=== PATIENT | female | born 1935 | race Caucasian/White ===

== ENCOUNTER 2019-12-05 07:09 | Emergency (ER) | payer MEDICARE, SELFPAY ==
[2019-12-05 07:10] VITALS: BP 152/88; PULSE 101; RESP 18; TEMP 36.7; O2SAT 98; BMI 23.2
--- NOTE | 2019-12-05 07:16 | EKG12_ITS ---
Test Reason : Blood Pressure : / mmHG Vent. Rate : 092 BPM Atrial Rate : 092 BPM P-R Int : 150 ms QRS Dur : 074 ms QT Int : 342 ms P-R-T Axes : 055 018 042 degrees QTc Int : 422 ms Normal sinus rhythm Nonspecific ST and T wave abnormality Abnormal ECG Confirmed by JEAN HAAS, CHRISTINE ([id number]), primer expeditor and drier LORENA GUAN ([id number] on 12/07/2019 9:59:40 AM Referred By: JUAN Confirmed By:CHRISTINE PENA MD
--- NOTE | 2019-12-05 07:17 | RAD_ITS ---
STUDY: X-RAY - LUMBAR SPINE REASON FOR EXAM: Female, 84 years old. Low back pain. Fell out of bed this morning. TECHNIQUE: 3 view(s) of the lumbar spine were obtained. COMPARISON: None FINDINGS: Normal lumbar lordosis. There is no substantial scoliosis. There is a normal alignment of the vertebrae. L4-L5 disc space height narrowing with endplate sclerosis. Moderate L5-S1 disc space height narrowing. Normal vertebral bodies and endplates. Normal remaining lumbar disc space heights. Mild asymmetric L4-L5 degenerative facet arthropathy. Densa vascular calcifications of the abdominal aorta down to the common femoral arteries. RAD/Lumbar Spine 2 or 3 Views IMPRESSION: No suspicious acute fracture or malalignment of the lumbar spine. Electronically Signed: Cameron Clifton MD at 8:31 EDT , Service support ,
--- NOTE | 2019-12-05 07:19 | ED.VIS.GEN ---
History of Present Illness Chief Complaint: Back Informant: Patient Onset: Today Context: Sudden Onset Timing: Intermittent Quality: Pain Location: Posterior left lower extremity, greatest calf Current Severity: Mild Maximum Severity: Severe Worsened by: Pressure on left foot Relieved by: Supine Associated Symptoms: Unable to bear weight Narrative: Patient is an 84-year-old woman who arrived by squad because of back pain and left calf pain. Patient states when her children came home she was on the floor. She does not recall if she fell or passed out. She did admit to having a strong drink . She states she has a drink every night. She denies headache, neck pain, neck stiffness, paresthesia, anesthesia motors. She denies visual, ocular auditory symptoms. Denies trouble with speech or swallowing. She denies chest pain, shortness of breath or difficulty breathing. There is no history of nausea vomiting. She is wearing a depends diaper because of the antibiotic she was placed on. She was told that the antibiotic can cause diarrhea. She denies diarrhea. Movement causes pain in the left calf. She has not noted a rash. She denies bowel bladder dysfunction. She states she has not urinated. She feels she can urinate. She has not had loss of bowel control. Denies saddle paresthesia or anesthesia. Prior similar symptoms: No Recent Illness/Hospitalization: No Past Medical History - Allergies and Home Meds Allergies/Adverse Reactions: Allergies BEANS Allergy (Uncoded 12/05/19 07:28) Anaphylaxis Primary Care Physician: Al Atwood DO [Primary Care Provider] - Prior records reviewed: No - There are no prior records for review Surgical History: noncontributory Lives: With Family Smoking Status: Current every day smoker Alcohol: Occasional - States she has a drink every night Drugs: None Review of Systems General: Denies: Fever, Malaise Eyes: Denies: Visual changes - bilaterally, Blurred Vision - bilaterally ENT: Denies: Rhinorrhea, Sore throat Cardiovascular: Denies: Chest pain, Palpitations Respiratory: Denies: Dyspnea, Cough, Dyspnea on exertion Gastrointestinal: Denies: Abdominal pain, Nausea, Vomiting, Diarrhea, Melena, Hematochezia Genitourinary: Denies: Dysuria, Hematuria, Frequency Musculoskeletal: Reports: Back pain, Extremity Pain. Denies: Myalgias, Arthralgias, Neck pain, Swelling, -, - Skin: Denies: Rash, Wounds Neurological: Denies: Headache, Weakness, Parasthesia, Numbness, -, - Endocrine: Denies: Polyuria, Polydipsia Hematologic: Denies: Easy bruising, Easy bleeding Physical Exam Vital Signs/Narrative: Vital Signs Temp Pulse Resp BP Pulse Ox 12/05/19 07:10 98.0 F 101 H 18 152/88 H 98 Inital Vital Signs reviewed: Yes General: Well nourished, Well developed, No Acute Distress Eyes: Perrl, EOMI. Negative for: Pale conjunctiva, Scleral icterus ENT: No rhinorrhea. Negative for: Nasal congestion Neck: Supple, Nontender, No lymphadenopathy, No JVD Cardiovascular: Regular rate, Regular rhythm, No murmurs, Normal S1, Normal S2 Respiratory: No distress, CTA bilaterally, Chest nontender Abdomen: Soft, Nontender, Nondistended, Normal bowel sounds, - - Is no pain the patient of the pelvis. Rectal: Deferred Back: Normal Inspection, Spinal tenderness. Negative for: CVA tenderness Extremities: No edema, Tenderness - Tenderness left calf.. Negative for: Nontender Skin: Normal color, No rash, No Trauma. Negative for: Cyanosis, Diaphoresis, Jaundice Neurological: Alert, Oriented x3, Cranial nerves II-XII grossly intact, Normal Strength, Normal Sensation, Normal DTR, - - Right leg test is positive at 45 degrees on the left. Crossover test is negative. Patella and ankle reflex are 1+. EHL is intact but causes pain in the calf. She has normal sensation over L4 and L5 dermatome. She is able to plantar and dorsiflex against resistance. DP and PT pulse are palpable. Sensation is normal.. Negative for: Normal Gait Psychological: Normal affect, Normal Mood Diagnostic/Tx/Re-eval Chest X-Ray - ED: Read by ED Physician, - - 2 view x-ray of the left tibia-fibula reveals no evidence of fracture, subluxation or dislocation of the knee or ankle joint. 3 view x-ray of the LS-spine reveals degenerative changes with asymmetric disc spaces. There is calcification aorta and there is widening of the aorta (3.25 cm to 3.15 cm). Surgical clips are noted as well. There is no evidence of acute fracture. X-rays were interpreted by me at 0816. Films were viewed on the view box in the radiology suite. 12/05/19 07:17 Lumbar Spine 2 or 3 Views [RAD] Stat 12/05/19 07:21 Tibia & Fibula 2 Views [RAD] Stat Laboratory Results 12/05/19 12/05/19 12/05/19 07:28 07:28 07:28 WBC 8.0 RBC 3.78 L Hgb 12.9 Hct 38.9 MCV 102.9 H MCH 34.1 H MCHC 33.2 RDW Std Deviation 47.8 H RDW Coeff of Macho 12.7 Plt Count 235 MPV 9.2 Immature Gran % (Auto) 0.800 Neut % (Auto) 73.5 H Lymph % (Auto) 17.9 L Gates % (Auto) 5.5 Eos % (Auto) 2.0 Baso % (Auto) 0.3 Absolute Neuts (auto) 5.9 Absolute Lymphs (auto) 1.43 Nucleated RBC % 0 Sodium 145 Potassium 3.4 L Chloride 111 H Carbon Dioxide 27.0 Anion Gap 7 BUN 10 Creatinine 0.79 Estim Creat Clear Calc 30.08 Est GFR (MDRD) Af Amer 89 Est GFR (MDRD) Non-Af 73 BUN/Creatinine Ratio 12.6 Glucose 96 Calcium 8.7 Total Creatine Kinase 50 Ethyl Alcohol 12/05/19 07:28 WBC RBC Hgb Hct MCV MCH MCHC RDW Std Deviation RDW Coeff of Macho Plt Count MPV Immature Gran % (Auto) Neut % (Auto) Lymph % (Auto) Gates % (Auto) Eos % (Auto) Baso % (Auto) Absolute Neuts (auto) Absolute Lymphs (auto) Nucleated RBC % Sodium Potassium Chloride Carbon Dioxide Anion Gap BUN Creatinine Estim Creat Clear Calc Est GFR (MDRD) Af Amer Est GFR (MDRD) Non-Af BUN/Creatinine Ratio Glucose Calcium Total Creatine Kinase Ethyl Alcohol 39.0 - Rhythm Strip Rhythm Strip: Sinus Rhythm Rate: 88 Ectopy: None - EKG Initial EKG Interpretation: Sinus Rhythm - Sinus rhythm with a ventricular rate of 92. TX interval is 150 ms. QRS duration 74 ms. QT duration 342 ms. The axis is normal. There is nonspecific ST-T wave changes in the lateral leads. Will ask for old for comparison. The ST-T wave changes were noted on EKG performed May 17, 2004. - Medical Decision Making Patient has a sweet odor to her breath. This may be secondary to alcohol in light of her informing me that she had a strong drink last night. Will obtain images of the back and left leg to evaluate for fracture since there is a history of fall. Because she was on the floor for unknown amount of time and a CPK was obtained to evaluate for rhabdomyolysis. Basic metabolic panel was obtained to assess renal function since she was on the floor for prolonged period time as well as electrolytes. CBC to evaluate H&H. Since her neuro exam is nonfocal and she denies headache and is not on anticoagulant imaging of the head was not obtained. C-spine was cleared per Nexus criteria since she has no pain if she is lying supine on the cot. Prevoid bladder scan revealed greater than 1 L of urine. Postvoid was 928. She did void 300 cc. Mena was ordered. Once patient returns from radiology suite will perform rectal to rule out possibility of cauda equina otherwise will obtain stat MRI. Patient has normal perianal sensation. She has good rectal tone. Stool is brown in color. ED Disposition - Plan for ED Patient: Diagnosis: Fall as cause of accidental injury at home as place of occurrence, Contusion of lower back and pelvis, initial encounter, Pain of left calf, Alcohol use, Acute urinary retention, Abdominal aortic aneurysm (AAA) 30 to 34 mm in diameter Instructions: ED Contusion Back, ED Mena Catheter Care, ED Retention Urinary Female, ED Aneurysm Abdominal Aortic Stable Prescriptions: Hydrocodone Bitart/Apap 5-325 [[place] 5MG-325MG] 1 tab PO Q6H PRN PRN 3 Days #10 tab PRN Reason: Pain Prescription Printed Referrals: Al Atwood DO [Primary Care Provider] - 1 Week if not improving Ken Staley MD [STAFF PHYSICIAN] - 3-5 Days Additional Instructions: Contact Dr. Staley's office on Saturday to be seen later this coming week.
--- NOTE | 2019-12-05 07:21 | RAD_ITS ---
STUDY: X-RAY - LEFT TIBIA AND FIBULA REASON FOR EXAM: Female, 84 years old. Fell out of bed this morning -- posterior calf muscle pain TECHNIQUE: 2 view(s) of the tibia and fibula were obtained. COMPARISON: None. FINDINGS: Normal visualized tibia. Normal visualized fibula. The soft tissue structures are unremarkable. RAD/Tibia & Fibula 2 Views IMPRESSION: No suspicious acute fracture or dislocation of the left tibia and fibula. Electronically Signed: Cameron Clifton MD at 8:31 EDT , Service support ,
[2019-12-05] MEDS: Morphine 2 MG/ML Syringe IV (07:32)
[2019-12-05 07:37] LABS: Absolute Lymphocyte Count 1.43 X10^3/uL (0.83-4.51); Absolute Neutrophil Count 5.9 X10^3/uL (2.0-7.7); Basophil# 0.02 X10^3/uL; Basophil% 0.3 % (0-1); Eosinophil# 0.16 X10^3/uL; Hematocrit 38.9 % (37-47); Hemoglobin 12.9 g/dL (12.0-15.0); Lymphocyte # 1.43 X10^3/ul (4.0); Lymphocyte % 17.9 % (19-41); Mean Corp Hgb Conc 33.2 g/dL (32-36); Mean Corpuscular Hgb 34.1 pg (27.0-32.0); Mean Corpuscular Volume 102.9 fL (81-99); Mean Platelet Vol. 9.2 fl (6.2-12.0); Monocyte# 0.44 X10^3/uL; Monocyte% 5.5 % (0-10); NRBC Flagged by Analyzer 0 % (0-5); Neutrophil # 5.87 X10^3/uL (2.7-7.7); Neutrophil % 73.5 % (47-70); Platelet Count 235 K/mm3 (150-450); RBC Distribution Width CV 12.7 % (11.6-14.6); RBC Distribution Width SD 47.8 fl (35.1-43.9); Red Blood Count 3.78 M/mm3 (4.2-5.4)
[2019-12-05 07:48] LABS: Anion Gap 7 (5-15); BUN 10 mg/dL (7-18); BUN/Creat Ratio 12.6 RATIO (10-20); Calcium,Total 8.7 mg/dL (8.5-10.1); Chloride 111 mmol/L (98-107); Creatinine, Serum 0.79 mg/dL (0.55-1.02); EST Glomerular Filtration Rate 73 mL/min (>60); Est Glom Filt Rate - Afr Amer 89 mL/min (>60); Estimated Creatinine Clearance 30.08 ml/min; Glucose 96 mg/dL (74-106); Potassium 3.4 mmol/L (3.5-5.1); Sodium Level 145 mmol/L (136-145)
[2019-12-05 08:00] LABS: CPK Total, Creatine Kinase 50 U/L (26-192)
[2019-12-05] MEDS: Morphine 4 MG/ML Syringe IV (08:57)
[2019-12-05 09:02] VITALS: BP 139/73; PULSE 97; RESP 18; O2SAT 97
--- NOTE | 2019-12-05 09:24 | NURSING ---
hennessy hooked up to leg bag. pt instructed on use. this rn spoke to son, derick. verbalizes understanding.
== END 2019-12-05 09:30 | disposition home or self-care (01) ==
LOC: ED 08:47
PROVIDERS: Emergency Provider Emergency Medicine; PCP Nurse Practitioner Family
DX: S30.0XXA Contusion of lower back and pelvis, initial encounter (principal); W06.XXXA Fall from bed, initial encounter; Y93.9 Activity, unspecified; Y92.009 Unspecified place in unspecified non-institutional (private) residence as the place of occurrence of the external cause; M79.662 Pain in left lower leg; R33.9 Retention of urine, unspecified; I71.4 Abdominal aortic aneurysm, without rupture; F17.200 Nicotine dependence, unspecified, uncomplicated; Z72.89 Other problems related to lifestyle
CPT/HCPCS: 51702; 72100; 73590; 80048; 80320; 82550; 85025; 93005; 96374; 96376; 99285; A4216; G0480

== ENCOUNTER → 2020-04-20 16:05 | Outpatient (CLI) | payer MEDICARE, OTHER, SELFPAY ==
[2020-04-20 15:34] VITALS: BMI 23.2
[2020-04-20 18:43] LABS: ALB/GLOB Ratio 0.8 RATIO (0.9-2.4); AST(SGOT) 27 U/L (15-37); Alanine Aminotransfer ALT/SGPT 19 U/L (13-56); Albumin, Serum 3.5 g/dL (3.2-5.0); Alkaline Phosphatase 110 U/L (45-117); Anion Gap 3 (5-15); BUN 18 mg/dL (7-18); BUN/Creat Ratio 23.5 RATIO (10-20); Calcium,Total 9.1 mg/dL (8.5-10.1); Chloride 108 mmol/L (98-107); Creatinine, Serum 0.77 mg/dL (0.55-1.02); EST Glomerular Filtration Rate 76 mL/min (>60); Est Glom Filt Rate - Afr Amer 92 mL/min (>60); Globulin 4.2 g/dL (2.2-4.2); Glucose 91 mg/dL (74-106); Potassium 4.5 mmol/L (3.5-5.1); Protein, Total 7.7 g/dL (6.4-8.2); Sodium Level 142 mmol/L (136-145); Thyroid Stim Hormone (TSH) 1.46 uIU/mL (0.358-3.74)
== END ==
PROVIDERS: PCP Internal Medicine; Referring Provider Internal Medicine; Visit Provider Internal Medicine
DX: I10 Essential (primary) hypertension (principal); E03.9 Hypothyroidism, unspecified
CPT/HCPCS: 36415; 80053; 84443

== ENCOUNTER → 2020-10-28 09:24 | Outpatient (CLI) | payer MEDICARE, OTHER, SELFPAY ==
[2020-10-28 08:21] VITALS: BMI 25.2
[2020-10-28 12:29] LABS: Absolute Lymphocyte Count 1.95 X10^3/uL (0.83-4.51); Absolute Neutrophil Count 3.7 X10^3/uL (2.0-7.7); Basophil# 0.03 X10^3/uL; Basophil% 0.5 % (0-1); Eosinophil# 0.09 X10^3/uL; Eosinophils% 1.5 % (0-5); Hemoglobin 13.9 g/dL (12.0-15.0); Lymphocyte # 1.95 X10^3/ul (4.0); Lymphocyte % 31.6 % (19-41); Mean Corp Hgb Conc 31.6 g/dL (32-36); Mean Corpuscular Volume 101.1 fL (81-99); Mean Platelet Vol. 10.1 fl (6.2-12.0); Monocyte# 0.41 X10^3/uL; Monocyte% 6.6 % (0-10); NRBC Flagged by Analyzer 0 % (0-5); Neutrophil # 3.68 X10^3/uL (2.7-7.7); Neutrophil % 59.5 % (47-70); Platelet Count 299 K/mm3 (150-450); RBC Distribution Width SD 48.8 fl (35.1-43.9); Red Blood Count 4.35 M/mm3 (4.2-5.4); White Blood Count 6.2 K/mm3 (4.4-11.0)
[2020-10-28 12:37] LABS: AST(SGOT) 25 U/L (15-37); Alanine Aminotransfer ALT/SGPT 23 U/L (13-56); Albumin, Serum 3.8 g/dL (3.2-5.0); Alkaline Phosphatase 96 U/L (45-117); Anion Gap 4 (5-15); BUN 17 mg/dL (7-18); BUN/Creat Ratio 20.7 RATIO (10-20); Chloride 106 mmol/L (98-107); Creatinine, Serum 0.82 mg/dL (0.55-1.02); EST Glomerular Filtration Rate 70 mL/min (>60); Est Glom Filt Rate - Afr Amer 85 mL/min (>60); Globulin 3.8 g/dL (2.2-4.2); Glucose 103 mg/dL (74-106); Potassium 4.5 mmol/L (3.5-5.1); Protein, Total 7.6 g/dL (6.4-8.2); Sodium Level 141 mmol/L (136-145)
== END ==
PROVIDERS: PCP Internal Medicine; Referring Provider Internal Medicine; Visit Provider Internal Medicine
DX: R42 Dizziness and giddiness (principal); I10 Essential (primary) hypertension
CPT/HCPCS: 36415; 80053; 85025

== ENCOUNTER 2020-11-16 10:00 | Outpatient (RCR) | payer MEDICARE, OTHER, SELFPAY ==
[2020-10-28 08:21] VITALS: BMI 25.2
--- NOTE | 2020-11-07 14:21 | HP.PTEVAL_ITS ---
Patient's Visit Information PALAK MUHAMMAD is a 85 year old F referred to Physical Therapy by Dr. Bailey Cerna MD with a diagnosis of Dizziness, BLE pain. Date of Evaluation: 11/07/20 Physical Therapist: Mendel Salmon DPT - Visit Plan Frequency: 2x /Week Duration: 4 Weeks Plan: Start with B LE strengthening, progress walking program to increase general activity. Add in static and dynamic balance. Reasses for vestibular vs positional dizziness. - Subjective Pt. is here today for her initial evaluation with diagnosis of dizziness, and having leg pain. Pt. is here today with her daughter in law. Pt. reports pain in BLEs with walking, standing and stairs. She reports having dizziness periodically. Sometimes with getting up and rolling over and sometime when she is just walking. She moved in her with son and daughter in law about 4 years ago after her . Pt. and daughter in law report that she spends many hours in the day in bed, utpo 6-7 hours during the day in bed. She spends most of her time crocheting. She does not leave the house much during COVID, but is hopeful to get back to more outdoor activities. She uses 3 wheeled walker outside and no AD in home. She tends to furniture walk in home. 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 Noted BP elevated, but is taking medication for this. Pt. is hopeful to reduce BLE pain and her dizziness along with improving her balance. - Pain BLE Pain Intensity (Out of 10): 2 Pain Intensity Range: 0, 6 Comment: occassionlly in her L hip - Objective POSTURE: Pt. has slight flexed posture, unsteady without use of AD. Pt. tends to reachout for balance aide if available. PALPATION: Pt. has no pain with palpation of BLEs. NEURO: Pt. has normal sensation and normal DTR of B achilles and patellar tendons. I check VOR, saccades and eye tracking. No nystagmus noted, but did report mild dizziness with lateral eye tracking. I did have her do a eplys test- negative for initial dizziness, but did have some mild after ~10 sec, no nystagmus. ROM: Pt. has good ROM in B knees and hips, tightness not ed in B HS ~70deg in 90/90 positioning. MMT: Pt. has 4+/5 general BLEs strengthening , except: 5/5 B ankle PF; 4/5 hip abd. Ankle 4+/5 throughout. GAIT: pt. uses 3 wheeled walker with walking and has safe pattern. Without AD, patient is very hesitant to ambulate she attemps to reachout of railings and alford to help stabilize. Pt. has increased diffciutly with directional changes. - Balance Scores Functional Gait Assessment Score: 8 % Disability: 73.3400 CATSIB Score (Max score 120 seconds): 29 - Goals Goal 1:: LTG: Pt. to be I with HEP for BLE strengthening. Goal Time Frame: 4-6 Weeks Goal 2:: STG: Pt. to start a consistent walking program. Goal Time Frame: 2-4 Weeks Goal 3:: LTG: Pt. to report decreased occurance of dizziness to x1 daily. Goal Time Frame: 4-6 Weeks Goal 4:: LTG: pt. to have increased BLE strength including B hips and ankles by 1/2 grade of all effected musculature. Goal Time Frame: 4-6 Weeks Goal 5:: LTG: Pt. to increase FGA to 12/30 indicating reduced risk for future falls. Goal Time Frame: 4-6 Weeks Goal 6:: STG: Pt. to be re checked for positional vertigo vs other source of dizziness. Goal Time Frame: 4-6 Weeks - Rehabilitation Potential Physical Therapy Diagnosis: Pt. has signs and symptoms consistent with dizziness and BLE pain. She does present with balance issues as seen in her FGA score. I did not see much nystagmus with testing today, but I will re test next visit. She is overall deconditioned in her LEs, most likely due to her in activety. She would benefit from PT to work on BLE strengthening, balance and to re assess further vestibular vs positional issues. Rehabilitation Potential: Good - Anticipated Interventions Patient/Client Instruction: Educate patient on: Condition, Plan of Care, Risk Factors, Benefits of Fitness Program For the Purpose of:: To improve self management, To prevent re-injury, To imp rove ability to perform tasks related to life management, To improve tolerance to ADL's Therapeutic Exercise to Include: Strength training, Power training, Endurance training, Balance training, Coordination, Body mechanics, Postural training, Flexibilty training, Gait and locomotor training, Neuromotor development, Passive ROM, Active ROM For the Purpose of:: To increase ROM, To improve nutrient delivery to tissue, To increase oxygenation perfusion, To improve muscle performance and motor function, To improve ability to perform ADL's, To increase tolerance to activity/condition/position, To improve gait and locomotor functions, To improve health of tissue, To decrease soft tissue restriction, To increase flexibility/ROM, To improve endurance, To improve balance, To improve safety with gait Thank you for the opportunity to evaluate your patient. For Medicare and Medicare HMO plans, please review the plan of care and approve it. It will need to be FAXED BACK to us at [phone] for Medicare purposes. For Medicare only, by signing this I certify the plan of care. Please let me know if there are questions or concerns regarding this plan of care. Physician Signature: Date:
--- NOTE | 2021-01-18 13:20 | HP.PT.NRP ---
PALAK MUHAMMAD was seen in my office for initial evaluation on 11/07/20. The following Plan of Care was established for this patient: Initial Frequency: 2x /Week Initial Duration: 4 Weeks Patient/Client Instruction: Educate patient on: Condition, Plan of Care, Risk Factors, Benefits of Fitness Program For the Purpose of:: To improve self management, To prevent re-injury, To improve ability to perform tasks related to life management, To improve tolerance to ADL's Therapeutic Exercise to Include: Strength training, Power training, Endurance training, Balance training, Coordination, Body mechanics, Postural training, Flexibilty training, Gait and locomotor training, Neuromotor development, Passive ROM, Active ROM For the Purpose of:: To increase ROM, To improve nutrient delivery to tissue, To increase oxygenation perfusion, To improve muscle performance and motor function, To improve ability to perform ADL's, To increase tolerance to activity/condition/position, To improve gait and locomotor functions, To improve health of tissue, To decrease soft tissue restriction, To increase flexibility/ROM, To improve endurance, To improve balance, To improve safety with gait This patient was last seen in our office 11/16/20. Pertinent comments regarding their Physical therapy will appear below: Pt. was evaluated in PT and had a balance assessment. She did not attend any further appointments. PT. has not been seen in ~2 months and will be DC from PT at this point in time. At this point I will be discontinuing this patient from physical therapy. I would be happy to see this patient again in the future if found appropriate by the physician. Thank you! Mendel Salmon DPT
== END 2020-11-16 19:00 | disposition home or self-care (01) ==
LOC: PT 10:00
PROVIDERS: PCP Internal Medicine; Referring Provider Internal Medicine; Visit Provider Internal Medicine
DX: R42 Dizziness and giddiness (principal); R29.898 Other symptoms and signs involving the musculoskeletal system
CPT/HCPCS: 97161; 97530

== ENCOUNTER 2021-09-18 15:26 | Outpatient (CLI) | payer MEDICARE, OTHER, SELFPAY ==
[2021-09-18 16:55] LABS: Absolute Lymphocyte Count 2.32 X10^3/uL (0.83-4.51); Absolute Neutrophil Count 5.2 X10^3/uL (2.0-7.7); Basophil# 0.03 X10^3/uL; Basophil% 0.4 % (0-1); Eosinophil# 0.05 X10^3/uL; Eosinophils% 0.6 % (0-5); Hematocrit 44.7 % (37-47); Hemoglobin 15.2 g/dL (12.0-15.0); Lymphocyte # 2.32 X10^3/ul (0.83-4.51); Lymphocyte % 28.2 % (19-41); Mean Corpuscular Hgb 34.8 pg (27.0-32.0); Mean Corpuscular Volume 102.3 fL (81-99); Mean Platelet Vol. 9.9 fl (6.2-12.0); Monocyte# 0.64 X10^3/uL; Monocyte% 7.8 % (0-10); NRBC Flagged by Analyzer 0 % (0-5); Neutrophil # 5.15 X10^3/uL (2.7-7.7); Neutrophil % 62.5 % (47-70); Platelet Count 334 K/mm3 (150-450); RBC Distribution Width CV 12.1 % (11.6-14.6); RBC Distribution Width SD 45.6 fl (35.1-43.9); Red Blood Count 4.37 M/mm3 (4.2-5.4); White Blood Count 8.2 K/mm3 (4.4-11.0)
[2021-09-18 17:16] LABS: ALB/GLOB Ratio 0.9 RATIO (0.9-2.4); AST(SGOT) 25 U/L (15-37); Alanine Aminotransfer ALT/SGPT 17 U/L (13-56); Albumin, Serum 3.7 g/dL (3.2-5.0); Alkaline Phosphatase 102 U/L (45-117); Anion Gap 7 (5-15); BUN 15 mg/dL (7-18); BUN/Creat Ratio 16.9 RATIO (10-20); Chloride 104 mmol/L (98-107); Creatinine, Serum 0.89 mg/dL (0.55-1.02); EST Glomerular Filtration Rate 64 mL/min (>60); Est Glom Filt Rate - Afr Amer 78 mL/min (>60); Globulin 4.1 g/dL (2.2-4.2); Glucose 91 mg/dL (74-106); Potassium 3.7 mmol/L (3.5-5.1); Protein, Total 7.8 g/dL (6.4-8.2); Sodium Level 138 mmol/L (136-145); Thyroid Stim Hormone (TSH) 4.26 uIU/mL (0.358-3.74)
== END 2021-09-18 23:59 | disposition home or self-care (01) ==
LOC: BIMLAB 15:27
PROVIDERS: PCP Internal Medicine; Referring Provider Physician Assistant; Visit Provider Physician Assistant
DX: I10 Essential (primary) hypertension (principal); E03.9 Hypothyroidism, unspecified
CPT/HCPCS: 36415; 80053; 84443; 85025

== ENCOUNTER → 2021-12-14 | Outpatient (CLI) | payer MEDICARE, OTHER, SELFPAY ==
[2021-12-14 17:06] LABS: T4 Free Direct 1.38 ng/dL (0.76-1.46); Thyroid Stim Hormone (TSH) 3.01 uIU/mL (0.358-3.74)
== END | disposition home or self-care (01) ==
LOC: BIMLAB 15:25
PROVIDERS: PCP Internal Medicine; Referring Provider Physician Assistant; Visit Provider Physician Assistant
DX: E03.9 Hypothyroidism, unspecified (principal)
CPT/HCPCS: 36415; 84439; 84443

== ENCOUNTER → 2022-04-19 | Outpatient (CLI) | payer MEDICARE, OTHER, SELFPAY ==
--- NOTE | 2022-04-19 14:42 | CT_ITS ---
EXAMINATION: HELICAL COMPUTED TOMOGRAPHY OF THE BRAIN WITHOUT CONTRAST ADMINISTRATION OF 1449 HOURS ON 04/19/2022 INDICATION: 87-year-old female with a posterior left headache of one week''s duration. TECHNIQUE: Multiple axial images were obtained of the head without intravenous contrast. Sagittal and coronal reconstructions were obtained and all were demonstrated in osseous and soft tissue algorithms. A radiation dose optimization technique was used for this scan. COMPARISON: None. FINDINGS: Mild cortical, central, and cerebellar atrophy.. No midline shift. Mild periventricular ischemic changes, normal. Age. No ischemic or hemorrhagic cerebral infarct. No intracranial neoplasms or metastatic disease. No intracranial hemorrhage or hematomas. Normal sella and pituitary pituitary. Normal brainstem and posterior fossa. Normal calvarium and paranasal sinuses. CT/Brain/Head without Contrast IMPRESSION: 1. Mild cortical, central, cerebellar atrophy. 2. No infarcts, mass lesions, or metastatic disease. 3. No hemorrhage or hematomas. 4. No other intracranial pathology. 5. Normal calvarium and paranasal sinuses. Electronically Signed: Stefan Nixon MD at 16:24 EDT ,
== END | disposition home or self-care (01) ==
LOC: CT 14:34
PROVIDERS: PCP Internal Medicine; Visit Provider Internal Medicine
DX: I10 Essential (primary) hypertension (principal); R51.9 Headache, unspecified
CPT/HCPCS: 70450

== ENCOUNTER → 2022-07-25 | Outpatient (CLI) | payer MEDICARE, OTHER, SELFPAY ==
[2022-07-25 15:37] LABS: Absolute Lymphocyte Count 2.17 X10^3/uL (0.83-4.51); Absolute Neutrophil Count 3.8 X10^3/uL (2.0-7.7); Basophil# 0.05 X10^3/uL; Basophil% 0.8 % (0-1); Eosinophil# 0.06 X10^3/uL; Eosinophils% 0.9 % (0-5); Hematocrit 44.7 % (37-47); Lymphocyte # 2.17 X10^3/ul (0.83-4.51); Lymphocyte % 33.1 % (19-41); Mean Corp Hgb Conc 33.6 g/dL (32-36); Mean Corpuscular Hgb 34.4 pg (27.0-32.0); Mean Corpuscular Volume 102.5 fL (81-99); Mean Platelet Vol. 9.8 fl (6.2-12.0); Monocyte# 0.45 X10^3/uL; Monocyte% 6.9 % (0-10); NRBC Flagged by Analyzer 0 % (0-5); Neutrophil # 3.82 X10^3/uL (2.7-7.7); Neutrophil % 58.1 % (47-70); Platelet Count 297 K/mm3 (150-450); RBC Distribution Width CV 11.9 % (11.6-14.6); RBC Distribution Width SD 45.2 fl (35.1-43.9); Red Blood Count 4.36 M/mm3 (4.2-5.4); White Blood Count 6.6 K/mm3 (4.4-11.0)
[2022-07-25 15:55] LABS: Vitamin D,25 Hydroxy 76.6 ng/mL
[2022-07-25 16:08] LABS: Anion Gap 8 (5-15); BUN 14 mg/dL (7-18); BUN/Creat Ratio 17.4 RATIO (10-20); Calcium,Total 9.3 mg/dL (8.5-10.1); Chloride 104 mmol/L (98-107); EST Glomerular Filtration Rate 72 mL/min (>60); Est Glom Filt Rate - Afr Amer 87 mL/min (>60); Glucose 114 mg/dL (74-106); Potassium 4.1 mmol/L (3.5-5.1); Sodium Level 139 mmol/L (136-145)
== END | disposition home or self-care (01) ==
LOC: BIMLAB 12:12
PROVIDERS: PCP Internal Medicine; Referring Provider Internal Medicine; Visit Provider Internal Medicine
DX: I10 Essential (primary) hypertension (principal); E55.9 Vitamin D deficiency, unspecified
CPT/HCPCS: 36415; 80048; 82306; 85025

== ENCOUNTER → 2022-08-15 | Outpatient (CLI) | payer MEDICARE, OTHER, SELFPAY ==
--- NOTE | 2022-08-15 15:27 | BD_ITS ---
STUDY: DUAL ENERGY X-RAY ABSORPTIOMETRY / DXA REASON FOR EXAM: Female, 87 years old. Post menopausal TECHNIQUE: Bone Mineral Density (BMD) measurements of lumbar spine and bilateral hips were obtained. COMPARISON: None. FINDINGS: Lumbar Spine (L1-L4): g/cm2 (0.778) / T-score (-2.2) / Z-score (0.6) Findings are suggestive of osteopenia with a high fracture risk. Left Femur Total: g/cm2 (0.615) / T-score (-2.7) / Z-score (-0.3) Left Femoral Neck: g/cm2 (0.566) / T-score (-2.6) / Z-score (0.0) Right Femur Total: g/cm2 (0.536) / T-score (-3.3) / Z-score (-1.0) Right Femoral Neck: g/cm2 (0.531) / T-score (-2.9) / Z-score (0.3) BD/Dexa Bone Density Study IMPRESSION: The patient is considered osteoporotic as outlined below according to World Diogenes Organization (WHO) criteria with a high fracture risk. Reference Information: The T-score is the number of standard deviations above or below the standard which is normal for young adults at their peak bone mineral density. The World Health Organization (WHO) interprets the T-scores as follows: Above -1 Normal bone density Between -1 and -2.5 Osteopenia Equal to / or below -2.5 Osteoporosis As a practical clinical guideline, osteopenia may be graded as follows: Mild -1 through -1.5 Moderate -1.6 through -2.0 Severe -2.1 through -2.4 The Z-score is the number of standard deviations above or below age-matched controls. A Z-score of less than -1.5 would be considered abnormal. References: 1. NIH Osteoporosis and Related Bone Diseases www osteo.org 2. International Society for Clinical Densitometry www iscd.org 3. National Osteoporosis Foundation www nof.org Electronically Signed: Lc Nunez MD at 12:50 EST ,
== END | disposition home or self-care (01) ==
LOC: OPBD 15:17
PROVIDERS: PCP Internal Medicine; Visit Provider Internal Medicine
DX: M81.0 Age-related osteoporosis without current pathological fracture (principal); M85.80 Other specified disorders of bone density and structure, unspecified site; Z78.0 Asymptomatic menopausal state
CPT/HCPCS: 77080

== ENCOUNTER 2022-11-08 10:43 | Emergency (ER) | payer MEDICARE, OTHER, SELFPAY ==
[2022-11-08 10:44] VITALS: BP 165/81; PULSE 103; RESP 18; TEMP 36.3; O2SAT 98
[2022-11-08 10:53] VITALS: BMI 24.3
--- NOTE | 2022-11-08 11:04 | CT_ITS ---
STUDY: CT BRAIN WITHOUT CONTRAST REASON FOR EXAM: Female, 87 years old. Dizziness RADIATION DOSAGE (If Supplied By Facility): CTDIvol = ( 47.06 ) mGy, DLP = ( 855.03 ) mGycm TECHNIQUE: Transaxial CT imaging of the brain was performed without administration of intravenous contrast material. Individualized dose optimization techniques were used for this CT. COMPARISON: 04/19/2022 FINDINGS: There is no acute bleed or infarct. There are stable chronic ischemic and atrophic changes. The ventricles are normal in configuration. There is no hydrocephalus. The visualized paranasal sinuses are clear. The mastoid air cells are well aerated. There is no skull fracture. CT/Brain/Head without Contrast IMPRESSION: Stable chronic ischemic and atrophic changes. No acute intracranial abnormality. Electronically Signed: Billy Finney MD at 12:48 EDT ,
--- NOTE | 2022-11-08 11:04 | EKG12_ITS ---
Test Reason : DIZZY Blood Pressure : / mmHG Vent. Rate : 090 BPM Atrial Rate : 090 BPM P-R Int : 152 ms QRS Dur : 072 ms QT Int : 338 ms P-R-T Axes : 051 022 040 degrees QTc Int : 413 ms Normal sinus rhythm Nonspecific ST abnormality Abnormal ECG Confirmed by CHRISTINE HAAS, ALVAREZ ([id number]), telegraph editor HALEY MACDONALD ([id number]) on 11/12/2022 10:47:18 AM Referred By: Confirmed By:NANCY KING MD
--- NOTE | 2022-11-08 11:09 | EX.ED.DYSGE1 ---
HPI <CRISTAL Oliveira - Last Filed: 11/08/22 13:29> History of Present Illness Chief Complaint: Dizziness Narrative Narrative: Patient presenting to the day with dizziness that she describes as feeling like the room is spinning around her that started this morning when she got out of bed. She states that it is worsened when she goes to stand up but she also does have symptoms at rest when lying still. She states that she has a history of intermittent dizziness but it has never been this bad and she has never been diagnosed with vertigo. PMH includes hypertension and Graves' disease. She denies any chest pain, recent illness, fever, shortness of breath, abdominal pain, nausea, and vomiting. PFSH <CRISTAL Oliveira - Last Filed: 11/08/22 13:29> [facility] Medical History Dermatitis Dizziness Essential hypertension Flu vaccine need Graves disease Headache Hypothyroid Left axillary swelling Osteoporosis Post-menopausal Home Medications aspirin 81 mg tablet,delayed release (Adult Low Dose Aspirin) 81 mg PO DAILY 04/20/20 [History Last Taken Unknown] diphenoxylate-atropine 2.5 mg-0.025 mg tablet 1 tab PO Q6H PRN 04/20/20 [History Last Taken Unknown] multivitamin (One-A-Day Essential tablet) 1 tab PO QAM 04/20/20 [History Last Taken Unknown] losartan 100 mg tablet 100 mg PO DAILY #90 tabs 09/18/21 [Rx Last Taken Unknown] Handicap Placard #1 ea 11/03/21 [Rx Last Taken Unknown] ibuprofen 200 mg tablet (Advil) 200 mg PO Q4H PRN 04/17/22 [History Last Taken Unknown] cholecalciferol (vitamin D3) 25 mcg (1,000 unit) capsule 25 mcg PO DAILY 07/25/22 [History Last Taken Unknown] amlodipine 10 mg tablet 10 mg PO DAILY #90 tabs 07/30/22 [Rx Last Taken Unknown] alendronate 70 mg tablet 70 mg PO QWEEK 3 months #13 tabs 08/20/22 [Rx Last Taken Unknown] cholestyramine (with sugar) 4 gram oral powder 4 g PO BID 3 months #378 grams 08/20/22 [Rx Last Taken Unknown] levothyroxine 75 mcg tablet 75 mcg PO DAILY #90 tabs 09/27/22 [Rx Last Taken Unknown] meclizine 25 mg tablet 25 mg PO 4X/DAY PRN PRN Dizziness #20 tabs 11/08/22 [Rx Last Taken Unknown] Allergy/AdvReac Type Severity Reaction Status Date / Time mendez Allergy Anaphylaxis Verified 11/08/22 10:46 Surgical History H/O: hysterectomy Social History Smoking Status: Current every day smoker tobacco type: e-cigarettes Electronic Cigarette Use: without nicotine alcohol intake: current substance use type: does not use ROS <CRISTAL Oliveira - Last Filed: 11/08/22 13:29> ROS ED Constitutional Constitutional ED: Denies chills, fever(s) or sweats Eyes Eyes: Denies blurry vision or diplopia Cardiovascular Cardiovascular: Denies chest pain or palpitations Respiratory/Chest Respiratory/Chest: Denies cough or dyspnea Gastrointestinal Gastrointestinal: Denies abdominal pain, nausea or vomiting Genitourinary Genitourinary ED: Denies dysuria or hematuria Musculoskeletal Musculoskeletal: Denies arthralgias or myalgias Integumentary Denies abscess, Abrasions or rash Neurologic Neurologic: Reports dizziness; Denies confusion or paresthesias Psychiatric Psychiatric: Denies anxiety, depression, suicidal ideation or suicidal thoughts EXAM <CRISTAL Oliveira - Last Filed: 11/08/22 13:29> Physical Exam Const Vital Signs: 11/08/22 10:44 11/08/22 10:53 11/08/22 12:58 Temperature 97.4 F L Temperature Source Temporal Pulse Rate 103 H Pulse Rate [Lying] 100 Pulse Rate [Sitting (for 1 minute prior to obtaining)] 103 H Pulse Rate [Standing (for 1 minute prior to obtaining)] 110 H Respiratory Rate 18 Respiratory Effort Normal Non-Labored Respiratory Pattern Normal Blood Pressure 165/81 H Blood Pressure [Lying] 148/87 H Blood Pressure [Sitting (for 1 minute prior to obtaining)] 146/79 H Blood Pressure [Standing (for 1 minute prior to obtaining)] 149/90 H Blood Pressure Mean 109 Blood Pressure Mean [Lying] 107 Blood Pressure Mean [Sitting (for 1 minute prior to obtaining)] 101 Blood Pressure Mean [Standing (for 1 minute prior to obtaining)] 109 Pulse Ox 98 Oxygen Delivery Method Room Air Positive well nourished, well developed and no apparent distress General Appearance ED: well developed HEENT Reports normocephalic and head/scalp atraumatic Mouth ED: Yes moist mucous membranes normal Eyes PERRL and EOMs intact bilaterally Neck full ROM and supple Chest Wall inspection of chest normal Resp normal respiratory effort and clear to auscultation bilaterally Cardio regular rate and regular rhythm GI soft to palpation, non-tender, non-distended and no masses Back/Spine normal ROM and normal to inspection Extremity normal to inspection and full ROM Neuro oriented x3, CN's II-XII intact bilaterally, moves all extremities, no focal motor deficits and no sensory deficits noted Sensorium / Orientation: awake and alert Psych mental status grossly normal and thought process normal Skin no rashes or lesions noted and no wounds <Dr. Vazquez Gupta MD - Last Filed: 11/08/22 13:13> Physical Exam Const Vital Signs: 11/08/22 10:44 11/08/22 10:53 11/08/22 12:58 Temperature 97.4 F L Temperature Source Temporal Pulse Rate 103 H Pulse Rate [Lying] 100 Pulse Rate [Sitting (for 1 minute prior to obtaining)] 103 H Pulse Rate [Standing (for 1 minute prior to obtaining)] 110 H Respiratory Rate 18 Respiratory Effort Normal Non-Labored Respiratory Pattern Normal Blood Pressure 165/81 H Blood Pressure [Lying] 148/87 H Blood Pressure [Sitting (for 1 minute prior to obtaining)] 146/79 H Blood Pressure [Standing (for 1 minute prior to obtaining)] 149/90 H Blood Pressure Mean 109 Blood Pressure Mean [Lying] 107 Blood Pressure Mean [Sitting (for 1 minute prior to obtaining)] 101 Blood Pressure Mean [Standing (for 1 minute prior to obtaining)] 109 Pulse Ox 98 Oxygen Delivery Method Room Air MDM <CRISTAL Oliveira - Last Filed: 11/08/22 13:29> [facility] Narrative Medical decision making narrative: Patient presenting today with dizziness that started this morning when she woke up. She feels like the room is spinning around her. She states that it is worse when she tries to get up to ambulate but she also does have dizziness when lying still. Patient does however have a positive Hallpike. She reports having some queasiness in her stomach but does not want anything for nausea at this time. Labs have been obtained to rule out anemia, electrolyte abnormality, leukocytosis and patient has been given meclizine. Labs are unremarkable. Orthostats are negative. Head CT obtained due to the worsening of patient's dizziness to rule out intracranial abnormality and is negative for any acute changes. On reexamination she states that she is feeling a lot better and her dizziness has subsided substantially. Patient's examination is consistent with vertigo. I have reviewed previous notes with her PCP and she has been seen several times in the past for this issue. She will be given a prescription for meclizine as well as a referral for ENT. She will be discharged home in stable condition and is comfortable with plan. I have personally performed a face to face assessment of the patient and have reviewed the LAY Note. I performed a substantive portion of the visit including all aspects of the following. My enciso findings include: History is [87-year-old female that I am seeing with our physician social services assistant. Patient complaining of room spinning dizziness. Worse with movement head movement. Denies headache. Denies nausea vomiting or diarrhea. Able to ambulate. No weakness in her upper or lower extremities. No falls or head trauma. Prior history of vertigo.] Exam is [well-appearing 87-year-old female. Vital signs are stable afebrile. H EENT exam unremarkable. She has bilateral hearing aids. There is no significant wax in the canals. Neck nontender. Lungs are clear. Heart regular rhythm no murmur. Abdomen soft nontender. Moving all 4 extremities. Calves are nontender without edema or cords. Neurologically she is awake and alert with no focal motor deficits. She does have positive Hallpike with lying flat and turning her head to left and right sitting her up the dizziness gets worse. Her exam is consistent with vertigo. No signs of stroke.] Medical Decision Making [Labs, EKG and CT are unremarkable. Patient was treated with meclizine. She will be discharged home on meclizine with a prescription sent to her pharmacy. She is doing well on repeat exam at 1:10 PM. I spoke to both her and her daughter who she lives with.] Other additions or changes: [None] Lab Data Attestation: I reviewed the patient's lab results. Labs: Laboratory Results - last 24 hr 11/08/22 11/08/22 11:15 11:15 WBC 6.3 RBC 4.32 Hgb 14.4 Hct 43.5 MCV 100.7 H MCH 33.3 H MCHC 33.1 RDW Std Deviation 46.4 H RDW Coeff of Macho 12.4 Plt Count 262 MPV 9.2 Immature Gran % (Auto) 0.200 Neut % (Auto) 65.7 Lymph % (Auto) 26.1 Hamblen % (Auto) 6.6 Eos % (Auto) 1.1 Baso % (Auto) 0.3 Absolute Neuts (auto) 4.2 Absolute Lymphs (auto) 1.65 Nucleated RBC % 0 Sodium 141 Potassium 3.6 Chloride 105 Carbon Dioxide 26.0 Anion Gap 10 BUN 10 Creatinine 0.71 Estim Creat Clear Calc 28.47 Est GFR (MDRD) Af Amer 101 Est GFR (MDRD) Non-Af 83 BUN/Creatinine Ratio 14.2 Glucose 109 H Calcium 9.1 Radiography Diagnostic Testing: Clinical Impression(s) from Imaging Studies Brain CT 11/08/22 11:04 IMPRESSION: Stable chronic ischemic and atrophic changes. No acute intracranial abnormality. Electronically Signed: Billy Finney MD at 12:48 EDT , EKG Initial EKG: Comments: 90 bpm, normal sinus rhythm, no ST elevation, reviewed and interpreted by attending ED physician. <Dr. Vazquez Gupta MD - Last Filed: 11/08/22 13:13> [facility] Narrative Medical decision making narrative: Patient presenting today with dizziness that started this morning when she woke up. She feels like the room is spinning around her. She states that it is worse when she tries to get up to ambulate but she also does have dizziness when lying still. She reports having some queasiness in her stomach but does not want anything for nausea at this time. Labs have been obtained to rule out anemia, electrolyte abnormality, leukocytosis and patient has been given meclizine. On reexamination she states that she is feeling a lot better and her dizziness has subsided substantially. I have personally performed a face to face assessment of the patient and have reviewed the LAY Note. I performed a substantive portion of the visit including all aspects of the following. My enciso findings include: History is [87-year-old female that I am seeing with our physician social services assistant. Patient complaining of room spinning dizziness. Worse with movement head movement. Denies headache. Denies nausea vomiting or diarrhea. Able to ambulate. No weakness in her upper or lower extremities. No falls or head trauma. Prior history of vertigo.] Exam is [well-appearing 87-year-old female. Vital signs are stable afebrile. H EENT exam unremarkable. She has bilateral hearing aids. There is no significant wax in the canals. Neck nontender. Lungs are clear. Heart regular rhythm no murmur. Abdomen soft nontender. Moving all 4 extremities. Calves are nontender without edema or cords. Neurologically she is awake and alert with no focal motor deficits. She does have positive Hallpike with lying flat and turning her head to left and right sitting her up the dizziness gets worse. Her exam is consistent with vertigo. No signs of stroke.] Medical Decision Making [Labs, EKG and CT are unremarkable. Patient was treated with meclizine. She will be discharged home on meclizine with a prescription sent to her pharmacy. She is doing well on repeat exam at 1:10 PM. I spoke to both her and her daughter who she lives with.] Other additions or changes: [None] Lab Data Lab results narrative: CBC normal. Electrolytes unremarkable. CT of the brain unremarkable. Labs: Laboratory Results - last 24 hr 11/08/22 11/08/22 11:15 11:15 WBC 6.3 RBC 4.32 Hgb 14.4 Hct 43.5 MCV 100.7 H MCH 33.3 H MCHC 33.1 RDW Std Deviation 46.4 H RDW Coeff of Macho 12.4 Plt Count 262 MPV 9.2 Immature Gran % (Auto) 0.200 Neut % (Auto) 65.7 Lymph % (Auto) 26.1 Hamblen % (Auto) 6.6 Eos % (Auto) 1.1 Baso % (Auto) 0.3 Absolute Neuts (auto) 4.2 Absolute Lymphs (auto) 1.65 Nucleated RBC % 0 Sodium 141 Potassium 3.6 Chloride 105 Carbon Dioxide 26.0 Anion Gap 10 BUN 10 Creatinine 0.71 Estim Creat Clear Calc 28.47 Est GFR (MDRD) Af Amer 101 Est GFR (MDRD) Non-Af 83 BUN/Creatinine Ratio 14.2 Glucose 109 H Calcium 9.1 Radiography Diagnostic Testing: Clinical Impression(s) from Imaging Studies Brain CT 11/08/22 11:04 IMPRESSION: Stable chronic ischemic and atrophic changes. No acute intracranial abnormality. Electronically Signed: Billy Finney MD at 12:48 EDT Reading Location ID and State: [facility] / [place] Tel , Service support , Discharge Plan Triage Chief Complaint: Dizziness ED Midlevel Provider: Usha Krueger ED Provider: Vazquez Gupta Dx/Rx/DC Orders Clinical Impression: Hypertension, Dizziness, Vertigo Instructions: BPPV Prescriptions: New meclizine 25 mg tablet 25 mg PO 4X/DAY PRN PRN (Reason: Dizziness) Qty: 20 0RF No Action aspirin [Adult Low Dose Aspirin] 81 mg tablet,delayed release (DR/EC) 81 mg PO DAILY multivitamin [One-A-Day Essential] Tablet 1 tab PO QAM diphenoxylate-atropine 2.5-0.025 mg tablet 1 tab PO Q6H PRN losartan 100 mg tablet 100 mg PO DAILY Qty: 90 3RF ibuprofen [Advil] 200 mg tablet 200 mg PO Q4H PRN cholecalciferol (vitamin D3) 25 mcg (1,000 unit) capsule 25 mcg PO DAILY (DME) Handicap Placard See Rx Instructions .ROUTE .MEDSUPPLY Qty: 1 0RF Rx Instructions: As directed, length of time 3 years amlodipine 10 mg tablet 10 mg PO DAILY Qty: 90 3RF cholestyramine (with sugar) 4 gram powder 4 g PO BID 90 Days Qty: 378 3RF Rx Instructions: administer w/meal; avoid other meds within 1hr before or 4-6hr after dose alendronate 70 mg tablet 70 mg PO QWEEK 90 Days Qty: 13 2RF levothyroxine 75 mcg tablet 75 mcg PO DAILY Qty: 90 3RF Primary Care Provider: Bailey Cerna Referrals: Bartolo Beal MD [Med Staff - Active Staff] - Bailey Cerna MD [Primary Care Provider] - 3-5 Days Activity Restrictions/Additional Instructions: Please follow-up with your PCP and return for any worsening symptoms. Disposition Disposition: Home, Self Care
[2022-11-08] MEDS: Meclizine HCl 25 MG Tablet PO (11:11)
[2022-11-08 11:26] LABS: Absolute Lymphocyte Count 1.65 X10^3/uL (0.83-4.51); Absolute Neutrophil Count 4.2 X10^3/uL (2.0-7.7); Basophil# 0.02 X10^3/uL; Basophil% 0.3 % (0-1); Eosinophil# 0.07 X10^3/uL; Eosinophils% 1.1 % (0-5); Hematocrit 43.5 % (37-47); Hemoglobin 14.4 g/dL (12.0-15.0); Lymphocyte # 1.65 X10^3/ul (0.83-4.51); Lymphocyte % 26.1 % (19-41); Mean Corp Hgb Conc 33.1 g/dL (32-36); Mean Corpuscular Hgb 33.3 pg (27.0-32.0); Mean Corpuscular Volume 100.7 fL (81-99); Mean Platelet Vol. 9.2 fl (6.2-12.0); Monocyte# 0.42 X10^3/uL; Monocyte% 6.6 % (0-10); NRBC Flagged by Analyzer 0 % (0-5); Neutrophil # 4.16 X10^3/uL (2.7-7.7); Neutrophil % 65.7 % (47-70); Platelet Count 262 K/mm3 (150-450); RBC Distribution Width CV 12.4 % (11.6-14.6); RBC Distribution Width SD 46.4 fl (35.1-43.9); Red Blood Count 4.32 M/mm3 (4.2-5.4); White Blood Count 6.3 K/mm3 (4.4-11.0)
[2022-11-08 11:32] LABS: Anion Gap 10 (5-15); BUN 10 mg/dL (7-18); BUN/Creat Ratio 14.2 RATIO (10-20); Calcium,Total 9.1 mg/dL (8.5-10.1); Chloride 105 mmol/L (98-107); Creatinine, Serum 0.71 mg/dL (0.55-1.02); EST Glomerular Filtration Rate 83 mL/min (>60); Est Glom Filt Rate - Afr Amer 101 mL/min (>60); Estimated Creatinine Clearance 28.47 ml/min; Glucose 109 mg/dL (74-106); Potassium 3.6 mmol/L (3.5-5.1); Sodium Level 141 mmol/L (136-145)
[2022-11-08 12:45] VITALS: BP 142/82; PULSE 99; RESP 20; O2SAT 97
[2022-11-08 12:58] VITALS: BP 146/79; BP 148/87; BP 149/90; PULSE 100; PULSE 103; PULSE 110
== END 2022-11-08 13:30 | disposition home or self-care (01) ==
PROVIDERS: Physician Assistant; Emergency Provider Emergency Medicine; PCP Internal Medicine; Visit Provider Emergency Medicine
DX: R42 Dizziness and giddiness (principal); I10 Essential (primary) hypertension; E05.00 Thyrotoxicosis with diffuse goiter without thyrotoxic crisis or storm; F17.290 Nicotine dependence, other tobacco product, uncomplicated; Z79.82 Long term (current) use of aspirin; Z79.899 Other long term (current) drug therapy
CPT/HCPCS: 70450; 80048; 85025; 93005; 99283; A4216

== ENCOUNTER → 2023-05-06 | Outpatient (CLI) | payer MEDICARE, OTHER, SELFPAY ==
[2023-05-06 17:59] LABS: ALB/GLOB Ratio 0.9 RATIO (0.9-2.4); AST(SGOT) 27 U/L (15-37); Alanine Aminotransfer ALT/SGPT 22 U/L (13-56); Albumin, Serum 3.5 g/dL (3.2-5.0); Alkaline Phosphatase 93 U/L (45-117); Anion Gap 7 (5-15); BUN 15 mg/dL (7-18); BUN/Creat Ratio 19.5 RATIO (10-20); Calcium,Total 8.9 mg/dL (8.5-10.1); Chloride 105 mmol/L (98-107); Creatinine, Serum 0.77 mg/dL (0.55-1.02); EST Glomerular Filtration Rate 75 mL/min (>60); Est Glom Filt Rate - Afr Amer 91 mL/min (>60); Globulin 3.9 g/dL (2.2-4.2); Glucose 89 mg/dL (74-106); Potassium 4.4 mmol/L (3.5-5.1); Protein, Total 7.4 g/dL (6.4-8.2); Sodium Level 138 mmol/L (136-145); Thyroid Stim Hormone (TSH) 1.93 uIU/mL (0.358-3.74)
== END | disposition home or self-care (01) ==
LOC: BIMLAB 15:53
PROVIDERS: PCP Internal Medicine; Visit Provider Internal Medicine
DX: E03.9 Hypothyroidism, unspecified (principal); I10 Essential (primary) hypertension
CPT/HCPCS: 36415; 80053; 84443

== ENCOUNTER → 2023-09-26 | Outpatient (CLI) | payer MEDICARE, OTHER, SELFPAY ==
[2023-09-26 17:01] LABS: Absolute Lymphocyte Count 1.83 X10^3/uL (0.83-4.51); Absolute Neutrophil Count 4.5 X10^3/uL (2.0-7.7); Basophil# 0.04 X10^3/uL; Basophil% 0.6 % (0-1); Eosinophil# 0.11 X10^3/uL; Eosinophils% 1.6 % (0-5); Hematocrit 42.8 % (37-47); Hemoglobin 14.2 g/dL (12.0-15.0); Lymphocyte # 1.83 X10^3/ul (0.83-4.51); Lymphocyte % 26.1 % (19-41); Mean Corp Hgb Conc 33.2 g/dL (32-36); Mean Corpuscular Hgb 33.8 pg (27.0-32.0); Mean Corpuscular Volume 101.9 fL (81-99); Mean Platelet Vol. 9.8 fl (6.2-12.0); Monocyte# 0.52 X10^3/uL; Monocyte% 7.4 % (0-10); NRBC Flagged by Analyzer 0 % (0-5); Neutrophil # 4.47 X10^3/uL (2.7-7.7); Neutrophil % 63.6 % (47-70); Platelet Count 316 K/mm3 (150-450); RBC Distribution Width CV 12.4 % (11.6-14.6); RBC Distribution Width SD 47.2 fl (35.1-43.9)
[2023-09-26 17:19] LABS: Vitamin D,25 Hydroxy 75.3 ng/mL
[2023-09-26 17:27] LABS: ALB/GLOB Ratio 0.9 RATIO (0.9-2.4); AST(SGOT) 27 U/L (15-37); Alanine Aminotransfer ALT/SGPT 22 U/L (13-56); Albumin, Serum 3.6 g/dL (3.2-5.0); Alkaline Phosphatase 96 U/L (45-117); Anion Gap 8 (5-15); BUN 16 mg/dL (7-18); BUN/Creat Ratio 18.6 RATIO (10-20); Calcium,Total 9.4 mg/dL (8.5-10.1); Chloride 107 mmol/L (98-107); Cholesterol 214 mg/dL (200); Creatinine, Serum 0.86 mg/dL (0.55-1.02); EST Glomerular Filtration Rate 66 mL/min (>60); Est Glom Filt Rate - Afr Amer 80 mL/min (>60); Globulin 3.9 g/dL (2.2-4.2); Glucose 92 mg/dL (74-106); High Density Lipoprotein 91 mg/dL; Potassium 3.8 mmol/L (3.5-5.1); Protein, Total 7.5 g/dL (6.4-8.2); Sodium Level 140 mmol/L (136-145); Thyroid Stim Hormone (TSH) 2.29 uIU/mL (0.358-3.74); Triglycerides 170 mg/dL; Very Low Density Lipoprotein 34 mg/dL (5-40)
--- OUTSIDE RECORDS SUMMARY | 2023-09-26 20:18 | XMS RPT_ITS | CCD ---
Author Name Unknown Address [address] [place] [address] Organization [facility] Care Team Providers Care Road Test Examiner Name Role Phone Issa Paige Primary Care Provider Al Atwood Primary Care Provider Allergies Allergy Classification Reported Allergen(s) Allergy Type Date of Onset Reaction(s) Facility (1 source) Azithromycin Drug Allergy 12-03-2011 [facility] Problems Active Problems Problem Classification Problem Date Documented Da te Episodic/Chronic Complications of surgical procedures or medical care (1 source) Postablative hypothyroidism; 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] Onset: 01-22-2010 03-16-2013 Chronic Disorders of lipid metabolism (1 source) Hyperlipidemia; Translations: [Hyperlipidemia] 10-23-2012 Chronic Essential hypertension (1 source) Hypertensive disorder; Translations: [Hypertension] Onset: 03-16-2013 03-16-2013 Chronic Other gastrointestinal disorders (1 source) Irritable bowel syndrome with diarrhea; Translations: [Irritable bowel syndrome with diarrhea] Onset: 07-15-2009 03-16-2013 Chronic Thyroid disorders (1 source) Thyroid eye disease; Translations: [Thyroid eye disease] 10-23-2012 Chronic Past or Other Problems Problem Classification Problem Date Documented Da te Episodic/Chronic Other bone disease and musculoskeletal deformities (1 source) Osteopenia; Translations: [Osteopenia] Onset: 03-16-2013 03-16-2013 Episodic Results Test Name Value Interpretation Reference Range Facil ity Encounters Encounter Date Encounter Type Care Provider Facility Start: 03-23-2002 End: 03-23-2002 Patient encounter procedure Pan Springer Work Phone: [facility] Start: 03-23-2002 Results Only Pan Clay on [facility] Phone[facility] Procedures Date Procedure Procedure Detail Performing Clinician Start: 03-26-2002 CONVERTED SURGICAL PATHOLOGY Pan Springer Work Phone: Start: 03-23-2002 CONVERTED CYTOLOGY LOSS MITIGATION SPECIALIST Pan Springer Work Phone: Plan of Treatment Date Care Activity Detail Author Start: 04-12-2020 Influenza vaccination INFLUENZA (#1) [facility] Start: 08-30-2012 DIABETES SCREEN DIABETES SCREEN [facility] Start: 01-24-2000 ADVANCE DIRECTIVE DISCUSSION ADVANCE DIRECTIVE DISCUSSION [facility] Start: 01-24-2000 BONE DENSITY BONE DENSITY [facility] Start: 1985 SHINGRIX VACCINE (1 of 2) PEREZ GRIX VACCINE (1 of 2) [facility] Start: 1954 Urine microalbumin profile DTAP,TDAP ,TD (1 - Tdap) [facility] Payers Date Payer Category Payer Medicare MEDICARE MEDICAR E B [id number] 2000-2009 [place], [place] Medicare [id number] Social History Date Type Detail Facility Tobacco smoking status NHIS Unknown if ev er smoked [facility] Sex Assigned At Not on file [facility] Summary Purpose Family History No Family History Records Found Advance Directives No Advanced Directives Records Found History of Past Illness Problem Noted Date Resolved Date ACUTE GASTRITIS W/O HEMORRHAGE 07/29/2009 0 03/16/2013 Additional Source Comments INFORMATION SOURCE (unrecogn ized section and content) Source Comments (unrecognize d section and content) In the event this informatio n is protected by the Federal Confidentiality of Alcohol and Drug Abuse Patient Records regulations: The Federal rules restrict any use of the information to criminally investigate or prosecute any alcohol or drug abuse patient.[facility] FOR RECORDS PERTAINING TO PATIENTS WHO ARE OR HAVE BEEN ENROLLED IN A CHEMICAL DEPENDENCY/SUBSTANCEABUSE PROGRAM, SOME INFORMATION MAY BE OMITTED. This clinical summary was aggregated from multiple sources. Caution should be exercised in using it in the provision of clinical care. This summary normalizes information from multiple sources, and as a consequence, information in this document may materially change the coding, format and clinical context of patient data. In addition, data may be omitted in some cases. CLINICAL DECISIONS SHOULD BE BASED ON THE PRIMARY CLINICAL RECORDS. [facility] [employer] [facility]. provides no warranty or guarantee of the accuracy or completeness of information in this document.
== END | disposition home or self-care (01) ==
LOC: BIMLAB 14:37
PROVIDERS: PCP Internal Medicine; Referring Provider Internal Medicine; Visit Provider Internal Medicine
DX: I10 Essential (primary) hypertension (principal); M81.0 Age-related osteoporosis without current pathological fracture
CPT/HCPCS: 36415; 80053; 80061; 82306; 84443; 85025

== ENCOUNTER → 2024-02-17 | Outpatient (CLI) | payer MEDICARE, OTHER, SELFPAY ==
[2024-02-17 15:10] LABS: ALB/GLOB Ratio 0.9 RATIO (0.9-2.4); AST(SGOT) 24 U/L (15-37); Alanine Aminotransfer ALT/SGPT 15 U/L (13-56); Albumin, Serum 3.6 g/dL (3.2-5.0); Alkaline Phosphatase 86 U/L (45-117); Anion Gap 6 (5-15); BUN 12 mg/dL (7-18); BUN/Creat Ratio 14.4 RATIO (10-20); Calcium,Total 9.2 mg/dL (8.5-10.1); Chloride 105 mmol/L (98-107); Creatinine, Serum 0.83 mg/dL (0.55-1.02); EST Glomerular Filtration Rate 69 mL/min (>60); Est Glom Filt Rate - Afr Amer 83 mL/min (>60); Globulin 4.1 g/dL (2.2-4.2); Glucose 93 mg/dL (74-106); Potassium 4.6 mmol/L (3.5-5.1); Protein, Total 7.7 g/dL (6.4-8.2); Sodium Level 138 mmol/L (136-145)
== END | disposition home or self-care (01) ==
PROVIDERS: PCP Internal Medicine; Referring Provider Internal Medicine; Visit Provider Internal Medicine
DX: I49.9 Cardiac arrhythmia, unspecified (principal)
CPT/HCPCS: 36415; 80053

== ENCOUNTER → 2024-03-30 | Outpatient (CLI) | payer MEDICARE, OTHER, SELFPAY ==
[2024-03-30 20:16] LABS: Anion Gap 6 (5-15); BUN 15 mg/dL (7-18); BUN/Creat Ratio 19.7 RATIO (10-20); Calcium,Total 9.5 mg/dL (8.5-10.1); Chloride 105 mmol/L (98-107); Creatinine, Serum 0.76 mg/dL (0.55-1.02); EST Glomerular Filtration Rate 76 mL/min (>60); Est Glom Filt Rate - Afr Amer 92 mL/min (>60); Glucose 101 mg/dL (74-106); Potassium 4.6 mmol/L (3.5-5.1); Sodium Level 139 mmol/L (136-145)
== END | disposition home or self-care (01) ==
LOC: BIMLAB 14:56
PROVIDERS: PCP Internal Medicine; Referring Provider Internal Medicine; Visit Provider Internal Medicine
DX: I49.9 Cardiac arrhythmia, unspecified (principal)
CPT/HCPCS: 36415; 80048

== ENCOUNTER → 2024-05-01 | Outpatient (CLI) | payer MEDICARE, OTHER, SELFPAY ==
--- NOTE | 2024-05-01 07:47 | ECHOD_ITS ---
Reason For Study: Arrhythmia Procedure This was a 2D Doppler, Color Flow transthoracic echocardiogram. Technically difficult due to patients body habitus. Images taken in left lateral and supine positions. Exam performed in department. Left Ventricle Normal LV size. Left ventricular systolic function is normal. The left ventricular ejection fraction is 65 %. Stage 1 diastolic dysfunction. No regional wall motion abnormalities noted. Right Ventricle Normal RV size. Normal systolic function. Atria Normal left atrium. Normal right atrium. Mitral Valve Normal mitral valve. Tricuspid Valve Normal tricuspid valve. Mild tricuspid valve insufficiency. Pulmonary artery systolic pressure is 34 mmHg. Aortic Valve Trisinus/trileaflet aortic valve. Mild focal aortic valve calcification. Pulmonic Valve Normal pulmonic valve. Great Vessels Normal aortic root. The pulmonary artery is normal size. Inferior vena cava collapse with respiration. Pericardium/Pleural Epicardial fat. MMode/2D Measurements & Calculations LVIDd: 4.5 cm IVSd: 1.4 cm Ao root diam: 3.2 cm LVIDs: 2.8 cm LVPWd: 1.0 cm LA dimension: 3.4 cm RVDd: 2.9 cm FS: 37.6 % LAV(MOD-bp): 40.5 ml LVAd ap4: 15.2 cm2 SV(MOD-sp4): 19.9 ml LAV(MOD-bp) Indexed: 27.8 ml/m2 LVLd ap4: 5.2 cm LAV(MOD-sp2): 46.8 ml EDV(MOD-sp4): 35.8 ml LAV(MOD-sp4): 28.6 ml EDV(sp4-el): 38.0 ml LVAs ap4: 8.9 cm2 LVLs ap4: 4.8 cm ESV(MOD-sp4): 15.9 ml ESV(sp4-el): 14.1 ml EF(MOD-sp4): 55.6 % EF(sp4-el): 63.0 % SV(sp4-el): 24.0 ml Ao sinus diam: 3.[address] Junction: 2.5 cm LA A4 area: 11.9 cm2 RA A4 area: 10.2 cm2 Time Measurements MV dec time: 0.22 sec Doppler Measurements & Calculations MV E max kendall: 51.1 cm/sec Lat Peak E' Kendall: 4.3 cm/sec Med Peak E' Kendall: 3.1 cm/sec MV A max kendall: 83.8 cm/sec E/E' lat: 12.0 E/E' med: 16.7 MV E/A: 0.61 MV V2 max: 111.2 cm/sec MV P1/2t max kendall: 74.5 cm/sec Ao V2 max: 141.3 cm/sec MV max P.9 mmHg MV P1/2t: 92.6 msec Ao max P.0 mmHg MV V2 mean: 60.2 cm/sec MV dec slope: 235.7 cm/sec2 Ao V2 mean: 89.7 cm/sec MV mean P.7 mmHg Ao mean P.8 mmHg MV V2 VTI: 18.4 cm MVA(P1/2t): 2.4 cm2 Ao V2 VTI: 27.1 cm LV V1 max: 127.1 cm/sec PA V2 max: 96.4 cm/sec TR max kendall: 273.9 cm/sec LV V1 max P.5 mmHg PA max PG (full): 1.2 mmHg TR max P.0 mmHg ECHO/Echo Complete Interpretation Summary Normal LV size. Left ventricular systolic function is normal. The left ventricular ejection fraction is 65 %. Stage 1 diastolic dysfunction. Epicardial fat. Mild tricuspid valve insufficiency. Ordering Physician: Eric Rubio Referring Physician: Bailey Cerna Performed By: Kei Dunne RCS
== END | disposition home or self-care (01) ==
PROVIDERS: PCP Internal Medicine; Referring Provider Internal Medicine Cardiovascular Disease; Visit Provider Internal Medicine Cardiovascular Disease
DX: R94.31 Abnormal electrocardiogram [ECG] [EKG] (principal); R00.0 Tachycardia, unspecified; R00.2 Palpitations; L02.91 Cutaneous abscess, unspecified
CPT/HCPCS: 87070; 87205; 93306

== ENCOUNTER → 2024-05-05 | Outpatient (CLI) | payer MEDICARE, OTHER, SELFPAY | END | disposition home or self-care (01) | LOC: LABSPEC 11:11 | PROVIDERS: PCP Internal Medicine; Visit Provider Surgery Plastic and Reconstructive Surgery | DX: L02.01 Cutaneous abscess of face (principal) | CPT/HCPCS: 87070; 87077; 87205 ==

== ENCOUNTER 2024-05-08 11:27 | Emergency (ER) | payer MEDICARE, OTHER, SELFPAY ==
[2024-05-08] VITALS (8 sets, daily range): BP systolic 100–126; BP diastolic 56–86; PULSE 96–111; RESP 17–22; TEMP 36.6–37.1; O2SAT 90–99; BMI 22.7
--- NOTE | 2024-05-08 12:30 | EDS_ITS ---
HPI History of Present Illness Chief Complaint: Cellulitis Informant: patient and family Narrative Narrative: 89-year-old female had an infection in her face left cheek, it was drained and she was put on antibiotics but the culture recently came back and so the an tibiotic was modified to penicillin, she took the first pill today, and within 20 minutes she felt itchy and red all over. She denies any presyncope or syncope. She denies any edema. She has pre-existing numbness in both of her feet that is no different and pre-existing pain in her right hip that is a little worse than it was. No tongue swelling. No throat swelling. No dyspnea. No other symptoms. She states the wound is doing well and she was seen at plastics office today and had it repacked. [facility] Medical History Hypertension Osteoarthritis Chest pain Lung nodule seen on imaging study Arrhythmia Skin cyst Balance problems Parathyroid cancer Osteoporosis Left axillary swelling Dermatitis Dizziness Headache Graves disease Essential hypertension Hypothyroid Home Medications ?Medication ?Instructions ?Recorded ?Last Taken ?Type multivitamin (One-A-Day Essential 1 tab PO QAM 04/20/20 Unknown History tablet) Handicap Placard #1 ea 11/03/21 Unknown Rx cholecalciferol (vitamin D3) 25 25 mcg PO DAILY 07/25/22 Unknown History mcg (1,000 unit) capsule cholestyramine (with sugar) 4 gram See Rx Instructions .Route 08/30/23 Unknown Rx oral powder .COMPLEX #1,134 grams alendronate 70 mg tablet 70 mg PO QWEEK 01/23/24 Unknown History levothyroxine 75 mcg tablet 75 mcg PO DAILY 01/23/24 Unknown History (Euthyrox) losartan 100 mg tablet 100 mg PO DAILY 01/23/24 Unknown History amlodipine 10 mg tablet 10 mg PO DAILY #90 tabs 04/21/24 Unknown Rx doxycycline monohydrate 100 mg 100 mg PO BID 1 month #60 CAPSULES 05/08/24 Unknown Rx capsule Allergy/AdvReac Type Severity Reaction Status Date / Time peas Allergy Intermediate Other Verified 05/08/24 08:24 penicillin V Allergy Intermediate Hives Verified 05/08/24 14:40 mendez Allergy Anaphylaxis Verified 05/08/24 08:24 Family History Mother Heart disease Hypertension High cholesterol Osteoporosis CVA (cerebral vascular accident) Father CVA (cerebral vascular accident) Daughter Thyroid disorder Surgical History History of ankle surgery History of eye surgery H/O: hysterectomy Social History Smoking Status: Former smoker Electronic Cigarette Use: without nicotine how long ago did patient quit smokin years ago alcohol intake: current substance use type: does not use additional social history: denies vaping- quit 8 years ago, denies marijuana, denies edibles, denies aspirin and denies ibuprofen. denies history of blood clotting disorder. ROS ROS ED Constitutional Constitutional ED: Denies chills or fever(s) Eyes Eyes: Denies change in vision or diplopia ENT ENT ED: Denies rhinorrhea or sore throat Cardiovascular Cardiovascular: Denies chest pain or palpitations Respiratory/Chest Respiratory/Chest: Denies cough or dyspnea Gastrointestinal Gastrointestinal: Denies abdominal pain, diarrhea, nausea or vomiting Genitourinary Genitourinary ED: Denies dysuria or hematuria Musculoskeletal Musculoskeletal: Reports other Details: Right hip pain see HPI ; Denies back pain or neck pain Integumentary Reports pruritus, rash and wounds; Denies abscess Neurologic Neurologic: Reports as per HPI and paresthesias; Denies headache(s) or weakness Psychiatric Psychiatric: Denies anxiety or suicidal thoughts EXAM Physical Exam Const Vital Signs: 05/08/24 11:32 05/08/24 11:35 05/08/24 12:41 Temperature 98 F 98 F Temperature Source Oral Oral Pulse Rate 109 H 111 H Respiratory Rate 20 H 22 H Blood Pressure 111/62 100/60 Blood Pressure Mean 78 73 Pulse Ox 90 97 96 Oxygen Delivery Method Room Air Nasal Cannula Nasal Cannula Oxygen Flow Rate (L/min) 2 2 05/08/24 12:50 05/08/24 13:22 05/08/24 14:07 Temperature 97.8 F 98 F Temperature Source Oral Oral Pulse Rate 109 H 105 H 96 Respiratory Rate 22 H 17 22 H Blood Pressure 103/56 L 126/66 H 102/82 H Blood Pressure Mean 71 86 88 Pulse Ox 97 97 99 Oxygen Delivery Method Nasal Cannula Room Air Nasal Cannula Oxygen Flow Rate (L/min) 2 2 Positive well nourished and well developed Constitutional Narrative: Well-appearing. Diffuse coalescing urticaria. General Appearance ED: well developed and NAD HEENT Reports moist mucous membranes HEENT Narrative: Normal tongue. Normal posterior oropharynx which is clear and visible. No stridor. No dysphonia. normocephalic and atraumatic Eyes PERRL and EOMs intact bilaterally Neck full ROM and supple Resp normal respiratory effort and clear to auscultation bilaterally Cardio regular rate and regular rhythm Rate: Negative for tachycardic GI non-tender and non-distended Auscultation: normoactive bowel sounds Palpation: soft Back/Spine no CVA tenderness General Back: other FROM Extremity normal to inspection Extremity Narrative: Full range of motion right hip without any limitation or acute pain, same with the other joints of the lower extremities. General Extremety ED: Negative for edema, pulses abnormal or tenderness General Extremity: Negative for edema or pulses abnormal Neuro oriented x3 and CN's II-XII intact bilaterally Neuro Narrative: Decree sensation both feet, symmetric, good sensation more proximal to this in the shins. Baseline according to family. Sensorium / Orientation: awake and alert Motor Exam: strength 5/5 throughout Skin no rashes or lesions noted and no wounds MDM MDM MDM Narrative Medical decision making narrative: I think patient is having an allergic reaction to penicillin but I do not think she is anaphylactic or having a dangerous reaction. She was given IV Benadryl since [facility] had an IV. I discussed with plastics, we will change her antibiotic to doxycycline which she tolerated before. At times like she did doxycycline for 1 week and then Bactrim for another week and did not tolerate the Bactrim very well, but now clearly allergic to the penicillin. Does not remember if she has ever had amoxicillin before. I discussed with Dr. Soto with infectious disease regarding treatment duration recommendations. He states given this particular infection, the recommendation is 2-6 weeks. She has already had 2 weeks, so he thinks it would be reasonable to give her a prescription for another month of doxycycline and then watch for recurrent infection after that. Relayed to the patient and family, they are going to follow-up with PCP, and will follow-up with plastics for packing changes as scheduled. Management Discussion w/another healthcare provider: Drama Teacher (plastics Dr. Vyas) Discharge Plan Triage Chief Complaint: Cellulitis ED Provider: Rory Williamson Dx/Rx/DC Orders Clinical Impression: Allergic reaction to penicillin, Actinomyces infection Instructions: Cellulitis Dc Prescriptions: New doxycycline monohydrate 100 mg capsule 100 mg PO BID 30 Days Qty: 60 0RF Continued multivitamin [One-A-Day Essential] Tablet 1 tab PO QAM cholecalciferol (vitamin D3) 25 mcg (1,000 unit) capsule 25 mcg PO DAILY levothyroxine [Euthyrox] 75 mcg tablet 75 mcg PO DAILY losartan 100 mg tablet 100 mg PO DAILY alendronate 70 mg tablet 70 mg PO QWEEK (DME) Handicap Placard See Rx Instructions .ROUTE .MEDSUPPLY Qty: 1 0RF Rx Instructions: As directed, length of time 3 years cholestyramine (with sugar) 4 gram powder See Rx Instructions .ROUTE .COMPLEX Qty: 1134 1RF Dose Instruction: 4 G ORALLY TWICE A DAY FOR 3 MONTHS ADMINISTER W/MEAL AVOID OTHER MEDS WITHIN 1HR BEFORE OR 4-6HR AFTER DOSE Rx Instructions: 4 G ORALLY TWICE A DAY FOR 3 MONTHS ADMINISTER W/MEAL AVOID OTHER MEDS WITHIN 1HR BEFORE OR 4-6HR AFTER DOSE amlodipine 10 mg tablet 10 mg PO DAILY Qty: 90 1RF Discontinued penicillin V potassium 500 mg tablet 500 mg PO Q8H 14 Days Qty: 42 0RF Primary Care Provider: Bailey Cerna Referrals: Bailey Cerna MD [Primary Care Provider] - (call for appt) Print Language: Croatian Disposition Disposition: Home, Self Care
[2024-05-08] MEDS: DiphenhydrAMINE 50 MG/ML Syringe 25 MG IV (12:48)
--- NOTE | 2024-05-08 14:52 | ED.RN ---
1 L NS infused from EMS bag
== END 2024-05-08 15:02 | disposition home or self-care (01) ==
PROVIDERS: Emergency Provider Emergency Medicine; PCP Internal Medicine; Visit Provider Emergency Medicine
DX: A42.89 Other forms of actinomycosis (principal); T36.0X5A Adverse effect of penicillins, initial encounter; Z87.891 Personal history of nicotine dependence
CPT/HCPCS: 96374; 99284

== ENCOUNTER 2024-07-11 10:38 | Inpatient (IN) | payer MEDICARE, OTHER, SELFPAY ==
[2024-07-11 10:39] VITALS: BP 134/81; PULSE 108; RESP 18; TEMP 36.6; O2SAT 96; BMI 22.1
--- NOTE | 2024-07-11 11:17 | EKG12_ITS ---
Test Reason : N/V Blood Pressure : */* mmHG Vent. Rate : 93 BPM Atrial Rate : 93 BPM P-R Int : 148 ms QRS Dur : 70 ms QT Int : 368 ms P-R-T Axes : 67 53 46 degrees QTcB Int : 457 ms Normal sinus rhythm Nonspecific T wave abnormality Abnormal ECG Confirmed by Abdon Cornell ([id number]), editor newspaper [employer] [place] ([id number]) on 07/13/2024 11:34:36 AM Referred By: Vazquez Gupta Confirmed By: Abdon Cornell
--- NOTE | 2024-07-11 11:19 | EX.ED.DYSGE1 ---
HPI History of Present Illness Chief Complaint: Weakness Informant: patient and family Onset/Context/Timing Onset: Weeks Context: Gradual Onset Timing: Continuous Current Severity: Mild Maximum Severity: Mild Narrative Narrative: 89-year-old female history of hypertension hypothyroidism. States she has been weak for about a year. She has had intermittent nausea without vomiting. She has had decreased oral intake the last couple of days. She has had diarrhea without melena. Currently she has been on antibiotic for several weeks doxycycline for facial soft tissue infection. She is being seen by plastic surgery for that. She states that she has pain in her legs when she ambulates. Denies any fall or trauma. Family is trying to get her into pain management. Prior similar symptoms: No Recent Illness/Hospitalization: No PFSH [facility] Medical History Hypertension Osteoarthritis Chest pain Lung nodule seen on imaging study Arrhythmia Skin cyst Balance problems Parathyroid cancer Osteoporosis Left axillary swelling Dermatitis Dizziness Headache Graves disease Essential hypertension Hypothyroid Home Medications ?Medication ?Instructions ?Recorded ?Last Taken ?Type Handicap Placard #1 ea 11/03/21 Unknown Rx cholecalciferol (vitamin D3) 25 25 mcg PO DAILY 07/25/22 Unknown History mcg (1,000 unit) capsule cholestyramine (with sugar) 4 gram See Rx Instructions .Route 08/30/23 Unknown Rx oral powder .COMPLEX #1,134 grams alendronate 70 mg tablet 70 mg PO QWEEK 01/23/24 Unknown History levothyroxine 75 mcg tablet 75 mcg PO DAILY 01/23/24 Unknown History (Euthyrox) losartan 100 mg tablet 100 mg PO DAILY 01/23/24 Unknown History amlodipine 10 mg tablet 10 mg PO DAILY #90 tabs 04/21/24 Unknown Rx lactobacillus combination no.4 3 3,000 mmu cells PO QDAY 05/15/24 Unknown History billion cell capsule (Probiotic) doxycycline monohydrate 100 mg 100 mg PO BID #180 CAPSULES 06/12/24 Unknown Rx capsule doxycycline monohydrate 100 mg 100 mg PO BID 1 month #60 CAPSULES 06/12/24 Unknown Rx capsule ondansetron 4 mg disintegrating 4 mg PO BID PRN nausea and 06/12/24 Unknown Rx tablet vomiting #180 tabs ondansetron HCl 4 mg tablet 4 mg PO BID #60 tabs 06/12/24 Unknown Rx Allergy/AdvReac Type Severity Reaction Status Date / Time peas Allergy Intermediate Other Verified 07/11/24 10:43 penicillin V Allergy Intermediate Hives Verified 07/11/24 10:43 mendez Allergy Anaphylaxis Verified 07/11/24 10:43 Family History Mother Heart disease Hypertension High cholesterol Osteoporosis CVA (cerebral vascular accident) Father CVA (cerebral vascular accident) Daughter Thyroid disorder Surgical History History of ankle surgery History of eye surgery H/O: hysterectomy Social History Smoking Status: Former smoker Electronic Cigarette Use: without nicotine how long ago did patient quit smokin years ago alcohol intake: current substance use type: does not use additional social history: denies vaping- quit 8 years ago, denies marijuana, denies edibles, denies aspirin and denies ibuprofen. denies history of blood clotting disorder. ROS ROS ED ROS Narrative Nausea. Diarrhea. Decreased oral intake. Constitutional Constitutional ED: Denies chills or fever(s) Eyes Eyes: Denies blurry vision ENT ENT ED: Denies ear pain Cardiovascular Cardiovascular: Denies chest pain Respiratory/Chest Respiratory/Chest: Denies cough or dyspnea Gastrointestinal Gastrointestinal: Denies abdominal pain Genitourinary Genitourinary ED: Denies dysuria or hematuria Musculoskeletal Musculoskeletal: Denies arthralgias or back pain Integumentary Denies abscess or Abrasions Neurologic Neurologic: Denies headache(s) Endocrine Endocrinology: Denies cold intolerance Hematologic/Lymphatic Hematologic/Lymphatic: Reports none Allergic/Immunologic Allergic/Immunologic ED: Denies mouth swelling, tongue swelling or urticaria EXAM Physical Exam Narrative Exam Narrative: 89-year-old female vital signs are stable afebrile. Sitting upright in bed. Pulse ox 96% on room air no hypoxia. Family is at bedside. H EENT exam pupils round react light. Motions are intact. No facial droop. Moist mucous membranes. Neck nontender no lymphadenopathy. Lungs clear to auscultation bilaterally. Heart regular rhythm rate about 105 no murmur. Chest wall ribs nontender. Abdomen soft nontender. No peritoneal signs. Moving all 4 extremities. Calves are nontender without edema or cords. Dorsi plantarflexion intact. She can lift either leg. No edema. Normal DP pulses. Back nontender. No bruising or signs of trauma. Neurologically she is awake and alert. Answering questions and following commands. Const Vital Signs: 07/11/24 10:39 07/11/24 10:53 07/11/24 12:38 Temperature 97.9 F Temperature Source Oral Pulse Rate 108 H 87 Respiratory Rate 18 13 Respiratory Effort Normal Non-Labored Respiratory Pattern Normal Blood Pressure 134/81 H 134/61 H Blood Pressure Mean 98 85 Pulse Ox 96 99 Oxygen Delivery Method Room Air Room Air Positive well nourished and well developed; Negative for cachectic, contractures or unkempt General Appearance ED: well developed and NAD; Negative for unkempt, cachectic, contractures, cyanotic, diaphoretic or pallor Nutritional Appearance: Negative for cachectic HEENT Reports moist mucous membranes Eyes PERRL and EOMs intact bilaterally General Eye ED: Negative for pale conjunctiva or scleral icterus Neck no lymphadenopathy, supple and no JVD General: Negative for tenderness Lymph Lymphatic: Negative for other Chest Wall inspection of chest normal and palpation of chest normal Resp normal respiratory effort and clear to auscultation bilaterally Effort and Inspection: Negative for retractions Auscultation: Negative for rales, rhonchi, wheezes or diminished lung sounds Cardio regular rate, regular rhythm, S1 normal heart sound, S2 normal heart sound and no murmurs GI normal to inspection, nondistended, normoactive bowel sounds, non-tender, non-distended and no masses Palpation: soft; Negative for tender, guarding or rebound tenderness present Back/Spine no CVA tenderness General Back: Negative for CVA tenderness Cervical Spine: Negative for cervical spine tenderness Thoracic Spine / Upper Back: Negative for thoracic spinal tenderness or paraspinal muscle tenderness Lumbar Spine / Lower Back: Negative for lumbar spinal tenderness Extremity normal to inspection General Extremety ED: Negative for edema or tenderness General Extremity: Negative for edema Neuro oriented x3 and CN's II-XII intact bilaterally Sensorium / Orientation: alert; Negative for orientation impaired, lethargic or stuporous Motor Exam: strength 5/5 throughout; Negative for general weakness or strength abnormal Psych mental status grossly normal Appearance: Negative for unkempt Attitude: No agitated Mood & Affect: Negative for depressed, anxious or tearful Skin no rashes or lesions noted and no wounds General Skin Exam: Negative for jaundice or pallor Lesions: No lesion noted Rashes: No rashes noted Trauma: Negative for abrasion Wounds: Negative for wounds noted MDM MDM MDM Narrative Medical decision making narrative: 89-year-old female with generalized weakness. Exam is benign. Should be treated with IV fluids due to her decreased oral intake. Screening labs will be obtained. She is awake alert. Answering questions and following commands. Moving all 4 extremities. Repeat exam patient is doing well at 1:15 PM. Exams unchanged. I went over test results with both patient and family at bedside. We do not have a specific diagnosis. She has a mild anemia currently. Urine does not look infected. Family would like her admitted and mental health social worker consulted for failure to thrive to try to come up with a plan to care for the patient. Whether that send assisted living, senior living or back at the house. History & Record Review Discussion w/independent historian: Patient Additional record(s) reviewed:: Prior inpatient record, Prior outpatient record, Prior ED visit and Prior labs Lab Data Attestation: I reviewed the patient's lab results. Lab results narrative: CBC shows a white count of 6. H&H 10.9 and 33. Platelets 256. Electrolytes show gap 6. BUN 18 creatinine 1.29. Glucose 103. Liver enzymes are elevated. Lipase is 38. TSH is 0.90 and normal. Urinalysis is normal. No white or red cells. No nitrites nor bacteria. Labs: Laboratory Results - last 24 hr 07/11/24 07/11/24 10:45 11:49 WBC 6.6 RBC 3.51 L Hgb 10.9 L Hct 33.3 L MCV 94.9 MCH 31.1 MCHC 32.7 RDW Std Deviation 50.3 H RDW Coeff of [place] 14.6 Plt Count 256 MPV 9.9 Immature Gran % (Auto) 0.300 Neut % (Auto) 60.8 Lymph % (Auto) 32.7 [place] % (Auto) 5.5 Eos % (Auto) 0.2 Baso % (Auto) 0.5 Absolute Neuts (auto) 4.0 Absolute Lymphs (auto) 2.16 Nucleated RBC % 0 Sodium 141 Potassium 3.6 Chloride 107 Carbon Dioxide 28.0 Anion Gap 6 BUN 18 Creatinine 1.29 H Estim Creat Clear Calc 21.24 Est GFR (MDRD) Af Amer 50 L Est GFR (MDRD) Non-Af 41 L BUN/Creatinine Ratio 14.0 Glucose 103 Calcium 8.4 L Total Bilirubin 1.60 H AST 115 H ALT 79 H Alkaline Phosphatase 148 H Total Protein 5.4 L Albumin 2.5 L Globulin 2.9 Albumin/Globulin Ratio 0.9 Lipase 38 TSH 0.907 Urine Color Yellow Urine Clarity Clear Urine pH 6.0 Ur Specific [place] 1.015 Urine Protein 15 H Urine Glucose (UA) Normal Urine Ketones Negative Urine Occult Blood Negative Urine Nitrite Negative Urine Bilirubin Negative Urine Urobilinogen Normal Ur Leukocyte Esterase Negative Urine RBC 0 SEEN Urine WBC 0 SEEN Ur Squamous Epith Cells 0 SEEN Urine Bacteria 0 SEEN Urine Mucus 0 SEEN Discharge Plan Triage Chief Complaint: Weakness ED Provider: Vazquez Gupta Dx/Rx/DC Orders Clinical Impression: Generalized weakness, Adult failure to thrive, Anemia Prescriptions: No Action cholecalciferol (vitamin D3) 25 mcg (1,000 unit) capsule 25 mcg PO DAILY Probiotic 3 billion cell capsule 3,000 mmu cells PO QDAY Rx Instructions: administer with a meal ondansetron 4 mg tablet,disintegrating 4 mg PO BID PRN (Reason: nausea and vomiting) Qty: 180 1RF doxycycline monohydrate 100 mg capsule 100 mg PO BID Qty: 180 1RF doxycycline monohydrate 100 mg capsule 100 mg PO BID 30 Days Qty: 60 0RF ondansetron HCl 4 mg tablet 4 mg PO BID Qty: 60 0RF Rx Instructions: Take 30 minutes prior to doxycycline levothyroxine [Euthyrox] 75 mcg tablet 75 mcg PO DAILY losartan 100 mg tablet 100 mg PO DAILY alendronate 70 mg tablet 70 mg PO QWEEK (DME) Handicap Placard See Rx Instructions .ROUTE .MEDSUPPLY Qty: 1 0RF Rx Instructions: As directed, length of time 3 years cholestyramine (with sugar) 4 gram powder See Rx Instructions .ROUTE .COMPLEX Qty: 1134 1RF Dose Instruction: 4 G ORALLY TWICE A DAY FOR 3 MONTHS ADMINISTER W/MEAL AVOID OTHER MEDS WITHIN 1HR BEFORE OR 4-6HR AFTER DOSE Rx Instructions: 4 G ORALLY TWICE A DAY FOR 3 MONTHS ADMINISTER W/MEAL AVOID OTHER MEDS WITHIN 1HR BEFORE OR 4-6HR AFTER DOSE amlodipine 10 mg tablet 10 mg PO DAILY Qty: 90 1RF Primary Care Provider: Bailey Cerna Referrals: Bailey Cerna MD [Primary Care Provider] - Print Language: Malay Disposition Disposition: Acute Care Hospital [facility]
[2024-07-11 11:28] LABS: Absolute Lymphocyte Count 2.16 X10^3/uL (0.83-4.51); Basophil# 0.03 X10^3/uL; Basophil% 0.5 % (0-1); Eosinophil# 0.01 X10^3/uL; Eosinophils% 0.2 % (0-5); Hematocrit 33.3 % (37-47); Hemoglobin 10.9 g/dL (12.0-15.0); Lymphocyte # 2.16 X10^3/ul (0.83-4.51); Lymphocyte % 32.7 % (19-41); Mean Corp Hgb Conc 32.7 g/dL (32-36); Mean Corpuscular Hgb 31.1 pg (27.0-32.0); Mean Corpuscular Volume 94.9 fL (81-99); Mean Platelet Vol. 9.9 fl (6.2-12.0); Monocyte# 0.36 X10^3/uL; Monocyte% 5.5 % (0-10); NRBC Flagged by Analyzer 0 % (0-5); Neutrophil # 4.02 X10^3/uL (2.7-7.7); Neutrophil % 60.8 % (47-70); Platelet Count 256 K/mm3 (150-450); RBC Distribution Width CV 14.6 % (11.6-14.6); RBC Distribution Width SD 50.3 fl (35.1-43.9); Red Blood Count 3.51 M/mm3 (4.2-5.4); White Blood Count 6.6 K/mm3 (4.4-11.0)
[2024-07-11] MEDS: 0.9% Normal Saline (1000mL) 1,000 ML 1000 ML IV (11:52)
[2024-07-11 11:55] LABS: Bacteria 0 SEEN /hpf (None Seen); Mucous, Urine 0 SEEN /hpf (<or=2+); Red Blood Cells-Urine 0 SEEN /hpf (0-5); Squamous Epithelial Cells - UA 0 SEEN /hpf (5-10); White Blood Cells 0 SEEN /hpf (0-5)
[2024-07-11 12:01] LABS: ALB/GLOB Ratio 0.9 RATIO (0.9-2.4); AST(SGOT) 115 U/L (15-37); Alanine Aminotransfer ALT/SGPT 79 U/L (13-56); Albumin, Serum 2.5 g/dL (3.2-5.0); Alkaline Phosphatase 148 U/L (45-117); Anion Gap 6 (5-15); BUN 18 mg/dL (7-18); Calcium,Total 8.4 mg/dL (8.5-10.1); Chloride 107 mmol/L (98-107); Creatinine, Serum 1.29 mg/dL (0.55-1.02); EST Glomerular Filtration Rate 41 mL/min (>60); Est Glom Filt Rate - Afr Amer 50 mL/min (>60); Estimated Creatinine Clearance 21.24 ml/min; Globulin 2.9 g/dL (2.2-4.2); Glucose 103 mg/dL (74-106); Lipase 38 U/L (13-75); Potassium 3.6 mmol/L (3.5-5.1); Protein, Total 5.4 g/dL (6.4-8.2); Sodium Level 141 mmol/L (136-145); Thyroid Stim Hormone (TSH) 0.907 uIU/mL (0.358-3.740)
[2024-07-11 12:02] LABS: Color, Urine Yellow (Yellow); Glucose, Dipstick Normal (Normal); Ketone-Dipstick Negative (Negative); Leukocyte Esterase-Dipstick Negative /ul (Negative); Nitrite-Dipstick Negative (Negative); Occult Blood-Urine Negative /ul (Negative); Protein-Dipstick 15 mg/dl (Negative); Specific Gravity, Urine 1.015 (1.002-1.030); Urine Bilirubin Dipstick Negative (Negative); Urine Clarity Clear (Clear); Urine Urobilinogen Normal (Normal)
--- NOTE | 2024-07-11 12:11 | ED.RN ---
Patient requested that her IV fluids be stopped due to her being cold. Dr. Gupta notified.
[2024-07-11] MEDS: Ondansetron 4 MG/2 ML Vial IV (12:17)
[2024-07-11] MEDS: Dicyclomine 10 MG Capsule 20 MG PO (12:36)
[2024-07-11 12:38] VITALS: BP 134/61; PULSE 87; RESP 13; O2SAT 99
--- NOTE | 2024-07-11 12:49 | ED.RN ---
Patient in room keeps stating that she wants God to take her and just . This nurse spoke with family and they mention Hospice/Palliative care. I spoke with Dr. Gupta, verbal order given for Social work consult. Social work notified.
[2024-07-11 13:43] VITALS: BP 114/58; PULSE 89; RESP 16; TEMP 36.6; O2SAT 98
[2024-07-11 14:00] VITALS: BP 125/83; PULSE 96; RESP 24; O2SAT 97
--- NOTE | 2024-07-11 14:05 | CASEMGMT ---
Care Management Face to Face with patient for initial transition planning/care coordination assessment.? Patient provided consent for assessment. This radio news writer introduced self and role at [facility]. Patient lying in bed, alert and oriented. Also present were patient?s son, Andrey, patient?s [id number] (DAVID) Shyanne, patient?s daughter, Radha and patient?s son-in-law, (DEVONTE) Jasson. Patient willing to participate in assessment and is able to answer all questions appropriately.? Care providers, pharmacy, and demographics verified. It should be noted that due to patient being very hard of hearing, patient deferred most assessment questions to her son, daughter and [id number] for ease of completion. Patient has hearing aides however was not wearing them at the time of this visit. It should be noted that the phone number for patient in [employer] is actually the cell phone number for patient?s Shyanne HERNANDEZ who is the primary caregiver for patient as patient is not able to hear.? Patient does, however have a landline ? and her own cell phone . Due to patient?s hearing loss, patient is said to never answer her cell phone. Admitting Diagnosis: Weakness Other diagnosis history: Hypertension, Osteoarthritis, Balance problems, Parathyroid Cancer, ?Graves Disease, and Hypothyroid. PCP: Dr. Cerna Specialists: Plastic surgeon: Dr. Vazquez Preferred Pharmacy: [facility] in [place]. Patient?s family picks up medications when needed however are looking into possible mail delivery. Insurance: Medicare Part and B and [employer] Prescription Benefit:?Yes; [employer] Living Will/HPOA: Yes. Patient is a DNR. Patient?s son Andrey Fleming and daughter Radha Fleming are listed as POA?s.? feeder worker power unit operator requested that the paperwork be brought to the hospital during the time patient is admitted if possible which family was agreeable to. feeder worker power unit operator also encouraged patient to provided PCP with a copy as well as both Andrey and Radha.?? LNOK: Patient is a . Patient has one son, Andrey, and 3 daughters, Radha, Hue (resides in [facility]) and Rosalinda who is currently estranged. Living Arrangements: Patient currently lives with her son Andrey, Andrey?s Shyanne and their 38 year old daughter Otis. Patient has been living with them for the past 7-8 years. Transportation: Patient?s son, DIL or daughter Radha transports patient whenever needed. DME: Patient currently has an ERS device through [facility] at [facility], 1 walker with a basket, 1 walker with a tray, transport wheelchair, lift chair, shower seat, RTS, Pulse ox and grab bars. HHC: HHC not currently in place however family is interested in resources for [facility]. Prior to increased weakness resulting in ED visit on this date, patient was able to shower, dress herself and toilet without assistance and is able to prepare microwavable meals independently. Patient unable to preform any light housekeeping. SNF/Rehab: No previous SNF/Rehab admissions. Community Resources: None at this time. Behavioral Health History: Denied any mental health diagnoses although family suspects anxiety.? No history of counseling, Psychiatry or inpatient psychiatric hospitalizations. Patient goals: ?Patient?s goals were identified as: Pain Management, Therapy to regain strength (patient currently non-weight bearing due to weakness), getting connected with Palliative Care (dialysis social worker provided handouts for [facility]) and when medically ready, discharge to home. ?Patient states she has no further needs or concerns at this time. CM to follow for discharge planning needs that may arise. Disposition Plan: Patient made it clear that she is a DNR. Patient and family seeking to get connected with Palliative care, Pain Management, Physical Therapy, Discharge home when medically ready and getting connected with Home Health Care. Hand off to Care Management team on acute floors who will follow for support and discharge planning as indicated. Beatriz Wyman, LIME KILN TENDER, NAILHEAD PUNCHER
--- NOTE | 2024-07-11 14:31 | CT_ITS ---
EXAM: CT LUMBAR SPINE WITHOUT INTRAVENOUS CONTRAST CLINICAL INDICATION: radicular back pain TECHNIQUE: Helically acquired images were obtained of the lumbar spine without intravenous contrast. 2D reformats were reviewed. This CT exam was performed using one or more of the following dose reduction techniques: automated exposure control, adjustment of the mA and/or kV according to patient size, and/or use of iterative reconstruction technique. COMPARISON: No relevant prior studies available. FINDINGS: VERTEBRAE: Bony structures appear diffusely osteoporotic. No acute fracture or subluxation. DISCS/SPINAL CANAL/NEURAL FORAMINA: Multilevel disc space narrowing and disc phenomenon most prominent at L4-5. Disc osteophyte protrusion at L4-5 and L5-S1 results in mild spinal stenosis. Focal calcification posterior longitudinal ligament at the L2 level also results in mild spinal stenosis. Moderate neural foraminal stenosis at L4-5 related to disc protrusion and facet arthropathy. VASCULATURE: Partially visualized 5.2 cm aneurysm of the infrarenal abdominal aorta. LYMPH NODES: Normal. No retroperitoneal adenopathy. LIVER: Incompletely visualized 2 cm low-density lesion within hepatic segment 7. CT/Spine Lumbar without Contrast IMPRESSION: 1. Prominent multilevel spondylosis with mild multilevel spinal stenosis and bilateral L4 neural foraminal stenosis. 2. Partially visualized 5.2 cm infrarenal abdominal aortic aneurysm. 3. Partially visualized 2 cm hypodense liver lesion possibly representing a cyst. Electronically Signed: Naga Ryan MD at 15:52 EST ,
--- NOTE | 2024-07-11 14:46 | PCM.HP.STD ---
HPI - General General Date of Admission: 07/11/24 Date of Service: 07/11/24 Chief Complaint: weakness. HPI Narrative PLAAK MUHAMMAD, is a 89 F who presents progressive weakness over the past year. When she walks, she has pain that radiates down her legs that improves with rest. Additionally, she has been having nausea and diarrhea. She has been having nausea and diarrhea. She has been on antibiotics for a chronic face wound with doxycycline. Diarrhea was watery but has since firmed up. She has not been eating much. With all these issues, she has progressively gotten weaker and unable to adequately care for her self. In the ED her work up was unremarkable. [facility] Medical History Hypertension Osteoarthritis Chest pain Lung nodule seen on imaging study Arrhythmia Skin cyst Balance problems Parathyroid cancer Osteoporosis Left axillary swelling Dermatitis Dizziness Headache Graves disease Essential hypertension Hypothyroid Home Medications ?Medication ?Instructions ?Recorded ?Last Taken ?Type Handicap Placard #1 ea 11/03/21 Unknown Rx cholecalciferol (vitamin D3) 25 25 mcg PO DAILY 07/25/22 07/10/24 History mcg (1,000 unit) capsule cholestyramine (with sugar) 4 gram See Rx Instructions .Route 08/30/23 07/10/24 Rx oral powder .COMPLEX #1,134 grams alendronate 70 mg tablet 70 mg PO MELLO 01/23/24 07/05/24 History levothyroxine 75 mcg tablet 75 mcg PO DAILY 01/23/24 07/11/24 History (Euthyrox) losartan 100 mg tablet 100 mg PO DAILY 01/23/24 07/10/24 History amlodipine 10 mg tablet 10 mg PO DAILY #90 tabs 04/21/24 07/10/24 Rx lactobacillus combination no.4 3 3,000 mmu cells PO QDAY 05/15/24 07/10/24 History billion cell capsule (Probiotic) doxycycline monohydrate 100 mg 100 mg PO BID #180 CAPSULES 06/12/24 07/10/24 Rx capsule ondansetron 4 mg disintegrating 4 mg PO BID PRN nausea and 06/12/24 07/10/24 Rx tablet vomiting #180 tabs ondansetron HCl 4 mg tablet 4 mg PO BID #60 tabs 06/12/24 07/10/24 Rx Allergy/AdvReac Type Severity Reaction Status Date / Time peas Allergy Intermediate Other Verified 07/11/24 10:43 penicillin V Allergy Intermediate Hives Verified 07/11/24 10:43 mendez Allergy Anaphylaxis Verified 07/11/24 10:43 Family History Mother Heart disease Hypertension High cholesterol Osteoporosis CVA (cerebral vascular accident) Father CVA (cerebral vascular accident) Daughter Thyroid disorder Surgical History History of ankle surgery History of eye surgery H/O: hysterectomy Social History Smoking Status: Former smoker Electronic Cigarette Use: without nicotine how long ago did patient quit smokin years ago alcohol intake: current substance use type: does not use additional social history: denies vaping- quit 8 years ago, denies marijuana, denies edibles, denies aspirin and denies ibuprofen. denies history of blood clotting disorder. 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 She wears a patch over her right eye. Had some chills when she was getting some IV fluids. All review of systems were negative except as mentioned above in the history of present illness and the other review of systems. Vital Signs Vital Signs Vital Signs: 07/11/24 10:39 07/11/24 10:53 07/11/24 12:38 Temperature 36.6 C Temperature Source Oral Pulse Rate 108 H 87 Respiratory Rate 18 13 Respiratory Effort Normal Non-Labored Respiratory Pattern Normal Blood Pressure 134/81 H 134/61 H Blood Pressure Mean 98 85 Pulse Ox 96 99 Oxygen Delivery Method Room Air Room Air 07/11/24 13:43 07/11/24 14:00 Temperature 36.6 C Temperature Source Pulse Rate 89 96 Respiratory Rate 16 24 H Respiratory Effort Respiratory Pattern Blood Pressure 114/58 L 125/83 H Blood Pressure Mean 76 97 Pulse Ox 98 97 Oxygen Delivery Method Weight Weight: 51.5 kg Body Mass Index (BMI) 22.1 Physical Exam Const alert and no apparent distress HEENT normocephalic and head/scalp atraumatic HEENT Narrative: slight proptosis of right eye. Eyes Eyes Narrative: no icterus Neck no lymphadenopathy and supple Resp normal respiratory effort, no retractions, no use of accessory muscles and clear to auscultation bilaterally Cardio regular rate, regular rhythm, S1 normal heart sound and S2 normal heart sound GI normal to inspection, nondistended, normoactive bowel sounds, soft to palpation, non-tender, non-distended and hepatosplenomegaly Extremity normal to inspection, full ROM and no clubbing, cyanosis or edema Neuro oriented x3, CN's II-XII intact bilaterally, moves all extremities and no focal motor deficits Neuro Narrative: Muscle strength 4-5 in the right lower extremity posteriorly with dorsiflexion of the right great toe. Sensorium / Orientation: awake and alert Psych affect normal Results Lab / Micro Data Attestation: I reviewed the patient's lab results. 07/11/24 10:45 07/11/24 10:45 Labs: Laboratory Results - last 24 hr 07/11/24 10:45: WBC 6.6, RBC 3.51 L, Hgb 10.9 L, Hct 33.3 L, MCV 94.9, MCH 31.1, MCHC 32.7, RDW Std Deviation 50.3 H, RDW Coeff of [place] 14.6, Plt Count 256, MPV 9.9, Immature Gran % (Auto) 0.300, Neut % (Auto) 60.8, Lymph % (Auto) 32.7, [place] % (Auto) 5.5, Eos % (Auto) 0.2, Baso % (Auto) 0.5, Absolute Neuts (auto) 4.0, Absolute Lymphs (auto) 2.16, Nucleated RBC % 0, Sodium 141, Potassium 3.6, Chloride 107, Carbon Dioxide 28.0, Anion Gap 6, BUN 18, Creatinine 1.29 H, Estim Creat Clear Calc 21.24, Est GFR (MDRD) Af Amer 50 L, Est GFR (MDRD) Non-Af 41 L, BUN/Creatinine Ratio 14.0, Glucose 103, Calcium 8.4 L, Total Bilirubin 1.60 H, AST 115 H, ALT 79 H, Alkaline Phosphatase 148 H, Total Protein 5.4 L, Albumin 2.5 L, Globulin 2.9, Albumin/Globulin Ratio 0.9, Lipase 38, TSH 0.907 07/11/24 11:49: Urine Color Yellow, Urine Clarity Clear, Urine pH 6.0, Ur Specific [place] [address] 1.015, Urine Protein 15 H, Urine Glucose (UA) Normal, Urine Ketones Negative, Urine Occult Blood Negative, Urine Nitrite Negative, Urine Bilirubin Negative, Urine Urobilinogen Normal, Ur Leukocyte Esterase Negative, Urine RBC 0 SEEN, Urine WBC 0 SEEN, Ur Squamous Epith Cells 0 SEEN, Urine Bacteria 0 SEEN, Urine Mucus 0 SEEN Assessment & Plan Assessment/Plan (1) Radicular leg pain: PLAN: Chronic I am concerned that she may have spinal stenosis. Check CT lumbar spine for further details. Per family, this has not been evaluated as outpt, but described as muscle atrophy (2) PATRICK (acute kidney injury): PLAN: Probably prerenal IVF monitor hold losartan (3) Debility: PLAN: Multifactorial PT OT evaluate and treat As pt lives by herself, I anticipate that she'll require a SNF upon discharge. (4) Facial lesion: PLAN: Chronic Has seen plastics for this and has been on numerous abx. Currently on doxycycline. Concern that the abx may be contributing to her GI distress. Consider infectious disease consultation. (5) Nausea: PLAN: Unclear etiology. Concern it may be from abx. Add PPI. Antiemetics. PLAN: Plan Chronic conditions: Hypothyroidism: previously had Grave's disease that led to right eye proptosis. Now hypothyroid. TSH WNL. Continue levothyroxine. HTN: hold losartan given PATRICK. Continue amlodipine Osteoporosis: alendronate on hold for now. VTE prophylaxis: LMWH. Code status: DNRCCA, DNI. LUBNA pt and her family. Charges/Coding Visit Charges Inpatient E&M: 60979 Init Hosp L3
--- NOTE | 2024-07-11 14:57 | NURSING ---
back from CT scan via bed. Family in room at this time with pt
[2024-07-11] MEDS: 0.9% Normal Saline (1000mL) 1,000 ML 150 ML IV (15:30)
[2024-07-11 15:33] VITALS: BMI 21.4
[2024-07-11 15:51] VITALS: BP 103/64; PULSE 96; RESP 18; TEMP 36.4; O2SAT 100
[2024-07-11] MEDS: proCHLORPERazine 10 MG/2 ML Vial 5 MG IV (17:15)
[2024-07-11 21:30] VITALS: BP 106/76; PULSE 106; RESP 18; TEMP 36.4; O2SAT 94
[2024-07-11] MEDS: Pantoprazole Sodium 40 MG Tablet PO (22:39)
[2024-07-11] MEDS: Menthol/Lanolin/Calamine/Znox 113 GM Tube 1 APPLIC TOPICAL (22:39)
[2024-07-11] MEDS: Doxycycline 100 MG CAPSULE PO (22:39)
[2024-07-12 03:35] VITALS: BP 139/63; PULSE 93; RESP 18; TEMP 36.7; O2SAT 95
[2024-07-12 06:07] LABS: Absolute Lymphocyte Count 2.01 X10^3/uL (0.83-4.51); Absolute Neutrophil Count 2.7 X10^3/uL (2.0-7.7); Basophil# 0.02 X10^3/uL; Basophil% 0.4 % (0-1); Eosinophil# 0.04 X10^3/uL; Eosinophils% 0.8 % (0-5); Hematocrit 25.2 % (37-47); Hemoglobin 8.5 g/dL (12.0-15.0); Lymphocyte # 2.01 X10^3/ul (0.83-4.51); Lymphocyte % 38.4 % (19-41); Mean Corp Hgb Conc 33.7 g/dL (32-36); Mean Corpuscular Hgb 31.6 pg (27.0-32.0); Mean Corpuscular Volume 93.7 fL (81-99); Mean Platelet Vol. 10.3 fl (6.2-12.0); Monocyte# 0.44 X10^3/uL; Monocyte% 8.4 % (0-10); NRBC Flagged by Analyzer 0.4 % (0-5); Neutrophil # 2.72 X10^3/uL (2.7-7.7); Neutrophil % 51.8 % (47-70); Platelet Count 201 K/mm3 (150-450); RBC Distribution Width CV 14.7 % (11.6-14.6); RBC Distribution Width SD 50.5 fl (35.1-43.9); Red Blood Count 2.69 M/mm3 (4.2-5.4); White Blood Count 5.2 K/mm3 (4.4-11.0)
[2024-07-12] MEDS: Levothyroxine 75 MCG Tablet PO (06:38)
[2024-07-12 06:41] LABS: ALB/GLOB Ratio 0.9 RATIO (0.9-2.4); AST(SGOT) 105 U/L (15-37); Alanine Aminotransfer ALT/SGPT 66 U/L (13-56); Albumin, Serum 1.8 g/dL (3.2-5.0); Alkaline Phosphatase 108 U/L (45-117); Anion Gap 4 (5-15); BUN 15 mg/dL (7-18); BUN/Creat Ratio 13.6 RATIO (10-20); Calcium,Total 7.5 mg/dL (8.5-10.1); Chloride 111 mmol/L (98-107); EST Glomerular Filtration Rate 50 mL/min (>60); Est Glom Filt Rate - Afr Amer 60 mL/min (>60); Globulin 2.1 g/dL (2.2-4.2); Glucose 89 mg/dL (74-106); Potassium 3.5 mmol/L (3.5-5.1); Protein, Total 3.9 g/dL (6.4-8.2); Sodium Level 142 mmol/L (136-145)
--- NOTE | 2024-07-12 07:20 | PN.HOSP_ITS ---
Reason for Visit Reason for Visit: Diagnoses Disorder of the skin and subcutaneous tissue, unspecified (07/11/24) Radiculopathy, site unspecified (07/11/24) Acute kidney failure, unspecified (07/11/24) Nausea (07/11/24) Other malaise (07/11/24) Subjective Subjective Feeling better. Still with abdominal complaints. Objective Data Objective Data Vital Signs: Vital Signs Temp Pulse Resp BP Pulse Ox O2 Del Method 36.7 C 93 18 139/63 H 95 Room Air 07/12/24 03:35 07/12/24 03:35 07/12/24 03:35 07/12/24 03:35 07/12/24 03:35 07/12/24 03:35 Oxygen Delivery Method Room Air Weight: 49.8 kg Body Mass Index (BMI) 21.4 Intake & Output: Intake and Output for Last 24 Hours 07/10/24 07/11/24 07/12/24 23:59 23:59 23:59 Intake Total 1633.33 / 1883.33 350 / 350 Balance 1633.33 / 1883.33 350 / 350 Lab / Micro Data 07/12/24 04:05 07/12/24 04:05 Labs: Laboratory Results - last 24 hr 07/11/24 10:45: WBC 6.6, RBC 3.51 L, Hgb 10.9 L, Hct 33.3 L, MCV 94.9, MCH 31.1, MCHC 32.7, RDW Std Deviation 50.3 H, RDW Coeff of Macho 14.6, Plt Count 256, MPV 9.9, Immature Gran % (Auto) 0.300, Neut % (Auto) 60.8, Lymph % (Auto) 32.7, [place] % (Auto) 5.5, Eos % (Auto) 0.2, Baso % (Auto) 0.5, Absolute Neuts (auto) 4.0, Absolute Lymphs (auto) 2.16, Nucleated RBC % 0, Sodium 141, Potassium 3.6, Chloride 107, Carbon Dioxide 28.0, Anion Gap 6, BUN 18, Creatinine 1.29 H, Estim Creat Clear Calc 21.24, Est GFR (MDRD) Af Amer 50 L, Est GFR (MDRD) Non-Af 41 L, BUN/Creatinine Ratio 14.0, Glucose 103, Calcium 8.4 L, Total Bilirubin 1.60 H, A ST 115 H, ALT 79 H, Alkaline Phosphatase 148 H, Total Protein 5.4 L, Albumin 2.5 L, Globulin 2.9, Albumin/Globulin Ratio 0.9, Lipase 38, TSH 0.907 07/11/24 11:49: Urine Color Yellow, Urine Clarity Clear, Urine pH 6.0, Ur Specific [place] 1.015, Urine Protein 15 H, Urine Glucose (UA) Normal, Urine Ketones Negative, Urine Occult Blood Negative, Urine Nitrite Negative, Urine Bilirubin Negative, Urine Urobilinogen Normal, Ur Leukocyte Esterase Negative, Urine RBC 0 SEEN, Urine WBC 0 SEEN, Ur Squamous Epith Cells 0 SEEN, Urine Bacteria 0 SEEN, Urine Mucus 0 SEEN 07/12/24 04:05: WBC 5.2, RBC 2.69 L, Hgb 8.5 L, Hct 25.2 L, MCV 93.7, MCH 31.6, MCHC 33.7, RDW Std Deviation 50.5 H, RDW Coeff of Macho 14.7 H, Plt Count 201, MPV 10.3, Immature Gran % (Auto) 0.200, Neut % (Auto) 51.8, Lymph % (Auto) 38.4, [place] % (Auto) 8.4, Eos % (Auto) 0.8, Baso % (Auto) 0.4, Absolute Neuts (auto) 2.7, Absolute Lymphs (auto) 2.01, Nucleated RBC % 0.4, Sodium 142, Potassium 3.5, Chloride 111 H, Carbon Dioxide 27.0, Anion Gap 4 L, BUN 15, Creatinine 1.10 H, Estim Creat Clear Calc 24.90, Est GFR (MDRD) Af Amer 60, Est GFR (MDRD) Non- Af 50 L, BUN/Creatinine Ratio 13.6, Glucose 89, Calcium 7.5 L, Total Bilirubin 1.60 H, AST 105 H, ALT 66 H, Alkaline Phosphatase 108, Total Protein 3.9 L, A lbumin 1.8 L, Globulin 2.1 L, Albumin/Globulin Ratio 0.9 Radiography Diagnostic Testing: Radiology Impression Lumbar Spine CT 07/11/24 14:31 IMPRESSION: 1. Prominent multilevel spondylosis with mild multilevel spinal stenosis and bilateral L4 neural foraminal stenosis. 2. Partially visualized 5.2 cm infrarenal abdominal aortic aneurysm. 3. Partially visualized 2 cm hypodense liver lesion possibly representing a cyst. Electronically Signed: Naga yRan MD at 15:52 EST , Physical Exam Const alert and no apparent distress HEENT head/scalp atraumatic and moist oral mucous membranes Resp normal respiratory effort and no retractions Extremity normal to inspection and no clubbing, cyanosis or edema Neuro oriented x3 and moves all extremities Neuro Narrative: Decreased strength of R first toe dorsiflexion. Sensorium / Orientation: awake and alert Psych affect normal Assessment & Plan Assessment/Plan (1) Radicular leg pain: PLAN: Previously, family said they were told it was due to muscle atrophy I initially suspected spinal stenosis and ordered a CT lumbar spine that showed prominent multilevel spondylosis with mild multilevel spinal stenosis and bilateral L4 neural foraminal stenosis. Given the limited dorsiflexion of her right great toe, I suspect the L4 neural foraminal stenosis may be the primary issue. Will start steroids (prednisone 40mg daily for 5 days). No red flags, such as bowel or bladder incontinence. Patient will need to do therapy, then follow up with spine surgery to see what her options are. (2) PATRICK (acute kidney injury): PLAN: Improving Probably prerenal IVF monitor hold losartan (3) Debility: PLAN: Multifactorial: from advanced age, spinal stenosis with radicular symptoms. PT OT evaluate and treat As pt lives by herself, I anticipate that she'll require a SNF upon discharge. (4) Facial lesion: PLAN: Chronic. It appears much improved from before (pictures from Dr. Vyas's office notes) Has seen plastics for this and has been on numerous abx. Currently on doxycycline. Concern that the abx may be contributing to her GI distress. Infectious disease consultation for input about length of abx. (5) Nausea: PLAN: Unclear etiology. Concern it may be from abx. Add PPI. Antiemetics. (6) Anemia: PLAN: Hg 8.5, had been 13.4 in January and did drop from 10.9 on 07/11 Iron, folate and TSH WNL. Heme positive stools. Check B12, with elevated total bili, rule out hemolysis (check haptoglobin and LDH). No indication to transfuse. Monitor Hold off on GI evaluation unless pt's anemia worsens. (7) Transaminitis: PLAN: With increased total bilirubin Unclear significance Monitor check RUQ US. PLAN: Plan Chronic conditions: * Hypothyroidism: previously had Grave's disease that led to right eye proptosis. Now hypothyroid. TSH WNL. Continue levothyroxine. * HTN: hold losartan given PATRICK. Continue amlodipine * Osteoporosis: alendronate on hold for now. VTE prophylaxis: SCDs given anemia. Code status: DNRCCA, DNI. DW pt and her family. Charges/Coding Visit Charges Inpatient E&M: 03638 Subs Hosp L2
[2024-07-12] MEDS: predniSONE 20 MG Tablet 40 MG PO (08:15)
[2024-07-12] MEDS: Enoxaparin 30 MG/0.3 ML Syringe SC (08:15)
[2024-07-12] MEDS: Doxycycline 100 MG CAPSULE PO ×2 (08:16→21:08)
[2024-07-12] MEDS: Pantoprazole Sodium 40 MG Tablet PO ×2 (08:16→21:07)
[2024-07-12] MEDS: Cholestyramine/Sucrose 4 GM/PACKET PO (08:16)
[2024-07-12] MEDS: amLODIPine 10 MG Tablet PO (08:16)
[2024-07-12] MEDS: Menthol/Lanolin/Calamine/Znox 113 GM Tube 1 APPLIC TOPICAL ×2 (08:17→21:08)
[2024-07-12] MEDS: Lactobacillis Acidophilus 1 CAP PO (08:17)
[2024-07-12] MEDS: FLU VACCINE **HIGH DOSE** TV 24-25 180 MCG/0.5 ML SYRINGE IM (08:25)
[2024-07-12 08:34] LABS: Ferritin 482 ng/mL (8-252); Iron 87 ug/dL (50-170); Iron Binding Capacity,Total 121 ug/dL (250-450); PERCENT IRON SATURATION 71.9 % (15.0-55.0)
[2024-07-12 09:30] VITALS: BP 117/69; PULSE 100; RESP 16; TEMP 37.1; O2SAT 98
[2024-07-12 13:18] LABS: LDH 245 U/L (84-246)
[2024-07-12 15:30] VITALS: BP 109/60; PULSE 84; RESP 16; TEMP 36.6; O2SAT 84
[2024-07-12 21:21] VITALS: BP 127/66; PULSE 106; RESP 16; TEMP 36.8; O2SAT 98
[2024-07-13 03:15] VITALS: BP 130/72; PULSE 93; RESP 16; TEMP 36.6; O2SAT 95
[2024-07-13] MEDS: Levothyroxine 75 MCG Tablet PO (05:45)
[2024-07-13 07:08] LABS: Absolute Lymphocyte Count 0.77 X10^3/uL (0.83-4.51); Absolute Neutrophil Count 3.9 X10^3/uL (2.0-7.7); Hematocrit 28.1 % (37-47); Hemoglobin 9.3 g/dL (12.0-15.0); Lymphocyte # 0.77 X10^3/ul (0.83-4.51); Mean Corp Hgb Conc 33.1 g/dL (32-36); Mean Corpuscular Hgb 30.7 pg (27.0-32.0); Mean Corpuscular Volume 92.7 fL (81-99); Monocyte% 2.1 % (0-10); NRBC Flagged by Analyzer 0 % (0-5); Neutrophil # 3.89 X10^3/uL (2.7-7.7); Neutrophil % 81.1 % (47-70); Platelet Count 224 K/mm3 (150-450); RBC Distribution Width CV 14.8 % (11.6-14.6); RBC Distribution Width SD 50.4 fl (35.1-43.9); Red Blood Count 3.03 M/mm3 (4.2-5.4); White Blood Count 4.8 K/mm3 (4.4-11.0)
--- NOTE | 2024-07-13 07:33 | US_ITS ---
STUDY: ABDOMINAL ULTRASOUND - RIGHT UPPER QUADRANT REASON FOR VISIT: Female, 89 years old transaminitis TECHNIQUE: Ultrasound evaluation of the right upper quadrant was performed with real-time and static moreno-scale imaging. TECHNICAL QUALITY: Adequate. COMPARISON: None. FINDINGS: Liver: The liver measures 14.4 cm. There is a heterogeneous echogenicity of the liver. The bile ducts are within normal limits. There is hepatic color flow. The direction of portal flow is hepatopetal. There is no demonstrated mass lesion. Gallbladder: Normal distended gallbladder. The gallbladder wall measures 2.0 mm. There is a negative sonographic Espino''s sign. There is no pericholecystic fluid. There are no gallstones. Common Bile Duct (C.B.D.): The common bile duct measures 3.0 mm. Pancreas: Normal size of the head, body and tail of the pancreas. There is normal echogenicity of the pancreas. There is no demonstrated pancreatic mass or cyst. Right Kidney: Normal size of the right kidney. The right kidney measures 8.7 cm x 4.6 x 3.9 cm. Normal renal cortex. The right cortex measures 1.4 cm. There is a 2.9 cm x 3.6 cm x 2.3 cm renal cyst. There is no right hydronephrosis. Incidental note is made of an infrarenal abdominal aortic aneurysm with a transverse dimension of 5.5 cm. Pericardial effusion. US/Abdomen Limited IMPRESSION: Heterogeneous appearance of the liver parenchyma. Pericardial effusion. Abdominal aortic aneurysm with a transverse dimension of 5.5 cm. Electronically Signed: Lc Nunez MD at 9:21 EST ,
[2024-07-13 07:40] LABS: ALB/GLOB Ratio 0.8 RATIO (0.9-2.4); AST(SGOT) 88 U/L (15-37); Alanine Aminotransfer ALT/SGPT 68 U/L (13-56); Albumin, Serum 2.1 g/dL (3.2-5.0); Alkaline Phosphatase 130 U/L (45-117); Anion Gap 6 (5-15); BUN 16 mg/dL (7-18); BUN/Creat Ratio 13.4 RATIO (10-20); Calcium,Total 7.9 mg/dL (8.5-10.1); Chloride 109 mmol/L (98-107); Creatinine, Serum 1.19 mg/dL (0.55-1.02); EST Glomerular Filtration Rate 45 mL/min (>60); Est Glom Filt Rate - Afr Amer 55 mL/min (>60); Estimated Creatinine Clearance 23.02 ml/min; Globulin 2.6 g/dL (2.2-4.2); Glucose 139 mg/dL (74-106); Potassium 3.4 mmol/L (3.5-5.1); Protein, Total 4.7 g/dL (6.4-8.2); Sodium Level 140 mmol/L (136-145)
--- NOTE | 2024-07-13 08:27 | PCM.PN.HOSP ---
Reason for Visit Reason for Visit: Diagnoses Anemia, unspecified (07/11/24) Disorder of the skin and subcutaneous tissue, unspecified (07/11/24) Radiculopathy, site unspecified (07/11/24) Acute kidney failure, unspecified (07/11/24) Nausea (07/11/24) Other malaise (07/11/24) Elevation of levels of liver transaminase levels (07/11/24) Subjective Subjective Patient is an 89-year-old female admitted with increasing weakness. She was also found to have acute kidney injury admitted to regular nursing floor for further management Objective Data Objective Data Vital Signs: Vital Signs Temp Pulse Resp BP Pulse Ox O2 Del Method 97.8 F 93 16 130/72 H 95 Room Air 07/13/24 03:15 07/13/24 03:15 07/13/24 03:15 07/13/24 03:15 07/13/24 03:15 07/13/24 03:15 Oxygen Delivery Method Room Air Weight: 49.8 kg Body Mass Index (BMI) 21.4 Intake & Output: Intake and Output for Last 24 Hours 07/11/24 07/12/24 07/13/24 23:59 23:59 23:59 Intake Total 1633.33 / 1883.33 1150 / 1300 250 / 250 Balance 1633.33 / 1883.33 1150 / 1300 250 / 250 Lab / Micro Data 07/13/24 06:09 07/13/24 06:09 Labs: Laboratory Results - last 24 hr 07/12/24 04:05: Iron 87, TIBC 121 L, Iron Saturation 71.9 H, Ferritin 482 H, Lactate Dehydrogenase 245, Folate 13.20 07/13/24 06:09: WBC 4.8, RBC 3.03 L, Hgb 9.3 L, Hct 28.1 L, MCV 92.7, MCH 30.7, MCHC 33.1, RDW Std Deviation 50.4 H, RDW Coeff of Macho 14.8 H, Plt Count 224, MPV 10.0, Immature Gran % (Auto) 0.800, Neut % (Auto) 81.1 H, Lymph % (Auto) 16.0 L, [place] % (Auto) 2.1, Eos % (Auto) 0.0, Baso % (Auto) 0.0, Absolute Neuts (auto) 3.9, Absolute Lymphs (auto) 0.77 L, Nucleated RBC % 0, Sodium 140, Potassium 3.4 L, Chloride 109 H, Carbon Dioxide 25.0, Anion Gap 6, BUN 16, Creatinine 1.19 H, Estim Creat Clear Calc 23.02, Est GFR (MDRD) Af Amer 55 L, Est GFR (MDRD) Non-Af 45 L, BUN/Creatinine Ratio 13.4, Glucose 139 H, Calcium 7.9 L, Total Bilirubin 1.30 H, AST 88 H, ALT 68 H, Alkaline Phosphatase 130 H, Total Protein 4.7 L, Albumin 2.1 L, Globulin 2.6, Albumin/Globulin Ratio 0.8 L Micro: Microbiology 07/12/24 09:25 Stool Stool Occult Blood (VENKATESH) - Final Occult Blood Positive Physical Exam Narrative GENERAL: cooperative HEENT: Atraumatic; normocephalic EYES; Anicteric, Normal Conjunctiva NECK; supple, normal thyroid, RESPIRATORY: Diminished to auscultation CARDIOVASCULAR: Regular S1 S2, GI: soft, normoactive bowel sounds, : No Renal angle tenderness; EXTREMITIES: No edema, no clubbing, MUSCULOSKELETAL: no muscle wasting NEURO: Awake; no lateralizing signs. SKIN: No Rash PSYCH; Flat affect Assessment & Plan Assessment/Plan (1) Radicular leg pain: (2) PATRICK (acute kidney injury): (3) Transaminitis: PLAN: Plan Patient is an 89-year-old female admitted with increasing weakness. She was also found to have acute kidney injury admitted to regular nursing floor for further management 1. Radicular pain ? CT of the lumbar spine did show Prominent multilevel spondylosis with mild multilevel spinal stenosis and bilateral L4 neural foraminal stenosis. Partially visualized 5.2 cm infrarenal abdominal aortic aneurysm. Partially visualized 2 cm hypodense liver lesion possibly representing a cyst. Requested for PT OT eval and social media editor to assist with discharge planning 2. Acute kidney injury ? Patient started on hydration with subsequent monitoring of electrolytes ordered 3. Anemia ? Secondary to chronic disorder monitoring H&H and transfuse if patient becomes symptomatic or hemoglobin falls below 7 4. Hypokalemia -Corrected per protocol 6. Graves' disease ? With residual ophthalmopathy. Patient wears an eye patch over the right eye to prevent diplopia. Patient is on levothyroxine did continue 7. Hypertension ? Blood pressure controlled, home medications continued with dose adjustment as needed 8. Acute transaminitis ? Right upper quadrant ultrasound ordered for subsequent eval 9. DVT prophylaxis ? On enoxaparin Charges/Coding Visit Charges Inpatient E&M: 93235 Subs Hosp L2
[2024-07-13 09:00] VITALS: BP 130/65; PULSE 65; RESP 16; RESP 18; TEMP 36.1; O2SAT 97; O2SAT 98
[2024-07-13] MEDS: Potassium Chloride Oral Tablet 20 MEQ 40 MEQ PO (09:27)
[2024-07-13] MEDS: Doxycycline 100 MG CAPSULE PO ×2 (09:28→21:35)
[2024-07-13] MEDS: Pantoprazole Sodium 40 MG Tablet PO ×2 (09:28→21:35)
[2024-07-13] MEDS: amLODIPine 10 MG Tablet PO (09:28)
[2024-07-13] MEDS: Lactobacillis Acidophilus 1 CAP PO (09:28)
--- NOTE | 2024-07-13 09:32 | WOUNDNOTE ---
Was consulted to see patient for wound to the right buttock. there is a pinpoint open area noted. pt states there had been a scab and the scab had fallen off. no redness noted. cleansed with soap and water. pat dry. applied calmoseptine. pt tolerated well. see wound photo.
--- NOTE | 2024-07-13 09:53 | WOUNDNOTE ---
wound photo: right buttock
[2024-07-13] MEDS: Menthol/Lanolin/Calamine/Znox 113 GM Tube 1 APPLIC TOPICAL ×2 (10:13→21:35)
[2024-07-13] MEDS: predniSONE 20 MG Tablet 40 MG PO (10:13)
[2024-07-13] MEDS: Cholestyramine/Sucrose 4 GM/PACKET PO ×2 (11:25→18:19)
--- NOTE | 2024-07-13 11:44 | CASEMGMT ---
Addendum entered by Kayy Wilkinson 07/13/24 14:04: Received confirmation via email that the palliative referral was received per November. Original Note: RN ML notified that pt son would like to speak to ANGUS BULL. ANGUS CM into pt room, pt sitting up in bed with son at bedside. Pt son asks about rehab in a facility. He states he has family who work at [facility] and would like pt to go to [facility]. He is interested in a list of other options in case TCU cannot accept pt. Pt is in agreement with [facility]. Discussed palliative care as ANGUS BULL made aware pt is interested in this. Made aware that palliative can visit while pt in SNF and then once home. Discussed purpose of palliative care. Pt is interested as well as son. Pt screened with [facility] palliative care screening tool, pt met criteria. Order received and referral sent via email. Updated SW on pt wishes to dc to [facility] and need for list.
--- NOTE | 2024-07-13 13:08 | CASEMGMT ---
Discharge Planning A list of?SNF providers including quality and resource use data and consistent with the patient's preferred geographic region, medical needs, and insurance network was created in CarePort Guide.? This list was provided to the SW. Kamilla Benjamin Discharge Planning Asst.
[2024-07-13 13:57] LABS: Vitamin B12 1345 pg/mL (211-911)
--- NOTE | 2024-07-13 14:28 | CON.PCM.ID_ITS ---
Assessment & Plan Assessment/Plan (1) Actinomyces infection: PLAN: cont po doxy. Typical course is to stop 2 months after infection resolves; still some residual erythema. She is to continue with plastic surgery followup. Will follow prn, thank you HPI Consult Data Date of Consult: 07/13/24 HPI Narrative Reason for Consultation: face cellulitis HPI Narrative: PALAK MUHAMMAD, is a 89 F who presented with chronic progressive weakness. Has been on po doxy for L face cellulitis with drainage. Cx with [facility], seeing Dr. Vyas, overall has been improving. No fever, drainage resolved. Full ROS performed and neg except as noted above. [facility] Medical History Hypertension Osteoarthritis Chest pain Lung nodule seen on imaging study Arrhythmia Skin cyst Balance problems Parathyroid cancer Osteoporosis Left axillary swelling Dermatitis Dizziness Headache Graves disease Essential hypertension Hypothyroid Home Medications ?Medication ?Instructions ?Recorded ?Last Taken ?Type Handicap Placard #1 ea 11/03/21 Unknown Rx cholecalciferol (vitamin D3) 25 25 mcg PO DAILY 07/25/22 07/10/24 History mcg (1,000 unit) capsule cholestyramine (with sugar) 4 gram See Rx Instructions .Route 08/30/23 07/10/24 Rx oral powder .COMPLEX #1,134 grams alendronate 70 mg tablet 70 mg PO MELLO 01/23/24 07/05/24 History levothyroxine 75 mcg tablet 75 mcg PO DAILY 01/23/24 07/11/24 History (Euthyrox) losartan 100 mg tablet 100 mg PO DAILY 01/23/24 07/10/24 History amlodipine 10 mg tablet 10 mg PO DAILY #90 tabs 04/21/24 07/10/24 Rx lactobacillus combination no.4 3 3,000 mmu cells PO QDAY 05/15/24 07/10/24 History billion cell capsule (Probiotic) doxycycline monohydrate 100 mg 100 mg PO BID #180 CAPSULES 06/12/24 07/10/24 Rx capsule ondansetron 4 mg disintegrating 4 mg PO BID PRN nausea and 06/12/24 07/10/24 Rx tablet vomiting #180 tabs ondansetron HCl 4 mg tablet 4 mg PO BID #60 tabs 06/12/24 07/10/24 Rx Allergy/AdvReac Type Severity Reaction Status Date / Time peas Allergy Intermediate Other Verified 07/11/24 10:43 penicillin V Allergy Intermediate Hives Verified 07/11/24 10:43 mendez Allergy Anaphylaxis Verified 07/11/24 10:43 Family History Mother Heart disease Hypertension High cholesterol Osteoporosis CVA (cerebral vascular accident) Father CVA (cerebral vascular accident) Daughter Thyroid disorder Surgical History History of ankle surgery History of eye surgery H/O: hysterectomy Social History Smoking Status: Former smoker Electronic Cigarette Use: without nicotine how long ago did patient quit smokin years ago alcohol intake: current substance use type: does not use additional social history: denies vaping- quit 8 years ago, denies marijuana, denies edibles, denies aspirin and denies ibuprofen. denies history of blood clotting disorder. Physical Exam Const alert, oriented x3 and no apparent distress General Appearance: cooperative HEENT normocephalic and head/scalp atraumatic Eyes PERRL and EOMs intact bilaterally Neck supple and No nodes Resp normal air movement and clear to auscultation bilaterally Cardio regular rate and regular rhythm GI soft to palpation, non-tender and non-distended Extremity General Extremity: Negative for edema Skin Skin Narrative: Small area L face erythema, fading, nontender Neuro CN's II-XII intact bilaterally Lab / Micro Data Attestation: I reviewed the patient's lab results. 07/13/24 06:09 07/13/24 06:09 Labs: Laboratory Results - last 24 hr 07/12/24 04:05: Vitamin B12 1345 H 07/13/24 06:09: WBC 4.8, RBC 3.03 L, Hgb 9.3 L, Hct 28.1 L, MCV 92.7, MCH 30.7, MCHC 33.1, RDW Std Deviation 50.4 H, RDW Coeff of Macho 14.8 H, Plt Count 224, MPV 10.0, Immature Gran % (Auto) 0.800, Neut % (Auto) 81.1 H, Lymph % (Auto) 16.0 L, [place] % (Auto) 2.1, Eos % (Auto) 0.0, Baso % (Auto) 0.0, Absolute Neuts (auto) 3.9, Absolute Lymphs (auto) 0.77 L, Nucleated RBC % 0, Sodium 140, Potassium 3.4 L, Chloride 109 H, Carbon Dioxide 25.0, Anion Gap 6, BUN 16, Creatinine 1.19 H, Estim Creat Clear Calc 23.02, Est GFR (MDRD) Af Amer 55 L, Est GFR (MDRD) Non-Af 45 L, BUN/Creatinine Ratio 13.4, Glucose 139 H, Calcium 7.9 L, Total Bilirubin 1.30 H, AST 88 H, ALT 68 H, Alkaline Phosphatase 130 H, Total Protein 4.7 L, A lbumin 2.1 L, Globulin 2.6, Albumin/Globulin Ratio 0.8 L Micro: Microbiology 07/12/24 09:25 Stool Stool Occult Blood (VENKATESH) - Final Occult Blood Positive Imaging Radiology Impression Abdomen Ultrasound 07/13/24 07:33 IMPRESSION: Heterogeneous appearance of the liver parenchyma. Pericardial effusion. Abdominal aortic aneurysm with a transverse dimension of 5.5 cm. Electronically Signed: Lc Nunez MD at 9:21 EST ,
--- NOTE | 2024-07-13 15:18 | CASEMGMT ---
Social Work- SW met with pt to discuss preferences at d/c. A list of SNF providers including quality and resource use data and consistent with the patient?s preferred geographic region, medical needs, and insurance network were provided from the CarePort Guide. Pt reports that she would like TCU. TCU reports they have no beds at this time. SW called pt son to discuss alternate choices and left a voicemail. SW remains available to follow. JAMES Lopez
[2024-07-13 17:00] VITALS: BP 143/61; PULSE 68; RESP 18; TEMP 36.5; O2SAT 98
[2024-07-13 21:45] VITALS: BP 108/55; PULSE 73; RESP 16; TEMP 36.7; O2SAT 97
[2024-07-14 05:07] LABS: Haptoglobin 49 mg/dL (41-333)
[2024-07-14] MEDS: Levothyroxine 75 MCG Tablet PO (05:34)
[2024-07-14 05:38] VITALS: BP 125/62; PULSE 80; RESP 16; TEMP 36.9; O2SAT 96
[2024-07-14 07:00] LABS: Absolute Lymphocyte Count 1.78 X10^3/uL (0.83-4.51); Absolute Neutrophil Count 6.5 X10^3/uL (2.0-7.7); Basophil# 0.01 X10^3/uL; Basophil% 0.1 % (0-1); Hemoglobin 8.8 g/dL (12.0-15.0); Lymphocyte # 1.78 X10^3/ul (0.83-4.51); Mean Corp Hgb Conc 32.6 g/dL (32-36); Mean Corpuscular Hgb 30.7 pg (27.0-32.0); Mean Corpuscular Volume 94.1 fL (81-99); Mean Platelet Vol. 10.1 fl (6.2-12.0); Monocyte# 0.57 X10^3/uL; Monocyte% 6.4 % (0-10); NRBC Flagged by Analyzer 0.2 % (0-5); Neutrophil # 6.46 X10^3/uL (2.7-7.7); Neutrophil % 72.6 % (47-70); Platelet Count 213 K/mm3 (150-450); RBC Distribution Width CV 14.7 % (11.6-14.6); RBC Distribution Width SD 50.4 fl (35.1-43.9); Red Blood Count 2.87 M/mm3 (4.2-5.4); White Blood Count 8.9 K/mm3 (4.4-11.0)
--- NOTE | 2024-07-14 07:13 | PCM.PN.HOSP ---
Reason for Visit Reason for Visit: Diagnoses Actinomycosis, unspecified (07/11/24) Anemia, unspecified (07/11/24) Disorder of the skin and subcutaneous tissue, unspecified (07/11/24) Radiculopathy, site unspecified (07/11/24) Acute kidney failure, unspecified (07/11/24) Nausea (07/11/24) Other malaise (07/11/24) Elevation of levels of liver transaminase levels (07/11/24) Subjective Subjective Patient seen had a relatively uneventful night. Awaiting insurance precertification prior to transfer to a nursing home facility Objective Data Objective Data Vital Signs: Vital Signs Temp Pulse Resp BP Pulse Ox O2 Del Method 98.5 F 80 16 125/62 H 96 Room Air 07/14/24 05:38 07/14/24 05:38 07/14/24 05:38 07/14/24 05:38 07/14/24 05:38 07/14/24 05:38 Oxygen Delivery Method Room Air Weight: 49.8 kg Body Mass Index (BMI) 21.4 Intake & Output: Intake and Output for Last 24 Hours 07/12/24 07/13/24 07/14/24 23:59 23:59 23:59 Intake Total 1150 / 1300 1750 / 1750 Balance 1150 / 1300 1750 / 1750 Lab / Micro Data 07/14/24 06:08 07/14/24 06:08 Labs: Laboratory Results - last 24 hr 07/12/24 04:05: Haptoglobin 49, Vitamin B12 1345 H 07/13/24 06:09: Sodium 140, Potassium 3.4 L, Chloride 109 H, Carbon Dioxide 25.0, Anion Gap 6, BUN 16, Creatinine 1.19 H, Estim Creat Clear Calc 23.02, Est GFR (MDRD) Af Amer 55 L, Est GFR (MDRD) Non-Af 45 L, BUN/Creatinine Ratio 13.4, Glucose 139 H, Calcium 7.9 L, Total Bilirubin 1.30 H, AST 88 H, ALT 68 H, Alkaline Phosphatase 130 H, Total Protein 4.7 L, Albumin 2.1 L, Globulin 2.6, Albumin/Globulin Ratio 0.8 L 07/14/24 06:08: WBC 8.9, RBC 2.87 L, Hgb 8.8 L, Hct 27.0 L, MCV 94.1, MCH 30.7, MCHC 32.6, RDW Std Deviation 50.4 H, RDW Coeff of Macho 14.7 H, Plt Count 213, MPV 10.1, Immature Gran % (Auto) 0.900, Neut % (Auto) 72.6 H, Lymph % (Auto) 20.0, [place] % (Auto) 6.4, Eos % (Auto) 0.0, Baso % (Auto) 0.1, Absolute Neuts (auto) 6.5, Absolute Lymphs (auto) 1.78, Nucleated RBC % 0.2 Micro: Microbiology 07/12/24 09:25 Stool Stool Occult Blood (VENKATESH) - Final Occult Blood Positive Radiography Diagnostic Testing: Radiology Impression Abdomen Ultrasound 07/13/24 07:33 IMPRESSION: Heterogeneous appearance of the liver parenchyma. Pericardial effusion. Abdominal aortic aneurysm with a transverse dimension of 5.5 cm. Electronically Signed: Lc Nunez MD at 9:21 EST , Physical Exam Narrative GENERAL: cooperative HEENT: Atraumatic; normocephalic EYES; Anicteric, Normal Conjunctiva NECK; supple, normal thyroid, RESPIRATORY: Diminished to auscultation CARDIOVASCULAR: Regular S1 S2, GI: soft, normoactive bowel sounds, : No Renal angle tenderness; EXTREMITIES: No edema, no clubbing, MUSCULOSKELETAL: no muscle wasting NEURO: Awake; no lateralizing signs. SKIN: No Rash PSYCH; Flat affect Assessment & Plan Assessment/Plan (1) Radicular leg pain: (2) PATRICK (acute kidney injury): (3) Transaminitis: PLAN: Plan Patient is an 89-year-old female admitted with increasing weakness. She was also found to have acute kidney injury admitted to regular nursing floor for further management 1. Radicular pain ? CT of the lumbar spine did show Prominent multilevel spondylosis with mild multilevel spinal stenosis and bilateral L4 neural foraminal stenosis. Partially visualized 5.2 cm infrarenal abdominal aortic aneurysm. Partially visualized 2 cm hypodense liver lesion possibly representing a cyst. Requested for PT OT eval and vp digital marketing social media and crm to assist with discharge planning ? 07/14/2024; patient relatively controlled awaiting insurance pre-CERT prior to transfer to nursing home facility 2. Acute kidney injury ? Patient started on hydration with subsequent monitoring of electrolytes ordered 3. Anemia ? Secondary to chronic disorder monitoring H&H and transfuse if patient becomes symptomatic or hemoglobin falls below 7 ? 07/14/2024 hemoglobin down to 8.8 we will continue to monitor 4. Hypokalemia -Corrected per protocol 6. Graves' disease ? With residual ophthalmopathy. Patient wears an eye patch over the right eye to prevent diplopia. Patient is on levothyroxine did continue 7. Hypertension ? Blood pressure controlled, home medications continued with dose adjustment as needed 8. Acute transaminitis ? Right upper quadrant ultrasound ordered for subsequent eval 9. DVT prophylaxis ? On enoxaparin Time spent in the patient's overall evaluation,decision-making process, review of diagnostic data, adjustment of management, discussion with other providers, nursing nursing and ancillary staff involved in patient's care documentation, 36 Minutes Charges/Coding Visit Charges Inpatient E&M: 76383 Subs Hosp L2
[2024-07-14 08:25] LABS: Anion Gap 6 (5-15); BUN 21 mg/dL (7-18); BUN/Creat Ratio 17.9 RATIO (10-20); Calcium,Total 8.4 mg/dL (8.5-10.1); Chloride 110 mmol/L (98-107); Creatinine, Serum 1.17 mg/dL (0.55-1.02); EST Glomerular Filtration Rate 46 mL/min (>60); Est Glom Filt Rate - Afr Amer 56 mL/min (>60); Estimated Creatinine Clearance 23.41 ml/min; Glucose 95 mg/dL (74-106); Magnesium 2.1 mg/dL (1.6-2.6); Phosphorus 2.1 mg/dL (2.5-4.9); Potassium 4.5 mmol/L (3.5-5.1); Sodium Level 140 mmol/L (136-145)
[2024-07-14] MEDS: Cholestyramine/Sucrose 4 GM/PACKET PO (08:42)
[2024-07-14] MEDS: amLODIPine 10 MG Tablet PO (08:42)
[2024-07-14] MEDS: Pantoprazole Sodium 40 MG Tablet PO (08:42)
[2024-07-14] MEDS: predniSONE 20 MG Tablet 40 MG PO (08:42)
[2024-07-14] MEDS: Lactobacillis Acidophilus 1 CAP PO (08:42)
[2024-07-14] MEDS: Doxycycline 100 MG CAPSULE PO (08:42)
[2024-07-14] MEDS: Menthol/Lanolin/Calamine/Znox 113 GM Tube 1 APPLIC TOPICAL (08:43)
[2024-07-14] MEDS: Enoxaparin 30 MG/0.3 ML Syringe SC (08:43)
[2024-07-14 09:00] VITALS: BP 119/66; PULSE 84; RESP 16; TEMP 36.8; O2SAT 96
--- NOTE | 2024-07-14 09:29 | CASEMGMT ---
Social Work- SW met with pt to advise that TCU was able to accept referral d/t bed openings. Pt requested SW call d-i-l Shyanne to notify of acceptance. SW spoke with Shyanne to provide updates. Physician notified. Pt lives with Shyanne and son Andrey. They are primary contacts; Andrey is in [place] currently, so Shyanne is to be be contact at this time. Pt reports 5 children, 14 grandchildren, 24 great grandchildren, and 1 great grandchild. 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 Pt is A & O x4 and pleasant and cooperative in [facility]. SW remains available to follow. Plan: TCU; skilled ;level ofcare JAMES Lopez
--- NOTE | 2024-07-14 09:53 | PCM.TXEXTCAR ---
Diet Diet Order/Speech Therapy: 07/13/24 09:13 Diet: Regular - General Type of Dietary Supplement:: Magic Cup Dessert Diet Comments: MC with lunch and dinner Routine Orders/Code Status Code Status: DNRCC-A DC O2, CPAP, BIPAP needs Additional Home O2 Discharge instructions: No Wound(s) right buttock: Wound Type: small pinpoint open area LEFT CHEEK: Wound Type: Surgical Incision Therapies Physical Therapy: Eval and Treat Occupational Therapy: Eval and Treat Problem/Diagnosis (1) Radicular leg pain: Status: Acute Code(s): M54.10 - Radiculopathy, site unspecified (2) PATRICK (acute kidney injury): Status: Acute Code(s): N17.9 - Acute kidney failure, unspecified (3) Transaminitis: Status: Acute Code(s): R74.01 - Elevation of levels of liver transaminase levels Plan Patient is an 89-year-old female admitted with increasing weakness. She was also found to have acute kidney injury admitted to regular nursing floor for further management 1. Radicular pain ? CT of the lumbar spine did show Prominent multilevel spondylosis with mild multilevel spinal stenosis and bilateral L4 neural foraminal stenosis. Partially visualized 5.2 cm infrarenal abdominal aortic aneurysm. Partially visualized 2 cm hypodense liver lesion possibly representing a cyst. Requested for PT OT eval and social worker delinquency prevention to assist with discharge planning ? 07/14/2024; patient relatively controlled awaiting insurance pre-CERT prior to transfer to [facility] 2. Acute kidney injury ? Patient started on hydration with subsequent monitoring of electrolytes ordered 3. Anemia ? Secondary to chronic disorder monitoring H&H and transfuse if patient becomes symptomatic or hemoglobin falls below 7 ? 07/14/2024 hemoglobin down to 8.8 we will continue to monitor 4. Hypokalemia -Corrected per protocol 6. Graves' disease ? With residual ophthalmopathy. Patient wears an eye patch over the right eye to prevent diplopia. Patient is on levothyroxine did continue 7. Hypertension ? Blood pressure controlled, home medications continued with dose adjustment as needed 8. Acute transaminitis ? Right upper quadrant ultrasound ordered for subsequent eval 9. DVT prophylaxis ? On enoxaparin Time spent in the patient's overall evaluation,decision-making process, review of diagnostic data, adjustment of management, discussion with other providers, nursing nursing and ancillary staff involved in patient's care documentation, 36 Minutes Allergies/Procedures Done in Hospital Allergies peas Allergy (Intermediate, Verified 07/11/24 10:43) Other Split pea soup penicillin V Allergy (Intermediate, Verified 07/11/24 10:43) Hives mendez Allergy (Verified 07/11/24 10:43) Anaphylaxis Type of Care/Length of Stay Estimated LOS: Convalescent Care Less Than 30 days Type of Care Needed: Skilled Rehab Potential: Good Prognosis: Good Additional Orders/Day of Discharge Day of Discharge: 07/14/24 Dietary and Speech Recommendations Dietitian Recommendations/Changes: Continue Regular diet to optimize oral intakes. Will order magic cup with lunch and dinner to provide supplemental energy. Discharge Plan Admission Admit Date/Time: 07/11/24 13:48 Attending Provider: Edgardo Nagy Primary Care Provider: Bailey Cerna Consulting Providers: Pan Sotelo; Zachary Soto Discharge Orders/Prescriptions Prescriptions: New acetaminophen 325 mg Tablet 650 mg PO Q6H PRN PRN (Reason: Pain 1-10 Or Fever >100.7) Qty: 0 0RF prednisone 20 mg Tablet 40 mg PO BREAKFAST Qty: 0 0RF pantoprazole 40 mg Tablet,Delayed Release (Dr/Ec) 40 mg PO DAILY Qty: 0 0RF oxycodone 5 mg Tablet 2.5 - 5 mg PO Q4H PRN PRN (Reason: Pain Score 4-10) Qty: 0 0RF Continued cholecalciferol (vitamin D3) 25 mcg (1,000 unit) capsule 25 mcg PO DAILY Probiotic 3 billion cell capsule 3,000 mmu cells PO QDAY Rx Instructions: administer with a meal ondansetron 4 mg tablet,disintegrating 4 mg PO BID PRN (Reason: nausea and vomiting) Qty: 180 1RF doxycycline monohydrate 100 mg capsule 100 mg PO BID Qty: 180 1RF ondansetron HCl 4 mg tablet 4 mg PO BID Qty: 60 0RF Rx Instructions: Take 30 minutes prior to doxycycline levothyroxine [Euthyrox] 75 mcg tablet 75 mcg PO DAILY losartan 100 mg tablet 100 mg PO DAILY alendronate 70 mg tablet 70 mg PO MELLO (DME) Handicap Placard See Rx Instructions .ROUTE .MEDSUPPLY Qty: 1 0RF Rx Instructions: As directed, length of time 3 years cholestyramine (with sugar) 4 gram powder See Rx Instructions .ROUTE .COMPLEX Qty: 1134 1RF Dose Instruction: 4 G ORALLY TWICE A DAY FOR 3 MONTHS ADMINISTER W/MEAL AVOID OTHER MEDS WITHIN 1HR BEFORE OR 4-6HR AFTER DOSE Rx Instructions: 4 G ORALLY TWICE A DAY FOR 3 MONTHS ADMINISTER W/MEAL AVOID OTHER MEDS WITHIN 1HR BEFORE OR 4-6HR AFTER DOSE amlodipine 10 mg tablet 10 mg PO DAILY Qty: 90 1RF Referrals / Follow Up: Bailey Cerna MD [Primary Care Provider] - Within 2 Weeks Disposition Disposition (needs filled in before D/C Order can be placed): [facility] Facility
--- NOTE | 2024-07-14 09:54 | DS.PCM_ITS ---
Providers Date of Admission: 07/11/24 Date of Discharge: 07/14/24 Primary Care Physician: Dr. Bailey Cerna MD Consultations 07/11/24 14:31 Consult: Onc/Wound/gearcase assembler Routine Comment: 07/12/24 07:29 Consult: Infectious Disease Routine Consulting Provider: Zachary Soto Reason for Consult: chronic facial wound. EMERGENT Consult: No MD Notified: Yes Date Notified: 07/13/24 Time Notified: 07:39 Method of Notification: Text Reason For Visit: PATRICK. RADICULOPATHY Diagnosis Discharge Diagnosis (1) Radicular leg pain: Status: Acute Code(s): M54.10 - Radiculopathy, site unspecified (2) PATRICK (acute kidney injury): Status: Acute Code(s): N17.9 - Acute kidney failure, unspecified (3) Transaminitis: Status: Acute Code(s): R74.01 - Elevation of levels of liver transaminase levels Plan Patient is an 89-year-old female admitted with increasing weakness. She was also found to have acute kidney injury admitted to regular nursing floor for further management 1. Radicular pain ? CT of the lumbar spine did show Prominent multilevel spondylosis with mild multilevel spinal stenosis and bilateral L4 neural foraminal stenosis. Partially visualized 5.2 cm infrarenal abdominal aortic aneurysm. Partially visualized 2 cm hypodense liver lesion possibly representing a cyst. Requested for PT OT eval and psychologist social to assist with discharge planning ? 07/14/2024; patient relatively controlled awaiting insurance pre-CERT prior to transfer to intermediate facility ? Patient was discharged to intermediate facility once insurance precertification was obtained 2. Acute kidney injury ? Patient started on hydration with subsequent monitoring of electrolytes ordered 3. Anemia ? Secondary to chronic disorder monitoring H&H and transfuse if patient becomes symptomatic or hemoglobin falls below 7 ? 07/14/2024 hemoglobin down to 8.8 we will continue to monitor 4. Hypokalemia -Corrected per protocol 6. Graves' disease ? With residual ophthalmopathy. Patient wears an eye patch over the right eye to prevent diplopia. Patient is on levothyroxine did continue 7. Hypertension ? Blood pressure controlled, home medications continued with dose adjustment as needed 8. Acute transaminitis ? Right upper quadrant ultrasound ordered for subsequent eval Gallbladder ultrasound demonstrated heterogeneous appearance of the liver parenchyma. 9. Abdominal aortic aneurysm with a transverse dimension of 5.5 cm. ? Found on patient's gallbladder ultrasound outpatient appointment was set up for patient with vascular surgery 10. DVT prophylaxis ? On enoxaparin Time spent in the patient's overall evaluation,decision-making process, review of diagnostic data, adjustment of management, discussion with other providers, nursing nursing and ancillary staff involved in patient's care documentation, 36 Minutes Medications at Discharge Home Medications Handicap Placard #1 ea 11/03/21 cholecalciferol (vitamin D3) 25 mcg (1,000 unit) capsule 25 mcg PO DAILY 07/25/22 cholestyramine (with sugar) 4 gram oral powder See Rx Instructions .Route .COMPLEX #1,134 grams 08/30/23 alendronate 70 mg tablet 70 mg PO MELLO 01/23/24 levothyroxine 75 mcg tablet (Euthyrox) 75 mcg PO DAILY 01/23/24 losartan 100 mg tablet 100 mg PO DAILY 01/23/24 amlodipine 10 mg tablet 10 mg PO DAILY #90 tabs 04/21/24 lactobacillus combination no.4 3 billion cell capsule (Probiotic) 3,000 mmu cells PO QDAY 05/15/24 doxycycline monohydrate 100 mg capsule 100 mg PO BID #180 CAPSULES 06/12/24 ondansetron 4 mg disintegrating tablet 4 mg PO BID PRN nausea and vomiting #180 tabs 06/12/24 ondansetron HCl 4 mg tablet 4 mg PO BID #60 tabs 06/12/24 acetaminophen 325 mg tablet 650 mg (2 x 325 mg) PO Q6H PRN PRN Pain 1-10 Or Fever >100.7 #0 tabs 07/14/24 oxycodone 5 mg tablet 2.5 - 5 mg (0.5 - 1 x 5 mg) PO Q4H PRN PRN Pain Score 4-10 #0 tabs 07/14/24 pantoprazole 40 mg tablet,delayed release 40 mg PO DAILY #0 tabs 07/14/24 prednisone 20 mg tablet 40 mg (2 x 20 mg) PO BREAKFAST #0 tabs 07/14/24 Physical Exam Narrative GENERAL: cooperative HEENT: Atraumatic; normocephalic EYES; Anicteric, Normal Conjunctiva NECK; supple, normal thyroid, RESPIRATORY: Diminished to auscultation CARDIOVASCULAR: Regular S1 S2, GI: soft, normoactive bowel sounds, : No Renal angle tenderness; EXTREMITIES: No edema, no clubbing, MUSCULOSKELETAL: no muscle wasting NEURO: Awake; no lateralizing signs. SKIN: No Rash PSYCH; Flat affect Weight / BMI Weight Weight: 49.8 kg Body Mass Index (BMI) 21.4 ABG / Lab / Microbiology Data 07/14/24 06:08 07/14/24 06:08 Laboratory: Laboratory Results - last 24 hr 07/12/24 04:05: Haptoglobin 49, Vitamin B12 1345 H 07/14/24 06:08: WBC 8.9, RBC 2.87 L, Hgb 8.8 L, Hct 27.0 L, MCV 94.1, MCH 30.7, MCHC 32.6, RDW Std Deviation 50.4 H, RDW Coeff of Macho 14.7 H, Plt Count 213, MPV 10.1, Immature Gran % (Auto) 0.900, Neut % (Auto) 72.6 H, Lymph % (Auto) 20.0, Smyth % (Auto) 6.4, Eos % (Auto) 0.0, Baso % (Auto) 0.1, Absolute Neuts (auto) 6.5, Absolute Lymphs (auto) 1.78, Nucleated RBC % 0.2, Sodium 140, Potassium 4.5, Chloride 110 H, Carbon Dioxide 24.0, Anion Gap 6, BUN 21 H, Creatinine 1.17 H, Estim Creat Clear Calc 23.41, Est GFR (MDRD) Af Amer 56 L, Est GFR (MDRD) Non-Af 46 L, BUN/Creatinine Ratio 17.9, Glucose 95, Calcium 8.4 L, Phosphorus 2.1 L, Magnesium 2.1 Microbiology: Microbiology 07/12/24 09:25 Stool Stool Occult Blood (VENKATESH) - Final Occult Blood Positive D/C Instructions Discharge Diet: No restrictions Discharge Activity: Return to Normal Activity Call your doctor if you observe: Fever of 101 or Higher, Shortness of breath, Fainting spells and Chest pain DC O2, CPAP, BIPAP Needs Additional Home O2 Discharge instructions: No DC home with Oxygen: No Meaningful Use Info Meaningful Use Meaningful Use Diagnoses (Choose all that apply): None applicable Ischemic Stroke Statin Dosing Therapy Reference: STATIN DOSE THERAPY REFERENCE: * Patients > 75 years receive moderate or high dose statin therapy. * Patients 75 years or YOUNGER should receive HIGH intensity statin dose unless contraindicated. You will be required to document reason for non-treatment if statin daily dose does not meet guidelines. HIGH DOSE STATIN THERAPY DAILY Atorvastatin > than or = to 40 mg Rosuvastatin > than or = to 20 mg Amlodipine + Atorvastatin > than or = to 2.5/40 mg Ezetimibe + Simvastatin 10/80 mg Simvastatin 80mg Discharge Plan Admission Admit Date/Time: 07/11/24 13:48 Attending Provider: Edgardo Nagy Primary Care Provider: Bailey Cerna Consulting Providers: Pan Sotelo; Zachary Soto Discharge Orders/Prescriptions Prescriptions: New acetaminophen 325 mg Tablet 650 mg PO Q6H PRN PRN (Reason: Pain 1-10 Or Fever >100.7) Qty: 0 0RF prednisone 20 mg Tablet 40 mg PO BREAKFAST Qty: 0 0RF pantoprazole 40 mg Tablet,Delayed Release (Dr/Ec) 40 mg PO DAILY Qty: 0 0RF oxycodone 5 mg Tablet 2.5 - 5 mg PO Q4H PRN PRN (Reason: Pain Score 4-10) Qty: 0 0RF Continued cholecalciferol (vitamin D3) 25 mcg (1,000 unit) capsule 25 mcg PO DAILY Probiotic 3 billion cell capsule 3,000 mmu cells PO QDAY Rx Instructions: administer with a meal ondansetron 4 mg tablet,disintegrating 4 mg PO BID PRN (Reason: nausea and vomiting) Qty: 180 1RF doxycycline monohydrate 100 mg capsule 100 mg PO BID Qty: 180 1RF ondansetron HCl 4 mg tablet 4 mg PO BID Qty: 60 0RF Rx Instructions: Take 30 minutes prior to doxycycline levothyroxine [Euthyrox] 75 mcg tablet 75 mcg PO DAILY losartan 100 mg tablet 100 mg PO DAILY alendronate 70 mg tablet 70 mg PO MELLO (DME) Handicap Placard See Rx Instructions .ROUTE .MEDSUPPLY Qty: 1 0RF Rx Instructions: As directed, length of time 3 years cholestyramine (with sugar) 4 gram powder See Rx Instructions .ROUTE .COMPLEX Qty: 1134 1RF Dose Instruction: 4 G ORALLY TWICE A DAY FOR 3 MONTHS ADMINISTER W/MEAL AVOID OTHER MEDS WITHIN 1HR BEFORE OR 4-6HR AFTER DOSE Rx Instructions: 4 G ORALLY TWICE A DAY FOR 3 MONTHS ADMINISTER W/MEAL AVOID OTHER MEDS WITHIN 1HR BEFORE OR 4-6HR AFTER DOSE amlodipine 10 mg tablet 10 mg PO DAILY Qty: 90 1RF Referrals / Follow Up: Bailey Cerna MD [Primary Care Provider] - Within 2 Weeks Pan Reddy MD [Med Staff - Active Staff] - Within 2 Weeks (for AAA) Disposition Disposition (needs filled in before D/C Order can be placed): Care Home Facility Charges/Coding Visit Charges Inpatient E&M: 43695 Disch Hosp >30min
--- NOTE | 2024-07-14 10:32 | CASEMGMT ---
Addendum entered by Any Yousif 07/14/24 11:09: Pt will be in room 3 at TCU; pt daughter in law notified. Pt notified. JAMES Lopez Original Note: Social Work- SW received notice of discharge from physician. SW faxed transfer documentation to TCU. Bedside nurse notified, pt [id number] notified. No other needs at this time. Plan: TCU; skilled level of care JAMES Lopez
--- NOTE | 2024-07-14 11:37 | PHA.DC.MR.R ---
Pharmacy [place] Med Reconciliation Pharmacy Service has performed discharge medication reconciliation for this patient. The patient's discharge medication list was reviewed for discrepancies and discrepancies were resolved. Medications at Discharge Home Medications Handicap Placard #1 ea 11/03/21 cholecalciferol (vitamin D3) 25 mcg (1,000 unit) capsule 25 mcg PO DAILY 07/25/22 cholestyramine (with sugar) 4 gram oral powder See Rx Instructions .Route .COMPLEX #1,134 grams 08/30/23 alendronate 70 mg tablet 70 mg PO MELLO 01/23/24 levothyroxine 75 mcg tablet (Euthyrox) 75 mcg PO DAILY 01/23/24 losartan 100 mg tablet 100 mg PO DAILY 01/23/24 amlodipine 10 mg tablet 10 mg PO DAILY #90 tabs 04/21/24 lactobacillus combination no.4 3 billion cell capsule (Probiotic) 3,000 mmu cells PO QDAY 05/15/24 doxycycline monohydrate 100 mg capsule 100 mg PO BID #180 CAPSULES 06/12/24 ondansetron 4 mg disintegrating tablet 4 mg PO BID PRN nausea and vomiting #180 tabs 06/12/24 ondansetron HCl 4 mg tablet 4 mg PO BID #60 tabs 06/12/24 acetaminophen 325 mg tablet 650 mg (2 x 325 mg) PO Q6H PRN PRN Pain 1-10 Or Fever >100.7 #0 tabs 07/14/24 oxycodone 5 mg tablet 2.5 - 5 mg (0.5 - 1 x 5 mg) PO Q4H PRN PRN Pain Score 4-10 #0 tabs 07/14/24 pantoprazole 40 mg tablet,delayed release 40 mg PO DAILY #0 tabs 07/14/24 prednisone 20 mg tablet 40 mg (2 x 20 mg) PO BREAKFAST #0 tabs 07/14/24
[2024-07-14 12:00] VITALS: BP 121/52; PULSE 88; RESP 18; TEMP 36.9; O2SAT 98
== END 2024-07-14 13:20 | disposition skilled nursing facility (03) | DRG 552 ==
LOC: ED 13:36 → MS3 14:05
PROVIDERS: Emergency Provider Emergency Medicine; PCP Internal Medicine; Referring Provider Emergency Medicine; Visit Provider Internal Medicine
DX: M48.061 Spinal stenosis, lumbar region without neurogenic claudication (principal); A42.89 Other forms of actinomycosis; N17.9 Acute kidney failure, unspecified; Z66 Do not resuscitate; I10 Essential (primary) hypertension; E03.9 Hypothyroidism, unspecified; E05.00 Thyrotoxicosis with diffuse goiter without thyrotoxic crisis or storm; I71.40 Abdominal aortic aneurysm, without rupture, unspecified; E87.6 Hypokalemia; L98.9 Disorder of the skin and subcutaneous tissue, unspecified; D64.9 Anemia, unspecified; R53.81 Other malaise; R74.01 Elevation of levels of liver transaminase levels; Z79.899 Other long term (current) drug therapy; Z87.891 Personal history of nicotine dependence
CPT/HCPCS: 36415; 72131; 76705; 80048; 80053; 81001; 82274; 82607; 82728; 82746; 83010; 83540; 83550; 83615; 83690; 83735; 84100; 84443; 85025; 90662; 93005; 97162; 97166; 97530; 97535; 97802; 99285; J7030; P9612; A4216; J2405

== ENCOUNTER 2024-07-14 13:28 | Inpatient (IN) | payer MEDICARE, OTHER, SELFPAY ==
[2024-07-14 14:03] VITALS: BMI 21.9
[2024-07-14 14:51] VITALS: BP 122/65; PULSE 98; RESP 16; TEMP 36.4; O2SAT 97; BMI 21.9
--- NOTE | 2024-07-14 19:14 | HP.PCM_ITS ---
HPI - General General Date of Admission: 07/14/24 Date of Service: 07/14/24 Chief Complaint: Here for rehabilitation. HPI Narrative PALAK MUHAMMAD, is a 89 Female who presents with followin07/11/2024 [facility] ED with weakness. Weak for 1 year, intermittent nausea/vomiting, decreased oral intake. Diarrhea without melena, on Doxycycline for facial cellulitis, seeing Plastic surgery ([facility]). Pain in legs with walking attempting to see pain management. IV fluids given, urinalysis negative, labs show mild anemia. 07/11/2024 Admit [facility]. CT Lumbar spine for lumbar radiculopathy. IV fluids, hold Losartan for acute kidney injury. PT/OT Debility. Consider ID for facial infection, doxycycline maybe causing nausea/vomiting. 07/12/2024 Feeling better, abdominal complaints persist. CT shows right L4 foraminial stenosis, treat with prednisone 40mg daily x 5 days. PATRICK improving. PT/OT for SNF. Consult ID for length of treatment with Doxycycline for facial infection. Evaluate anemia. Right upper quadrant ultrasound for elevated LFT's, and elevated total bilirubin. 07/13/2024 Increasing weakness, PATRICK. 5.2cm AAA, 2cm liver cyst. Transfuse if hemoglobin < 7. 07/13/2024 ID recommended Doxycycline x 2 months for actinomyces infection of left cheek. 07/14/2024 No acute events overnight. Await Pre-CERT for SNF. PT/OT SNF. Hemoglobin 8.8. Hypokalemia resolved. 07/14/2024 Admit to TCU with debility, here for rehabilitation, strengthening, prior to discharge home with family. [facility] Medical History Hypertension Osteoarthritis Chest pain Lung nodule seen on imaging study Arrhythmia Skin cyst Balance problems Parathyroid cancer Osteoporosis Left axillary swelling Dermatitis Dizziness Headache Graves disease Essential hypertension Hypothyroid Home Medications ?Medication ?Instructions ?Recorded ?Last Taken ?Type Handicap Placard #1 ea 11/03/21 Unknown Rx cholecalciferol (vitamin D3) 25 25 mcg PO DAILY supplement 07/25/22 07/10/24 History mcg (1,000 unit) capsule alendronate 70 mg tablet 70 mg PO MELLO Osteoporosis 01/23/24 07/05/24 History levothyroxine 75 mcg tablet 75 mcg PO DAILY Thyroid 01/23/24 07/14/24 History (Euthyrox) losartan 100 mg tablet 100 mg PO DAILY BP 01/23/24 07/10/24 History amlodipine 10 mg tablet 10 mg PO DAILY BP #90 tabs 04/21/24 07/14/24 Rx lactobacillus combination no.4 3 3,000 mmu cells PO QDAY supplement 05/15/24 07/14/24 History billion cell capsule (Probiotic) doxycycline monohydrate 100 mg 100 mg PO BID Antibiotic #180 06/12/24 07/14/24 Rx capsule CAPSULES ondansetron 4 mg disintegrating 4 mg PO BID PRN nausea and 06/12/24 07/10/24 Rx tablet vomiting #180 tabs ondansetron HCl 4 mg tablet 4 mg PO BID Nausea #60 tabs 06/12/24 07/10/24 Rx acetaminophen 325 mg tablet 650 mg (2 x 325 mg) PO Q6H PRN PRN 07/14/24 Unknown Rx Pain 1-10 Or Fever >100.7 #0 tabs cholestyramine (with sugar) 4 gram See Rx Instructions .Route 07/14/24 07/14/24 History oral powder .COMPLEX Cholestrol oxycodone 5 mg tablet 2.5 - 5 mg (0.5 - 1 x 5 mg) PO Q4H 07/14/24 Unknown Rx PRN PRN Pain Score 4-10 #0 tabs pantoprazole 40 mg tablet,delayed 40 mg PO DAILY GERD #0 tabs 07/14/24 07/14/24 Rx release prednisone 20 mg tablet 40 mg (2 x 20 mg) PO BREAKFAST 07/14/24 07/14/24 Rx Steroid #0 tabs Allergy/AdvReac Type Severity Reaction Status Date / Time peas Allergy Intermediate Other Verified 07/11/24 10:43 penicillin V Allergy Intermediate Hives Verified 07/11/24 10:43 mendez Allergy Anaphylaxis Verified 07/11/24 10:43 Family History Mother Heart disease Hypertension High cholesterol Osteoporosis CVA (cerebral vascular accident) Father CVA (cerebral vascular accident) Daughter Thyroid disorder Surgical History History of ankle surgery History of eye surgery H/O: hysterectomy Social History (Updated 07/14/24 @ 19:[address] Justin Khanna MD) household members: children and other details: Lives with son, [id number]. Smoking Status: Former smoker Electronic Cigarette Use: without nicotine how long ago did patient quit smokin years ago alcohol intake: current substance use type: does not use additional social history: denies vaping- quit 8 years ago, denies marijuana, denies edibles, denies aspirin and denies ibuprofen. denies history of blood clotting disorder. ROS Constitutional Constitutional: Reports weakness; Denies chills, fever(s) or weight gain ENT HEENT: Denies headache(s), nasal congestion or nasal discharge Cardiovascular Cardiovascular: Denies chest pain or palpitations Respiratory/Chest Respiratory/Chest: Denies cough, excessive phlegm production or shortness of breath with exertion Gastrointestinal Gastrointestinal: Denies abdominal pain, nausea or vomiting Genitourinary Genitourinary: Denies dysuria Musculoskeletal Musculoskeletal: Denies joint pain or joint swelling Integumentary Integumentary: Denies rash or wounds Neurologic Neurologic: Denies focal weakness, numbness or tingling Psychiatric Psychiatric: Denies anxiety, auditory hallucinations, depression, homicidal ideation or suicidal ideation Vital Signs Vital Signs Vital Signs: 07/14/24 14:51 07/14/24 14:51 Temperature 97.5 F L Temperature Source Temporal Pulse Rate 98 Pulse Rhythm Regular Pulse Strength Normal (2+) Respiratory Rate 16 Respiratory Effort Normal Non-Labored Respiratory Depth Normal Respiratory Pattern Normal Blood Pressure 122/65 H Blood Pressure Mean 84 Blood Pressure Source Monitor Blood Pressure Location Right Arm Pulse Ox 97 Oxygen Delivery Method Room Air Room Air Weight Weight: 50.712 kg Body Mass Index (BMI) 21.9 Physical Exam Const alert General Appearance: cooperative HEENT normocephalic HEENT Narrative: Eye patch OD. Eyes PERRL and EOMs intact bilaterally Neck supple, no JVD and no carotid bruits Resp normal respiratory effort, normal air movement and clear to auscultation bilaterally Cardio regular rate and regular rhythm GI normal to inspection, nondistended, normoactive bowel sounds, non-tender and non-distended Extremity normal capillary refill General Extremity: Negative for edema Skin no rashes or lesions noted General Skin Exam: no breakdown Psych affect normal Appearance: appropriate Assessment & Plan Assessment/Plan (1) Debility: (2) Right lumbar radiculopathy: (3) Actinomyces infection: (4) Weakness of both legs: (5) Generalized weakness: (6) Nausea and vomiting: (7) PATRICK (acute kidney injury): (8) Elevated liver function tests: (9) Hyperbilirubinemia: (10) Hypokalemia: (11) Abdominal aortic aneurysm: (12) Essential (primary) hypertension: (13) Hypothyroidism: QUALIFIERS: Hypothyroidism type: unspecified Qualified Code(s): E03.9 - Hypothyroidism, unspecified (14) Vitamin D deficiency: (15) Osteoporosis: QUALIFIERS: Osteoporosis type: age-related Presence of current pathological fracture: without current pathological fracture Qualified Code(s): M81.0 - Age-related osteoporosis without current pathological fracture PLAN: Plan 89 year old female with below past medical history hospitalized for right lumbar radiculopathy, acute kidney injury, complicated by anemia, elevated liver function tests, hyperbilirubinemia, hypokalemia, actinomyces facial infection, admitted to TCU with debility, here for rehabilitation, strengthening, prior to discharge home with family. * Debility - PT/OT. * Pain - Tylenol 1000mg q6 prn pain (1-3), Oxycodone 2.5mg -5mg q4 prn pain (4- 10). * Bowel - senna/colace 1 tablet twice daily prn, stop Cholestyramine 2/2 renal function. * Adult immunization - Administer pneumonia vaccine, covid vaccine, flu vaccine as appropriate.. * DVT prophylaxis - Hold, Anemia. * Osteoporosis - Alendronate 70mg qweek. * Hypertension - Losartan 100mg daily, Amlodipine 10mg daily. * Vitamin D deficiency - D3 25mcg daily. * GI prophylaxis - Lactobacillus 1 capsule daily. * Hypothyroidism - Levothyroxine 75mcg daily. * Nausea - Zofran odt 4mg bid prn. * GERD - Pantoprazole 40mg daily. * Right lumbar radiculopathy - Prednisone taper thru 07/27/2024. 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 * AAA - 5.2cm, consider Vascular surgery consultation.
[2024-07-15] MEDS: Levothyroxine 75 MCG Tablet PO (05:18)
[2024-07-15 07:32] LABS: Absolute Lymphocyte Count 1.76 X10^3/uL (0.83-4.51); Absolute Neutrophil Count 5.9 X10^3/uL (2.0-7.7); Eosinophil# 0.01 X10^3/uL; Eosinophils% 0.1 % (0-5); Hematocrit 25.4 % (37-47); Hemoglobin 8.3 g/dL (12.0-15.0); Lymphocyte # 1.76 X10^3/ul (0.83-4.51); Lymphocyte % 21.4 % (19-41); Mean Corp Hgb Conc 32.7 g/dL (32-36); Mean Corpuscular Hgb 30.9 pg (27.0-32.0); Mean Corpuscular Volume 94.4 fL (81-99); Mean Platelet Vol. 10.4 fl (6.2-12.0); Monocyte# 0.56 X10^3/uL; Monocyte% 6.8 % (0-10); NRBC Flagged by Analyzer 0.5 % (0-5); Neutrophil # 5.86 X10^3/uL (2.7-7.7); Neutrophil % 71.1 % (47-70); Platelet Count 216 K/mm3 (150-450); RBC Distribution Width SD 51.9 fl (35.1-43.9); Red Blood Count 2.69 M/mm3 (4.2-5.4); White Blood Count 8.2 K/mm3 (4.4-11.0)
[2024-07-15 08:37] LABS: Anion Gap 6 (5-15); BUN 28 mg/dL (7-18); BUN/Creat Ratio 24.8 RATIO (10-20); Calcium,Total 8.1 mg/dL (8.5-10.1); Chloride 111 mmol/L (98-107); Creatinine, Serum 1.13 mg/dL (0.55-1.02); EST Glomerular Filtration Rate 48 mL/min (>60); Est Glom Filt Rate - Afr Amer 58 mL/min (>60); Estimated Creatinine Clearance 24.24 ml/min; Glucose 86 mg/dL (74-106); Potassium 4.4 mmol/L (3.5-5.1); Sodium Level 140 mmol/L (136-145)
[2024-07-15] MEDS: Lactobacillis Acidophilus 1 CAP PO (08:47)
[2024-07-15] MEDS: predniSONE 20 MG Tablet 10 MG PO (08:47)
[2024-07-15] MEDS: Pantoprazole Sodium 40 MG Tablet PO (08:48)
[2024-07-15] MEDS: amLODIPine 10 MG Tablet PO (08:48)
[2024-07-15] MEDS: Cholecalciferol (VIT D3) 25 MCG TABLET (1,000 UNITS) PO (08:48)
[2024-07-15] MEDS: Losartan Potassium 100 MG Tablet PO (08:48)
[2024-07-15 08:53] VITALS: BP 117/57; PULSE 99; O2SAT 98
--- NOTE | 2024-07-15 10:52 | NURSING ---
Nitrogen Operator Note; Activity Asset: Joya Arechiga is independent in her choice of daily activities. She has a patch on her right eye however can see with left. She dose not read as much as she used to due to this. 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 Her family and herself have all worked here. Geni will watch the game shows on tv, welcomes visits from the city councilman and therapy dog when available. Staff will encourage social activities, remind her of weekly activities and respect her right to say no.
[2024-07-15 11:00] VITALS: PULSE 95; RESP 18; O2SAT 97
[2024-07-15] MEDS: Tuberculin,Purif.prot.deriv. 50 TU/ML Vial 0.1 ML ID (11:11)
--- NOTE | 2024-07-15 14:46 | NURSING ---
PT HAS BLEEDING HEMORRHOIDS. NOTE LEFT FOR . RN AWARE
--- NOTE | 2024-07-15 15:16 | WOUNDNOTE ---
wound photo: right buttock
[2024-07-15 16:00] VITALS: RESP 16; TEMP 36.6
--- NOTE | 2024-07-15 16:03 | CASEMGMT ---
Social Work- SW met with pt to conduct initial assessment. SW introduced self and role. SW verified contacts and HCPOA; pt verified son Andrey is POA. Pt code status correct (DNRCC-A,No intubation). Pt lives in one-story home with two half steps to enter. Pt uses a three wheel walker at baseline. Pt reports that she came in due to pain in legs which can be excruciating at times. Pt BIMS 15/15. PHQ9 0/2. Pt goal is to return home with son and [id number]. SW remains available to follow for discharge planning. JAMES Lopez
--- NOTE | 2024-07-15 16:27 | PHA.CONS_ITS ---
Documented by User: Albina Herron 07/15/24 17:11 TCU RX Drug Regimen Review Subjective/Objective Subjective/Objective Subjective: TCU Admission. 89 YOF presented to the ER with weakness. Hospitalized for right lumbar radiculopathy, acute kidney injury, complicated by anemia, elevated liver function tests, hyperbilirubinemia, hypokalemia, actinomyces facial infection. Admitted to TCU with debility for strengthening and rehabilitation. Objective: Allergies peas Allergy (Intermediate, Verified 07/11/24 10:43) Other Split pea soup penicillin V Allergy (Intermediate, Verified 07/11/24 10:43) Hives mendez Allergy (Verified 07/11/24 10:43) Anaphylaxis Current Medications Generic Name Dose Route Start Last Admin Trade Name Freq PRN Reason Stop Dose Admin Acetaminophen 1,000 mg 07/14/24 19:36 Acetaminophen 500 Mg Tablet PO Q6H PRN PRN Pain Score 1-3 Alendronate Sodium 70 mg 07/19/24 06:00 Alendronate Sodium 70 Mg Tablet PO Brunson@0600 [facility] Amlodipine Besylate 10 mg 07/15/24 10:00 07/15/24 08:48 Amlodipine 10 Mg Tablet PO 10 mg DAILY [facility] Administration Protocol Calamine/Phenol 1 applic 07/15/24 22:00 Menthol/Lanolin/Calamine/Znox 113 Gm Tube TOPICAL BID [facility] Protocol Cholecalciferol 25 mcg 07/15/24 10:00 07/15/24 08:48 Cholecalciferol (Vit D3) 25 Mcg Tablet (1,000 Units) PO 25 mcg DAILY MILLI Administration Levothyroxine Sodium 75 mcg 07/15/24 06:00 07/15/24 05:18 Levothyroxine 75 Mcg Tablet PO 75 mcg DAILY@0600 [facility] Administration Losartan Potassium 100 mg 07/15/24 10:00 07/15/24 08:48 Losartan Potassium 100 Mg Tablet PO 100 mg DAILY MILLI Administration Protocol Ondansetron HCl 4 mg 07/14/24 13:55 Ondansetron Odt 4 Mg Tablet PO BID PRN nausea and vomiting Oxycodone HCl 2.5 - 5 mg 07/14/24 13:55 Oxycodone 5 Mg Tablet PO Q4H PRN PRN Pain Score 4-10 Pantoprazole Sodium 40 mg 07/15/24 10:00 07/15/24 08:48 Pantoprazole Sodium 40 Mg Tablet PO 40 mg DAILY MILLI Administration Prednisone 40 mg 07/15/24 08:00 07/15/24 08:47 Prednisone 20 Mg Tablet PO 07/27/24 07:59 40 mg BREAKFAST MILLI Administration Taper Senna/Docusate Sodium 1 tablet 07/14/24 19:36 Senna/Docusate Sodium 1 Tablet PO BID PRN Constipation Sodium Chloride 10 - 40 ml 07/14/24 15:17 0.9% Saline Lock 10 Ml Syringe IV UD PRN SALINE FLUSH Tuberculin PPD 0.1 ml 07/22/24 10:00 Tuberculin,Purif.Prot.Deriv. 50 Tu/Ml Vial ID 07/22/24 10:01 X1 ONE Problem List Vitamin D deficiency (Acute) Essential (primary) hypertension (Acute) Abdominal aortic aneurysm (Acute) Hyperbilirubinemia (Acute) Elevated liver function tests (Acute) Nausea and vomiting (Acute) Weakness of both legs (Acute) Right lumbar radiculopathy (Acute) Debility (Acute) PATRICK (acute kidney injury) (Acute) Generalized weakness (Acute) Actinomyces infection (Acute) Osteoporosis (Chronic) Hypothyroidism (Chronic) Vital Signs Temp Pulse Resp BP Pulse Ox O2 Del Method 97.8 F 95 16 117/57 L 97 Room Air 07/15/24 16:00 07/15/24 11:00 07/15/24 16:00 07/15/24 08:53 07/15/24 11:00 07/15/24 11:00 Oxygen Delivery Method Room Air Weight: 50.712 kg Body Mass Index (BMI) 21.9 Sodium 140 mmol/L (136-145) 07/15/24 05:05 Potassium 4.4 mmol/L (3.5-5.1) 07/15/24 05:05 Chloride 111 mmol/L (98-107) H 07/15/24 05:05 Carbon Dioxide 24.0 mmol/L (21.0-32.0) 07/15/24 05:05 Anion Gap 6 (5-15) 07/15/24 05:05 BUN 28 mg/dL (7-18) H 07/15/24 05:05 Creatinine 1.13 mg/dL (0.55-1.02) H 07/15/24 05:05 Est GFR (MDRD) Af Amer 58 mL/min (>60) L 07/15/24 05:05 Est GFR (MDRD) Non-Af 48 mL/min (>60) L 07/15/24 05:05 BUN/Creatinine Ratio 24.8 RATIO (10-20) H 07/15/24 05:05 Glucose 86 mg/dL (74-106) 07/15/24 05:05 Assessment/Plan: 1. Pain: acetaminophen 1000mg PO Q6H PRN pain 1-3 and oxycodone 2.5-5mg PO Q4H PRN pain 4-10. Resident has not had any PRN doses. Please continue to monitor for increased pain and PRN usage. 2. Bowel: senna/docusate 1T PO BID PRN constipation. No PRN doses have been given. Last documented bowel movement was 07/15. Please continue to monitor for constipation and PRN usage. 3. Hypertension: losartan 100mg PO daily and amlodipine 10mg PO daily. Please continue to monitor BP (last 117/57), potassium (last 4.4mmol/L), swelling and renal function. 4. Hypothyroidism: levothyroxine 75mcg PO daily. Please continue to monitor TSH (last 07/11/24) and S/S of hypo/hyperthyroidism. 5. Right lumbar radiculopathy: prednisone taper PO daily thru 07/27/24. Please continue to monitor for S/S of infection, glucose (last 86mg/dL), increased hunger and agitation. 6. GERD: pantoprazole 40mg PO daily. Please continue to monitor for S/S of GERD and diarrhea (Rico). 7. Osteoporosis: alendronate 70mg PO weekly (not yet verified). Please consider holding this medication as it is not recommended in CrCl <35 mL/min. Current CrCl is 24mL/min. Thanks. 8. Nausea: ondansetron 4mg PO BID PRN nausea and vomiting. No PRN doses have been given. Please continue to monitor for PRN usage, nausea and vomiting. 9. GI prophylaxis: lactobacillus 1C PO daily. Please continue to monitor. 10. Vitamin D deficiency: cholecalciferol 25mcg PO daily. Please continue to monitor vitamin D levels (last 09/26/23). Assessment/Plan for indications treated with psychotropic medications: None Medical chart and medication regimen reviewed. The following medication irregularities or issues were identified: 1. Alendronate 70mg PO weekly (not yet verified). Please consider holding this medication as it is not recommended in CrCl <35 mL/min. Current CrCl is 24mL/min. Thanks. Date Date of Note: 07/15/24 Documented by User: Dr. Justin Khanna MD 07/15/24 17:21 TCU RX Drug Regimen Review Provider Comments Provider responsibility Provider Comments to Recommendations by Pharmacy Agree
[2024-07-15] MEDS: Menthol/Lanolin/Calamine/Znox 113 GM Tube 1 APPLIC TOPICAL (20:25)
[2024-07-15] MEDS: Acetaminophen 500 MG Tablet 1000 MG PO (21:14)
[2024-07-16] MEDS: Levothyroxine 75 MCG Tablet PO (05:30)
[2024-07-16] MEDS: predniSONE 20 MG Tablet 10 MG PO (09:05)
[2024-07-16] MEDS: Lactobacillis Acidophilus 1 CAP PO (09:06)
[2024-07-16] MEDS: Losartan Potassium 100 MG Tablet PO (09:06)
[2024-07-16] MEDS: Pantoprazole Sodium 40 MG Tablet PO (09:06)
[2024-07-16] MEDS: amLODIPine 10 MG Tablet PO (09:06)
[2024-07-16] MEDS: Cholecalciferol (VIT D3) 25 MCG TABLET (1,000 UNITS) PO (09:06)
[2024-07-16] MEDS: Menthol/Lanolin/Calamine/Znox 113 GM Tube 1 APPLIC TOPICAL ×2 (09:10→20:44)
[2024-07-16 09:25] VITALS: BP 108/57; PULSE 95; O2SAT 97
--- NOTE | 2024-07-16 14:36 | NURSING ---
PT POSITIVE FOR BLOOD IN STOOL. NOTIFIED BY TEXT. NEW ORDER TO CONSULT . ORDER IN,RN AWARE
[2024-07-16] MEDS: Phenylephrine 0.25%/Cocoa Btr 1 Rectal Supp 1 SUPP RC (14:44)
--- NOTE | 2024-07-16 14:47 | NURSING ---
PT UPDATED ON BLOOD IN STOOL AND CONSULT WITH . ASKED PT IF SHE WOULD LIKE ME TO CALL HER DAUGHTER,PT STATED NO I WILL TELL HER TOMORROW.
[2024-07-16 15:18] VITALS: RESP 18; TEMP 36.6
--- NOTE | 2024-07-16 16:27 | CHAPLAIN ---
Type of Pastoral Visit _x__ Initial Visit ___ Follow-up Visit ___ On-call Visit ___ General Patient Visit ___ Spiritual Assessment ___ Family Conference ___ Bereavement ___ Rapid Response ___ Code Blue ___ Other (describe below) Pastoral Care Referral From _x__ Patient ___ Family ___ Nurse ___ Physician ___ City Attorney ___ Transit Mixer Operator ___ Other (describe below) Sacrament/Intervention _x__ Active listening ___ Anointing ___ Pentecostal ___ Bereavement ___ Communion _x__ Vianney exploration ___ _x__ Life review _x__ Prayer ___ Reconciliation ___ Sacrament of Sick ___ Supportive presence ___ Wedding ___ Other (describe below) Pastoral Comments patient expresses maicol when this hair spring winder introduces self to her; pt wants to know if this is same hair spring winder of a few years ago and it is; pt is making a blanket as we begin this visit and she talks about the project; pt speaks of great support from her family that continues to grow; pt expresses vianney in God for her needs even 'as the body is wearing out'; pt says that she is 'ready to go whenever it is her time'; pt states that she has no worries, but would like to be home and to feel more normal; presence and prayer accepted
[2024-07-16] MEDS: Diphenoxylate/Atrop 1 Tablet PO (17:48)
[2024-07-17 05:47] LABS: Hematocrit 25.7 % (37-47); Hemoglobin 8.7 g/dL (12.0-15.0)
--- NOTE | 2024-07-17 07:32 | NURSING ---
Martin held at this time d/t scheduled EGD.
[2024-07-17 09:00] VITALS: BP 112/58; PULSE 94; RESP 18; TEMP 36.5; O2SAT 97
[2024-07-17] MEDS: Pantoprazole Sodium 40 MG Tablet PO (09:23)
[2024-07-17] MEDS: Losartan Potassium 100 MG Tablet PO (09:23)
[2024-07-17] MEDS: amLODIPine 10 MG Tablet PO (09:23)
[2024-07-17] MEDS: Menthol/Lanolin/Calamine/Znox 113 GM Tube 1 APPLIC TOPICAL ×2 (09:25→20:16)
--- NOTE | 2024-07-17 09:59 | NURSING ---
Protonix, Cozaar, and Norvasc given per orders this morning with small sips of water prior to scope procedure. All other AM meds held per orders.
--- NOTE | 2024-07-17 11:29 | NURSING ---
Patient left floor at this time for Scope procedure.
--- NOTE | 2024-07-17 14:35 | NURSING ---
Patient returned to room at this time. Report given to this nurse. May resume normal diet. No new orders.
[2024-07-17 14:45] VITALS: PULSE 94; RESP 18; O2SAT 97
[2024-07-17] MEDS: Acetaminophen 500 MG Tablet 1000 MG PO (20:17)
[2024-07-18] MEDS: Levothyroxine 75 MCG Tablet PO (06:05)
[2024-07-18 10:00] VITALS: BP 105/54; PULSE 96; RESP 18; TEMP 36.9; O2SAT 94
[2024-07-18] MEDS: predniSONE 20 MG Tablet 10 MG PO (10:00)
[2024-07-18] MEDS: Cholecalciferol (VIT D3) 25 MCG TABLET (1,000 UNITS) PO (10:03)
[2024-07-18] MEDS: Lactobacillis Acidophilus 1 CAP PO (10:03)
[2024-07-18] MEDS: Losartan Potassium 100 MG Tablet PO (10:03)
[2024-07-18] MEDS: Pantoprazole Sodium 40 MG Tablet PO (10:04)
[2024-07-18] MEDS: amLODIPine 10 MG Tablet PO (10:04)
[2024-07-18] MEDS: Menthol/Lanolin/Calamine/Znox 113 GM Tube 1 APPLIC TOPICAL ×2 (10:07→20:12)
[2024-07-18] MEDS: 0.9% Saline Lock 10 ML Syringe IV (20:11)
[2024-07-19] MEDS: Levothyroxine 75 MCG Tablet PO (05:34)
[2024-07-19 07:21] LABS: Hematocrit 28.9 % (37-47); Hemoglobin 9.4 g/dL (12.0-15.0)
[2024-07-19 08:00] VITALS: BP 97/51; PULSE 90; RESP 16; TEMP 36.3; O2SAT 99
[2024-07-19] MEDS: Menthol/Lanolin/Calamine/Znox 113 GM Tube 1 APPLIC TOPICAL ×2 (08:13→19:45)
[2024-07-19] MEDS: amLODIPine 10 MG Tablet PO (08:13)
[2024-07-19] MEDS: Lactobacillis Acidophilus 1 CAP PO (08:13)
[2024-07-19] MEDS: Pantoprazole Sodium 40 MG Tablet PO (08:13)
[2024-07-19] MEDS: predniSONE 20 MG Tablet 10 MG PO (08:13)
[2024-07-19] MEDS: Losartan Potassium 100 MG Tablet PO (08:13)
[2024-07-19] MEDS: Cholecalciferol (VIT D3) 25 MCG TABLET (1,000 UNITS) PO (08:13)
[2024-07-19] MEDS: 0.9% Saline Lock 10 ML Syringe IV ×2 (08:14→19:45)
[2024-07-19 20:00] VITALS: PULSE 88; O2SAT 98
[2024-07-20 04:09] VITALS: PULSE 76; O2SAT 95
[2024-07-20] MEDS: Levothyroxine 75 MCG Tablet PO (05:08)
[2024-07-20] MEDS: Lactobacillis Acidophilus 1 CAP PO (08:20)
[2024-07-20] MEDS: Losartan Potassium 100 MG Tablet PO (08:20)
[2024-07-20] MEDS: predniSONE 20 MG Tablet 10 MG PO (08:20)
[2024-07-20] MEDS: Cholecalciferol (VIT D3) 25 MCG TABLET (1,000 UNITS) PO (08:21)
[2024-07-20] MEDS: Pantoprazole Sodium 40 MG Tablet PO (08:21)
[2024-07-20] MEDS: Menthol/Lanolin/Calamine/Znox 113 GM Tube 1 APPLIC TOPICAL ×2 (08:21→19:53)
[2024-07-20] MEDS: amLODIPine 10 MG Tablet PO (08:21)
[2024-07-20 11:36] VITALS: BP 120/57; PULSE 91; RESP 18; TEMP 36.3; O2SAT 97
[2024-07-20] MEDS: Doxycycline 100 MG CAPSULE PO (19:53)
[2024-07-21] MEDS: Levothyroxine 75 MCG Tablet PO (06:10)
[2024-07-21] MEDS: predniSONE 20 MG Tablet 10 MG PO (08:30)
[2024-07-21] MEDS: Lactobacillis Acidophilus 1 CAP PO (08:30)
[2024-07-21] MEDS: Losartan Potassium 100 MG Tablet PO (08:31)
[2024-07-21] MEDS: Doxycycline 100 MG CAPSULE PO ×2 (08:31→21:08)
[2024-07-21] MEDS: Pantoprazole Sodium 40 MG Tablet PO (08:31)
[2024-07-21] MEDS: Menthol/Lanolin/Calamine/Znox 113 GM Tube 1 APPLIC TOPICAL (08:31)
[2024-07-21] MEDS: amLODIPine 10 MG Tablet PO (08:31)
[2024-07-21] MEDS: Cholecalciferol (VIT D3) 25 MCG TABLET (1,000 UNITS) PO (08:32)
[2024-07-21 08:35] VITALS: BP 126/66; PULSE 95; O2SAT 99
--- NOTE | 2024-07-21 10:46 | NURSING ---
Offered covid vaccine, VIS provided. Resident refuses at this time.
--- NOTE | 2024-07-21 11:26 | CASEMGMT ---
Social Work SW completed BIMS () and PHQ-2 () for MDS assessment. Connie Mensah, NURSE INFORMATICS EDUCATOR [facility]
[2024-07-21 14:53] VITALS: BMI 22.3
[2024-07-21 16:00] VITALS: RESP 16; TEMP 36.5
[2024-07-22] MEDS: Levothyroxine 75 MCG Tablet PO (05:45)
[2024-07-22 05:57] LABS: Absolute Lymphocyte Count 2.99 X10^3/uL (0.83-4.51); Absolute Neutrophil Count 5.9 X10^3/uL (2.0-7.7); Basophil# 0.01 X10^3/uL; Basophil% 0.1 % (0-1); Eosinophil# 0.04 X10^3/uL; Eosinophils% 0.4 % (0-5); Hematocrit 27.8 % (37-47); Hemoglobin 9.4 g/dL (12.0-15.0); Lymphocyte # 2.99 X10^3/ul (0.83-4.51); Lymphocyte % 30.1 % (19-41); Mean Corp Hgb Conc 33.8 g/dL (32-36); Mean Corpuscular Hgb 31.9 pg (27.0-32.0); Mean Corpuscular Volume 94.2 fL (81-99); Monocyte% 9.1 % (0-10); NRBC Flagged by Analyzer 0 % (0-5); Neutrophil # 5.89 X10^3/uL (2.7-7.7); Neutrophil % 59.3 % (47-70); Platelet Count 270 K/mm3 (150-450); RBC Distribution Width CV 17.1 % (11.6-14.6); RBC Distribution Width SD 57.1 fl (35.1-43.9); Red Blood Count 2.95 M/mm3 (4.2-5.4); White Blood Count 9.9 K/mm3 (4.4-11.0)
[2024-07-22 06:50] LABS: Anion Gap 3 (5-15); BUN 23 mg/dL (7-18); BUN/Creat Ratio 26.4 RATIO (10-20); Calcium,Total 8.5 mg/dL (8.5-10.1); Chloride 108 mmol/L (98-107); Creatinine, Serum 0.87 mg/dL (0.55-1.02); EST Glomerular Filtration Rate 65 mL/min (>60); Est Glom Filt Rate - Afr Amer 79 mL/min (>60); Estimated Creatinine Clearance 31.49 ml/min; Glucose 90 mg/dL (74-106); Sodium Level 140 mmol/L (136-145)
[2024-07-22] MEDS: predniSONE 20 MG Tablet 10 MG PO (08:39)
[2024-07-22] MEDS: Lactobacillis Acidophilus 1 CAP PO (08:39)
[2024-07-22] MEDS: Menthol/Lanolin/Calamine/Znox 113 GM Tube 1 APPLIC TOPICAL ×2 (08:40→21:14)
[2024-07-22] MEDS: Losartan Potassium 100 MG Tablet PO (08:41)
[2024-07-22] MEDS: amLODIPine 10 MG Tablet PO (08:41)
[2024-07-22] MEDS: Cholecalciferol (VIT D3) 25 MCG TABLET (1,000 UNITS) PO (08:41)
[2024-07-22] MEDS: Doxycycline 100 MG CAPSULE PO ×2 (08:41→21:14)
[2024-07-22] MEDS: Pantoprazole Sodium 40 MG Tablet PO (08:41)
[2024-07-22 08:46] VITALS: BP 107/56; PULSE 93; O2SAT 99
--- NOTE | 2024-07-22 08:51 | NURSING ---
Process Mold Technician Note; MDS for 07/21/2024 Complete
[2024-07-22] MEDS: Tuberculin,Purif.prot.deriv. 50 TU/ML Vial 0.1 ML ID (10:22)
[2024-07-22 10:25] VITALS: PULSE 101; RESP 18; O2SAT 96
--- NOTE | 2024-07-22 10:56 | CASEMGMT ---
Social Work IDT met with patient and son for care plan meeting. Discussed patient's progress in PT/OT/SN. Educated to Medicare benefit. Provided son with written communication on insurance process and copay coverage during stay. SW to assist with DC planning when pt is ready to DC. Pt states she would like to set a DC date soon. SW inquired about next week; offered 07/29. Pt and son agreeable. Son can transport after work about 1500. Though, son did have several other nursing questions related to concern for the stop of the steroid and the stop of the ATB. Pt has a f/u appt with Dr. Vyas 07/24. SW requested CUSTOM STOCK MAKER to answer son's questions. SW explained that pt has a change in condition or a concern with DC, the date can be postponed. Son appreciative. SW offered HHC vs OP. Pt prefers HHC. SW provided list of skilled HHC providers including quality and resource data via [employer]. Pt to review and notify this worker with preference. Pt has no DME needs. Plan: DC home 07/29, HHC PT/OT/SN DAVE Eaton
--- NOTE | 2024-07-22 11:26 | NURSING ---
PT LT SIDE UNDER NEATH TONGUE IS BRUISED. ASKED PT WHAT HAPPENED PT STATED I DONT KNOW IT MIGHT HAVE BEEN THAT HARD THOMPSON I HAD FOR BREAKFAST. PT ALSO HAS FINE CRACKLES TO RT LOWER POST. GAVE PT A I.S AND EDUCATED PT AND HAD PT DEMONSTRATE HOW TO USE IT. PT STATED SHE UNDERSTOOD. PT SON IN ROOM FOR PLAN OF CARE MEETING. UPDATED AND ANSWERED SON QUESTIONS. SON STATED HE UNDER STOOD AND WAS SATISFIED.
[2024-07-22 16:00] VITALS: RESP 16; TEMP 36.4
[2024-07-23] MEDS: Levothyroxine 75 MCG Tablet PO (05:24)
[2024-07-23] MEDS: Menthol/Lanolin/Calamine/Znox 113 GM Tube 1 APPLIC TOPICAL ×2 (08:06→21:22)
[2024-07-23] MEDS: Doxycycline 100 MG CAPSULE PO ×2 (08:06→21:21)
[2024-07-23] MEDS: Cholecalciferol (VIT D3) 25 MCG TABLET (1,000 UNITS) PO (08:06)
[2024-07-23] MEDS: Pantoprazole Sodium 40 MG Tablet PO (08:06)
[2024-07-23] MEDS: Lactobacillis Acidophilus 1 CAP PO (08:06)
[2024-07-23] MEDS: amLODIPine 10 MG Tablet PO (08:06)
[2024-07-23] MEDS: predniSONE 20 MG Tablet 10 MG PO (08:06)
[2024-07-23] MEDS: Losartan Potassium 100 MG Tablet PO (08:06)
[2024-07-23 10:50] VITALS: BP 125/66; PULSE 84; RESP 18; TEMP 36.5; O2SAT 99
--- NOTE | 2024-07-23 18:57 | DS.PCM_ITS ---
Providers Date of Admission: 07/14/24 Primary Care Physician: Dr. 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 pressure sore right buttock 07/16/24 14:34 Consult: Gastroenterology Routine Consulting Provider: [facility] Reason for Consult: POSITIVE BLOOD IN STOOL EMERGENT Consult: No MD Notified: Yes Date Notified: 07/16/24 Time Notified: 14:35 Method of Notification: Text Reason For Visit: PATRICK/RADICULOPATHY Diagnosis Discharge Diagnosis (1) Debility: Status: Acute Code(s): R53.81 - Other malaise (2) Right lumbar radiculopathy: Status: Acute Code(s): M54.16 - Radiculopathy, lumbar region (3) Actinomyces infection: Status: Acute Code(s): A42.9 - Actinomycosis, unspecified (4) Weakness of both legs: Status: Acute Code(s): R29.898 - Other symptoms and signs involving the musculoskeletal system (5) Generalized weakness: Status: Acute Code(s): R53.1 - Weakness (6) Nausea and vomiting: Status: Acute Code(s): R11.2 - Nausea with vomiting, unspecified (7) PATRICK (acute kidney injury): Status: Resolved Code(s): N17.9 - Acute kidney failure, unspecified (8) Elevated liver function tests: Status: Acute Code(s): R79.89 - Other specified abnormal findings of blood chemistry (9) Hyperbilirubinemia: Status: Acute Code(s): E80.6 - Other disorders of bilirubin metabolism (10) Hypokalemia: Status: Inactive Code(s): E87.6 - Hypokalemia (11) Abdominal aortic aneurysm: Status: Acute Code(s): I71.40 - Abdominal aortic aneurysm, without rupture, unspecified (12) Essential (primary) hypertension: Status: Acute Code(s): I10 - Essential (primary) hypertension (13) Hypothyroidism: Status: Chronic Code(s): E03.9 - Hypothyroidism, unspecified Qualifiers: Hypothyroidism type: unspecified Qualified Code(s): E03.9 - Hypothyroidism, unspecified (14) Vitamin D deficiency: Status: Acute Code(s): E55.9 - Vitamin D deficiency, unspecified (15) Osteoporosis: Status: Chronic Code(s): M81.0 - Age-related osteoporosis without current pathological fracture Qualifiers: Osteoporosis type: age-related Presence of current pathological fracture: without current pathological fracture Qualified Code(s): M81.0 - Age- related osteoporosis without current pathological fracture Plan 89 year old female with below past medical history hospitalized for right lumbar radiculopathy, acute kidney injury, complicated by anemia, elevated liver function tests, hyperbilirubinemia, hypokalemia, actinomyces facial infection, admitted to TCU with debility, here for rehabilitation, strengthening, prior to discharge home with family. * Debility - PT/OT. * Pain - Tylenol 1000mg q6 prn pain (1-3), Oxycodone 2.5mg -5mg q4 prn pain (4- 10). * Bowel - senna/colace 1 tablet twice daily prn, stop Cholestyramine 2/2 renal function. * Adult immunization - Administer pneumonia vaccine, covid vaccine, flu vaccine as appropriate.. * DVT prophylaxis - Hold, Anemia. * Osteoporosis - Alendronate 70mg qweek. * Hypertension - Losartan 100mg daily, Amlodipine 10mg daily. * Vitamin D deficiency - D3 25mcg daily. * GI prophylaxis - Lactobacillus 1 capsule daily. * Hypothyroidism - Levothyroxine 75mcg daily. * Nausea - Zofran odt 4mg bid prn. * GERD - Pantoprazole 40mg daily. * Right lumbar radiculopathy - Prednisone taper thru 07/27/2024. 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 * AAA - 5.2cm, consider Vascular surgery consultation. Medications at Discharge Home Medications Handicap Placard #1 ea 11/03/21 cholecalciferol (vitamin D3) 25 mcg (1,000 unit) capsule 25 mcg PO DAILY supplement 07/25/22 alendronate 70 mg tablet 70 mg PO MELLO Osteoporosis 01/23/24 levothyroxine 75 mcg tablet (Euthyrox) 75 mcg PO DAILY Thyroid 01/23/24 losartan 100 mg tablet 100 mg PO DAILY BP 01/23/24 amlodipine 10 mg tablet 10 mg PO DAILY BP #90 tabs 04/21/24 lactobacillus combination no.4 3 billion cell capsule (Probiotic) 3,000 mmu cells PO QDAY supplement 05/15/24 ondansetron 4 mg disintegrating tablet 4 mg PO BID PRN nausea and vomiting #180 tabs 06/12/24 cholestyramine (with sugar) 4 gram oral powder See Rx Instructions .Route .COMPLEX Cholestrol 07/14/24 acetaminophen 500 mg tablet 1,000 mg (2 x 500 mg) PO Q6H PRN PRN Pain Score 1-3 #0 tabs 07/23/24 doxycycline monohydrate 100 mg capsule 100 mg PO BID #0 caps 07/23/24 pantoprazole 40 mg tablet,delayed release 40 mg PO DAILY 30 days #30 tabs 07/23/24 Hospital Course Operations None Procedures EGD Summary of Care Provided Minutes Spent on Discharge: 35 Hospital Course: 89 year old female with below past medical history hospitalized for right lumbar radiculopathy, acute kidney injury, complicated by anemia, elevated liver function tests, hyperbilirubinemia, hypokalemia, actinomyces facial infection, admitted to TCU with debility, here for rehabilitation, strengthening, prior to discharge home with family. 07/17/2024 Dr. Ortiz EGD: Impressions : - Normal esophagus. - A single non-bleeding angiodysplastic lesion in the stomach. Treated with a heater probe. - Non-bleeding duodenal ulcer with no stigmata of bleeding. Biopsied. - Four bleeding angiodysplastic lesions in the duodenum. Treated with a heater probe. Discharge home 07/29/2024, [facility] PT/OT/SN. Physical Exam Const alert General Appearance: cooperative HEENT normocephalic Eyes PERRL and EOMs intact bilaterally Neck supple, no JVD and no carotid bruits Resp normal respiratory effort, normal air movement and clear to auscultation bilaterally Cardio regular rate and regular rhythm GI normal to inspection, nondistended, normoactive bowel sounds, non-tender and non-distended Extremity normal capillary refill General Extremity: Negative for edema Skin no rashes or lesions noted General Skin Exam: no breakdown Psych affect normal Appearance: appropriate Weight / BMI Weight Weight: 51.528 kg Body Mass Index (BMI) 22.3 ABG / Lab / Microbiology Data 07/22/24 05:13 07/22/24 05:13 Microbiology: Microbiology 07/20/24 05:30 Nasal Secretion SARS-CoV-2 Antigen (Rapid) - Final 07/16/24 12:50 Stool Stool Occult Blood (VENKATESH) - Final Occult Blood Positive D/C Instructions Discharge Diet: No restrictions Discharge Activity: Return to Normal Activity, May Shower and Use Walker Weight Bearing Status: Weight bearing as tolerated Call your doctor if you observe: Fever of 101 or Higher, Inability to urinate, Inability to have a bowel movement, Shortness of breath, Dizziness, Fainting spells, Swelling in the ankles, Chest pain and Uncontrolled pain DC O2, CPAP, BIPAP Needs Additional Home O2 Discharge instructions: No DC home with Oxygen: No Additional Instructions: Discharge home 07/29/2024, [facility] PT/OT/SN. Please Follow Up With: When: 07/24/2024. Meaningful Use Info Meaningful Use Meaningful Use Diagnoses (Choose all that apply): None applicable Ischemic Stroke Statin Dosing Therapy Reference: STATIN DOSE THERAPY REFERENCE: * Patients > 75 years receive moderate or high dose statin therapy. * Patients 75 years or YOUNGER should receive HIGH intensity statin dose unless contraindicated. You will be required to document reason for non-treatment if statin daily dose does not meet guidelines. HIGH DOSE STATIN THERAPY DAILY Atorvastatin > than or = to 40 mg Rosuvastatin > than or = to 20 mg Amlodipine + Atorvastatin > than or = to 2.5/40 mg Ezetimibe + Simvastatin 10/80 mg Simvastatin 80mg Discharge Plan Admission Admit Date/Time: 07/14/24 13:28 Primary Reason for Your Visit: Debility. Attending Provider: Justin Khanna Chi Primary Care Provider: Bailey Cerna Instructions Additional Instructions / Restrictions: Discharge home 07/29/2024, [facility] PT/OT/SN. Discharge Orders/Prescriptions Prescriptions: New acetaminophen 500 mg Tablet 1,000 mg PO Q6H PRN PRN (Reason: Pain Score 1-3) Qty: 0 0RF doxycycline monohydrate 100 mg Capsule 100 mg PO BID Qty: 0 0RF pantoprazole 40 mg Tablet,Delayed Release (Dr/Ec) 40 mg PO DAILY 30 Days Qty: 30 0RF Continued cholecalciferol (vitamin D3) 25 mcg (1,000 unit) capsule 25 mcg PO DAILY ondansetron 4 mg tablet,disintegrating 4 mg PO BID PRN (Reason: nausea and vomiting) Qty: 180 1RF levothyroxine [Euthyrox] 75 mcg tablet 75 mcg PO DAILY losartan 100 mg tablet 100 mg PO DAILY alendronate 70 mg tablet 70 mg PO MELLO cholestyramine (with sugar) 4 gram powder See Rx Instructions .ROUTE .COMPLEX Rx Instructions: 4 G ORALLY TWICE A DAY FOR 3 MONTHS ADMINISTER W/MEAL AVOID OTHER MEDS WITHIN 1HR BEFORE OR 4-6HR AFTER DOSE; amlodipine 10 mg tablet 10 mg PO DAILY Qty: 90 1RF Discontinued doxycycline monohydrate 100 mg capsule 100 mg PO BID Qty: 180 1RF ondansetron HCl 4 mg tablet 4 mg PO BID Qty: 60 0RF Rx Instructions: Take 30 minutes prior to doxycycline acetaminophen 325 mg Tablet 650 mg PO Q6H PRN PRN (Reason: Pain 1-10 Or Fever >100.7) Qty: 0 0RF prednisone 20 mg Tablet 40 mg PO BREAKFAST Qty: 0 0RF pantoprazole 40 mg Tablet,Delayed Release (Dr/Ec) 40 mg PO DAILY Qty: 0 0RF oxycodone 5 mg Tablet 2.5 - 5 mg PO Q4H PRN PRN (Reason: Pain Score 4-10) Qty: 0 0RF No Action Probiotic 3 billion cell capsule 3,000 mmu cells PO QDAY Rx Instructions: administer with a meal (DME) Handicap Placard See Rx Instructions .ROUTE .MEDSUPPLY Qty: 1 0RF Rx Instructions: As directed, length of time 3 years Referrals / Follow Up: Bailey Cerna MD [Primary Care Provider] - Disposition Disposition (needs filled in before D/C Order can be placed): Home Health Service
[2024-07-24] MEDS: Levothyroxine 75 MCG Tablet PO (05:36)
[2024-07-24] MEDS: Pantoprazole Sodium 40 MG Tablet PO (08:11)
[2024-07-24] MEDS: Losartan Potassium 100 MG Tablet PO (08:11)
[2024-07-24] MEDS: Doxycycline 100 MG CAPSULE PO ×2 (08:12→21:18)
[2024-07-24] MEDS: predniSONE 20 MG Tablet 10 MG PO (08:13)
[2024-07-24] MEDS: Lactobacillis Acidophilus 1 CAP PO (08:13)
[2024-07-24] MEDS: Cholecalciferol (VIT D3) 25 MCG TABLET (1,000 UNITS) PO (08:14)
[2024-07-24] MEDS: amLODIPine 10 MG Tablet PO (08:14)
[2024-07-24] MEDS: Menthol/Lanolin/Calamine/Znox 113 GM Tube 1 APPLIC TOPICAL ×2 (08:17→21:17)
[2024-07-24 08:19] VITALS: BP 108/51; PULSE 99; O2SAT 99
--- NOTE | 2024-07-24 08:45 | NURSING ---
PT LEFT BY WHEEL CHAIR WITH DAUGHTER AT 0845 FOR APPOINTMENT AT AT 0900.
--- NOTE | 2024-07-24 08:49 | NURSING ---
Resident off floor to appt via WC with daughter.
--- NOTE | 2024-07-24 08:49 | MDS.RN ---
Information for the MDS was obtained from review of the clinical record, interview of resident, staff, and direct observation of resident?s care.
--- NOTE | 2024-07-24 09:23 | NURSING ---
PT RETURNED BY WHEEL CHAIR WITH DAUGHTER AT 0912 FROM OFFICE. N.O TO CONTINUE ON ANTIBIOTICS FOR SKILLED NURSING TREATMENT. ANGUS AWARE
[2024-07-24] MEDS: Pneumococcal Vaccine 20 Valent 0.5 ML Syringe IM (11:37)
--- NOTE | 2024-07-24 11:43 | NURSING ---
PREVNAR 20 GIVEN IN LT DELT. PT TOLERATED WELL. WILL CONTINUE TO MONITOR.
[2024-07-24 15:10] VITALS: PULSE 96; RESP 16; O2SAT 97
[2024-07-24 15:27] VITALS: RESP 14; TEMP 36.1
[2024-07-25] MEDS: Levothyroxine 75 MCG Tablet PO (05:24)
[2024-07-25] MEDS: Losartan Potassium 100 MG Tablet PO (08:00)
[2024-07-25] MEDS: Lactobacillis Acidophilus 1 CAP PO (08:00)
[2024-07-25] MEDS: amLODIPine 10 MG Tablet PO (08:00)
[2024-07-25] MEDS: predniSONE 20 MG Tablet 10 MG PO (08:00)
[2024-07-25] MEDS: Menthol/Lanolin/Calamine/Znox 113 GM Tube 1 APPLIC TOPICAL ×2 (08:00→20:36)
[2024-07-25] MEDS: Pantoprazole Sodium 40 MG Tablet PO (08:00)
[2024-07-25] MEDS: Cholecalciferol (VIT D3) 25 MCG TABLET (1,000 UNITS) PO (08:00)
[2024-07-25] MEDS: Doxycycline 100 MG CAPSULE PO ×2 (08:00→20:35)
[2024-07-25 09:43] VITALS: BP 145/68; PULSE 86; RESP 16; TEMP 36.5; O2SAT 95
[2024-07-26] MEDS: Levothyroxine 75 MCG Tablet PO (05:51)
[2024-07-26] MEDS: Lactobacillis Acidophilus 1 CAP PO (08:03)
[2024-07-26] MEDS: amLODIPine 10 MG Tablet PO (08:03)
[2024-07-26] MEDS: Cholecalciferol (VIT D3) 25 MCG TABLET (1,000 UNITS) PO (08:03)
[2024-07-26] MEDS: Losartan Potassium 100 MG Tablet PO (08:03)
[2024-07-26] MEDS: Pantoprazole Sodium 40 MG Tablet PO (08:03)
[2024-07-26] MEDS: Doxycycline 100 MG CAPSULE PO ×2 (08:03→20:34)
[2024-07-26] MEDS: predniSONE 20 MG Tablet 10 MG PO (08:03)
[2024-07-26] MEDS: Menthol/Lanolin/Calamine/Znox 113 GM Tube 1 APPLIC TOPICAL ×2 (08:04→20:35)
[2024-07-26 09:26] VITALS: BP 119/64; PULSE 94; RESP 16; TEMP 36.4; O2SAT 99
[2024-07-27] MEDS: Levothyroxine 75 MCG Tablet PO (05:08)
[2024-07-27 05:14] VITALS: PULSE 76; O2SAT 97
[2024-07-27] MEDS: Doxycycline 100 MG CAPSULE PO ×2 (09:15→20:17)
[2024-07-27] MEDS: Pantoprazole Sodium 40 MG Tablet PO (09:15)
[2024-07-27] MEDS: Lactobacillis Acidophilus 1 CAP PO (09:15)
[2024-07-27] MEDS: Losartan Potassium 100 MG Tablet PO (09:16)
[2024-07-27] MEDS: amLODIPine 10 MG Tablet PO (09:16)
[2024-07-27] MEDS: Cholecalciferol (VIT D3) 25 MCG TABLET (1,000 UNITS) PO (09:16)
[2024-07-27 09:19] VITALS: BP 110/72; PULSE 106; O2SAT 95
[2024-07-27] MEDS: Menthol/Lanolin/Calamine/Znox 113 GM Tube 1 APPLIC TOPICAL ×2 (10:03→20:15)
--- NOTE | 2024-07-27 15:16 | CASEMGMT ---
Social Work SW followed up with pt on HHC preference. [facility] SW [facility] referral. SW completed BIMS () and PHQ-2 () for MDS assessment. DAVE EatonW
[2024-07-27 15:33] VITALS: RESP 17; TEMP 36.6
[2024-07-28] MEDS: Levothyroxine 75 MCG Tablet PO (05:20)
[2024-07-28] MEDS: Losartan Potassium 100 MG Tablet PO (08:55)
[2024-07-28] MEDS: Lactobacillis Acidophilus 1 CAP PO (08:55)
[2024-07-28] MEDS: amLODIPine 10 MG Tablet PO (08:56)
[2024-07-28] MEDS: Doxycycline 100 MG CAPSULE PO ×2 (08:56→21:17)
[2024-07-28] MEDS: Cholecalciferol (VIT D3) 25 MCG TABLET (1,000 UNITS) PO (08:56)
[2024-07-28] MEDS: Pantoprazole Sodium 40 MG Tablet PO (08:56)
[2024-07-28] MEDS: Menthol/Lanolin/Calamine/Znox 113 GM Tube 1 APPLIC TOPICAL (08:58)
[2024-07-28 09:02] VITALS: BP 128/50; PULSE 112
[2024-07-28 11:41] VITALS: BMI 21.9
[2024-07-28 15:12] VITALS: RESP 26; TEMP 36.8
[2024-07-29] MEDS: Levothyroxine 75 MCG Tablet PO (05:29)
[2024-07-29 06:25] LABS: Absolute Lymphocyte Count 1.68 X10^3/uL (0.83-4.51); Absolute Neutrophil Count 4.5 X10^3/uL (2.0-7.7); Basophil# 0.03 X10^3/uL; Basophil% 0.4 % (0-1); Eosinophil# 0.12 X10^3/uL; Eosinophils% 1.7 % (0-5); Hematocrit 26.2 % (37-47); Hemoglobin 8.4 g/dL (12.0-15.0); Lymphocyte # 1.68 X10^3/ul (0.83-4.51); Lymphocyte % 23.8 % (19-41); Mean Corp Hgb Conc 32.1 g/dL (32-36); Mean Corpuscular Hgb 31.3 pg (27.0-32.0); Mean Corpuscular Volume 97.8 fL (81-99); Mean Platelet Vol. 9.5 fl (6.2-12.0); Monocyte# 0.69 X10^3/uL; Monocyte% 9.8 % (0-10); NRBC Flagged by Analyzer 0 % (0-5); Neutrophil # 4.48 X10^3/uL (2.7-7.7); Neutrophil % 63.6 % (47-70); POSITIVE MORPHOLOGY YES; Platelet Count 221 K/mm3 (150-450); RBC Distribution Width CV 19.5 % (11.6-14.6); Red Blood Count 2.68 M/mm3 (4.2-5.4); White Blood Count 7.1 K/mm3 (4.4-11.0)
[2024-07-29 06:35] LABS: Differential Indicated SCAN CRITERIA MET
[2024-07-29 06:56] LABS: Anion Gap 2 (5-15); BUN 20 mg/dL (7-18); BUN/Creat Ratio 22.8 RATIO (10-20); Calcium,Total 8.3 mg/dL (8.5-10.1); Chloride 109 mmol/L (98-107); Creatinine, Serum 0.88 mg/dL (0.55-1.02); EST Glomerular Filtration Rate 65 mL/min (>60); Est Glom Filt Rate - Afr Amer 78 mL/min (>60); Estimated Creatinine Clearance 31.13 ml/min; Glucose 97 mg/dL (74-106); Potassium 4.3 mmol/L (3.5-5.1); Sodium Level 142 mmol/L (136-145)
[2024-07-29 07:51] LABS: Anisocytosis 1+
[2024-07-29 08:00] VITALS: BP 126/68; PULSE 89; RESP 18; TEMP 36.4; O2SAT 97
[2024-07-29] MEDS: Pantoprazole Sodium 40 MG Tablet PO (08:06)
[2024-07-29] MEDS: Cholecalciferol (VIT D3) 25 MCG TABLET (1,000 UNITS) PO (08:06)
[2024-07-29] MEDS: amLODIPine 10 MG Tablet PO (08:06)
[2024-07-29] MEDS: Doxycycline 100 MG CAPSULE PO (08:06)
[2024-07-29] MEDS: Menthol/Lanolin/Calamine/Znox 113 GM Tube 1 APPLIC TOPICAL (08:07)
[2024-07-29] MEDS: Losartan Potassium 100 MG Tablet PO (08:07)
[2024-07-29] MEDS: Lactobacillis Acidophilus 1 CAP PO (08:07)
== END 2024-07-29 15:10 | disposition home health service (06) | DRG 551 ==
PROVIDERS: Admitting Provider Family Medicine Geriatric Medicine; PCP Internal Medicine; Visit Provider Family Medicine Geriatric Medicine
DX: M54.16 Radiculopathy, lumbar region (principal); K31.811 Angiodysplasia of stomach and duodenum with bleeding; A42.89 Other forms of actinomycosis; L89.312 Pressure ulcer of right buttock, stage 2; K26.9 Duodenal ulcer, unspecified as acute or chronic, without hemorrhage or perforation; I71.40 Abdominal aortic aneurysm, without rupture, unspecified; I10 Essential (primary) hypertension; E03.9 Hypothyroidism, unspecified; D64.9 Anemia, unspecified; E55.9 Vitamin D deficiency, unspecified; K21.9 Gastro-esophageal reflux disease without esophagitis; K31.819 Angiodysplasia of stomach and duodenum without bleeding; R79.89 Other specified abnormal findings of blood chemistry; M81.0 Age-related osteoporosis without current pathological fracture; Z79.83 Long term (current) use of bisphosphonates; Z87.891 Personal history of nicotine dependence; Z79.899 Other long term (current) drug therapy; Z79.890 Hormone replacement therapy; Z23 Encounter for immunization
CPT/HCPCS: 36415; 80048; 82274; 85014; 85018; 85025; 87811; 90677; 97110; 97116; 97162; 97166; 97530; 97535; 97802; A4216

== ENCOUNTER 2024-07-17 11:42 | Day surgery (SDC) | payer MEDICARE, OTHER, SELFPAY ==
[2024-07-17] VITALS (10 sets, daily range): BP systolic 61–131; BP diastolic 42–83; PULSE 67–92; RESP 16; TEMP 36.3–37.4; O2SAT 95–98; BMI 21.2
--- NOTE | 2024-07-17 12:09 | PRE.ANES_ITS ---
ASA Classification* ASA Classification ASA Classification: 3 Assessment & Plan Anesthesia* Anesthesia Assessment Anesthesia Assessment: Discussed sedation and/or anesthesia options, risks, benefits, and alternatives with patient/parents/legal guardian/POA. Questions invited. The patient/parents/legal guardian/POA seems to understand and agrees to proceed with anesthesia plan. Reviewed the physical assessment, medical history, allergy history and patient home medications list prior to surgery/procedure/anesthetic and documented any changes. Performed airway and anesthesia risk assessments. Anesthesia Type Anesthesia Type: MAC Anesthesia Focused Assessment* Airway Assessment Mouth opens: >3 cm Mallampati Score: II Focused Labs Anesthesia Preop lab: CBC WBC 8.2 K/mm3 (4.4-11.0) 07/15/24 05:05 RBC 2.69 M/mm3 (4.2-5.4) L 07/15/24 05:05 Hgb 8.7 g/dL (12.0-15.0) L 07/17/24 05:02 Hct 25.7 % (37-47) L 07/17/24 05:02 Plt Count 216 K/mm3 (150-450) 07/15/24 05:05 CHEMISTRY Potassium 4.4 mmol/L (3.5-5.1) 07/15/24 05:05 Sodium 140 mmol/L (136-145) 07/15/24 05:05 Magnesium 2.1 mg/dL (1.6-2.6) 07/14/24 06:08 Phosphorus 2.1 mg/dL (2.5-4.9) L 07/14/24 06:08 BUN 28 mg/dL (7-18) H 07/15/24 05:05 Creatinine 1.13 mg/dL (0.55-1.02) H 07/15/24 05:05 Glucose 86 mg/dL (74-106) 07/15/24 05:05 TSH 0.907 uIU/mL (0.358-3.740) 07/11/24 10:45 COAG PT 12.9 SECONDS (11.7-14.9) 01/23/24 04:49 Pre-Assessment Diagnosis/Proposed Procedure Planned Operative Procedure(s): EGD Anesthesia History 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 When Was Last Pacemaker Check QUESTION #4 FULL TEXT: You/Your Family Experience fever (hyperthermia) with Anesthesia Last Oral Intake Last Oral intake: Last Oral Intake NPO since Meds taken in AM with sips of water? Meds patient instructed to take am of surgery PONV PONV - mechanical engineering director: PONV - mechanical engineering director Female HX of Motion Sickness HX of N/V After Surgery Non-Smoker Duration of Surgery greater than 60 minutes Number of Risk Factors PONV Score Height & Weight Height & Weight: Anesthesia: Height & Weight Height 4 ft 11.84 in 07/15/24 11:27 Respiratory Assessment Respiratory Assessment - mechanical engineering director: Respiratory Tract Infection Hx - mechanical engineering director Hx Respiratory Tract Infection STOP Sleep Apnea STOP Sleep Apnea - mechanical engineering director: STOP Sleep Apnea - mechanical engineering director Hx Hypertension Yes 07/15/24 15:31 Hx Sleep Apnea No 07/14/24 14:51 CPAP BIPAP Do you snore loudly (louder than talking or can be heard Do you often feel tired/ fatigued/ sleepy during daytime? Has anyone observed you stop breathing during sleep? STOP Results QUESTION #5 FULL TEXT : Do you snore loudly (louder than talking or can be heard through closed doors)? Tobacco Use History Tobacco Use History - mechanical engineering director: Tobacco Use History - mechanical engineering director Tobacco Use Smoking Status Former smoker 07/14/24 19:22 Hx Tobacco Use No 07/14/24 14:51 Years Smoking Packs Smoked per Day Smoking Cessation Date was within the last 15 years Hx Smoking Cessation Date 08/12/22 07/14/24 14:51 Hx Smoking Cessation No 07/14/24 14:51 Counseling Hematologic Medial History Hematologic Hx - mechanical engineering director: Hematologic Medical Hx - senior safety management consultant Hx of Blood Transfusion Hx of Transfusion in last 3 Months Date of Last Transfusion (if within last 3 months) Ever experience any problems with transfusion(s)? Specify any problems Hx of Preganancy in last 3 Months Nurse Filling Out Transfusion & Questions: Date: Time: Patient unable to answer at this time (ie. confused, unrespo /Reproduction History /Reproductive History - mechanical engineering director: /Reproductive Hx- mechanical engineering director Hx Now Gestational Age (in weeks): EDC: Hx Hx Para Hx Section SAB PFSH Medical History Hypertension Osteoarthritis Chest pain Lung nodule seen on imaging study Arrhythmia Skin cyst Balance problems Parathyroid cancer Osteoporosis Left axillary swelling Dermatitis Dizziness Headache Graves disease Essential hypertension Hypothyroid Home Medications ?Medication ?Instructions ?Recorded ?Last Taken ?Type Handicap Placard #1 ea 11/03/21 Unknown Rx cholecalciferol (vitamin D3) 25 25 mcg PO DAILY supplement 07/25/22 07/10/24 History mcg (1,000 unit) capsule alendronate 70 mg tablet 70 mg PO MELLO Osteoporosis 01/23/24 07/05/24 History levothyroxine 75 mcg tablet 75 mcg PO DAILY Thyroid 01/23/24 07/14/24 History (Euthyrox) losartan 100 mg tablet 100 mg PO DAILY BP 01/23/24 07/10/24 History amlodipine 10 mg tablet 10 mg PO DAILY BP #90 tabs 04/21/24 07/14/24 Rx lactobacillus combination no.4 3 3,000 mmu cells PO QDAY supplement 05/15/24 1 09/14/23 History billion cell capsule (Probiotic) doxycycline monohydrate 100 mg 100 mg PO BID Antibiotic #180 06/12/24 07/14/24 Rx capsule CAPSULES ondansetron 4 mg disintegrating 4 mg PO BID PRN nausea and 06/12/24 07/10/24 Rx tablet vomiting #180 tabs ondansetron HCl 4 mg tablet 4 mg PO BID Nausea #60 tabs 06/12/24 07/10/24 Rx acetaminophen 325 mg tablet 650 mg (2 x 325 mg) PO Q6H PRN PRN 07/14/24 Unknown Rx Pain 1-10 Or Fever >100.7 #0 tabs cholestyramine (with sugar) 4 gram See Rx Instructions .Route 07/14/24 07/14/24 History oral powder .COMPLEX Cholestrol oxycodone 5 mg tablet 2.5 - 5 mg (0.5 - 1 x 5 mg) PO Q4H 07/14/24 Unknown Rx PRN PRN Pain Score 4-10 #0 tabs pantoprazole 40 mg tablet,delayed 40 mg PO DAILY GERD #0 tabs 12/03/24 12/03/24 Rx release prednisone 20 mg tablet 40 mg (2 x 20 mg) PO BREAKFAST 07/14/24 07/14/24 Rx Steroid #0 tabs Allergy/AdvReac Type Severity Reaction Status Date / Time peas Allergy Intermediate Other Verified 07/11/24 10:43 penicillin V Allergy Intermediate Hives Verified 07/11/24 10:43 mendez Allergy Anaphylaxis Verified 07/11/24 10:43 Family History Mother Heart disease Hypertension High cholesterol Osteoporosis CVA (cerebral vascular accident) Father CVA (cerebral vascular accident) Daughter Thyroid disorder Surgical History History of ankle surgery History of eye surgery H/O: hysterectomy Social History household members: children and other details: Lives with son, [id number]. Smoking Status: Former smoker Electronic Cigarette Use: without nicotine how long ago did patient quit smokin years ago alcohol intake: current substance use type: does not use additional social history: denies vaping- quit 8 years ago, denies marijuana, denies edibles, denies aspirin and denies ibuprofen. denies history of blood clotting disorder. Review of Systems (Anesthesia) ROS Narrative System reviewed and no additional complaints, except as documented.
--- NOTE | 2024-07-17 12:23 | PCM.HP.STD ---
HPI - General General Date of Admission: 07/17/24 Date of Service: 07/17/24 Chief Complaint: Anemia HPI Narrative PALAK MUHAMMAD, is a 89-year-old female admitted to the hospital with increasing weakness. She was also found to have acute kidney injury admitted to regular nursing floor for further management. She underwent a CT of the lumbar spine did show Prominent multilevel spondylosis with mild multilevel spinal stenosis and bilateral L4 neural foraminal stenosis. Partially visualized 5.2 cm infrarenal abdominal aortic aneurysm. Partially visualized 2 cm hypodense liver lesion possibly representing a cyst. She was also discovered to have iron deficiency anemia. Her hemoglobin was 11.5 and drifted down to 8.8. I was called because of persistent anemia in the setting of Hemoccult positive stools. [facility] Medical History Hypertension Osteoarthritis Chest pain Lung nodule seen on imaging study Arrhythmia Skin cyst Balance problems Parathyroid cancer Osteoporosis Left axillary swelling Dermatitis Dizziness Headache Graves disease Essential hypertension Hypothyroid Home Medications ?Medication ?Instructions ?Recorded ?Last Taken ?Type Handicap Placard #1 ea 11/03/21 Unknown Rx cholecalciferol (vitamin D3) 25 25 mcg PO DAILY supplement 07/25/22 07/10/24 History mcg (1,000 unit) capsule alendronate 70 mg tablet 70 mg PO MELLO Osteoporosis 01/23/24 07/05/24 History levothyroxine 75 mcg tablet 75 mcg PO DAILY Thyroid 01/23/24 07/14/24 History (Euthyrox) losartan 100 mg tablet 100 mg PO DAILY BP 01/23/24 07/10/24 History amlodipine 10 mg tablet 10 mg PO DAILY BP #90 tabs 04/21/24 07/14/24 Rx lactobacillus combination no.4 3 3,000 mmu cells PO QDAY supplement 05/15/24 07/14/24 History billion cell capsule (Probiotic) doxycycline monohydrate 100 mg 100 mg PO BID Antibiotic #180 06/12/24 07/14/24 Rx capsule CAPSULES ondansetron 4 mg disintegrating 4 mg PO BID PRN nausea and 06/12/24 07/10/24 Rx tablet vomiting #180 tabs ondansetron HCl 4 mg tablet 4 mg PO BID Nausea #60 tabs 06/12/24 07/10/24 Rx acetaminophen 325 mg tablet 650 mg (2 x 325 mg) PO Q6H PRN PRN 07/14/24 Unknown Rx Pain 1-10 Or Fever >100.7 #0 tabs cholestyramine (with sugar) 4 gram See Rx Instructions .Route 07/14/24 07/14/24 History oral powder .COMPLEX Cholestrol oxycodone 5 mg tablet 2.5 - 5 mg (0.5 - 1 x 5 mg) PO Q4H 07/14/24 Unknown Rx PRN PRN Pain Score 4-10 #0 tabs pantoprazole 40 mg tablet,delayed 40 mg PO DAILY GERD #0 tabs 07/14/24 07/14/24 Rx release prednisone 20 mg tablet 40 mg (2 x 20 mg) PO BREAKFAST 07/14/24 07/14/24 Rx Steroid #0 tabs Allergy/AdvReac Type Severity Reaction Status Date / Time peas Allergy Intermediate Other Verified 07/11/24 10:43 penicillin V Allergy Intermediate Hives Verified 07/11/24 10:43 mendez Allergy Anaphylaxis Verified 07/11/24 10:43 Family History Mother Heart disease Hypertension High cholesterol Osteoporosis CVA (cerebral vascular accident) Father CVA (cerebral vascular accident) Daughter Thyroid disorder Surgical History History of ankle surgery History of eye surgery H/O: hysterectomy Social History household members: children and other details: Lives with son, [id number]. Smoking Status: Former smoker Electronic Cigarette Use: without nicotine how long ago did patient quit smokin years ago alcohol intake: current substance use type: does not use additional social history: denies vaping- quit 8 years ago, denies marijuana, denies edibles, denies aspirin and denies ibuprofen. denies history of blood clotting disorder. ROS Constitutional Constitutional: Reports weakness; Denies chills, fever(s) or weight gain ENT HEENT: Denies headache(s), nasal congestion or nasal discharge Cardiovascular Cardiovascular: Denies chest pain or palpitations Respiratory/Chest Respiratory/Chest: Denies cough, excessive phlegm production or shortness of breath with exertion Gastrointestinal Gastrointestinal: Denies abdominal pain, nausea or vomiting Genitourinary Genitourinary: Denies dysuria Musculoskeletal Musculoskeletal: Denies joint pain or joint swelling Integumentary Integumentary: Denies rash or wounds Neurologic Neurologic: Denies focal weakness, numbness or tingling Psychiatric Psychiatric: Denies anxiety, auditory hallucinations, depression, homicidal ideation or suicidal ideation Vital Signs Vital Signs Vital Signs: 07/17/24 12:06 Temperature 97.3 F L Temperature Source Temporal Pulse Rate 89 Respiratory Rate 16 Blood Pressure 131/67 H Blood Pressure Mean 88 Blood Pressure Source Monitor Blood Pressure Position Semi-Fowlers Blood Pressure Location Left Arm Pulse Ox 98 Oxygen Delivery Method Room Air Weight Weight: 109 lb Body Mass Index (BMI) 21.2 Physical Exam Const alert General Appearance: cooperative HEENT normocephalic HEENT Narrative: Eye patch OD. Eyes PERRL and EOMs intact bilaterally Neck supple, no JVD and no carotid bruits Resp normal respiratory effort, normal air movement and clear to auscultation bilaterally Cardio regular rate and regular rhythm GI normal to inspection, nondistended, normoactive bowel sounds, non-tender and non-distended Extremity normal capillary refill General Extremity: Negative for edema Skin no rashes or lesions noted General Skin Exam: no breakdown Psych affect normal Appearance: appropriate Assessment & Plan Assessment/Plan (1) Nausea and vomiting: (2) Anemia: PLAN: Plan 89-year-old admitted for failure to thrive and back pain was discovered to have radiculopathy and urinary tract infection. She was also discovered to have progressive iron deficiency anemia with acute on chronic blood loss anemia. Recommend his upper endoscopy evaluate upper GI tract and possible colonoscopy. She was explained alternatives, risk, benefits include not withstanding bleeding, infection, sepsis, perforation, need for return to . She will have an ASA of 3.
--- NOTE | 2024-07-17 12:30 | EGD_PTH ---
PATIENT: PALAK MUHAMMAD LOC: EN U#:[id number] AGE/SX: 89/F ROOM: RE07/17/[address]: Dr. Ivan Ortiz DO : 1935 BED: DIS: 07/17/2024 SPEC #: [id number] RECD: 07/20/24 06:56 STATUS: SHAR REMil #: [id number] ALONSO: 07/17/24 12:[address]: Ivan Ortiz DEPT: SURGICAL PATHOLOGY RECD BY: Aminta Leigh ENTERED: 07/20/24 07:53 SP TYPE: EGD BIOPSY CONRADO DR: Dr. Bailey Cerna MD Tissues: Duodenum, NOS Procedures: Surgery Specimen Level IV HEADER OPERATION: EGD with biopsy and electrohemostasis PRE-OP DIAGNOSIS: Anemia TISSUE SUBMITTED: Duodenum biopsy MICROSCOPIC DIAGNOSIS Duodenum, biopsy: No pathologic change. AM. 07/21/2024 MICROSCOPIC DESCRIPTION Slides are reviewed. GROSS DESCRIPTION Received in fixative is one container labeled with the patient's name and designated Duodenum biopsy. The specimen consists of two irregular fragments of light echeverria soft tissue that in aggregate measure 1.0 x 0.7 x 0.1 cm. The specimen is totally submitted in one cassette. 07/20/2024 TC:5 CPT:82251
--- NOTE | 2024-07-17 13:28 | OP.EGD_ITS ---
Patient Name: Geni Butler Procedure Date: 07/17/2024 1:02 PM Date of : 1935 Age: 89 Procedure: Upper GI endoscopy Indications: Iron deficiency anemia, Occult blood in stool Providers: Ivan Ortiz DO Medicines: Monitored Anesthesia Care Patient Profile: This is an 89 year old female. Refer to note in patient chart for documentation of history and physical. Patient has symptoms. Complications: No immediate complications. Procedure: Pre-Anesthesia Assessment: - Prior to the procedure, a History and Physical was performed, and patient medications and allergies were reviewed. The patient is competent. The risks and benefits of the procedure and the sedation options and risks were discussed with the patient. All questions were answered and informed consent was obtained. Patient identification and proposed procedure were verified by the physician in the pre-procedure area. Mental Status Examination: alert and oriented. Airway Examination: normal oropharyngeal airway and neck mobility. Respiratory Examination: clear to auscultation. CV Examination: normal. Prophylactic Antibiotics: The patient does not require prophylactic antibiotics. Prior Anticoagulants: The patient has taken no anticoagulant or antiplatelet agents except for NSAID medication. ASA Grade Assessment: II - A patient with mild systemic disease. After reviewing the risks and benefits, the patient was deemed in satisfactory condition to undergo the procedure. The anesthesia plan was to use monitored anesthesia care (MAC). Immediately prior to administration of medications, the patient was re-assessed for adequacy to receive sedatives. The heart rate, respiratory rate, oxygen saturations, blood pressure, adequacy of pulmonary ventilation, and response to care were monitored throughout the procedure. The physical status of the patient was re-assessed after the procedure. After obtaining informed consent, the endoscope was passed under direct vision. Throughout the procedure, the patient's blood pressure, pulse, and oxygen saturations were monitored continuously. The Endoscope was introduced through the mouth, and advanced to the second part of duodenum. The upper GI endoscopy was accomplished without difficulty. The patient tolerated the procedure well. Scope In: 1:14:23 PM Scope Out: 1:20:47 PM Total Procedure Duration Time 0 hours 6 minutes 24 seconds Findings: The examined esophagus was normal. A single 5 mm angiodysplastic lesion with no bleeding was found in the gastric body. Coagulation for hemostasis using heater probe was successful. Estimated blood loss was minimal. One non-bleeding linear duodenal ulcer with no stigmata of bleeding was found in the duodenal bulb. The lesion was 6 mm in largest dimension. Biopsies were taken with a cold forceps for histology. Verification of patient identification for the specimen was done. Estimated blood loss was minimal. Four 5 mm angiodysplastic lesions with bleeding were found in the first portion of the duodenum, in the second portion of the duodenum and in the third portion of the duodenum. Coagulation for hemostasis using heater probe was successful. Impression: - Normal esophagus. - A single non-bleeding angiodysplastic lesion in the stomach. Treated with a heater probe. - Non-bleeding duodenal ulcer with no stigmata of bleeding. Biopsied. - Four bleeding angiodysplastic lesions in the duodenum. Treated with a heater probe. Recommendation: - Discharge patient to home. - Resume previous diet. - Continue present medications. - Await pathology results. Procedure Code(s): --- Professional --- 57785, 59, Esophagogastroduodenoscopy, flexible, transoral; with control of bleeding, any method 11765, 51, Esophagogastroduodenoscopy, flexible, transoral; with biopsy, single or multiple CPT copyright 2021 [employer]. All rights reserved. The codes documented in this report are preliminary and upon door to door salesman review may be revised to meet current compliance requirements. Ivan Ortiz DO 07/17/2024 1:28:35 PM This report has been signed electronically. Number of Addenda: 0 Note Initiated On: 07/17/2024 1:02 PM
--- NOTE | 2024-07-17 13:29 | OP.CCLET_ITS ---
07/17/2024 Bailey Cerna MD [address] [place] [address] [place] [address] Re : Upper GI endoscopy procedure for Geni Butler Dear Dr. Cerna This procedure was performed on Wednesday, July 17, 2024. My impressions and recommendations are as follows: Impressions : - Normal esophagus. - A single non-bleeding angiodysplastic lesion in the stomach. Treated with a heater probe. - Non-bleeding duodenal ulcer with no stigmata of bleeding. Biopsied. - Four bleeding angiodysplastic lesions in the duodenum. Treated with a heater probe. Recommendations : - Discharge patient to home. - Resume previous diet. - Continue present medications. - Await pathology results. My findings are described in the full procedure note, which is enclosed. If I can be of further assistance, please feel free to contact me at . Sincerely, Ivan Ortiz, 07/17/2024 1:28:35 PM This report has been signed electronically.
--- NOTE | 2024-07-17 13:34 | PCM.POST.ANE ---
Anesthesia: Postop Eval I Current Vital Signs Temperature: 99.4 F Pulse Rate: 92 Blood Pressure: 79/44 Respiratory Rate: 16 Pulse Ox: 97 Assessment Airway patent: Yes Spontaneous unlabored respirations: Yes Mental status: Awake and Calm nausea: No Vomiting: No Anesthesia Complication: No Fluid Hydration Crystalloid volume administer (ml): 30 Total IV fluid infused: 30 Progress Note Anesthesia document: Postop Eval 1 completed: Yes
[2024-07-17] MEDS: Lactated Ringers 250 ML 999 ML IV (13:50)
--- NOTE | 2024-07-17 14:18 | PCM.POSTANE2 ---
Anesthesia Postop Eval I Sum Postop Eval Completion status Anesthesia document: Postop Eval 1 completed: Yes Anesthesia Postop Eval I Summary Anesthesia Postop Eval I Summary: Anesthesia Postop Eval I: Assessment Summary Airway patent Yes 07/17/24 13:37 [email or web address] Spontaneous unlabored Yes 07/17/24 13:37 [email or web address] respirations Mental status Awake,Calm 07/17/24 13:37 [email or web address] nausea No 07/17/24 13:37 [email or web address] Vomiting No 07/17/24 13:37 [email or web address] Anesthesia Postop Eval I: Fluid Summary Crystalloid volume administer 30 07/17/24 13:37 [email or web address] (ml) Colloids volume administered ( ml) Blood Product volume administered (ml) Total IV fluid infused 30 07/17/24 13:37 [email or web address] Anesthesia Postop Eval I: Summary Notes Anesthesia Complication No 07/17/24 13:37 [email or web address] Anesthesia Complication Comment: Post-operative progress note Anesthesia: Postop Eval II Evaluation Mental status: Awake Pain Level: 0 nausea: No Vomiting: No
== END 2024-07-17 14:24 | disposition home or self-care (01) ==
LOC: EN 11:44 → AC 11:44
PROVIDERS: PCP Internal Medicine; Referring Provider Internal Medicine; Visit Provider Internal Medicine Gastroenterology
PROC: 0DJ08ZZ Inspection of Upper Intestinal Tract, Via Natural or Artificial Opening Endoscopic (ICD-10-PCS; CPT 43235; principal; 2024-07-17 12:25)
DX: K26.9 Duodenal ulcer, unspecified as acute or chronic, without hemorrhage or perforation (principal); D50.9 Iron deficiency anemia, unspecified; I10 Essential (primary) hypertension; E03.9 Hypothyroidism, unspecified; K31.89 Other diseases of stomach and duodenum; Z79.899 Other long term (current) drug therapy; Z87.891 Personal history of nicotine dependence
CPT/HCPCS: 43255; 43239; 88305; A4216; J2405

== ENCOUNTER → 2024-09-28 | Outpatient (CLI) | payer MEDICARE, OTHER, SELFPAY ==
--- NOTE | 2024-09-25 | LES_PTH ---
PATIENT: PALAK MUHAMMAD [facility] U#:[id number] AGE/SX: 89/F ROOM: RE09/28/[address]: Dr. Zachary Vyas MD : 1935 BED: DIS: 09/28/2024 SPEC #: [id number] RECD: 09/28/24 09:54 STATUS: SHAR REMil #: [id number] ALONSO: 09/25/24 00:[address]: Zachary Vyas DEPT: SURGICAL PATHOLOGY RECD BY: Javier Meeks ENTERED: 09/28/24 09:56 SP TYPE: Lesion OTHR DR: Dr. 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 See comment. PW.mr 09/29/2024 COMMENT Deeper sections are done interpretative Case has been reviewed in consultation with Dr. Dias who concurs with the above diagnosis. IDC:LIZ MICROSCOPIC DESCRIPTION Slides are reviewed. GROSS DESCRIPTION Received is one container labeled with the patient's name and not further designated. The specimen consists of a piece of echeverria-white skin measuring 0.5 x 0.1 x 0.1cm. The entire specimen is submitted in one cassette. 09/28/2024 TC:5 CPT:51501
== END | disposition home or self-care (01) ==
LOC: LABSPEC 09:54
PROVIDERS: PCP Internal Medicine; Visit Provider Surgery Plastic and Reconstructive Surgery
DX: L73.9 Follicular disorder, unspecified (principal); L57.8 Other skin changes due to chronic exposure to nonionizing radiation
CPT/HCPCS: 88305

== ENCOUNTER → 2024-11-25 | Outpatient (CLI) | payer MEDICARE, OTHER, SELFPAY ==
[2024-11-25 16:52] LABS: Absolute Lymphocyte Count 1.91 X10^3/uL (0.83-4.51); Absolute Neutrophil Count 3.8 X10^3/uL (2.0-7.7); Basophil# 0.04 X10^3/uL; Basophil% 0.6 % (0-1); Eosinophil# 0.08 X10^3/uL; Eosinophils% 1.2 % (0-5); Hemoglobin 12.6 g/dL (12.0-15.0); Lymphocyte # 1.91 X10^3/ul (0.83-4.51); Lymphocyte % 29.7 % (19-41); Mean Corp Hgb Conc 33.2 g/dL (32-36); Mean Corpuscular Hgb 32.6 pg (27.0-32.0); Mean Corpuscular Volume 98.2 fL (81-99); Mean Platelet Vol. 9.9 fl (6.2-12.0); Monocyte# 0.56 X10^3/uL; Monocyte% 8.7 % (0-10); NRBC Flagged by Analyzer 0 % (0-5); Neutrophil # 3.82 X10^3/uL (2.7-7.7); Neutrophil % 59.5 % (47-70); Platelet Count 278 K/mm3 (150-450); RBC Distribution Width CV 14.8 % (11.6-14.6); RBC Distribution Width SD 53.4 fl (35.1-43.9); Red Blood Count 3.87 M/mm3 (4.2-5.4); White Blood Count 6.4 K/mm3 (4.4-11.0)
[2024-11-25 17:27] LABS: ALB/GLOB Ratio 1.5 RATIO (0.9-2.4); AST(SGOT) 33 U/L (<=31); Alanine Aminotransfer ALT/SGPT 15 U/L (<=34); Albumin, Serum 4.2 g/dL (3.4-4.8); Alkaline Phosphatase 88 U/L (35-104); Anion Gap 12 (5-15); BUN 22 mg/dL (4-19); BUN/Creat Ratio 23.7 RATIO (10-20); Calcium,Total 9.6 mg/dL (7.6-11.0); Carbon Dioxide 25.1 mmol/L (21.0-32.0); Chloride 105 mmol/L (98-108); Creatinine, Serum 0.93 mg/dL (0.70-1.20); EST Glomerular Filtration Rate 58 (>60); Globulin 2.8 g/dL (2.2-4.2); Glucose 103 mg/dL (70-99); Potassium 4.5 mmol/L (3.3-5.1); Protein, Total 7.1 g/dL (5.9-8.4); Sodium Level 142 mmol/L (133-145); Total Bilirubin 0.42 mg/dL (0.00-1.30)
== END | disposition home or self-care (01) ==
LOC: BIMLAB 16:06
PROVIDERS: PCP Internal Medicine; Referring Provider Internal Medicine; Visit Provider Internal Medicine
DX: I10 Essential (primary) hypertension (principal); E03.9 Hypothyroidism, unspecified
CPT/HCPCS: 36415; 80053; 84443; 85025

== ENCOUNTER → 2025-01-18 | Outpatient (CLI) | payer MEDICARE, OTHER, SELFPAY ==
--- NOTE | 2025-01-18 06:15 | CT_ITS ---
PROCEDURE: CHEST WITHOUT CONTRAST 01/18/2025 REASON FOR EXAM: FU LUNG NODULE TECHNIQUE: Chest CT without contrast. Coronal and Sagittal reconstruction series were provided. One or more dose reduction techniques were used (e.g., Automated exposure control, adjustment of the mA and/or kV according to patient size, use of iterative reconstruction technique RADIATION DOSE SUMMARY: CTDlvol: 7.27 mGy DLP: 234 mGycm COMPARISON: 01/23/2024. FINDINGS: Unchanged 5 mm apical nodule in the right upper lobe. Unchanged moderate cardiomegaly. Unchanged moderate coronary artery calcifications. Unchanged diffuse spondylosis with increased dorsal kyphosis. Unchanged osteopenia. Unchanged small sliding hiatal hernia. Unchanged right hepatic lobe simple cyst. Unchanged right adrenal nodule. Normal unenhanced main pulmonary artery and right and left pulmonary arteries. Normal bilateral peripheral pulmonary arteries. Normal thoracic aorta and visualized great vessels. There is no demonstrated aortic aneurysm. Normal pericardium. Normal mediastinum. Normal hilar regions. Normal visualized trachea and bronchi. Normal pleura. CT/Chest without Contrast IMPRESSION: Coronary artery calcification (CAC) is is present Unchanged 5 mm apical nodule in the right upper lobe. Unchanged moderate cardiomegaly. Unchanged moderate coronary artery calcifications. Unchanged diffuse spondylosis with increased dorsal kyphosis. Unchanged osteopenia. Unchanged small sliding hiatal hernia. Unchanged right hepatic lobe simple cyst. Unchanged right adrenal nodule. Reading Location: [place] [id number]
--- OUTSIDE RECORDS SUMMARY | 2025-01-18 06:18 | XMS RPT_ITS | CCD ---
Author Organization [facility] Care Team Providers [place] Nurse Name Role Phone Issa Paige Primary Care Provider Al Atwood Primary Care Provider [phone] Dr. Bailey Cerna Primary Care Provider [phone] Eryn, Dr. Avalos Attending Provider [phone] Dr. Bailey Cerna Referring Provider [phone] Dr. Bailey Cerna Primary Care Provider [phone] Dr. Bailey Cerna Attending Provider [phone] Dr. Bailey Cerna Referring Provider [phone] Dr. Bailey Cerna Primary Care Provider [phone] Dr. Bailey Cerna Attending Provider [phone] Dr. Bailey Cerna Referring Provider [phone] Dr. Bailey Cerna Primary Care Provider [phone] Dr. Bailey Cerna Attending Provider [phone] Dr. Bailey Cerna Referring Provider [phone] ESTEBAN Shields Attending Provider Dr. Bailey Cerna MD Primary Care Provider Dr. Bailey Cerna MD Referring Provider [phone] Jason Bear Attending Provider Dr. Umang Vyas MD Attending Provider Nando AGUIRRE-CMari Attending Provider [phone] Dr. Bailey Cerna MD Attending Provider Care Physician, No Primary Primary Care Unava ilable Ravinder Galeas Attending Unavailable Friend, Ivan Attending Unavailable Oleghe, Efewongbe Primary Care Unavailable Oleghe, Efewongbe Referring Unavailable Oleghe, Efewongbe Primary Care Unavailable Jey, Justin Chi Admitting Unavailable Jey, Justin Chi Attending Unavailable Oleghe, Efewongbe Primary Care Unavailable Oleghe, Efewongbe Referring Unavailable Oleghe, Efewongbe Attending Unavailable Oleghe, Efewongbe Primary Care Unavailable Pete Sotelo Consulting Unavailable Ashleigh, Pete Admitting Unavailable Vazquez Gupta Referring Unavailable Edgardo Nagy Attending Unavailable Umang Soto Consulting Unavailable Oleghe, Efewongbe Primary Care Unavailable Oleghe, Efewongbe Attending Unavailable Oleghe, Efewongbe Referring Unavailable Oleghe, Efewongbe Primary Care Unavailable Oleghe, Efewongbe Referring Unavailable Tatianna Saldana Attending Unavailable Oleghe, Efewongbe Primary Care Unavailable Rory Williamson Attending Unavailable Oleghe, Efewongbe Primary Care Unavailable Ramiro, [place] Referring Unavailable Ramiro, [place] Attending Unavailable Oleghe, Efewongbe Primary Care Unavailable Pete Sotelo Admitting Unavailable Pete Sotelo Consulting Unavailable Vazquez Gupta Referring Unavailable Edgardo Nagy Attending Unavailable Umang Soto Consulting Unavailable Edgardo Nagy Consulting Unavailable Oleghe, Efewongbe Primary Care Unavailable Ramiro, [place] Attending Unavailable Friend, Ivan Attending Unavailable Oleghe, Efewongbe Primary Care Unavailable Oleghe, Efewongbe Referring Unavailable Friend, Ivan Consulting Unavailable Oleghe, Efewongbe Primary Care Unavailable Oleghe, Efewongbe Referring Unavailable Umang Vyas Attending Unavailable Oleghe, Efewongbe Primary Care Unavailable Oleghe, Efewongbe Referring Unavailable Jason Bear Attending Unavailable Oleghe, Efewongbe Primary Care Unavailable Nando AGUIRRE, Mari Peck Attending Unavailabl e Oleghe, Efewongbe Referring Unavailable Oleghe, Efewongbe Primary Care Unavailable Umang Vyas Attending Unavailable Oleghe, Efewongbe Referring Unavailable Oleghe, Efewongbe Primary Care Unavailable Oleghe, Efewongbe Referring Unavailable Tanvi Davenport Attending Unavailable Oleghe, Efewongbe Referring Unavailable Umang Vyas Attending Unavailable Oleghe, Efewongbe Primary Care Unavailable Pete Sotelo Attending Unavailable Oleghe, Efewongbe Primary Care Unavailable Oleghe, Efewongbe Referring Unavailable Oleghe, Efewongbe Attending Unavailable Oleghe, Efewongbe Primary Care Unavailable mUang Vyas Attending Unavailable Oleghe, Efewongbe Primary Care Unavailable Oleghe, Efewongbe Referring Unavailable Umang Vyas Attending Unavailable Oleghe, Efewongbe Primary Care Unavailable Umang Vyas Attending Unavailable Oleghe, Efewongbe Primary Care Unavailable Oleghe, Efewongbe Referring Unavailable Umang Vyas Attending Unavailable Oleghe, Efewongbe Primary Care Unavailable Umang Vyas Referring Unavailable Umang Vyas Attending Unavailable Oleghe, Efewongbe Primary Care Unavailable Oleghe, Efewongbe Referring Unavailable Umang Vyas Attending Unavailable Oleghe, Efewongbe Referring Unavailable NURSE[place]STON Attending Unavailable Oleghe, Efewongbe Primary Care Unavailable Oleghe, Efewongbe Primary Care Unavailable Ravinder Galeas Attending Unavailable Oleghe, Efewongbe Primary Care Unavailable Oleghe, Efewongbe Referring Unavailable Oleghe, Efewongbe Attending Unavailable Oleghe, Efewongbe Primary Care Unavailable Oleghe, Efewongbe Referring Unavailable Eric Rubio Attending Unavailable Oleghe, Efewongbe Primary Care Unavailable Oleghe, Efewongbe Referring Unavailable Oleghe, Efewongbe Attending Unavailable Oleghe, Efewongbe Primary Care Unavailable Oleghe, Efewongbe Referring Unavailable Oleghe, Efewongbe Attending Unavailable Oleghe, Efewongbe Primary Care Unavailable Oleghe, Efewongbe Referring Unavailable Oleghe, Efewongbe Attending Unavailable Allergies Allergy Classification Reported Allergen(s) Allergy Type Date of Onset Reaction(s) Facility (1 source) Azithromycin Drug Allergy 04-23-2012 Rash [facility] (5 sources) Mendez extract Drug Allergy 04-17-2022 Anaphylaxis [facility] (1 source) Penicillin V Drug Allergy 11-25-2024 Hives [facility] (1 source) Pisum sativum (pea) extract Drug Allergy 11-25-2024 Other [facility] Comment on above: Split pea soup (1 source) Mendez extract Drug Allergy 11-25-2024 [facility] (1 source) Penicillin Drug Allergy 11-25-2024 [facility] (1 source) peas Drug allergy (disorder) 11-25-2024 [facility] Medications Current Medications Medication Drug Class(es) Dates Sig (Normalized) Sig (Original) acetaminophen 500 mg oral tablet (3 sources) Start: 07-30-2024 take 2 tablets by mouth every eight hours as needed for pain Acetaminophen 500 mg tablet Active 1000 mg PO EVERY 8 HOURS as needed for Pain Score 1-3 180 July 30, 2024 2:44pm Start: 07-23-2024 End: 07-30-2024 take 2 tablets by mouth every six hours as needed for pain Acetaminophen 500 mg Tablet Discontinued 1000 mg PO EVERY 6 HOURS NEEDED as needed for Pain Score 1-3 0 July 23, 2024 1:00am July 30, 2024 2:44pm Start: 07-14-2024 End: 07-23-2024 Acetaminophen 325 mg Tablet Discontinued 650 mg PO EVERY 6 HOURS NEEDED as needed for Pain 1-10 Or Fever >100.7 0 July 14, 2024 1:00am July 23, 2024 8:02pm alendronic acid 70 mg oral tablet (9 sources) Bisphosphonate Start: 08-20-2022 End: 09-03-2024 Alendronate 70 mg tablet Active 70 mg PO MELLO September 03, 2024 1:27pm amLODIPine 10 mg oral tablet (20 sources) Dihydropyridine Calcium Channel Denise Start: 07-30-2022 End: 04-21-2024 take 1 tablet by mouth once daily Amlodipine 10 mg tablet Active 10 mg PO DAILY April 21, 2024 3:58pm Start: 04-20-2020 End: 07-30-2022 take 1 tablet by mouth once daily Amlodipine 5 mg tablet Discontinued 5 mg PO DAILY October 05, 2020 9:13am September 18, 2021 3:57pm cholecalciferol 0.025 mg oral capsule (4 sources) Vitamin D Start: 07-25-2022 take 1 capsule by mouth once daily Cholecalciferol (Vitamin D3) 25 mcg (1,000 unit) capsule Active 25 ug PO DAILY July 25, 2022 1:00am Handicap Placard (6 sources) Start: 09-10-[address] Active 0 .ROUTE .MEDSUPPLY September 10, 2024 11:19am As directed, length of time 3 years Start: 11-03-2021 End: 09-10-2024 Handicap Placard Discontinue d 0 .ROUTE .MEDSUPPLY November 03, 2021 12:00am September 10, 2024 11:19am As directed, length of time 3 years Start: 11-03-[address] Active 0 .ROUTE .MEDSUPPLY November 02, 2021 11:00pm As directed, length of time 3 years Start: 11-03-[address] Active 0 .ROUTE .MEDSUPPLY November 03, 2021 12:00am As directed, length of time 3 years Lactobacillus Combination No.4 (Probiotic) 3 billion cell capsule (2 sources) Start: 07-30-2024 take 3 capsules by mouth once daily Lactobacillus Combination No.4 (Probiotic) 3 billion cell capsule Active 3000 NMA PO daily July 30, 2024 2:43pm administer with a meal Start: 05-15-2024 End: 07-30-2024 take 3 capsules by mouth once daily Lactobacillus Combination No.4 (Probiotic) 3 billion cell capsule Discontinued 3000 NMA PO daily May 15, 2024 12:00am July 30, 2024 2:44pm administer with a meal levothyroxine sodium 0.075 mg oral tablet (20 sources) l-Thyroxine Start: 04-20-2020 End: 04-15-2024 take 1 tablet by mouth once daily Levothyroxine (Euthyrox) 75 mcg tablet Active 75 ug PO DAILY 2024 12:00am losartan potassium 100 mg oral tablet (20 sources) Angiotensin 2 Receptor Denise Start: 04-20-2020 End: 04-15-2024 take 1 tablet by mouth once daily Losartan 100 mg tablet Active 100 mg PO DAILY 2024 12:00am pantoprazole 40 mg delayed release oral tablet (4 sources) Proton Pump Inhibitor Start: 07-14-2024 End: 11-17-2024 take 1 tablet by mouth once daily Pantoprazole 40 mg tablet,delayed release (DR/EC) Active 40 mg PO DAILY 90 90 November 17, 2024 12:48pm February 14, 2025 12:00am traMADol hydrochloride 50 mg oral tablet (1 source) Opioid Agonist Start: 08-14-2024 take 1 tablet by mouth every eight hours as needed for pain Tramadol 50 mg tablet Active 50 mg PO Q8H as needed for pain August 14, 2024 1:00am Completed/Discontinued Medications Medication Drug Class(es) Dates Sig (Normalized) Sig (Original) acetaminophen 325 mg / HYDROcodone bitartrate 5 mg oral tablet (5 sources) Opioid Agonist Start: 12-05-2019 End: 12-08-2019 Hydrocodone-Acetami nophen 1 TABLET tablet Discontinued 1 {tbl} PO EVERY 6 HOURS NEEDED as needed for Pain 10 3 December 05, 2019 December 07, 2019 12:00am December 08, 2019 12:02am Start: 12-05-2019 End: 12-08-2019 take 1 tablet by mouth every six hours as needed Hydrocodone-Acetaminophen Discontinued 1 TABLET PO EVERY 6 HOURS NEEDED 10 3 December 05, 2019 December 07, 2019 11:02pm amoxicillin 500 mg / clavulanate 125 mg oral tablet (7 sources) Penicillin-class Antibacterial Start: 09-26-2023 End: 02-17-2024 Amoxicillin-Pot Clavulanate 500-125 mg tablet Discontinued 1 {tbl} PO TWICE A DAY September 26, 2023 1:00am February 17, 2024 1:36pm Start: 09-26-2023 take 1 tablet by lukas twice daily Amoxicillin-Pot Clavulanate Active 1 TABLET PO TWICE A DAY September 26, 2023 12:00am Start: 10-10-2021 End: 04-17-2022 Amoxicillin-Pot Clavulanate 875-125 mg tablet Discontinued 1 {tbl} PO TWICE A DAY October 10, 2021 1:00am April 17, 2022 11:18am Start: 10-10-2021 End: 04-17-2022 take 1 tablet by mouth twice daily Amoxicillin-Pot Clavulanate Discontinued 1 TABLET PO TWICE A DAY October 10, 2021 12:00am April 17, 2022 10:18am aspirin 81 mg delayed release oral tablet (5 sources) Platelet Aggregation Inhibitor, Nonsteroidal Anti-inflammatory Drug Start: 04-20-2020 End: 02-17-2024 Aspirin (Adult Low Dose Aspirin) 81 mg tablet,delayed release (DR/EC) Discontinued 81 mg PO DAILY April 20, 2020 12:00am February 17, 2024 1:37pm atropine sulfate 0.025 mg / diphenoxylate hydrochloride 2.5 mg oral tablet (5 sources) Anticholinergic, Cholinergic Muscarinic Antagonist, Antidiarrheal Start: 04-20-2020 End: 02-13-2023 Diphenoxylate-Atropin e 2.5-0.025 mg tablet Discontinued 1 {tbl} PO EVERY 6 HOURS as needed for Diarrhea April 20, 2020 12:00am February 13, 2023 9:45am Start: 04-20-2020 End: 02-13-2023 take 1 tablet by mouth every six hours Diphenoxylate-Atropine Discontinued 1 TABLET PO EVERY 6 HOURS April 19, 2020 11:00pm February 13, 2023 8:45am benzonatate 200 mg oral capsule (5 sources) Non-narcotic Antitussive Start: 10-10-2021 End: 04-17-2022 take 1 capsule by mouth three times daily as needed for cough Benzonatate 200 mg capsule Discontinued 200 mg PO THREE TIMES A DAY as needed for cough 60 October 10, 2021 1:00am April 17, 2022 11:19am calcium citrate 1040 mg oral tablet (5 sources) Start: 04-20-2020 End: 10-24-2022 take 1 tablet by mouth once daily Calcium Citrate 250 mg calcium tablet Discontinued 250 mg PO DAILY April 20, 2020 12:00am October 24, 2022 3:44pm cholestyramine resin 4000 mg powder for oral suspension (13 sources) Bile Acid Sequestrant Start: 07-14-2024 End: 11-25-2024 Cholestyramine (With Sugar) 4 gram powder Discontinued 0 NMA .ROUTE .COMPLEX July 14, 2024 1:00am November 25, 2024 2:44pm 4 G ORALLY TWICE A DAY FOR 3 MONTHS ADMINISTER W/MEAL AVOID OTHER MEDS WITHIN 1HR BEFORE OR 4-6HR AFTER DOSE; Start: 08-30-2023 End: 07-14-2024 Cholestyramine (With Sugar) 4 gram powder Discontinued 0 .ROUTE .COMPLEX [id number] 30, 2023 9:56am July 14, 2024 2:55pm 4 G ORALLY TWICE A DAY FOR 3 MONTHS ADMINISTER W/MEAL AVOID OTHER MEDS WITHIN 1HR BEFORE OR 4-6HR AFTER DOSE Start: 08-30-2023 Cholestyramine (With Sugar) Active 0 .ROUTE .COMPLEX [id number] 30, 2023 8:56am 4 G ORALLY TWICE A DAY FOR 3 MONTHS ADMINISTER W/MEAL AVOID OTHER MEDS WITHIN 1HR BEFORE OR 4-6HR AFTER DOSE Start: 08-20-2022 End: 08-30-2023 take 1 dose by mouth twice daily Cholestyramine (With Sugar) 4 gram powder Discontinued 4 g PO TWICE A DAY 378 May 06, 2023 3:35pm August 30, 2023 9:57am administer w/meal; avoid other meds within 1hr before or 4-6hr after dose Start: 07-25-2022 End: 08-20-2022 take 1 dose by mouth twice daily Cholestyramine (With Sugar) 4 gram powder Discontinued 4 g PO TWICE A DAY 378 July 25, 2022 1:00am August 20, 2022 11:37am administer w/meal; avoid other meds within 1hr before or 4-6hr after dose Start: 07-25-2022 End: 08-20-2022 take 1 dose by mouth twice daily Cholestyramine (With Sugar) Discontinued 4 GM PO TWICE A DAY 378 July 25, 2022 1:00am August 20, 2022 11:37am administer w/meal; avoid other meds within 1hr before or 4-6hr after dose Start: 07-25-2022 End: 08-20-2022 take 1 dose by mouth twice daily Cholestyramine (With Sugar) Discontinued 4 GM PO TWICE A DAY 378 July 25, 2022 12:00am August 20, 2022 10:37am administer w/meal; avoid other meds within 1hr before or 4-6hr after dose doxycycline hyclate 100 mg oral capsule (5 sources) Tetracycline-class Drug Start: 08-14-2024 End: 11-25-2024 take 1 capsule by mouth twice daily Doxycycline Hyclate 100 mg capsule Discontinued 100 mg PO TWICE A DAY August 14, 2024 1:00am November 25, 2024 2:44pm Start: 05-08-2024 End: 08-14-2024 take 1 capsule by mouth twice daily Doxycycline Monohydrate 100 mg Capsule Discontinued 100 mg PO TWICE A DAY July 23, 2024 1:00am August 14, 2024 10:47am fluticasone propionate 0.05 mg/actuat metered dose nasal spray (5 sources) Corticosteroid Start: 10-10-2021 End: 04-17-2022 take 2 spray(s) nasal route every week as needed Fluticasone Propionate 50 mcg/actuation spray,suspension Discontinued 1 - 2 NMA INTRANASAL TWICE A DAY as needed for allergies, congestion October 10, 2021 1:00am April 17, 2022 11:19am administer into each nostril; 2 sprays in each nostril for the first week guaiFENesin 400 mg oral tablet (5 sources) Start: 10-10-2021 End: 04-17-2022 take 1 tablet by mouth three times daily as needed for cough Guaifenesin 400 mg tablet Discontinued 400 mg PO THREE TIMES A DAY as needed for congestion, cough October 10, 2021 1:00am April 17, 2022 11:19am ibuprofen 200 mg oral tablet (5 sources) Nonsteroidal Anti-inflammatory Drug Start: 04-17-2022 End: 02-13-2023 take 1 tablet by mouth every four hours as needed for pain Ibuprofen (Advil) 200 mg tablet Discontinued 200 mg PO Q4H as needed for Pain April 17, 2022 12:00am February 13, 2023 9:45am meclizine hydrochloride 25 mg oral tablet (5 sources) Antiemetic Start: 11-14-2022 End: 02-13-2023 take 25-50 mg by mouth twice daily as needed for dizziness Meclizine 25 mg tablet Discontinued 25 - 50 mg PO TWICE A DAY as needed for Dizziness November 14, 2022 2:15pm February 13, 2023 9:45am Start: 11-08-2022 End: 11-14-2022 take 1 tablet by mouth four times daily as needed for dizziness Meclizine 25 mg tablet Discontinued 25 mg PO 4 TIMES DAILY NEEDED as needed for Dizziness November 08, 2022 12:00am November 14, 2022 2:16pm Multivitamin (One-A-Day Essential) tablet (5 sources) Start: 04-20-2020 End: 05-19-2024 Multivitamin (One-A-Day Essential) tablet Discontinued 1 {tbl} PO EVERY MORNING April 20, 2020 12:00am May 19, 2024 8:59am Start: 04-20-2020 take 1 tablet by lukas th once daily in the morning Multivitamin (One-A-Day Essential) tablet Active 1 TABLET PO EVERY MORNING April 19, 2020 11:00pm Start: 04-20-2020 take 1 tablet by lukas th once daily in the morning Multivitamin (One-A-Day Essential) tablet Active 1 TABLET PO EVERY MORNING April 20, 2020 12:00am ondansetron 4 mg disintegrating oral tablet (2 sources) Serotonin-3 Receptor Antagonist Start: 06-12-2024 End: 11-25-2024 take 1 tablet by mouth twice daily as needed for nausea and vomiting Ondansetron 4 mg tablet,disintegrating Discontinued 4 mg PO TWICE A DAY as needed for nausea and vomiting 180 June 12, 2024 12:00am November 25, 2024 2:45pm Start: 06-12-2024 End: 07-23-2024 take 1 tablet by mouth twice daily Ondansetron Hcl 4 mg tablet Discontinued 4 mg PO TWICE A DAY 60 June 12, 2024 12:00am July 23, 2024 8:02pm Take 30 minutes prior to doxycycline oxyCODONE hydrochloride 5 mg oral tablet (1 source) Opioid Agonist Start: 07-14-2024 End: 07-23-2024 take 2.5-5 mg by mouth every four hours as needed for pain Oxycodone 5 mg Tablet Discontinued 2.5 - 5 mg PO EVERY 4 HOURS NEEDED as needed for Pain Score 4-10 0 July 14, 2024 July 23, 2024 8:02pm penicillin v potassium 500 mg oral tablet (1 source) Start: 05-08-2024 End: 05-08-2024 take 1 tablet by mouth every eight hours Penicillin V Potassium 500 mg tablet Discontinued 500 mg PO Q8H 42 14 May 08, 2024 12:00am May 21, 2024 12:00am May 08, 2024 2:39pm potassium chloride 10 meq extended release oral capsule (1 source) Start: 2024 End: 02-17-2024 take 1 capsule by mouth once daily Potassium Chloride 10 mEq capsule, extended release Discontinued 10 meq PO DAILY 10 2024 12:00am February 17, 2024 1:37pm predniSONE 20 mg oral tablet (1 source) Start: 07-14-2024 End: 07-23-2024 take 2 tablets by mouth at breakfast Prednisone 20 mg Tablet Discontinued 40 mg PO WITH BREAKFAST 0 July 14, 2024 1:00am July 23, 2024 8:03pm Psyllium Seed (Sugar) (Metamucil (Sugar)) powder (5 sources) Start: 04-20-2020 End: 10-24-2022 Psyllium Seed (Sugar) (Metamucil (Sugar)) powder Discontinued 1 tbsp PO DAILY April 19, 2020 11:00pm October 24, 2022 2:44pm Start: 04-20-2020 End: 10-24-2022 Psyllium Seed (Sugar) (Metam ucil (Sugar)) powder Discontinued 1 tbsp PO DAILY April 20, 2020 12:00am October 24, 2022 3:44pm Start: 04-20-2020 Psyllium Seed (Sugar) (Metamucil (Sugar)) powder Active 1 tbsp PO DAILY April 19, 2020 11:00pm Start: 04-20-2020 Psyllium Seed (Sugar) (Metamucil (Sugar)) powder Active 1 tbsp PO DAILY April 20, 2020 12:00am sulfamethoxazole 400 mg / trimethoprim 80 mg oral tablet (1 source) Dihydrofolate Reductase Inhibitor Antibacterial, Sulfonamide Antimicrobial Start: 05-01-2024 End: 05-08-2024 Sulfamethoxazole-Trimethopri m (Bactrim) 400-80 mg tablet Discontinued 1 {tbl} PO TWICE A DAY 14 May 01, 2024 12:00am May 07, 2024 12:00am May 08, 2024 12:07am triamcinolone acetonide 0.001 mg/mg topical ointment (2 sources) Corticosteroid Start: 05-06-2023 End: 09-26-2023 Triamcinolone Acetonide 0.1 % ointment Discontinued 1 NMA TOPICAL TWICE A DAY as needed for rash 80 May 06, 2023 12:00am September 26, 2023 3:23pm Apply to upper back Problems Active Problems Problem Classification Problem Date Documented Da te Episodic/Chronic Administrative/social admission (2 sources) Patient encounter status; Translations: [Other specified counseling] 08-14-2024 Episodic Allergic reactions (6 sources) Inflammatory dermatosis; Translations: [Dermatitis, unspecified] Episodic Aortic; peripheral; and visceral artery aneurysms (10 sources) Abdominal aortic aneurysm; Translations: [Abdominal aortic aneurysm, without rupture] Onset: 11-25-2024 12-06-2019 Chronic Cardiac dysrhythmias (3 sources) Cardiac arrhythmia; Translations: [Cardiac arrhythmia, unspecified] Onset: 04-21-2024 02-17-2024 Chronic Cardiac dysrhythmias (2 sources) Palpitations; Translations: [Palpitations] 04-16-2024 Episodic Complications of surgical procedures or medical care (6 sources) Postablative hypothyroidism; Translations: [Postprocedural hypothyroidism] Onset: 01-22-2010 03-16-2013 Chronic Deficiency and other anemia (1 source) Anemia; Translations: [Anemia, unspecified] 07-11-2024 Episodic Disorders of lipid metabolism (1 source) Hyperlipidemia; Translations: [Hyperlipidemia] 10-23-2012 Chronic E Codes: Adverse effects of medical drugs (1 source) Allergic reaction caused by penicillin; Translations: [Adverse effect of penicillins, initial encounter] 05-16-2024 Episodic E Codes: Fall (5 sources) Fall in home; Translations: [Unspecified fall, initial encounter] 12-06-2019 Episodic Essential hypertension (14 sources) Hypertensive disorder; Translations: [Essential (primary) hypertension] Onset: 03-16-2013 03-16-2013 Chronic Fluid and electrolyte disorders (1 source) Hypokalemia; Translations: [Hypokalemia] 01-31-2024 Episodic Genitourinary symptoms and ill-defined conditions (5 sources) Acute retention of urine ; Translations: [Other retention of urine] 12-06-2019 Episodic Headache; including migraine (8 sources) Headache; Translations: [Headache] Episodic Headache; including migraine (1 source) Headache; including migraine; Translations: [Headache, unspecified] Onset: 04-15-2024 Immunizations and screening for infectious disease (5 sources) Needs influenza immunization; Translations: [Encounter for immunization] Episodic Neoplasms of unspecified nature or uncertain behavior (3 sources) Neoplasm of uncertain behavior of skin; Translations: [Neoplasm of uncertain behavior of skin] 09-25-2024 Episodic Nutritional deficiencies (1 source) Vitamin D deficiency; Translations: [Vitamin D deficiency, unspecified] 07-14-2024 Chronic Osteoarthritis (1 source) Osteoarthritis; Translations: [Unspecified osteoarthritis, unspecified site] 03-30-2024 Chronic Osteoporosis (5 sources) Osteoporosis; Translations: [Age-related osteoporosis without current pathological fracture] 10-24-2022 Chronic Other connective tissue disease (5 sources) Pain in calf; Translations: [Pain in left lower leg] 12-06-2019 Episodic Other connective tissue disease (3 sources) Localized swelling of left upper limb; Translations: [Other specified soft tissue disorders] 10-24-2022 Episodic Other connective tissue disease (1 source) Other specified soft tissue disorders; Translations: [Swelling of limb] 10-24-2022 Episodic Other connective tissue disease (2 sources) Heel pain; Translations: [Pain in right foot] 08-14-2024 Episodic Other connective tissue disease (1 source) Paraparesis; Translations: [Other symptoms and signs involving the musculoskeletal system] 07-25-2024 Episodic Other eye disorders (5 sources) Thyroid eye disease; Translations: [Other specified disorders of eye and adnexa] 07-13-2020 Episodic Other gastrointestinal disorders (1 source) Irritable bowel syndrome with diarrhea; Translations: [Irritable bowel syndrome with diarrhea] Onset: 07-15-2009 03-16-2013 Chronic Other liver diseases (1 source) Enzyme level - finding; Translations: [Elevated transaminase measurement] 07-22-2024 Episodic Other lower respiratory disease (1 source) Nodule of lung; Translations: [Solitary pulmonary nodule] 02-17-2024 Episodic Other lower respiratory disease (1 source) Solitary pulmonary nodule; Translations: [Solitary pulmonary nodule] Onset: 01-14-2025 Episodic Other nervous system disorders (2 sources) Impairment of balance; Translations: [Other abnormalities of gait and mobility] 05-06-2023 Episodic Other nutritional; endocrine; and metabolic disorders (1 source) Hyperbilirubinemia; Translations: [Other disorders of bilirubin metabolism] 07-25-2024 Chronic Other nutritional; endocrine; and metabolic disorders (1 source) Adult failure to thrive syndrome; Translations: [Adult failure to thrive] 07-11-2024 Episodic Other skin disorders (2 sources) Cyst of skin; Translations: [Follicular cyst of the skin and subcutaneous tissue, unspecified] 09-26-2023 Episodic Other skin disorders (2 sources) Infection of sebaceous cyst; Translations: [Sebaceous cyst] 09-26-2023 Episodic Other skin disorders (1 source) Follicular cyst of the skin and subcutaneous tissue, unspecified; Translations: [Sebaceous cyst] 09-26-2023 Episodic Other skin disorders (1 source) Sebaceous cyst; Translations: [Sebaceous cyst] 09-26-2023 Episodic Other skin disorders (1 source) Lesion of face; Translations: [Disorder of the skin and subcutaneous tissue, unspecified] 07-11-2024 Episodic Residual codes; unclassified (5 sources) Current drinker; Translations: [Other problems related to lifestyle] 12-06-2019 Episodic Residual codes; unclassified (3 sources) Postmenopausal state; Translations: [Asymptomatic menopausal state] 07-25-2022 Episodic Residual codes; unclassified (2 sources) Asymptomatic menopausal state; Translations: [Asymptomatic postmenopausal status (age-related) (natural)] Episodic Spondylosis; intervertebral disc disorders; other back problems (8 sources) Lumbar radiculopathy; Translations: [Radicular pain] Onset: 07-14-2024 Episodic Superficial injury; contusion (5 sources) Contusion of trunk; Translations: [Contusion of lower back and pelvis, initial encounter] 12-06-2019 Episodic Thyroid disorders (10 sources) Thyroid eye disease; Translations: [Hypothyroidism] Onset: 11-25-2024 10-23-2012 Chronic Unclassified (1 source) M54.16 - Radiculopathy, lumbar region Unclassified (1 source) I71.9 - Aortic aneurysm of unspecified site, without rupture Unclassified (1 source) Elevation of levels of liver transaminase levels; Translations: [Elevation of levels of liver transaminase levels] Onset: 07-14-2024 Past or Other Problems Problem Classification Problem Date Documented Da te Episodic/Chronic Acute and unspecified renal failure (2 sources) Acute renal failure syndrome; Translations: [Acute kidney failure, unspecified] Onset: 07-14-2024 07-22-2024 Episodic Bacterial infection; unspecified site (4 sources) Actinomycotic infection; 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, unspecified] Onset: 05-08-2024 05-08-2024 Episodic Comment on above: Left Lumpy Jaw Conditions associated with dizziness or vertigo (13 sources) Dizziness; Translations: [Dizziness and giddiness] Onset: 04-15-2024 Episodic Deficiency and other anemia (1 source) Anemia, unspecified; Translations: [Anemia, unspecified] Onset: 08-18-2024 Episodic Deficiency and other anemia (1 source) Iron deficiency anemia, unspecified; Translations: [Iron deficiency anemia, unspecified] Onset: 08-18-2024 Episodic Malaise and fatigue (3 sources) Asthenia; Translations: [Weakness] Onset: 07-14-2024 07-25-2024 Episodic Nausea and vomiting (4 sources) Nausea and vomiting; Translations: [Nausea with vomiting, unspecified] Onset: 07-14-2024 07-25-2024 Episodic Nonspecific chest pain (2 sources) Chest pain; Translations: [Chest pain, unspecified] Onset: 04-15-2024 03-06-2024 Episodic Other bone disease and musculoskeletal deformities (1 source) Osteopenia; Translations: [Osteopenia] Onset: 03-16-2013 03-16-2013 Episodic Other connective tissue disease (1 source) Pain in right leg; Translations: [Pain in right leg] Onset: 07-23-2024 Episodic Other nervous system disorders (1 source) Other abnormalities of gait and mobility; Translations: [Other abnormalities of gait and mobility] Onset: 04-15-2024 Episodic Other screening for suspected conditions (not mental disorders or infectious disease) (3 sources) Other specified abnormal findings of blood chemistry; Translations: [Elevated liver function tests] Onset: 05-25-2024 07-25-2024 Episodic Other skin disorders (1 source) Follicular disorder, unspecified; Translations: [Follicular disorder, unspecified] Onset: 10-09-2024 Episodic Other skin disorders (1 source) Disorder of the skin and subcutaneous tissue, unspecified; Translations: [Disorder of the skin and subcutaneous tissue, unspecified] Onset: 07-14-2024 Episodic Residual codes; unclassified (1 source) Procedure and treatment not carried out due to patient leaving prior to being seen by health care provider; Translations: [Procedure and treatment not carried out due to patient leaving prior to being seen by health care provider] Onset: 04-23-2024 Episodic Skin and subcutaneous tissue infections (4 sources) Abscess; Translations: [Cutaneous abscess, unspecified] Onset: 05-13-2024 05-01-2024 Episodic Comment on above: Left lower face Results Test Name Value Interpretation Reference Range Facility /Sam 12-11-2024 /GIANNI Normal [facility] Absolute neutrophil countOrd ered By: Bailey Cerna on 11-25-2024 Neutrophils (Bld) [#/Vol] 3.8 10*3/uL 2.0-7.7 [facility] Anion gap in Serum or Plasma Ordered By: Bailey Cerna on 11-25-2024 Anion gap [Moles/Vol] 12 mmol/L 12-24 [facility] BUN/creatinine ratioOrdered By: Bailey Cerna on 11-25-2024 Urea nitrogen/Creatinine [Mass ratio] 23.7 mg/mg High 05-31 [facility] Basophil percentageOrdered B y: Bailey Cerna on 11-25-2024 Basophils/100 WBC (Bld) 0.6 % 0- [facility] Bilirubin, totalOrdered By: Bailey Cerna on 11-25-2024 Bilirubin [Mass/Vol] 0.42 mg/dL 0.00-1.30 [facility] CBC W/Diff, Automatedon 11-10 Absolute Lymph 1.91 X10 3/uL Normal 0.83-4.51 [facility] Comment on above: Performed By: #### L 500.4050, L501.9520, L100.0100 ####[facility] [address] [place], [address] Absolute Neut 3.8 X10 3/uL Normal 2.0-7.7 [facility] Comment on above: Performed By: #### L 500.4050, L501.9520, L100.0100 ####[facility] [address] [place], [address] Basophils/100 WBC (Bld) 0.6 % Normal 0-1 [facility] Comment on above: Performed By: #### L 500.4050, L501.9520, L100.0100 ####[facility] [address] [place], [address] Eosinophils/100 WBC (Bld) 1.2 % Normal 0-5 [facility] Comment on above: Performed By: #### L 500.4050, L501.9520, L100.0100 ####[facility] [address] [place], [address] Erythrocyte distribution width (RBC) [Ratio] 14.8 % High 11.6-14.6 [facility] Comment on above: Performed By: #### L 500.4050, L501.9520, L100.0100 ####[facility] [address] [place], [address] Hematocrit (Bld) [Volume fraction] 38.0 % Normal 37-47 [facility] Comment on above: Performed By: #### L 500.4050, L501.9520, L100.0100 ####[facility] [address] [place], [address] Hemoglobin (Bld) [Mass/Vol] 12.6 g/dL Normal 12.0-15.0 [facility] Comment on above: Performed By: #### L 500.4050, L501.9520, L100.0100 ####[facility] [address] [place], [address] IG% 0.300 Normal 0.0-0.9 [facility] Comment on above: Result Comment: IG% - Immature Granulocytes (promyelocytes, myelocytes andmetamyelocytes) > 1% indicates that a LEFT SHIFT is Present. Performed By: #### L 500.4050, L501.9520, L100.0100 ####[facility] [address] [place], [address] Lymphocytes/100 WBC (Bld) 29.7 % Normal 19-41 [facility] Comment on above: Performed By: #### L 500.4050, L501.9520, L100.0100 ####[facility] [address] [place], [address] MCH (RBC) [Entitic mass] 32.6 pg High 27.0-32.0 [facility] Comment on above: Performed By: #### L 500.4050, L501.9520, L100.0100 ####[facility] [address] [place], [address] MCHC (RBC) [Mass/Vol] 33.2 g/dL Normal 32-36 [facility] Comment on above: Performed By: #### L 500.4050, L501.9520, L100.0100 ####[facility] [address] [place], [address] MCV (RBC) [Entitic vol] 98.2 fL Normal 81-99 [facility] Comment on above: Performed By: #### L 500.4050, L501.9520, L100.0100 ####[facility] [address] [place], [address] Monocytes/100 WBC (Bld) 8.7 % Normal 0-10 [facility] Comment on above: Performed By: #### L 500.4050, L501.9520, L100.0100 ####[facility] [address] [place], [address] Neutrophils/100 WBC (Bld) 59.5 % Normal 47-70 [facility] Comment on above: Performed By: #### L 500.4050, L501.9520, L100.0100 ####[facility] [address] [place], [address] Nucleated RBC (Bld) [#/Vol] 0 10*3/uL Normal 0-5 [facility] Comment on above: Performed By: #### L 500.4050, L501.9520, L100.0100 ####[facility] [address] [place], [address] Platelet mean volume (Bld) [Entitic vol] 9.9 fL Normal 6.2-12.0 [facility] Comment on above: Performed By: #### L 500.4050, L501.9520, L100.0100 ####[facility] [address] [place], [address] Platelets (Bld) [#/Vol] 278 10*3/uL Normal 150-450 [facility] Comment on above: Performed By: #### L 500.4050, L501.9520, L100.0100 ####[facility] [address] [place], [address] RBC (Bld) [#/Vol] 3.87 10*6/uL Low 4.2-5.4 [facility] Comment on above: Performed By: #### L 500.4050, L501.9520, L100.0100 ####[facility] [address] [place], [address] RDW SD 53.4 fl High 35.1-43.9 [facility] Comment on above: Performed By: #### L 500.4050, L501.9520, L100.0100 ####[facility] [address] [place], [address] WBC (Bld) [#/Vol] 6.4 10*3/uL Normal 4.4-11.[address] [facility] Comment on above: Performed By: #### L 500.4050, L501.9520, L100.0100 ####[facility] [address] [place], [address] Carbon dioxide, total [Moles /volume] in Central venous bloodOrdered By: Bailey Cerna on 11-25-2024 CO2 [Moles/Vol] 25.1 mmol/L 21.0-32.0 [facility] Chloride assayOrdered By: Emily Cerna on 11-25-2024 Chloride [Moles/Vol] 105 mmol/L 98-108 [facility] Comprehensive Metabolic Prof ilon 11-25-2024 Albumin [Mass/Vol] 4.2 g/dL Normal 3.4-4.[address] [facility] Comment on above: Performed By: #### L 500.4050, L501.9520, L100.0100 ####[facility] [address] [place], [address] ALK PHOS 88 U/L Normal 35-104 [facility] Comment on above: Performed By: #### L 500.4050, L501.9520, L100.0100 ####[facility] [address] [place], [address] ALT [Catalytic activity/Vol] 15 U/L Normal <=34 [facility] Comment on above: Performed By: #### L 500.4050, L501.9520, L100.0100 ####[facility] [address] [place], [address] AST [Catalytic activity/Vol] 33 U/L High <=31 [facility] Comment on above: Performed By: #### L 500.4050, L501.9520, L100.0100 ####[facility] [address] [place], [address] Bilirubin [Mass/Vol] 0.42 mg/dL Normal 0.00-1.30 [facility] Comment on above: Performed By: #### L 500.4050, L501.9520, L100.0100 ####[facility] [address] [place], [address] BUN/CRE 23.7 RATIO High 10-20 [facility] Comment on above: Performed By: #### L 500.4050, L501.9520, L100.0100 ####[facility] [address] [place], [address] Calcium [Mass/Vol] 9.6 mg/dL Normal 7.6-11.[address] [facility] Comment on above: Performed By: #### L 500.4050, L501.9520, L100.0100 ####[facility] [address] [place], [address] Chloride [Moles/Vol] 105 mmol/L Normal 98-108 [facility] Comment on above: Performed By: #### L 500.4050, L501.9520, L100.0100 ####[facility] [address] [place], [address] CO2 [Moles/Vol] 25.1 mmol/L Normal 21.0-32.0 [facility] Comment on above: Performed By: #### L 500.4050, L501.9520, L100.0100 ####[facility] [address] [place], [address] Creatinine [Mass/Vol] 0.93 mg/dL Normal 0.70-1.20 [facility] Comment on above: Performed By: #### L 500.4050, L501.9520, L100.0100 ####[facility] [address] [place], [address] GAP 12 Normal 5-15 [facility] Comment on above: Performed By: #### L 500.4050, L501.9520, L100.0100 ####[facility] [address] [place], [address] GFR/1.73 sq M.predicted among non-blacks MDRD (S/P/Bld) [Vol rate/Area] 58 mL/min/{1.73_m2} Low >60 [facility] Comment on above: Result Comment: mL/m in/1.73m2 CKD-EPI Creatinine Equation (2020) Performed By: #### L 500.4050, L501.9520, L100.0100 ####[facility] [address] [place], [address] Glucose [Mass/Vol] 103 mg/dL High 70-[address] [facility] Comment on above: Performed By: #### L 500.4050, L501.9520, L100.0100 ####[facility] [address] [place], [address] Potassium [Moles/Vol] 4.5 mmol/L Normal 3.3-5.1 [facility] Comment on above: Performed By: #### L 500.4050, L501.9520, L100.0100 ####[facility] [address] [place], [address] Sodium [Moles/Vol] 142 mmol/L Normal 133-[address] [facility] Comment on above: Performed By: #### L 500.4050, L501.9520, L100.0100 ####[facility] [address] [place], [address] T PROT 7.1 g/dL Normal 5.9-8.4 [facility] Comment on above: Performed By: #### L 500.4050, L501.9520, L100.0100 ####[facility] [address] [place], [address] Urea nitrogen [Mass/Vol] 22 mg/dL High 4-19 [facility] Comment on above: Performed By: #### L 500.4050, L501.9520, L100.0100 ####[facility] [address] [place], [address] Eosinophil percentageOrdered By: Bailey Cerna on 11-25-2024 Eosinophils/100 WBC (Bld) 1.2 % 0-5 [facility] Erythrocyte distribution wid th (RBC) [Ratio]Ordered By: Bailey Cerna on 11-25-2024 Erythrocyte distribution width (RBC) [Entitic vol] 53.4 fL High 35.1-43.9 [facility] Erythrocyte distribution wid th ratioOrdered By: Bailey Cerna on 11-25-2024 Erythrocyte distribution width (RBC) [Ratio] 14.8 % High 11.6-14.6 [facility] GFR/1.73 sq M.predicted ferdinand g non-blacks MDRD (S/P/Bld) [Vol rate/Area]Ordered By: Bailey Cerna on 11-25-2024 Estimated GFR (MDRD) Non-Af Amer 58 Low >60 [facility] Comment on above: mL/min/1.73m2 CKD-EP I Creatinine Equation (2020) Hematocrit Auto (Bld) [Volum e fraction]Ordered By: Bailey Cerna on 11-25-2024 Hematocrit (Bld) [Volume fraction] 38.0 % 37-47 [facility] Hemoglobin measurementOrdere d By: Bailey Cerna on 11-25-2024 Hemoglobin (Bld) [Mass/Vol] 12.6 g/dL 12.0-15.0 [facility] Immature granulocytes/100 WB C Auto (Bld)Ordered By: Bailey Cerna on 11-25-2024 Immature granulocytes/100 WBC (Bld) 0.300 % 0.0-0.9 [facility] Comment on above: IG% - Immature Granu locytes (promyelocytes, myelocytes and metamyelocytes) > 1% indicates that a LEFT SHIFT is Present. Internal Medicine Office Vis isabella 11-25-2024 Internal Medicine Office Visit Normal [facility] Laboratory - Chemistry and C hemistry - challengeOrdered By: Bailey Cerna on 11-25-2024 AST [Catalytic activity/Vol] 33 U/L High <32 [facility] Lymphocytes Auto (Unsp spec) [#/Vol]Ordered By: Bailey Odonnelle on 11-25-2024 Lymphocytes (Bld) [#/Vol] 1.91 10*3/uL 0.83-4.51 [facility] Lymphocytes/100 WBC Auto (Un sp spec)Ordered By: Bailey Odonnelle on 11-25-2024 Lymphocytes/100 WBC (Bld) 29.7 % 19-41 [facility] MCV (mean corpuscular volume ) determinationOrdered By: Bailey Baptistejose enriquekaitlin on 11-25-2024 MCV (RBC) [Entitic vol] 98.2 fL 81-99 [facility] Mean corpuscular hemoglobin (MCH) determinationOrdered By: Bailey Baptistejose enriquekaitlin on 11-25-2024 MCH (RBC) [Entitic mass] 32.6 pg High 27.0-32.0 [facility] Mean corpuscular hemoglobin concentration (MCHC) determinationOrdered By: nick Baptistejose enriquekaitlin on 11-25-2024 MCHC (RBC) [Mass/Vol] 33.2 g/dL 32-36 [facility] Mean platelet volume determi nationOrdered By: Emilydemarcolubna Odonnellkaitlin on 11-25-2024 Platelet mean volume (Bld) [Entitic vol] 9.9 fL 6.2-12.0 [facility] Monocyte percentageOrdered B y: Emilydemarcomeekallyn Baptistejose enriquekaitlin on 11-25-2024 Monocytes/100 WBC (Bld) 8.7 % 0-10 [facility] Neutrophil percentageOrdered By: nick Baptistejose enriquee on 11-25-2024 Neutrophils/100 WBC (Bld) 59.5 % 47-70 [facility] Nucleated red blood cell per centageOrdered By: Emilydemarcomeekallyn Baptistejose enriquee on 11-25-2024 Nucleated RBC/100 WBC (Bld) [Ratio] 0 % 0-5 [facility] Platelet countOrdered By: Ef demarcolubna Baptistejose enriquekaitlin on 11-25-2024 Platelets (Bld) [#/Vol] 278 10*3/uL 150-450 [facility] Potassium (Unsp spec) [Mass/ Vol]Ordered By: Bailey Cerna on 11-25-2024 Potassium [Moles/Vol] 4.5 mmol/L 3.3-5.1 [facility] RBC Auto (Bld) [#/Vol]Ordere d By: Bailey Cerna on 11-25-2024 RBC (Bld) [#/Vol] 3.87 10*6/uL Low 4.2-5.4 [facility] Serum creatinine measurement (mass/volume)Ordered By: Bailey Cerna on 11-25-2024 Creatinine [Mass/Vol] 0.93 mg/dL 0.70-1.20 [facility] Serum globulin measurementOr dered By: Bailey Cerna on 11-25-2024 Globulin (S) [Mass/Vol] 2.8 g/dL 2.2-4.2 [facility] Serum glucose measurement (m ass/volume)Ordered By: Bailey Cerna on 11-25-2024 Glucose [Mass/Vol] 103 mg/dL High 70-[address] [facility] Serum or plasma alanine gautam otransferase (ALT) measurementOrdered By: Bailey Cerna on 11-25-2024 ALT [Catalytic activity/Vol] 15 U/L <35 [facility] Serum or plasma albumin lisa urement (mass/volume)Ordered By: Bailey Cerna 11-25-2024 Albumin [Mass/Vol] 4.2 g/dL 3.4-4.[address] [facility] Serum or plasma albumin/glob ulin mass ratioOrdered By: Bailey Cerna 11-25-2024 Albumin/Globulin [Mass ratio] 1.5 {ratio} 0.9-2.4 [facility] Serum or plasma alkaline jessica sphatase measurementOrdered By: Bailey Cerna 11-25-2024 ALP [Catalytic activity/Vol] 88 U/L 35-104 [facility] Serum or plasma calcium lisa urement (mass/volume)Ordered By: Bailey Cerna 11-25-2024 Calcium [Mass/Vol] 9.6 mg/dL 7.6-11.[address] [facility] Serum or plasma urea nitroge n measurement (mass/volume)Ordered By: Bailey Cerna on 11-25-2024 Urea nitrogen [Mass/Vol] 22 mg/dL High 4-19 [facility] Sodium levelOrdered By: Promise Cerna on 11-25-2024 Sodium [Moles/Vol] 142 mmol/L 133-[address] [facility] TSH DL <= 0.005 mIU/L QnOrde red By: Bailey Cerna on 11-25-2024 Thyroid Stimulating Hormone (TSH) 2.150 uIU/mL 0.300-4.200 [facility] Thyroid Stim Hormone (TSH)on 11-25-2024 TSH 2.150 uIU/mL Normal 0.300-4.200 [facility] Comment on above: Performed By: #### L 500.4050, L501.9520, L100.0100 ####[facility] [address] [place], [place], [address] Total proteinOrdered By: Yobani Cerna on 11-25-2024 Protein [Mass/Vol] 7.1 g/dL 5.9-8.[address] [facility] White blood cell (WBC) count Ordered By: Bailey Cerna on 11-25-2024 WBC (Bld) [#/Vol] 6.4 10*3/uL 4.4-11.[address] [facility] Plastic Surgery Visit Report on 10-01-2024 Plastic Surgery Visit Report Normal [facility] Plastic Surgery Visit Report on 09-25-2024 Plastic Surgery Visit Report Normal [facility] Surgery Specimen Level King 09-25-2024 Surgery Specimen Level IV Normal [facility] Comment on above: Performed By: #### P SUIV ####[facility] [address] [place], [place], [id number] Basic Metabolic Profile (BMP )on 08-19-2024 BUN Normal 7-18 [facility] Comment on above: Result Comment: Canc elled via OM: Order cancelled - Patient discharged Performed By: #### L 100.0100, L500.2500 ####[facility] [address] [place], [address] BUN/CRE Normal 10-20 [facility] Comment on above: Result Comment: Canc elled via OM: Order cancelled - Patient discharged Performed By: #### L 100.0100, L500.2500 ####[facility] [address] [place], [address] CA,Total Normal 8.5-10.1 [facility] Comment on above: Result Comment: Canc elled via OM: Order cancelled - Patient discharged Performed By: #### L 100.0100, L500.2500 ####[facility] [address] [place], [address] CL Normal 98-107 [facility] Comment on above: Result Comment: Canc elled via OM: Order cancelled - Patient discharged Performed By: #### L 100.0100, L500.2500 ####[facility] [address] [place], [address] CO2 Normal 21.0-32.0 [facility] Comment on above: Result Comment: Canc elled via OM: Order cancelled - Patient discharged Performed By: #### L 100.0100, L500.2500 ####[facility] [address] [place], [address] CREAT,SERUM Normal 0.55-1.02 [facility] Comment on above: Result Comment: Canc elled via OM: Order cancelled - Patient discharged Performed By: #### L 100.0100, L500.2500 ####[facility] [address] [place], [address] EST GFR Normal >60 [facility] Comment on above: Result Comment: Canc elled via OM: Order cancelled - Patient discharged Performed By: #### L 100.0100, L500.2500 ####[facility] [address] [place], [address] EST GFR - AA Normal >60 [facility] Comment on above: Result Comment: Canc elled via OM: Order cancelled - Patient discharged Performed By: #### L 100.0100, L500.2500 ####[facility] [address] [place], [address] GAP Normal 5-15 [facility] Comment on above: Result Comment: Canc elled via OM: Order cancelled - Patient discharged Performed By: #### L 100.0100, L500.2500 ####[facility] [address] [place], [address] GLU Normal 74-106 [facility] Comment on above: Result Comment: Canc elled via OM: Order cancelled - Patient discharged Performed By: #### L 100.0100, L500.2500 ####[facility] [address] [place], [address] Potassium Normal 3.5-5.1 [facility] Comment on above: Result Comment: Canc elled via OM: Order cancelled - Patient discharged Performed By: #### L 100.0100, L500.2500 ####[facility] [address] [place], [address] Basic Metabolic Profile (BMP) Normal 136-145 [facility] Comment on above: Result Comment: Canc elled via OM: Order cancelled - Patient discharged Performed By: #### L 100.0100, L500.2500 ####[facility] [address] [place], [address] CBC W/Diff, Automatedon 01-0 -2024 Absolute Neut Normal 2.0-7.7 [facility] Comment on above: Result Comment: Canc elled via OM: Order cancelled - Patient discharged Performed By: #### L 100.0100, L500.2500 ####[facility] [address] [place], [address] HCT Normal 37-47 [facility] Comment on above: Result Comment: Canc elled via OM: Order cancelled - Patient discharged Performed By: #### L 100.0100, L500.2500 ####[facility] [address] [place], [address] HGB Normal 12.0-15.0 [facility] Comment on above: Result Comment: Canc elled via OM: Order cancelled - Patient discharged Performed By: #### L 100.0100, L500.2500 ####[facility] [address] [place], [address] MCH Normal 27.0-32.0 [facility] Comment on above: Result Comment: Canc elled via OM: Order cancelled - Patient discharged Performed By: #### L 100.0100, L500.2500 ####[facility] [address] [place], [address] MCHC Normal 32-36 [facility] Comment on above: Result Comment: Canc elled via OM: Order cancelled - Patient discharged Performed By: #### L 100.0100, L500.2500 ####[facility] [address] [place], [address] MCV Normal 81-99 [facility] Comment on above: Result Comment: Canc elled via OM: Order cancelled - Patient discharged Performed By: #### L 100.0100, L500.2500 ####[facility] [address] [place], [address] NEUT% Normal 47-70 [facility] Comment on above: Result Comment: Canc elled via OM: Order cancelled - Patient discharged Performed By: #### L 100.0100, L500.2500 ####[facility] [address] [place], [address] PLT Normal 150-450 [facility] Comment on above: Result Comment: Canc elled via OM: Order cancelled - Patient discharged Performed By: #### L 100.0100, L500.2500 ####[facility] [address] [place], [address] RBC Normal 4.2-5.4 [facility] Comment on above: Result Comment: Canc elled via OM: Order cancelled - Patient discharged Performed By: #### L 100.0100, L500.2500 ####[facility] [address] [place], [address] RDW CV Normal 11.6-14.6 [facility] Comment on above: Result Comment: Canc elled via OM: Order cancelled - Patient discharged Performed By: #### L 100.0100, L500.2500 ####[facility] [address] [place], [address] RDW SD Normal 35.1-43.9 [facility] Comment on above: Result Comment: Canc elled via OM: Order cancelled - Patient discharged Performed By: #### L 100.0100, L500.2500 ####[facility] [address] [place], [address] WBC Normal 4.4-11.0 [facility] Comment on above: Result Comment: Canc elled via OM: Order cancelled - Patient discharged Performed By: #### L 100.0100, L500.2500 ####[facility] [address] [place], [address] Internal Medicine Office Vis iton 08-14-2024 Internal Medicine Office Visit Normal [facility] Basic Metabolic Profile (BMP )on 08-12-2024 BUN Normal 7-18 [facility] Comment on above: Result Comment: Canc elled via OM: Order cancelled - Patient discharged Performed By: #### L 100.0100, L500.2500 ####[facility] [address] [place], [address] BUN/CRE Normal 10-20 [facility] Comment on above: Result Comment: Canc elled via OM: Order cancelled - Patient discharged Performed By: #### L 100.0100, L500.2500 ####[facility] [address] [place], [address] CA,Total Normal 8.5-10.1 [facility] Comment on above: Result Comment: Canc elled via OM: Order cancelled - Patient discharged Performed By: #### L 100.0100, L500.2500 ####[facility] [address] [place], [address] CL Normal 98-107 [facility] Comment on above: Result Comment: Canc elled via OM: Order cancelled - Patient discharged Performed By: #### L 100.0100, L500.2500 ####[facility] [address] [place], [address] CO2 Normal 21.0-32.0 [facility] Comment on above: Result Comment: Canc elled via OM: Order cancelled - Patient discharged Performed By: #### L 100.0100, L500.2500 ####[facility] [address] [place], [address] CREAT,SERUM Normal 0.55-1.02 [facility] Comment on above: Result Comment: Canc elled via OM: Order cancelled - Patient discharged Performed By: #### L 100.0100, L500.2500 ####[facility] [address] [place], [address] EST GFR Normal >60 [facility] Comment on above: Result Comment: Canc elled via OM: Order cancelled - Patient discharged Performed By: #### L 100.0100, L500.2500 ####[facility] [address] [place], [address] EST GFR - AA Normal >60 [facility] Comment on above: Result Comment: Canc elled via OM: Order cancelled - Patient discharged Performed By: #### L 100.0100, L500.2500 ####[facility] [address] [place], [address] GAP Normal 5-15 [facility] Comment on above: Result Comment: Canc elled via OM: Order cancelled - Patient discharged Performed By: #### L 100.0100, L500.2500 ####[facility] [address] [place], [address] GLU Normal 74-106 [facility] Comment on above: Result Comment: Canc elled via OM: Order cancelled - Patient discharged Performed By: #### L 100.0100, L500.2500 ####[facility] [address] [place], [address] Potassium Normal 3.5-5.1 [facility] Comment on above: Result Comment: Canc elled via OM: Order cancelled - Patient discharged Performed By: #### L 100.0100, L500.2500 ####[facility] [address] [place], [address] Basic Metabolic Profile (BMP) Normal 136-145 [facility] Comment on above: Result Comment: Canc elled via OM: Order cancelled - Patient discharged Performed By: #### L 100.0100, L500.2500 ####[facility] [address] [place], [address] CBC W/Diff, Automatedon 01-0 Absolute Neut Normal 2.0-7.7 [facility] Comment on above: Result Comment: Canc elled via OM: Order cancelled - Patient discharged Performed By: #### L 100.0100, L500.2500 ####[facility] [address] [place], [address] HCT Normal 37-47 [facility] Comment on above: Result Comment: Canc elled via OM: Order cancelled - Patient discharged Performed By: #### L 100.0100, L500.2500 ####[facility] [address] [place], [address] HGB Normal 12.0-15.0 [facility] Comment on above: Result Comment: Canc elled via OM: Order cancelled - Patient discharged Performed By: #### L 100.0100, L500.2500 ####[facility] [address] [place], [address] MCH Normal 27.0-32.0 [facility] Comment on above: Result Comment: Canc elled via OM: Order cancelled - Patient discharged Performed By: #### L 100.0100, L500.2500 ####[facility] [address] [place], [address] MCHC Normal 32-36 [facility] Comment on above: Result Comment: Canc elled via OM: Order cancelled - Patient discharged Performed By: #### L 100.0100, L500.2500 ####[facility] [address] [place], [address] MCV Normal 81-99 [facility] Comment on above: Result Comment: Canc elled via OM: Order cancelled - Patient discharged Performed By: #### L 100.0100, L500.2500 ####[facility] [address] [place], [address] NEUT% Normal 47-70 [facility] Comment on above: Result Comment: Canc elled via OM: Order cancelled - Patient discharged Performed By: #### L 100.0100, L500.2500 ####[facility] [address] [place], [address] PLT Normal 150-450 [facility] Comment on above: Result Comment: Canc elled via OM: Order cancelled - Patient discharged Performed By: #### L 100.0100, L500.2500 ####[facility] [address] [place], [address] RBC Normal 4.2-5.4 [facility] Comment on above: Result Comment: Canc elled via OM: Order cancelled - Patient discharged Performed By: #### L 100.0100, L500.2500 ####[facility] [address] [place], [address] RDW CV Normal 11.6-14.6 [facility] Comment on above: Result Comment: Canc elled via OM: Order cancelled - Patient discharged Performed By: #### L 100.0100, L500.2500 ####[facility] [address] [place], [address] RDW SD Normal 35.1-43.9 [facility] Comment on above: Result Comment: Canc elled via OM: Order cancelled - Patient discharged Performed By: #### L 100.0100, L500.2500 ####[facility] [address] [place], [address] WBC Normal 4.4-11.0 [facility] Comment on above: Result Comment: Canc elled via OM: Order cancelled - Patient discharged Performed By: #### L 100.0100, L500.2500 ####[facility] [address] [place], [address] Basic Metabolic Profile (BMP )on 08-05-2024 BUN Normal 7-18 [facility] Comment on above: Result Comment: Canc elled via OM: Order cancelled - Patient discharged Performed By: #### L 100.0100, L500.2500 ####[facility] [address] [place], [address] BUN/CRE Normal 10-20 [facility] Comment on above: Result Comment: Canc elled via OM: Order cancelled - Patient discharged Performed By: #### L 100.0100, L500.2500 ####[facility] [address] [place], [address] CA,Total Normal 8.5-10.1 [facility] Comment on above: Result Comment: Canc elled via OM: Order cancelled - Patient discharged Performed By: #### L 100.0100, L500.2500 ####[facility] [address] [place], [address] CL Normal 98-107 [facility] Comment on above: Result Comment: Canc elled via OM: Order cancelled - Patient discharged Performed By: #### L 100.0100, L500.2500 ####[facility] [address] [place], [address] CO2 Normal 21.0-32.0 [facility] Comment on above: Result Comment: Canc elled via OM: Order cancelled - Patient discharged Performed By: #### L 100.0100, L500.2500 ####[facility] [address] [place], [address] CREAT,SERUM Normal 0.55-1.02 [facility] Comment on above: Result Comment: Canc elled via OM: Order cancelled - Patient discharged Performed By: #### L 100.0100, L500.2500 ####[facility] [address] [place], [address] EST GFR Normal >60 [facility] Comment on above: Result Comment: Canc elled via OM: Order cancelled - Patient discharged Performed By: #### L 100.0100, L500.2500 ####[facility] [address] [place], [address] EST GFR - AA Normal >60 [facility] Comment on above: Result Comment: Canc elled via OM: Order cancelled - Patient discharged Performed By: #### L 100.0100, L500.2500 ####[facility] [address] [place], [address] GAP Normal 5-15 [facility] Comment on above: Result Comment: Canc elled via OM: Order cancelled - Patient discharged Performed By: #### L 100.0100, L500.2500 ####[facility] [address] [place], [address] GLU Normal 74-106 [facility] Comment on above: Result Comment: Canc elled via OM: Order cancelled - Patient discharged Performed By: #### L 100.0100, L500.2500 ####[facility] [address] [place], [address] Potassium Normal 3.5-5.1 [facility] Comment on above: Result Comment: Canc elled via OM: Order cancelled - Patient discharged Performed By: #### L 100.0100, L500.2500 ####[facility] [address] [place], [address] Basic Metabolic Profile (BMP) Normal 136-145 [facility] Comment on above: Result Comment: Canc elled via OM: Order cancelled - Patient discharged Performed By: #### L 100.0100, L500.2500 ####[facility] [address] [place], [address] CBC W/Diff, Automatedon 12-2 Absolute Neut Normal 2.0-7.7 [facility] Comment on above: Result Comment: Canc elled via OM: Order cancelled - Patient discharged Performed By: #### L 100.0100, L500.2500 ####[facility] [address] [place], [address] HCT Normal 37-47 [facility] Comment on above: Result Comment: Canc elled via OM: Order cancelled - Patient discharged Performed By: #### L 100.0100, L500.2500 ####[facility] [address] [place], [address] HGB Normal 12.0-15.0 [facility] Comment on above: Result Comment: Canc elled via OM: Order cancelled - Patient discharged Performed By: #### L 100.0100, L500.2500 ####[facility] [address] [place], [address] MCH Normal 27.0-32.0 [facility] Comment on above: Result Comment: Canc elled via OM: Order cancelled - Patient discharged Performed By: #### L 100.0100, L500.2500 ####[facility] [address] [place], [address] MCHC Normal 32-36 [facility] Comment on above: Result Comment: Canc elled via OM: Order cancelled - Patient discharged Performed By: #### L 100.0100, L500.2500 ####[facility] [address] [place], [address] MCV Normal 81-99 [facility] Comment on above: Result Comment: Canc elled via OM: Order cancelled - Patient discharged Performed By: #### L 100.0100, L500.2500 ####[facility] [address] [place], [address] NEUT% Normal 47-70 [facility] Comment on above: Result Comment: Canc elled via OM: Order cancelled - Patient discharged Performed By: #### L 100.0100, L500.2500 ####[facility] [address] [place], [address] PLT Normal 150-450 [facility] Comment on above: Result Comment: Canc elled via OM: Order cancelled - Patient discharged Performed By: #### L 100.0100, L500.2500 ####[facility] [address] [place], [address] RBC Normal 4.2-5.4 [facility] Comment on above: Result Comment: Canc elled via OM: Order cancelled - Patient discharged Performed By: #### L 100.0100, L500.2500 ####[facility] [address] [place], [address] RDW CV Normal 11.6-14.6 [facility] Comment on above: Result Comment: Canc elled via OM: Order cancelled - Patient discharged Performed By: #### L 100.0100, L500.2500 ####[facility] [address] [place], [address] RDW SD Normal 35.1-43.9 [facility] Comment on above: Result Comment: Canc elled via OM: Order cancelled - Patient discharged Performed By: #### L 100.0100, L500.2500 ####[facility] [address] [place], [address] WBC Normal 4.4-11.0 [facility] Comment on above: Result Comment: Canc elled via OM: Order cancelled - Patient discharged Performed By: #### L 100.0100, L500.2500 ####[facility] [address] [place], [address] HH, Hemoglobin AND Hematocri ton 07-30-2024 HCT Normal 37-47 [facility] Comment on above: Result Comment: Canc elled via OM: Order cancelled - Patient discharged Performed By: #### L 100.0600 ####[facility] [address] [place], [address] HGB Normal 12.0-15.0 [facility] Comment on above: Result Comment: Canc elled via OM: Order cancelled - Patient discharged Performed By: #### L 100.0600 ####[facility] [address] [place], [address] Basic Metabolic Profile (BMP )on 07-29-2024 BUN/CRE 22.8 RATIO High 10-20 [facility] Comment on above: Performed By: #### L 500.2500, L100.0100 ####[facility] [address] [place], [address] CA,Total 8.3 mg/dL Low 8.5-10.1 [facility] Comment on above: Performed By: #### L 500.2500, L100.0100 ####[facility] [address] [place], [address] Chloride [Moles/Vol] 109 mmol/L High 98-107 [facility] Comment on above: Performed By: #### L 500.2500, L100.0100 ####[facility] [address] [place], [address] CO2 [Moles/Vol] 31.0 mmol/L Normal 21.0-32.0 [facility] Comment on above: Performed By: #### L 500.2500, L100.0100 ####[facility] [address] [place], [address] Creatinine [Mass/Vol] 0.88 mg/dL Normal 0.55-1.02 [facility] Comment on above: Result Comment: The validity of the calculated GFR GFRAA in patients over70 years has not been determined. Clinical correlation isessential. Performed By: #### L 500.2500, L100.0100 ####[facility] [address] [place], [address] ECRCL 31.13 ml/min Normal [facility] Comment on above: Performed By: #### L 500.2500, L100.0100 ####[facility] [address] [place], [address] EST GFR - AA 78 mL/min Normal >60 [facility] Comment on above: Result Comment: Afri can Macedonian GFR Calc Performed By: #### L 500.2500, L100.0100 ####[facility] [address] [place], [address] GAP 2 Low 5-15 [facility] Comment on above: Performed By: #### L 500.2500, L100.0100 ####[facility] [address] [place], [address] GFR/1.73 sq M.predicted among non-blacks MDRD (S/P/Bld) [Vol rate/Area] 65 mL/min/{1.73_m2} Normal >60 [facility] Comment on above: Result Comment: Non- GFR Calc Performed By: #### L 500.2500, L100.0100 ####[facility] [address] [place], [address] Glucose [Mass/Vol] 97 mg/dL Normal 74-[address] [facility] Comment on above: Performed By: #### L 500.2500, L100.0100 ####[facility] [address] [place], [address] Potassium [Moles/Vol] 4.3 mmol/L Normal 3.5-5.1 [facility] Comment on above: Performed By: #### L 500.2500, L100.0100 ####[facility] [address] [place], [address] Sodium [Moles/Vol] 142 mmol/L Normal 136-[address] [facility] Comment on above: Performed By: #### L 500.2500, L100.0100 ####[facility] [address] [place], [address] Urea nitrogen [Mass/Vol] 20 mg/dL High 7-18 [facility] Comment on above: Performed By: #### L 500.2500, L100.0100 ####[facility] [address] [place], [address] CBC W/Diff, Automatedon 12- Anisocytosis Ql (Bld) 1+ Normal [facility] Comment on above: Performed By: #### L 500.2500, L100.0100 ####[facility] [address] [place], [address] COVID 19 AG RAPID (ANGUS Sultana)on 07-27-2024 SARS-CoV-2 (COVID-19) RNA JUNIOR+probe Ql (Unsp spec) Normal [facility] Comment on above: Performed By: #### M 100.505 ####[facility] [address] [place], [address] Plastic Surgery Visit Report on 07-24-2024 Plastic Surgery Visit Report Normal [facility] Basic Metabolic Profile (BMP )on 07-22-2024 BUN/CRE 26.4 RATIO High 10-20 [facility] Comment on above: Performed By: #### L 100.0100, L500.2500 ####[facility] [address] [place], [address] CA,Total 8.5 mg/dL Normal 8.5-10.1 [facility] Comment on above: Performed By: #### L 100.0100, L500.2500 ####[facility] [address] [place], [address] Chloride [Moles/Vol] 108 mmol/L High 98-107 [facility] Comment on above: Performed By: #### L 100.0100, L500.2500 ####[facility] [address] [place], [address] CO2 [Moles/Vol] 30.0 mmol/L Normal 21.0-32.0 [facility] Comment on above: Performed By: #### L 100.0100, L500.2500 ####[facility] [address] [place], [address] Creatinine [Mass/Vol] 0.87 mg/dL Normal 0.55-1.02 [facility] Comment on above: Result Comment: The validity of the calculated GFR GFRAA in patients over70 years has not been determined. Clinical correlation isessential. Performed By: #### L 100.0100, L500.2500 ####[facility] [address] [place], [address] ECRCL 31.49 ml/min Normal [facility] Comment on above: Performed By: #### L 100.0100, L500.2500 ####[facility] [address] [place], [address] EST GFR - AA 79 mL/min Normal >60 [facility] Comment on above: Result Comment: Afri can Macedonian GFR Calc Performed By: #### L 100.0100, L500.2500 ####[facility] [address] [place], [address] GAP 3 Low 5-15 [facility] Comment on above: Performed By: #### L 100.0100, L500.2500 ####[facility] [address] [place], [address] GFR/1.73 sq M.predicted among non-blacks MDRD (S/P/Bld) [Vol rate/Area] 65 mL/min/{1.73_m2} Normal >60 [facility] Comment on above: Result Comment: Non- GFR Calc Performed By: #### L 100.0100, L500.2500 ####[facility] [address] [place], [address] Glucose [Mass/Vol] 90 mg/dL Normal 74-[address] [facility] Comment on above: Performed By: #### L 100.0100, L500.2500 ####[facility] [address] [place], [address] Potassium [Moles/Vol] 4.0 mmol/L Normal 3.5-5.1 [facility] Comment on above: Performed By: #### L 100.0100, L500.2500 ####[facility] [address] [place], [address] Sodium [Moles/Vol] 140 mmol/L Normal 136-[address] [facility] Comment on above: Performed By: #### L 100.0100, L500.2500 ####[facility] [address] [place], [address] Urea nitrogen [Mass/Vol] 23 mg/dL High 7-18 [facility] Comment on above: Performed By: #### L 100.0100, L500.2500 ####[facility] [address] [place], [address] CBC W/Diff, Automatedon 12- Absolute Lymph 2.99 X10 3/uL Normal 0.83-4.51 [facility] Comment on above: Performed By: #### L 100.0100, L500.2500 ####[facility] [address] [place], [address] Absolute Neut 5.9 X10 3/uL Normal 2.0-7.7 [facility] Comment on above: Performed By: #### L 100.0100, L500.2500 ####[facility] [address] [place], [address] Basophils/100 WBC (Bld) 0.1 % Normal 0-1 [facility] Comment on above: Performed By: #### L 100.0100, L500.2500 ####[facility] [address] [place], [address] Eosinophils/100 WBC (Bld) 0.4 % Normal 0-5 [facility] Comment on above: Performed By: #### L 100.0100, L500.2500 ####[facility] [address] [place], [address] Erythrocyte distribution width (RBC) [Ratio] 17.1 % High 11.6-14.6 [facility] Comment on above: Performed By: #### L 100.0100, L500.2500 ####[facility] [address] [place], [address] Hematocrit (Bld) [Volume fraction] 27.8 % Low 37-47 [facility] Comment on above: Performed By: #### L 100.0100, L500.2500 ####[facility] [address] [place], [address] Hemoglobin (Bld) [Mass/Vol] 9.4 g/dL Low 12.0-15.0 [facility] [facility] Comment on above: Performed By: #### L 100.0100, L500.2500 ####[facility] [address] [place], [address] IG% 1.000 High 0.0-0.9 [facility] Comment on above: Result Comment: IG% - Immature Granulocytes (promyelocytes, myelocytes andmetamyelocytes) > 1% indicates that a LEFT SHIFT is Present. Performed By: #### L 100.0100, L500.2500 ####[facility] [address] [place], [address] Lymphocytes/100 WBC (Bld) 30.1 % Normal 19-41 [facility] Comment on above: Performed By: #### L 100.0100, L500.2500 ####[facility] [address] [place], [address] MCH (RBC) [Entitic mass] 31.9 pg Normal 27.0-32.0 [facility] Comment on above: Performed By: #### L 100.0100, L500.2500 ####[facility] [address] [place], [address] MCHC (RBC) [Mass/Vol] 33.8 g/dL Normal 32-36 [facility] Comment on above: Performed By: #### L 100.0100, L500.2500 ####[facility] [address] [place], [address] MCV (RBC) [Entitic vol] 94.2 fL Normal 81-99 [facility] Comment on above: Performed By: #### L 100.0100, L500.2500 ####[facility] [address] [place], [address] Monocytes/100 WBC (Bld) 9.1 % Normal 0-10 [facility] Comment on above: Performed By: #### L 100.0100, L500.2500 ####[facility] [address] [place], [address] Neutrophils/100 WBC (Bld) 59.3 % Normal 47-70 [facility] Comment on above: Performed By: #### L 100.0100, L500.2500 ####[facility] [address] [place], [address] Nucleated RBC (Bld) [#/Vol] 0 10*3/uL Normal 0-5 [facility] Comment on above: Performed By: #### L 100.0100, L500.2500 ####[facility] [address] [place], [address] Platelet mean volume (Bld) [Entitic vol] 10.0 fL Normal 6.2-12.0 [facility] Comment on above: Performed By: #### L 100.0100, L500.2500 ####[facility] [address] [place], [address] Platelets (Bld) [#/Vol] 270 10*3/uL Normal 150-450 [facility] Comment on above: Performed By: #### L 100.0100, L500.2500 ####[facility] [address] [place], [address] RBC (Bld) [#/Vol] 2.95 10*6/uL Low 4.2-5.4 [facility] Comment on above: Performed By: #### L 100.0100, L500.2500 ####[facility] [address] [place], [address] RDW SD 57.1 fl High 35.1-43.9 [facility] Comment on above: Performed By: #### L 100.0100, L500.2500 ####[facility] [address] [place], [address] WBC (Bld) [#/Vol] 9.9 10*3/uL Normal 4.4-11.[address] [facility] Comment on above: Performed By: #### L 100.0100, L500.2500 ####[facility] [address] [place], [address] COVID 19 AG RAPID (RN COLLEMagdalena T)on 07-20-2024 SARS-CoV-2 (COVID-19) RNA JUNIOR+probe Ql (Unsp spec) Normal [facility] Comment on above: Performed By: #### M 100.505 ####[facility] [address] [place], [address] HH, Hemoglobin AND Hematocri ton 07-19-2024 Hematocrit (Bld) [Volume fraction] 28.9 % Low 37-47 [facility] Comment on above: Performed By: #### L 100.0600 ####[facility] [address] [place], [address] Hemoglobin (Bld) [Mass/Vol] 9.4 g/dL Low 12.0-15.0 [facility] Comment on above: Performed By: #### L 100.0600 ####[facility] [address] [place], [address] EGD Reporton 07-17-2024 EGD Report Normal [facility] HH, Hemoglobin AND Hematocri ton 07-17-2024 Hematocrit (Bld) [Volume fraction] 25.7 % Low 37-47 [facility] Comment on above: Performed By: #### L 100.0600 ####[facility] [address] [place], [address] Hemoglobin (Bld) [Mass/Vol] 8.7 g/dL Low 12.0-15.0 [facility] Comment on above: Performed By: #### L 100.0600 ####[facility] [address] [place], [address] MR/POSTOP.ANEon 07-17-2024 MR/POSTOP.ANE Normal [facility] MR/WFLCYICW8vj 07-17-2024 MR/POSTOPAN2 Normal [facility] Surgery Specimen Level King 07-17-2024 Surgery Specimen Level IV Normal [facility] Comment on above: Performed By: #### P SUIV ####[facility] [address] [place], [address] Basic Metabolic Profile (BMP )on 07-16-2024 BUN Normal 7-18 [facility] Comment on above: Result Comment: Canc elled via OM: Order cancelled - Patient discharged Performed By: #### L 500.2500, L100.0100 ####[facility] [address] [place], [address] BUN/CRE Normal 10-20 [facility] Comment on above: Result Comment: Canc elled via OM: Order cancelled - Patient discharged Performed By: #### L 500.2500, L100.0100 ####[facility] [address] [place], [address] CA,Total Normal 8.5-10.1 [facility] Comment on above: Result Comment: Canc elled via OM: Order cancelled - Patient discharged Performed By: #### L 500.2500, L100.0100 ####[facility] [address] [place], [address] CL Normal 98-107 [facility] Comment on above: Result Comment: Canc elled via OM: Order cancelled - Patient discharged Performed By: #### L 500.2500, L100.0100 ####[facility] [address] [place], [address] CO2 Normal 21.0-32.0 [facility] Comment on above: Result Comment: Canc elled via OM: Order cancelled - Patient discharged Performed By: #### L 500.2500, L100.0100 ####[facility] [address] [place], [address] CREAT,SERUM Normal 0.55-1.02 [facility] Comment on above: Result Comment: Canc elled via OM: Order cancelled - Patient discharged Performed By: #### L 500.2500, L100.0100 ####[facility] [address] [place], [address] EST GFR Normal >60 [facility] Comment on above: Result Comment: Canc elled via OM: Order cancelled - Patient discharged Performed By: #### L 500.2500, L100.0100 ####[facility] [address] [place], [address] EST GFR - AA Normal >60 [facility] Comment on above: Result Comment: Canc elled via OM: Order cancelled - Patient discharged Performed By: #### L 500.2500, L100.0100 ####[facility] [address] [place], [address] GAP Normal 5-15 [facility] Comment on above: Result Comment: Canc elled via OM: Order cancelled - Patient discharged Performed By: #### L 500.2500, L100.0100 ####[facility] [address] [place], [address] GLU Normal 74-106 [facility] Comment on above: Result Comment: Canc elled via OM: Order cancelled - Patient discharged Performed By: #### L 500.2500, L100.0100 ####[facility] [address] [place], [address] Potassium Normal 3.5-5.1 [facility] Comment on above: Result Comment: Canc elled via OM: Order cancelled - Patient discharged Performed By: #### L 500.2500, L100.0100 ####[facility] [address] [place], [address] Basic Metabolic Profile (BMP) Normal 136-145 [facility] Comment on above: Result Comment: Canc elled via OM: Order cancelled - Patient discharged Performed By: #### L 500.2500, L100.0100 ####[facility] [address] [place], [address] CBC W/Diff, Automatedon 12-0 -2023 Absolute Neut Normal 2.0-7.7 [facility] Comment on above: Result Comment: Canc elled via OM: Order cancelled - Patient discharged Performed By: #### L 500.2500, L100.0100 ####[facility] [address] [place], [address] HCT Normal 37-47 [facility] Comment on above: Result Comment: Canc elled via OM: Order cancelled - Patient discharged Performed By: #### L 500.2500, L100.0100 ####[facility] [address] [place], [address] HGB Normal 12.0-15.0 [facility] Comment on above: Result Comment: Canc elled via OM: Order cancelled - Patient discharged Performed By: #### L 500.2500, L100.0100 ####[facility] [address] [place], [address] MCH Normal 27.0-32.0 [facility] Comment on above: Result Comment: Canc elled via OM: Order cancelled - Patient discharged Performed By: #### L 500.2500, L100.0100 ####[facility] [address] [place], [address] MCHC Normal 32-36 [facility] Comment on above: Result Comment: Canc elled via OM: Order cancelled - Patient discharged Performed By: #### L 500.2500, L100.0100 ####[facility] [address] [place], [address] MCV Normal 81-99 [facility] Comment on above: Result Comment: Canc elled via OM: Order cancelled - Patient discharged Performed By: #### L 500.2500, L100.0100 ####[facility] [address] [place], [address] NEUT% Normal 47-70 [facility] Comment on above: Result Comment: Canc elled via OM: Order cancelled - Patient discharged Performed By: #### L 500.2500, L100.0100 ####[facility] [address] [place], [address] PLT Normal 150-450 [facility] Comment on above: Result Comment: Canc elled via OM: Order cancelled - Patient discharged Performed By: #### L 500.2500, L100.0100 ####[facility] [address] [place], [address] RBC Normal 4.2-5.4 [facility] Comment on above: Result Comment: Canc elled via OM: Order cancelled - Patient discharged Performed By: #### L 500.2500, L100.0100 ####[facility] [address] [place], [address] RDW CV Normal 11.6-14.6 [facility] Comment on above: Result Comment: Canc elled via OM: Order cancelled - Patient discharged Performed By: #### L 500.2500, L100.0100 ####[facility] [address] [place], [address] RDW SD Normal 35.1-43.9 [facility] Comment on above: Result Comment: Canc elled via OM: Order cancelled - Patient discharged Performed By: #### L 500.2500, L100.0100 ####[facility] [address] [place], [address] WBC Normal 4.4-11.0 [facility] Comment on above: Result Comment: Canc elled via OM: Order cancelled - Patient discharged Performed By: #### L 500.2500, L100.0100 ####[facility] [address] [place], [address] Stool Occult Blood iFOBon STOB Positive Normal [facility] Comment on above: Performed By: #### M 100.7900 ####[facility] [address] [place], [address] Basic Metabolic Profile (BMP )on 07-15-2024 BUN/CRE 24.8 RATIO High 10-20 [facility] Comment on above: Performed By: #### L 100.0100, L500.2500 ####[facility] [address] [place], [address] CA,Total 8.1 mg/dL Low 8.5-10.1 [facility] Comment on above: Performed By: #### L 100.0100, L500.2500 ####[facility] [address] [place], [address] Chloride [Moles/Vol] 111 mmol/L High 98-107 [facility] Comment on above: Performed By: #### L 100.0100, L500.2500 ####[facility] [address] [place], [address] CO2 [Moles/Vol] 24.0 mmol/L Normal 21.0-32.0 [facility] Comment on above: Performed By: #### L 100.0100, L500.2500 ####[facility] [address] [place], [address] Creatinine [Mass/Vol] 1.13 mg/dL High 0.55-1.02 [facility] Comment on above: Result Comment: The validity of the calculated GFR GFRAA in patients over70 years has not been determined. Clinical correlation isessential. Performed By: #### L 100.0100, L500.2500 ####[facility] [address] [place], [address] ECRCL 24.24 ml/min Normal [facility] Comment on above: Performed By: #### L 100.0100, L500.2500 ####[facility] [address] [place], [address] EST GFR - AA 58 mL/min Low >60 [facility] Comment on above: Result Comment: Afri can Macedonian GFR Calc Performed By: #### L 100.0100, L500.2500 ####[facility] [address] [place], [address] GAP 6 Normal 5-15 [facility] Comment on above: Performed By: #### L 100.0100, L500.2500 ####[facility] [address] [place], [address] GFR/1.73 sq M.predicted among non-blacks MDRD (S/P/Bld) [Vol rate/Area] 48 mL/min/{1.73_m2} Low >60 [facility] Comment on above: Result Comment: Non- GFR Calc Performed By: #### L 100.0100, L500.2500 ####[facility] [address] [place], [address] Glucose [Mass/Vol] 86 mg/dL Normal 74-[address] [facility] Comment on above: Performed By: #### L 100.0100, L500.2500 ####[facility] [address] [place], [address] Potassium [Moles/Vol] 4.4 mmol/L Normal 3.5-5.1 [facility] Comment on above: Performed By: #### L 100.0100, L500.2500 ####[facility] [address] [place], [address] Sodium [Moles/Vol] 140 mmol/L Normal 136-[address] [facility] Comment on above: Performed By: #### L 100.0100, L500.2500 ####[facility] [address] [place], [address] Urea nitrogen [Mass/Vol] 28 mg/dL High 7-18 [facility] Comment on above: Performed By: #### L 100.0100, L500.2500 ####[facility] [address] [place], [address] BUN Normal -18 [facility] Comment on above: Result Comment: Canc elled via OM: Order cancelled - Patient discharged Performed By: #### L 500.2500, L100.0100 ####[facility] [address] [place], [address] BUN/CRE Normal -20 [facility] Comment on above: Result Comment: Canc elled via OM: Order cancelled - Patient discharged Performed By: #### L 500.2500, L100.0100 ####[facility] [address] [place], [address] CA,Total Normal 8.5-10.1 [facility] Comment on above: Result Comment: Canc elled via OM: Order cancelled - Patient discharged Performed By: #### L 500.2500, L100.0100 ####[facility] [address] [place], [address] CL Normal 98-107 [facility] Comment on above: Result Comment: Canc elled via OM: Order cancelled - Patient discharged Performed By: #### L 500.2500, L100.0100 ####[facility] [address] [place], [address] CO2 Normal 21.0-32.0 [facility] Comment on above: Result Comment: Canc elled via OM: Order cancelled - Patient discharged Performed By: #### L 500.2500, L100.0100 ####[facility] [address] [place], [address] CREAT,SERUM Normal 0.55-1.02 [facility] Comment on above: Result Comment: Canc elled via OM: Order cancelled - Patient discharged Performed By: #### L 500.2500, L100.0100 ####[facility] [address] [place], [address] EST GFR Normal >60 [facility] Comment on above: Result Comment: Canc elled via OM: Order cancelled - Patient discharged Performed By: #### L 500.2500, L100.0100 ####[facility] [address] [place], [address] EST GFR - AA Normal >60 [facility] Comment on above: Result Comment: Canc elled via OM: Order cancelled - Patient discharged Performed By: #### L 500.2500, L100.0100 ####[facility] [address] [place], [address] GAP Normal 5-15 [facility] Comment on above: Result Comment: Canc elled via OM: Order cancelled - Patient discharged Performed By: #### L 500.2500, L100.0100 ####[facility] [address] [place], [address] GLU Normal 74-106 [facility] Comment on above: Result Comment: Canc elled via OM: Order cancelled - Patient discharged Performed By: #### L 500.2500, L100.0100 ####[facility] [address] [place], [address] Potassium Normal 3.5-5.1 [facility] Comment on above: Result Comment: Canc elled via OM: Order cancelled - Patient discharged Performed By: #### L 500.2500, L100.0100 ####[facility] [address] [place], [address] Basic Metabolic Profile (BMP) Normal 136-145 [facility] Comment on above: Result Comment: Canc elled via OM: Order cancelled - Patient discharged Performed By: #### L 500.2500, L100.0100 ####[facility] [address] [place], [address] CBC W/Diff, Automatedon 12-0 4-4 Absolute Lymph 1.76 X10 3/uL Normal 0.83-4.51 [facility] Comment on above: Performed By: #### L 100.0100, L500.2500 ####[facility] [address] [place], [address] Absolute Neut 5.9 X10 3/uL Normal 2.0-7.7 [facility] Comment on above: Performed By: #### L 100.0100, L500.2500 ####[facility] [address] [place], [address] Basophils/100 WBC (Bld) 0.0 % Normal 0-1 [facility] Comment on above: Performed By: #### L 100.0100, L500.2500 ####[facility] [address] [place], [address] Eosinophils/100 WBC (Bld) 0.1 % Normal 0-5 [facility] Comment on above: Performed By: #### L 100.0100, L500.2500 ####[facility] [address] [place], [address] Erythrocyte distribution width (RBC) [Ratio] 15.0 % High 11.6-14.6 [facility] Comment on above: Performed By: #### L 100.0100, L500.2500 ####[facility] [address] [place], [address] Hematocrit (Bld) [Volume fraction] 25.4 % Low 37-47 [facility] Comment on above: Performed By: #### L 100.0100, L500.2500 ####[facility] [address] [place], [address] Hemoglobin (Bld) [Mass/Vol] 8.3 g/dL Low 12.0-15.0 [facility] Comment on above: Performed By: #### L 100.0100, L500.2500 ####[facility] [address] [place], [address] IG% 0.600 Normal 0.0-0.9 [facility] Comment on above: Result Comment: IG% - Immature Granulocytes (promyelocytes, myelocytes andmetamyelocytes) > 1% indicates that a LEFT SHIFT is Present. Performed By: #### L 100.0100, L500.2500 ####[facility] [address] [place], [address] Lymphocytes/100 WBC (Bld) 21.4 % Normal 19-41 [facility] Comment on above: Performed By: #### L 100.0100, L500.2500 ####[facility] [address] [place], [address] MCH (RBC) [Entitic mass] 30.9 pg Normal 27.0-32.0 [facility] Comment on above: Performed By: #### L 100.0100, L500.2500 ####[facility] [address] [place], [address] MCHC (RBC) [Mass/Vol] 32.7 g/dL Normal 32-36 [facility] Comment on above: Performed By: #### L 100.0100, L500.2500 ####[facility] [address] [place], [address] MCV (RBC) [Entitic vol] 94.4 fL Normal 81-99 [facility] Comment on above: Performed By: #### L 100.0100, L500.2500 ####[facility] [address] [place], [address] Monocytes/100 WBC (Bld) 6.8 % Normal 0-10 [facility] Comment on above: Performed By: #### L 100.0100, L500.2500 ####[facility] [address] [place], [address] Neutrophils/100 WBC (Bld) 71.1 % High 47-70 [facility] Comment on above: Performed By: #### L 100.0100, L500.2500 ####[facility] [address] [place], [address] Nucleated RBC (Bld) [#/Vol] 0.5 10*3/uL Normal 0-5 [facility] Comment on above: Performed By: #### L 100.0100, L500.2500 ####[facility] [address] [place], [address] Platelet mean volume (Bld) [Entitic vol] 10.4 fL Normal 6.2-12.0 [facility] Comment on above: Performed By: #### L 100.0100, L500.2500 ####[facility] [address] [place], [address] Platelets (Bld) [#/Vol] 216 10*3/uL Normal 150-450 [facility] Comment on above: Performed By: #### L 100.0100, L500.2500 ####[facility] [address] [place], [address] RBC (Bld) [#/Vol] 2.69 10*6/uL Low 4.2-5.4 [facility] Comment on above: Performed By: #### L 100.0100, L500.2500 ####[facility] [address] [place], [address] RDW SD 51.9 fl High 35.1-43.9 [facility] Comment on above: Performed By: #### L 100.0100, L500.2500 ####[facility] [address] [place], [address] WBC (Bld) [#/Vol] 8.2 10*3/uL Normal 4.4-11.[address] [facility] Comment on above: Performed By: #### L 100.0100, L500.2500 ####[facility] [address] [place], [address] Absolute Neut Normal 2.0-7.7 [facility] Comment on above: Result Comment: Canc elled via OM: Order cancelled - Patient discharged Performed By: #### L 500.2500, L100.0100 ####[facility] [address] [place], [address] HCT Normal 37-47 [facility] Comment on above: Result Comment: Canc elled via OM: Order cancelled - Patient discharged Performed By: #### L 500.2500, L100.0100 ####[facility] [address] [place], [address] HGB Normal 12.0-15.0 [facility] Comment on above: Result Comment: Canc elled via OM: Order cancelled - Patient discharged Performed By: #### L 500.2500, L100.0100 ####[facility] [address] [place], [address] MCH Normal 27.0-32.0 [facility] Comment on above: Result Comment: Canc elled via OM: Order cancelled - Patient discharged Performed By: #### L 500.2500, L100.0100 ####[facility] [address] [place], [address] MCHC Normal 32-36 [facility] Comment on above: Result Comment: Canc elled via OM: Order cancelled - Patient discharged Performed By: #### L 500.2500, L100.0100 ####[facility] [address] [place], [address] MCV Normal 81-99 [facility] Comment on above: Result Comment: Canc elled via OM: Order cancelled - Patient discharged Performed By: #### L 500.2500, L100.0100 ####[facility] [address] [place], [address] NEUT% Normal 47-70 [facility] Comment on above: Result Comment: Canc elled via OM: Order cancelled - Patient discharged Performed By: #### L 500.2500, L100.0100 ####[facility] [address] [place], [address] PLT Normal 150-450 [facility] Comment on above: Result Comment: Canc elled via OM: Order cancelled - Patient discharged Performed By: #### L 500.2500, L100.0100 ####[facility] [address] [place], [address] RBC Normal 4.2-5.4 [facility] Comment on above: Result Comment: Canc elled via OM: Order cancelled - Patient discharged Performed By: #### L 500.2500, L100.0100 ####[facility] [address] [place], [address] RDW CV Normal 11.6-14.6 [facility] Comment on above: Result Comment: Canc elled via OM: Order cancelled - Patient discharged Performed By: #### L 500.2500, L100.0100 ####[facility] [address] [place], [address] RDW SD Normal 35.1-43.9 [facility] Comment on above: Result Comment: Canc elled via OM: Order cancelled - Patient discharged Performed By: #### L 500.2500, L100.0100 ####[facility] [address] [place], [address] WBC Normal 4.4-11.0 [facility] Comment on above: Result Comment: Canc elled via OM: Order cancelled - Patient discharged Performed By: #### L 500.2500, L100.0100 ####[facility] [address] [place], [address] Basic Metabolic Profile (BMP )on 07-14-2024 BUN/CRE 17.9 RATIO Normal 10-20 [facility] Comment on above: Performed By: #### L 501.2300, L501.5200, L500.2500, L100.0100 ####[facility] [address] [place], [address] CA,Total 8.4 mg/dL Low 8.5-10.1 [facility] Comment on above: Performed By: #### L 501.2300, L501.5200, L500.2500, L100.0100 ####[facility] [address] [place], [address] Chloride [Moles/Vol] 110 mmol/L High 98-107 [facility] Comment on above: Performed By: #### L 501.2300, L501.5200, L500.2500, L100.0100 ####[facility] [address] [place], [address] CO2 [Moles/Vol] 24.0 mmol/L Normal 21.0-32.0 [facility] Comment on above: Performed By: #### L 501.2300, L501.5200, L500.2500, L100.0100 ####[facility] [address] [place], [address] Creatinine [Mass/Vol] 1.17 mg/dL High 0.55-1.02 [facility] Comment on above: Result Comment: The validity of the calculated GFR GFRAA in patients over70 years has not been determined. Clinical correlation isessential. Performed By: #### L 501.2300, L501.5200, L500.2500, L100.0100 ####[facility] [address] [place], [address] ECRCL 23.41 ml/min Normal [facility] Comment on above: Performed By: #### L 501.2300, L501.5200, L500.2500, L100.0100 ####[facility] [address] [place], [address] EST GFR - AA 56 mL/min Low >60 [facility] Comment on above: Result Comment: Afri can Macedonian GFR Calc Performed By: #### L 501.2300, L501.5200, L500.2500, L100.0100 ####[facility] [address] [place], [address] GAP 6 Normal 5-15 [facility] Comment on above: Performed By: #### L 501.2300, L501.5200, L500.2500, L100.0100 ####[facility] [address] [place], [address] GFR/1.73 sq M.predicted among non-blacks MDRD (S/P/Bld) [Vol rate/Area] 46 mL/min/{1.73_m2} Low >60 [facility] Comment on above: Result Comment: Non- GFR Calc Performed By: #### L 501.2300, L501.5200, L500.2500, L100.0100 ####[facility] [address] [place], [address] Glucose [Mass/Vol] 95 mg/dL Normal 74-[address] [facility] Comment on above: Performed By: #### L 501.2300, L501.5200, L500.2500, L100.0100 ####[facility] [address] [place], [address] Potassium [Moles/Vol] 4.5 mmol/L Normal 3.5-5.1 [facility] Comment on above: Performed By: #### L 501.2300, L501.5200, L500.2500, L100.0100 ####[facility] [address] [place], [address] Sodium [Moles/Vol] 140 mmol/L Normal 136-[address] [facility] Comment on above: Performed By: #### L 501.2300, L501.5200, L500.2500, L100.0100 ####[facility] [address] [place], [address] Urea nitrogen [Mass/Vol] 21 mg/dL High 7-18 [facility] Comment on above: Performed By: #### L 501.2300, L501.5200, L500.2500, L100.0100 ####[facility] [address] [place], [address] CBC W/Diff, Automatedon 12-0 -2023 Absolute Lymph 1.78 X10 3/uL Normal 0.83-4.51 [facility] Comment on above: Performed By: #### L 501.2300, L501.5200, L500.2500, L100.0100 ####[facility] [address] [place], [address] Absolute Neut 6.5 X10 3/uL Normal 2.0-7.7 [facility] Comment on above: Performed By: #### L 501.2300, L501.5200, L500.2500, L100.0100 ####[facility] [address] [place], [address] Basophils/100 WBC (Bld) 0.1 % Normal 0-1 [facility] Comment on above: Performed By: #### L 501.2300, L501.5200, L500.2500, L100.0100 ####[facility] [address] [place], [address] Eosinophils/100 WBC (Bld) 0.0 % Normal 0-5 [facility] Comment on above: Performed By: #### L 501.2300, L501.5200, L500.2500, L100.0100 ####[facility] [address] [place], [address] Erythrocyte distribution width (RBC) [Ratio] 14.7 % High 11.6-14.6 [facility] Comment on above: Performed By: #### L 501.2300, L501.5200, L500.2500, L100.0100 ####[facility] [address] [place], [address] Hematocrit (Bld) [Volume fraction] 27.0 % Low 37-47 [facility] Comment on above: Performed By: #### L 501.2300, L501.5200, L500.2500, L100.0100 ####[facility] [address] [place], [address] Hemoglobin (Bld) [Mass/Vol] 8.8 g/dL Low 12.0-15.0 [facility] Comment on above: Performed By: #### L 501.2300, L501.5200, L500.2500, L100.0100 ####[facility] [address] [place], [address] IG% 0.900 Normal 0.0-0.9 [facility] Comment on above: Result Comment: IG% - Immature Granulocytes (promyelocytes, myelocytes andmetamyelocytes) > 1% indicates that a LEFT SHIFT is Present. Performed By: #### L 501.2300, L501.5200, L500.2500, L100.0100 ####[facility] [address] [place], [address] Lymphocytes/100 WBC (Bld) 20.0 % Normal 19-41 [facility] Comment on above: Performed By: #### L 501.2300, L501.5200, L500.2500, L100.0100 ####[facility] [address] [place], [address] MCH (RBC) [Entitic mass] 30.7 pg Normal 27.0-32.0 [facility] Comment on above: Performed By: #### L 501.2300, L501.5200, L500.2500, L100.0100 ####[facility] [address] [place], [address] MCHC (RBC) [Mass/Vol] 32.6 g/dL Normal 32-36 [facility] Comment on above: Performed By: #### L 501.2300, L501.5200, L500.2500, L100.0100 ####[facility] [address] [place], [address] MCV (RBC) [Entitic vol] 94.1 fL Normal 81-99 [facility] Comment on above: Performed By: #### L 501.2300, L501.5200, L500.2500, L100.0100 ####[facility] [address] [place], [address] Monocytes/100 WBC (Bld) 6.4 % Normal 0-10 [facility] Comment on above: Performed By: #### L 501.2300, L501.5200, L500.2500, L100.0100 ####[facility] [address] [place], [address] Neutrophils/100 WBC (Bld) 72.6 % High 47-70 [facility] Comment on above: Performed By: #### L 501.2300, L501.5200, L500.2500, L100.0100 ####[facility] [address] [place], [address] Nucleated RBC (Bld) [#/Vol] 0.2 10*3/uL Normal 0-5 [facility] Comment on above: Performed By: #### L 501.2300, L501.5200, L500.2500, L100.0100 ####[facility] [address] [place], [address] Platelet mean volume (Bld) [Entitic vol] 10.1 fL Normal 6.2-12.0 [facility] Comment on above: Performed By: #### L 501.2300, L501.5200, L500.2500, L100.0100 ####[facility] [address] [place], [address] Platelets (Bld) [#/Vol] 213 10*3/uL Normal 150-450 [facility] Comment on above: Performed By: #### L 501.2300, L501.5200, L500.2500, L100.0100 ####[facility] [address] [place], [address] RBC (Bld) [#/Vol] 2.87 10*6/uL Low 4.2-5.4 [facility] Comment on above: Performed By: #### L 501.2300, L501.5200, L500.2500, L100.0100 ####[facility] [address] [place], [address] RDW SD 50.4 fl High 35.1-43.9 [facility] Comment on above: Performed By: #### L 501.2300, L501.5200, L500.2500, L100.0100 ####[facility] [address] [place], [address] WBC (Bld) [#/Vol] 8.9 10*3/uL Normal 4.4-11.[address] [facility] Comment on above: Performed By: #### L 501.2300, L501.5200, L500.2500, L100.0100 ####[facility] [address] [place], [address] Haptoglobinon 07-14-2024 HAPTOGLOBIN 49 mg/dL Normal 41-333 [facility] Comment on above: Result Comment: Perf ormed at: CB - [facility] [place] [id number] Director: Nuno Gaytan PhD, Phone: [phone] Performed By: #### L 3109.7626, L581.5557 ####[facility] [address] [place], [address] Magnesiumon 07-14-2024 Magnesium [Mass/Vol] 2.1 mg/dL Normal 1.6-2.6 [facility] Comment on above: Performed By: #### L 501.2300, L501.5200, L500.2500, L100.0100 ####[facility] [address] [place], [address] Phosphoruson 07-14-2024 Phosphate [Mass/Vol] 2.1 mg/dL Low 2.5-4.9 [facility] Comment on above: Performed By: #### L 501.2300, L501.5200, L500.2500, L100.0100 ####[facility] [address] [place], [address] Abdomen Limitedon 07-13-2024 Abdomen Limited Normal [facility] CBC W/Diff, Automatedon 12- Absolute Lymph 0.77 X10 3/uL Low 0.83-4.51 [facility] Comment on above: Performed By: #### L 500.4050, L100.0100 ####[facility] [address] [place], [address] Absolute Neut 3.9 X10 3/uL Normal 2.0-7.7 [facility] Comment on above: Performed By: #### L 500.4050, L100.0100 ####[facility] [address] [place], [address] Basophils/100 WBC (Bld) 0.0 % Normal 0-1 [facility] Comment on above: Performed By: #### L 500.4050, L100.0100 ####[facility] [address] [place], [address] Eosinophils/100 WBC (Bld) 0.0 % Normal 0-5 [facility] Comment on above: Performed By: #### L 500.4050, L100.0100 ####[facility] [address] [place], [address] Erythrocyte distribution width (RBC) [Ratio] 14.8 % High 11.6-14.6 [facility] Comment on above: Performed By: #### L 500.4050, L100.0100 ####[facility] [address] [place], [address] Hematocrit (Bld) [Volume fraction] 28.1 % Low 37-47 [facility] Comment on above: Performed By: #### L 500.4050, L100.0100 ####[facility] [address] [place], [address] Hemoglobin (Bld) [Mass/Vol] 9.3 g/dL Low 12.0-15.0 [facility] Comment on above: Performed By: #### L 500.4050, L100.0100 ####[facility] [address] [place], [address] IG% 0.800 Normal 0.0-0.9 [facility] Comment on above: Result Comment: IG% - Immature Granulocytes (promyelocytes, myelocytes andmetamyelocytes) > 1% indicates that a LEFT SHIFT is Present. Performed By: #### L 500.4050, L100.0100 ####[facility] [address] [place], [address] Lymphocytes/100 WBC (Bld) 16.0 % Low 19-41 [facility] Comment on above: Performed By: #### L 500.4050, L100.0100 ####[facility] [address] [place], [address] MCH (RBC) [Entitic mass] 30.7 pg Normal 27.0-32.0 [facility] Comment on above: Performed By: #### L 500.4050, L100.0100 ####[facility] [address] [place], [address] MCHC (RBC) [Mass/Vol] 33.1 g/dL Normal 32-36 [facility] Comment on above: Performed By: #### L 500.4050, L100.0100 ####[facility] [address] [place], [address] MCV (RBC) [Entitic vol] 92.7 fL Normal 81-99 [facility] Comment on above: Performed By: #### L 500.4050, L100.0100 ####[facility] [address] [place], [address] Monocytes/100 WBC (Bld) 2.1 % Normal 0-10 [facility] Comment on above: Performed By: #### L 500.4050, L100.0100 ####[facility] [address] [place], [address] Neutrophils/100 WBC (Bld) 81.1 % High 47-70 [facility] Comment on above: Performed By: #### L 500.4050, L100.0100 ####[facility] [address] [place], [address] Nucleated RBC (Bld) [#/Vol] 0 10*3/uL Normal 0-5 [facility] Comment on above: Performed By: #### L 500.4050, L100.0100 ####[facility] [address] [place], [address] Platelet mean volume (Bld) [Entitic vol] 10.0 fL Normal 6.2-12.0 [facility] Comment on above: Performed By: #### L 500.4050, L100.0100 ####[facility] [address] [place], [address] Platelets (Bld) [#/Vol] 224 10*3/uL Normal 150-450 [facility] Comment on above: Performed By: #### L 500.4050, L100.0100 ####[facility] [address] [place], [address] RBC (Bld) [#/Vol] 3.03 10*6/uL Low 4.2-5.4 [facility] Comment on above: Performed By: #### L 500.4050, L100.0100 ####[facility] [address] [place], [address] RDW SD 50.4 fl High 35.1-43.9 [facility] Comment on above: Performed By: #### L 500.4050, L100.0100 ####[facility] [address] [place], [address] WBC (Bld) [#/Vol] 4.8 10*3/uL Normal 4.4-11.[address] [facility] Comment on above: Performed By: #### L 500.4050, L100.0100 ####[facility] [address] [place], [address] Comprehensive Metabolic Prof ilon 07-13-2024 Albumin [Mass/Vol] 2.1 g/dL Low 3.2-5.[address] [facility] Comment on above: Performed By: #### L 500.4050, L100.0100 ####[facility] [address] [place], [address] Albumin/Globulin [Mass ratio] 0.8 {ratio} Low 0.9-2.4 [facility] Comment on above: Performed By: #### L 500.4050, L100.0100 ####[facility] [address] [place], [address] ALK P 130 U/L High 45-117 [facility] Comment on above: Performed By: #### L 500.4050, L100.0100 ####[facility] [address] [place], [address] ALT [Catalytic activity/Vol] 68 U/L High 13-56 [facility] Comment on above: Performed By: #### L 500.4050, L100.0100 ####[facility] [address] [place], [address] AST [Catalytic activity/Vol] 88 U/L High 15-37 [facility] Comment on above: Performed By: #### L 500.4050, L100.0100 ####[facility] [address] [place], [address] Bilirubin [Mass/Vol] 1.30 mg/dL High 0.20-1.00 [facility] Comment on above: Result Comment: For patients on eltrombopag therapy, use of Dimension Wyatt TBIL is not recommended. Performed By: #### L 500.4050, L100.0100 ####[facility] [address] [place], [address] BUN/CRE 13.4 RATIO Normal 10-20 [facility] Comment on above: Performed By: #### L 500.4050, L100.0100 ####[facility] [address] [place], [address] CA,Total 7.9 mg/dL Low 8.5-10.1 [facility] Comment on above: Performed By: #### L 500.4050, L100.0100 ####[facility] [address] [place], [address] Chloride [Moles/Vol] 109 mmol/L High 98-107 [facility] Comment on above: Performed By: #### L 500.4050, L100.0100 ####[facility] [address] [place], [address] CO2 [Moles/Vol] 25.0 mmol/L Normal 21.0-32.0 [facility] Comment on above: Performed By: #### L 500.4050, L100.0100 ####[facility] [address] [place], [address] Creatinine [Mass/Vol] 1.19 mg/dL High 0.55-1.02 [facility] Comment on above: Result Comment: The validity of the calculated GFR GFRAA in patients over70 years has not been determined. Clinical correlation isessential. Performed By: #### L 500.4050, L100.0100 ####[facility] [address] [place], [address] ECRCL 23.02 ml/min Normal [facility] Comment on above: Performed By: #### L 500.4050, L100.0100 ####[facility] [address] [place], [address] EST GFR - AA 55 mL/min Low >60 [facility] Comment on above: Result Comment: Afri can Macedonian GFR Calc Performed By: #### L 500.4050, L100.0100 ####[facility] [address] [place], [address] GAP 6 Normal 5-15 [facility] Comment on above: Performed By: #### L 500.4050, L100.0100 ####[facility] [address] [place], [address] GFR/1.73 sq M.predicted among non-blacks MDRD (S/P/Bld) [Vol rate/Area] 45 mL/min/{1.73_m2} Low >60 [facility] Comment on above: Result Comment: Non- GFR Calc Performed By: #### L 500.4050, L100.0100 ####[facility] [address] [place], [address] Globulin (S) [Mass/Vol] 2.6 g/dL Normal 2.2-4.2 [facility] Comment on above: Performed By: #### L 500.4050, L100.0100 ####[facility] [address] [place], [address] Glucose [Mass/Vol] 139 mg/dL High 74-[address] [facility] Comment on above: Result Comment: Fast ing Glucose result greater than or equal to 126 mg/dLsuggests DIABETES MELLITUS per A.D.A. criteria. Performed By: #### L 500.4050, L100.0100 ####[facility] [address] [place], [address] Potassium [Moles/Vol] 3.4 mmol/L Low 3.5-5.1 [facility] Comment on above: Performed By: #### L 500.4050, L100.0100 ####[facility] [address] [place], [address] Sodium [Moles/Vol] 140 mmol/L Normal 136-[address] [facility] Comment on above: Performed By: #### L 500.4050, L100.0100 ####[facility] [address] [place], [address] T PROT 4.7 g/dL Low 6.4-8.2 [facility] Comment on above: Performed By: #### L 500.4050, L100.0100 ####[facility] [address] [place], [address] Urea nitrogen [Mass/Vol] 16 mg/dL Normal 7-18 [facility] Comment on above: Performed By: #### L 500.4050, L100.0100 ####[facility] [address] [place], [address] Consultation - Infectious Dx on 07-13-2024 Consultation - Infectious Dx Normal [facility] Vitamin B12on 07-13-2024 Cobalamin (Vitamin B12) [Mass/Vol] 1345 pg/mL High 211-911 [facility] Comment on above: Performed By: #### L 503.6550, L503.6030, L503.0105, L506.0250 ####[facility] [address] [place], [address] CBC W/Diff, Automatedon 12-0 Absolute Lymph 2.01 X10 3/uL Normal 0.83-4.51 [facility] Comment on above: Performed By: #### L 500.4050, L100.0100 ####[facility] [address] [place], [address] Absolute Neut 2.7 X10 3/uL Normal 2.0-7.7 [facility] Comment on above: Performed By: #### L 500.4050, L100.0100 ####[facility] [address] [place], [address] Basophils/100 WBC (Bld) 0.4 % Normal 0-1 [facility] Comment on above: Performed By: #### L 500.4050, L100.0100 ####[facility] [address] [place], [address] Eosinophils/100 WBC (Bld) 0.8 % Normal 0-5 [facility] Comment on above: Performed By: #### L 500.4050, L100.0100 ####[facility] [address] [place], [address] Erythrocyte distribution width (RBC) [Ratio] 14.7 % High 11.6-14.6 [facility] Comment on above: Performed By: #### L 500.4050, L100.0100 ####[facility] [address] [place], [address] Hematocrit (Bld) [Volume fraction] 25.2 % Low 37-47 [facility] Comment on above: Performed By: #### L 500.4050, L100.0100 ####[facility] [address] [place], [address] Hemoglobin (Bld) [Mass/Vol] 8.5 g/dL Low 12.0-15.0 [facility] Comment on above: Performed By: #### L 500.4050, L100.0100 ####[facility] [address] [place], [address] IG% 0.200 Normal 0.0-0.9 [facility] Comment on above: Result Comment: IG% - Immature Granulocytes (promyelocytes, myelocytes andmetamyelocytes) > 1% indicates that a LEFT SHIFT is Present. Performed By: #### L 500.4050, L100.0100 ####[facility] [address] [place], [address] Lymphocytes/100 WBC (Bld) 38.4 % Normal 19-41 [facility] Comment on above: Performed By: #### L 500.4050, L100.0100 ####[facility] [address] [place], [address] MCH (RBC) [Entitic mass] 31.6 pg Normal 27.0-32.0 [facility] Comment on above: Performed By: #### L 500.4050, L100.0100 ####[facility] [address] [place], [address] MCHC (RBC) [Mass/Vol] 33.7 g/dL Normal 32-36 [facility] Comment on above: Performed By: #### L 500.4050, L100.0100 ####[facility] [address] [place], [address] MCV (RBC) [Entitic vol] 93.7 fL Normal 81-99 [facility] Comment on above: Performed By: #### L 500.4050, L100.0100 ####[facility] [address] [place], [address] Monocytes/100 WBC (Bld) 8.4 % Normal 0-10 [facility] Comment on above: Performed By: #### L 500.4050, L100.0100 ####[facility] [address] [place], [address] Neutrophils/100 WBC (Bld) 51.8 % Normal 47-70 [facility] Comment on above: Performed By: #### L 500.4050, L100.0100 ####[facility] [address] [place], [address] Nucleated RBC (Bld) [#/Vol] 0.4 10*3/uL Normal 0-5 [facility] Comment on above: Performed By: #### L 500.4050, L100.0100 ####[facility] [address] [place], [address] Platelet mean volume (Bld) [Entitic vol] 10.3 fL Normal 6.2-12.0 [facility] Comment on above: Performed By: #### L 500.4050, L100.0100 ####[facility] [address] [place], [address] Platelets (Bld) [#/Vol] 201 10*3/uL Normal 150-450 [facility] Comment on above: Performed By: #### L 500.4050, L100.0100 ####[facility] [address] [place], [address] RBC (Bld) [#/Vol] 2.69 10*6/uL Low 4.2-5.4 [facility] Comment on above: Performed By: #### L 500.4050, L100.0100 ####[facility] [address] [place], [address] RDW SD 50.5 fl High 35.1-43.9 [facility] Comment on above: Performed By: #### L 500.4050, L100.0100 ####[facility] [address] [place], [address] WBC (Bld) [#/Vol] 5.2 10*3/uL Normal 4.4-11.[address] [facility] Comment on above: Performed By: #### L 500.4050, L100.0100 ####[facility] [address] [place], [address] Comprehensive Metabolic Prof [facility] 07-12-2024 Albumin [Mass/Vol] 1.8 g/dL Low 3.2-5.[address] [facility] Comment on above: Performed By: #### L 500.4050, L100.0100 ####[facility] [address] [place], [address] Albumin/Globulin [Mass ratio] 0.9 {ratio} Normal 0.9-2.4 [facility] Comment on above: Performed By: #### L 500.4050, L100.0100 ####[facility] [address] [place], [address] ALK P 108 U/L Normal 45-117 [facility] Comment on above: Performed By: #### L 500.4050, L100.0100 ####[facility] [address] [place], [address] ALT [Catalytic activity/Vol] 66 U/L High 13-56 [facility] Comment on above: Performed By: #### L 500.4050, L100.0100 ####[facility] [address] [place], [address] AST [Catalytic activity/Vol] 105 U/L High 15-37 [facility] Comment on above: Performed By: #### L 500.4050, L100.0100 ####[facility] [address] [place], [address] Bilirubin [Mass/Vol] 1.60 mg/dL High 0.20-1.00 [facility] Comment on above: Result Comment: For patients on eltrombopag therapy, use of Dimension Wyatt TBIL is not recommended. Performed By: #### L 500.4050, L100.0100 ####[facility] [address] [place], [address] BUN/CRE 13.6 RATIO Normal 10-20 [facility] Comment on above: Performed By: #### L 500.4050, L100.0100 ####[facility] [address] [place], [address] CA,Total 7.5 mg/dL Low 8.5-10.1 [facility] Comment on above: Performed By: #### L 500.4050, L100.0100 ####[facility] [address] [place], [address] Chloride [Moles/Vol] 111 mmol/L High 98-107 [facility] Comment on above: Performed By: #### L 500.4050, L100.0100 ####[facility] [address] [place], [address] CO2 [Moles/Vol] 27.0 mmol/L Normal 21.0-32.0 [facility] Comment on above: Performed By: #### L 500.4050, L100.0100 ####[facility] [address] [place], [address] Creatinine [Mass/Vol] 1.10 mg/dL High 0.55-1.02 [facility] Comment on above: Result Comment: The validity of the calculated GFR GFRAA in patients over70 years has not been determined. Clinical correlation isessential. Performed By: #### L 500.4050, L100.0100 ####[facility] [address] [place], [address] ECRCL 24.90 ml/min Normal [facility] Comment on above: Performed By: #### L 500.4050, L100.0100 ####[facility] [address] [place], [address] EST GFR - AA 60 mL/min Normal >60 [facility] Comment on above: Result Comment: Afri can Macedonian GFR Calc Performed By: #### L 500.4050, L100.0100 ####[facility] [address] [place], [address] GAP 4 Low 5-15 [facility] Comment on above: Performed By: #### L 500.4050, L100.0100 ####[facility] [address] [place], [address] GFR/1.73 sq M.predicted among non-blacks MDRD (S/P/Bld) [Vol rate/Area] 50 mL/min/{1.73_m2} Low >60 [facility] Comment on above: Result Comment: Non- GFR Calc Performed By: #### L 500.4050, L100.0100 ####[facility] [address] [place], [address] Globulin (S) [Mass/Vol] 2.1 g/dL Low 2.2-4.2 [facility] Comment on above: Performed By: #### L 500.4050, L100.0100 ####[facility] [address] [place], [address] Glucose [Mass/Vol] 89 mg/dL Normal 74-[address] [facility] Comment on above: Performed By: #### L 500.4050, L100.0100 ####[facility] [address] [place], [address] Potassium [Moles/Vol] 3.5 mmol/L Normal 3.5-5.1 [facility] Comment on above: Performed By: #### L 500.4050, L100.0100 ####[facility] [address] [place], [address] Sodium [Moles/Vol] 142 mmol/L Normal 136-[address] [facility] Comment on above: Performed By: #### L 500.4050, L100.0100 ####[facility] [address] [place], [address] T PROT 3.9 g/dL Low 6.4-8.2 [facility] Comment on above: Performed By: #### L 500.4050, L100.0100 ####[facility] [address] [place], [address] Urea nitrogen [Mass/Vol] 15 mg/dL Normal 7-18 [facility] Comment on above: Performed By: #### L 500.4050, L100.0100 ####[facility] [address] [place], [address] Ferritinon 07-12-2024 Ferritin [Mass/Vol] 482 ng/mL High 8-252 [facility] Comment on above: Order Comment: Has P abel had X-rays with Contrast this admission? NN Performed By: #### L 503.6550, L503.6030, L503.0105, L506.0250 ####[facility] [address] [place], [address] Folates, (Folic Acid)on FOLATES 13.20 ng/mL Normal 3.1-55.4 [facility] Comment on above: Order Comment: Has P abel had X-rays with Contrast this admission? NN Performed By: #### L 503.6550, L503.6030, L503.0105, L506.0250 ####[facility] [address] [place], [address] Iron+Iron Binding Capacityon 07-12-2024 Iron [Mass/Vol] 87 ug/dL Normal 50-170 [facility] Comment on above: Order Comment: Has P abel had X-rays with Contrast this admission? NN Performed By: #### L 503.6550, L503.6030, L503.0105, L506.0250 ####[facility] [address] [place], [address] IRON SATURATION 71.9 High 15.0-55.0 [facility] Comment on above: Order Comment: Has P atnisha had X-rays with Contrast this admission? NN Performed By: #### L 503.6550, L503.6030, L503.0105, L506.0250 ####[facility] [address] [place], [address] TIBC 121 ug/dL Low 250-450 [facility] Comment on above: Order Comment: Has P abel had X-rays with Contrast this admission? NN Performed By: #### L 503.6550, L503.6030, L503.0105, L506.0250 ####[facility] [address] [place], [address] LDHon 07-12-2024 LDH 245 U/L Normal 84-246 [facility] Comment on above: Performed By: #### L 3100.1850, L504.2610 ####[facility] [address] [place], [address] Stool Occult Blood iFOBon STOB Positive Normal [facility] Comment on above: Performed By: #### M 100.7900 ####[facility] [address] [place], [address] 12 Lead EKGon 07-11-2024 12 Lead EKG Normal [facility] CBC W/Diff, Automatedon - Absolute Lymph 2.16 X10 3/uL Normal 0.83-4.51 [facility] Comment on above: Performed By: #### L 501.2450, L500.4050, L501.9520, L100.0100 ####[facility] [address] [place], [address] Absolute Neut 4.0 X10 3/uL Normal 2.0-7.7 [facility] Comment on above: Performed By: #### L 501.2450, L500.4050, L501.9520, L100.0100 ####[facility] [address] [place], [address] Basophils/100 WBC (Bld) 0.5 % Normal 0-1 [facility] Comment on above: Performed By: #### L 501.2450, L500.4050, L501.9520, L100.0100 ####[facility] [address] [place], [address] Eosinophils/100 WBC (Bld) 0.2 % Normal 0-5 [facility] Comment on above: Performed By: #### L 501.2450, L500.4050, L501.9520, L100.0100 ####[facility] [address] [place], [address] Erythrocyte distribution width (RBC) [Ratio] 14.6 % Normal 11.6-14.6 [facility] Comment on above: Performed By: #### L 501.2450, L500.4050, L501.9520, L100.0100 ####[facility] [address] [place], [address] Hematocrit (Bld) [Volume fraction] 33.3 % Low 37-47 [facility] Comment on above: Performed By: #### L 501.2450, L500.4050, L501.9520, L100.0100 ####[facility] [address] [place], [address] Hemoglobin (Bld) [Mass/Vol] 10.9 g/dL Low 12.0-15.0 [facility] Comment on above: Performed By: #### L 501.2450, L500.4050, L501.9520, L100.0100 ####[facility] [address] [place], [address] IG% 0.300 Normal 0.0-0.9 [facility] Comment on above: Result Comment: IG% - Immature Granulocytes (promyelocytes, myelocytes andmetamyelocytes) > 1% indicates that a LEFT SHIFT is Present. Performed By: #### L 501.2450, L500.4050, L501.9520, L100.0100 ####[facility] [address] [place], [address] Lymphocytes/100 WBC (Bld) 32.7 % Normal 19-41 [facility] Comment on above: Performed By: #### L 501.2450, L500.4050, L501.9520, L100.0100 ####[facility] [address] [place], [address] MCH (RBC) [Entitic mass] 31.1 pg Normal 27.0-32.0 [facility] Comment on above: Performed By: #### L 501.2450, L500.4050, L501.9520, L100.0100 ####[facility] [address] [place], [address] MCHC (RBC) [Mass/Vol] 32.7 g/dL Normal 32-36 [facility] Comment on above: Performed By: #### L 501.2450, L500.4050, L501.9520, L100.0100 ####[facility] [address] [place], [address] MCV (RBC) [Entitic vol] 94.9 fL Normal 81-99 [facility] Comment on above: Performed By: #### L 501.2450, L500.4050, L501.9520, L100.0100 ####[facility] [address] [place], [address] Monocytes/100 WBC (Bld) 5.5 % Normal 0-10 [facility] Comment on above: Performed By: #### L 501.2450, L500.4050, L501.9520, L100.0100 ####[facility] [address] [place], [address] Neutrophils/100 WBC (Bld) 60.8 % Normal 47-70 [facility] Comment on above: Performed By: #### L 501.2450, L500.4050, L501.9520, L100.0100 ####[facility] [address] [place], [address] Nucleated RBC (Bld) [#/Vol] 0 10*3/uL Normal 0-5 [facility] Comment on above: Performed By: #### L 501.2450, L500.4050, L501.9520, L100.0100 ####[facility] [address] [place], [address] Platelet mean volume (Bld) [Entitic vol] 9.9 fL Normal 6.2-12.0 [facility] Comment on above: Performed By: #### L 501.2450, L500.4050, L501.9520, L100.0100 ####[facility] [address] [place], [address] Platelets (Bld) [#/Vol] 256 10*3/uL Normal 150-450 [facility] Comment on above: Performed By: #### L 501.2450, L500.4050, L501.9520, L100.0100 ####[facility] [address] [place], [address] RBC (Bld) [#/Vol] 3.51 10*6/uL Low 4.2-5.4 [facility] Comment on above: Performed By: #### L 501.2450, L500.4050, L501.9520, L100.0100 ####[facility] [address] [place], [address] RDW SD 50.3 fl High 35.1-43.9 [facility] Comment on above: Performed By: #### L 501.2450, L500.4050, L501.9520, L100.0100 ####[facility] [address] [place], [address] WBC (Bld) [#/Vol] 6.6 10*3/uL Normal 4.4-11.[address] [facility] Comment on above: Performed By: #### L 501.2450, L500.4050, L501.9520, L100.0100 ####[facility] [address] [place], [address] Comprehensive Metabolic Prof ilon 07-11-2024 Albumin [Mass/Vol] 2.5 g/dL Low 3.2-5.[address] [facility] Comment on above: Performed By: #### L 501.2450, L500.4050, L501.9520, L100.0100 ####[facility] [address] [place], [address] Albumin/Globulin [Mass ratio] 0.9 {ratio} Normal 0.9-2.4 [facility] Comment on above: Performed By: #### L 501.2450, L500.4050, L501.9520, L100.0100 ####[facility] [address] [place], [address] ALK P 148 U/L High 45-117 [facility] Comment on above: Performed By: #### L 501.2450, L500.4050, L501.9520, L100.0100 ####[facility] [address] [place], [address] ALT [Catalytic activity/Vol] 79 U/L High 13-56 [facility] Comment on above: Performed By: #### L 501.2450, L500.4050, L501.9520, L100.0100 ####[facility] [address] [place], [address] AST [Catalytic activity/Vol] 115 U/L High 15-37 [facility] Comment on above: Performed By: #### L 501.2450, L500.4050, L501.9520, L100.0100 ####[facility] [address] [place], [address] Bilirubin [Mass/Vol] 1.60 mg/dL High 0.20-1.00 [facility] Comment on above: Result Comment: For patients on eltrombopag therapy, use of Dimension Wyatt TBIL is not recommended. Performed By: #### L 501.2450, L500.4050, L501.9520, L100.0100 ####[facility] [address] [place], [address] BUN/CRE 14.0 RATIO Normal 10-20 [facility] Comment on above: Performed By: #### L 501.2450, L500.4050, L501.9520, L100.0100 ####[facility] [address] [place], [address] CA,Total 8.4 mg/dL Low 8.5-10.1 [facility] Comment on above: Performed By: #### L 501.2450, L500.4050, L501.9520, L100.0100 ####[facility] [address] [place], [address] Chloride [Moles/Vol] 107 mmol/L Normal 98-107 [facility] Comment on above: Performed By: #### L 501.2450, L500.4050, L501.9520, L100.0100 ####[facility] [address] [place], [address] CO2 [Moles/Vol] 28.0 mmol/L Normal 21.0-32.0 [facility] Comment on above: Performed By: #### L 501.2450, L500.4050, L501.9520, L100.0100 ####[facility] [address] [place], [address] Creatinine [Mass/Vol] 1.29 mg/dL High 0.55-1.02 [facility] Comment on above: Result Comment: The validity of the calculated GFR GFRAA in patients over70 years has not been determined. Clinical correlation isessential. Performed By: #### L 501.2450, L500.4050, L501.9520, L100.0100 ####[facility] [address] [place], [address] ECRCL 21.24 ml/min Normal [facility] Comment on above: Performed By: #### L 501.2450, L500.4050, L501.9520, L100.0100 ####[facility] [address] [place], [address] EST GFR - AA 50 mL/min Low >60 [facility] Comment on above: Result Comment: Afri can Macedonian GFR Calc Performed By: #### L 501.2450, L500.4050, L501.9520, L100.0100 ####[facility] [address] [place], [address] GAP 6 Normal 5-15 [facility] Comment on above: Performed By: #### L 501.2450, L500.4050, L501.9520, L100.0100 ####[facility] [address] [place], [address] GFR/1.73 sq M.predicted among non-blacks MDRD (S/P/Bld) [Vol rate/Area] 41 mL/min/{1.73_m2} Low >60 [facility] Comment on above: Result Comment: Non- GFR Calc Performed By: #### L 501.2450, L500.4050, L501.9520, L100.0100 ####[facility] [address] [place], [address] Globulin (S) [Mass/Vol] 2.9 g/dL Normal 2.2-4.2 [facility] Comment on above: Performed By: #### L 501.2450, L500.4050, L501.9520, L100.0100 ####[facility] [address] [place], [address] Glucose [Mass/Vol] 103 mg/dL Normal 74-[address] [facility] Comment on above: Result Comment: Fast ing Glucose result from 100 to 125 mg/dLsuggests IMPAIRED HOMEOSTASIS per A.D.A. criteria. Performed By: #### L 501.2450, L500.4050, L501.9520, L100.0100 ####[facility] [address] [place], [address] Potassium [Moles/Vol] 3.6 mmol/L Normal 3.5-5.1 [facility] Comment on above: Performed By: #### L 501.2450, L500.4050, L501.9520, L100.0100 ####[facility] [address] [place], [address] Sodium [Moles/Vol] 141 mmol/L Normal 136-[address] [facility] Comment on above: Performed By: #### L 501.2450, L500.4050, L501.9520, L100.0100 ####[facility] [address] [place], [address] T PROT 5.4 g/dL Low 6.4-8.2 [facility] Comment on above: Performed By: #### L 501.2450, L500.4050, L501.9520, L100.0100 ####[facility] [address] [place], [address] Urea nitrogen [Mass/Vol] 18 mg/dL Normal 7-18 [facility] Comment on above: Performed By: #### L 501.2450, L500.4050, L501.9520, L100.0100 ####[facility] [address] [place], [address] Emergency Department Summary on 07-11-2024 Emergency Department Summary Normal [facility] H AND P Exam - Hospitaliston 07-11-2024 H&P Exam - Hospitalist Normal [facility] Lipaseon 07-11-2024 Lipase [Catalytic activity/Vol] 38 U/L Normal 13-75 [facility] Comment on above: Result Comment: Merlyn talley note:LIPASE revised reference range effective 22.New Lipase methodology. Expected to produce lower valuesthan the previous assay method.NEW Reference Range: 13 - 75 U/L Performed By: #### L 501.2450, L500.4050, L501.9520, L100.0100 ####[facility] [address] [place], [address] Spine Lumbar without Contras ton 07-11-2024 Spine Lumbar without Contrast Normal [facility] Thyroid Stim Hormone (TSH)on 07-11-2024 TSH 0.907 uIU/mL Normal 0.358-3.740 [facility] Comment on above: Performed By: #### L 501.2450, L500.4050, L501.9520, L100.0100 ####[facility] [address] [place], [address] Urinalysis, Completeon 07-11 BACTERIA 0 SEEN Normal None Seen [facility] Comment on above: Order Comment: COLLE CTOR TO SPECIFY Performed By: #### L 400.0001 ####[facility] [address] [place], [address] EPI,SQUAMOUS 0 SEEN Normal 5-10 [facility] Comment on above: Order Comment: COLLE CTOR TO SPECIFY Performed By: #### L 400.0001 ####[facility] [address] [place], [address] Mucus Ql (Urine sed) 0 SEEN Normal [facility] Comment on above: Order Comment: COLLE CTOR TO SPECIFY Performed By: #### L 400.0001 ####[facility] [address] [place], [address] RBC 0 SEEN Normal 0-5 [facility] Comment on above: Order Comment: ZULEMA CTOR TO SPECIFY Performed By: #### L 400.0001 ####[facility] [address] [place], [address] WBC 0 SEEN Normal 0-5 [facility] Comment on above: Order Comment: ZULEMA CTOR TO SPECIFY Performed By: #### L 400.0001 ####[facility] [address] [place], [address] Office Visit Reporton 2023 Office Visit Report Normal [facility] Plastic Surgery Visit Report on 06-12-2024 Plastic Surgery Visit Report Normal [facility] Internal Medicine Office Vis iton 05-18-2024 Internal Medicine Office Visit Normal [facility] Plastic Surgery Visit Report on 05-15-2024 Plastic Surgery Visit Report Normal [facility] Emergency Department Summary on 05-08-2024 Emergency Department Summary Normal [facility] Plastic Surgery Visit Report on 05-08-2024 Plastic Surgery Visit Report Normal [facility] Wound Cultureon 05-08-2024 WC Susceptibility not normally performed on this organism. FORMERLY ACTINOMYCES ODONTOLYTICUS [place] odontolyticus Amount Growth 2+ Normal [facility] Comment on above: Performed By: #### M 100.1999, M100.3000 ####[facility] [address] [place], [address] Gram Stainon 05-05-2024 GS Gram Stain 3+ Red Blood Cells 1+ Gram positive rods Rare Gram positive cocci 1+ White Blood Cells No Epithelial cells Normal [facility] Comment on above: Performed By: #### M 100.1999, M100.3000 ####[facility] [address] [place], [address] Plastic Surgery Visit Report on 05-05-2024 Plastic Surgery Visit Report Normal [facility] Wound Cultureon 05-02-2024 WC No growth aerobically. Normal [facility] Comment on above: Performed By: #### M 100.1999, M100.3000 ####[facility] [address], [address] Echo Completeon 05-01-2024 Echo Complete Normal [facility] Gram Stainon 05-01-2024 GS Gram Stain 4+ Red Blood Cells No organisms seen No Epithelial cells No White Blood Cells Normal [facility] Comment on above: Performed By: #### M 100.1999, M100.3000 ####[facility] [address] [place], [address] Plastic Surgery Visit Report on 05-01-2024 Plastic Surgery Visit Report Normal [facility] 12 Lead EKG performed by BMS on 04-15-2024 12 Lead EKG performed by BMS Normal [facility] Cardiology Visit Reporton Cardiology Visit Report Normal [facility] Basic Metabolic Profile (BMP )on 03-30-2024 BUN/CRE 19.7 RATIO Normal 05-31 [facility] Comment on above: Performed By: #### L 500.2500 ####[facility] [address] [place], [address] CA,Total 9.5 mg/dL Normal 8.5-10.1 [facility] Comment on above: Performed By: #### L 500.2500 ####[facility] [address] [place], [address] Chloride [Moles/Vol] 105 mmol/L Normal 98-107 [facility] Comment on above: Performed By: #### L 500.2500 ####[facility] [address] [place], [address] CO2 [Moles/Vol] 28.0 mmol/L Normal 21.0-32.0 [facility] Comment on above: Performed By: #### L 500.2500 ####[facility] [address] [place], [address] Creatinine [Mass/Vol] 0.76 mg/dL Normal 0.55-1.02 [facility] Comment on above: Result Comment: The validity of the calculated GFR GFRAA in patients over70 years has not been determined. Clinical correlation isessential. Performed By: #### L 500.2500 ####[facility] [address] [place], [address] EST GFR - AA 92 mL/min Normal >60 [facility] Comment on above: Result Comment: Afri can Macedonian GFR Calc Performed By: #### L 500.2500 ####[facility] [address] [place], [address] GAP 6 Normal 5-15 [facility] Comment on above: Performed By: #### L 500.2500 ####[facility] [address] [place], [address] GFR/1.73 sq M.predicted among non-blacks MDRD (S/P/Bld) [Vol rate/Area] 76 mL/min/{1.73_m2} Normal >60 [facility] Comment on above: Result Comment: Non- GFR Calc Performed By: #### L 500.2500 ####[facility] [address] [place], [address] Glucose [Mass/Vol] 101 mg/dL Normal 74-[address] [facility] Comment on above: Result Comment: Fast ing Glucose result from 100 to 125 mg/dLsuggests IMPAIRED HOMEOSTASIS per A.D.A. criteria. Performed By: #### L 500.2500 ####[facility] [address] [place], [address] Potassium [Moles/Vol] 4.6 mmol/L Normal 3.5-5.1 [facility] Comment on above: Performed By: #### L 500.2500 ####[facility] [address] [place], [address] Sodium [Moles/Vol] 139 mmol/L Normal 136-[address] [facility] Comment on above: Performed By: #### L 500.2500 ####[facility] [address] [place], [address] Urea nitrogen [Mass/Vol] 15 mg/dL Normal 7-18 [facility] Comment on above: Performed By: #### L 500.2500 ####[facility] [address] [place], [address] Internal Medicine Office Vis iton 03-30-2024 Internal Medicine Office Visit Normal [facility] Comprehensive Metabolic Prof ilon 02-17-2024 Albumin [Mass/Vol] 3.6 g/dL Normal 3.2-5.[address] [facility] Comment on above: Performed By: #### L 500.4050 ####[facility] [address] [place], [address] Albumin/Globulin [Mass ratio] 0.9 {ratio} Normal 0.9-2.4 [facility] Comment on above: Performed By: #### L 500.4050 ####[facility] [address] [place], [address] ALK P 86 U/L Normal 45-117 [facility] Comment on above: Performed By: #### L 500.4050 ####[facility] [address] [place], [address] ALT [Catalytic activity/Vol] 15 U/L Normal 13-56 [facility] Comment on above: Performed By: #### L 500.4050 ####[facility] [address] [place], [address] AST [Catalytic activity/Vol] 24 U/L Normal 15-37 [facility] Comment on above: Performed By: #### L 500.4050 ####[facility] [address] [place], [address] Bilirubin [Mass/Vol] 0.80 mg/dL Normal 0.20-1.00 [facility] Comment on above: Result Comment: For patients on eltrombopag therapy, use of Dimension Wyatt TBIL is not recommended. Performed By: #### L 500.4050 ####[facility] [address] [place], [address] BUN/CRE 14.4 RATIO Normal 10-20 [facility] Comment on above: Performed By: #### L 500.4050 ####[facility] [address] [place], [address] CA,Total 9.2 mg/dL Normal 8.5-10.1 [facility] Comment on above: Performed By: #### L 500.4050 ####[facility] [address] [place], [address] Chloride [Moles/Vol] 105 mmol/L Normal 98-107 [facility] Comment on above: Performed By: #### L 500.4050 ####[facility] [address] [place], [address] CO2 [Moles/Vol] 27.0 mmol/L Normal 21.0-32.0 [facility] Comment on above: Performed By: #### L 500.4050 ####[facility] [address] [place], [address] Creatinine [Mass/Vol] 0.83 mg/dL Normal 0.55-1.02 [facility] Comment on above: Result Comment: The validity of the calculated GFR GFRAA in patients over70 years has not been determined. Clinical correlation isessential. Performed By: #### L 500.4050 ####[facility] [address] [place], [address] EST GFR - AA 83 mL/min Normal >60 [facility] Comment on above: Result Comment: Afri can Macedonian GFR Calc Performed By: #### L 500.4050 ####[facility] [address] [place], [address] GAP 6 Normal 5-15 [facility] Comment on above: Performed By: #### L 500.4050 ####[facility] [address] [place], [address] GFR/1.73 sq M.predicted among non-blacks MDRD (S/P/Bld) [Vol rate/Area] 69 mL/min/{1.73_m2} Normal >60 [facility] Comment on above: Result Comment: Non- GFR Calc Performed By: #### L 500.4050 ####[facility] [address] [place], [address] Globulin (S) [Mass/Vol] 4.1 g/dL Normal 2.2-4.2 [facility] Comment on above: Performed By: #### L 500.4050 ####[facility] [address] [place], [address] Glucose [Mass/Vol] 93 mg/dL Normal 74-[address] [facility] Comment on above: Performed By: #### L 500.4050 ####[facility] [address] [place], [address] Potassium [Moles/Vol] 4.6 mmol/L Normal 3.5-5.1 [facility] Comment on above: Performed By: #### L 500.4050 ####[facility] [address] [place], [address] Sodium [Moles/Vol] 138 mmol/L Normal 136-[address] [facility] Comment on above: Performed By: #### L 500.4050 ####[facility] [address] [place], [address] T PROT 7.7 g/dL Normal 6.4-8.2 [facility] Comment on above: Performed By: #### L 500.4050 ####[facility] [address] [place], [address] Urea nitrogen [Mass/Vol] 12 mg/dL Normal 7-18 [facility] Comment on above: Performed By: #### L 500.4050 ####[facility] [address] [place], [address] Internal Medicine Office Vis iton 02-17-2024 Internal Medicine Office Visit Normal [facility] 12 Lead EKGon 2024 12 Lead EKG Normal [facility] 12 Lead EKG Normal [facility] Basic Metabolic Profile (BMP )on 2024 BUN/CRE 17.6 RATIO Normal 10-20 [facility] Comment on above: Performed By: #### L 501.9520, L501.5200, L100.0100, L300.4310, L500.2500, L300.3900 ####[facility] [address] [place], [address] CA,Total 8.7 mg/dL Normal 8.5-10.1 [facility] Comment on above: Performed By: #### L 501.9520, L501.5200, L100.0100, L300.4310, L500.2500, L300.3900 ####[facility] [address] [place], [address] Chloride [Moles/Vol] 109 mmol/L High 98-107 [facility] Comment on above: Performed By: #### L 501.9520, L501.5200, L100.0100, L300.4310, L500.2500, L300.3900 ####[facility] [address] [place], [address] CO2 [Moles/Vol] 25.0 mmol/L Normal 21.0-32.0 [facility] Comment on above: Performed By: #### L 501.9520, L501.5200, L100.0100, L300.4310, L500.2500, L300.3900 ####[facility] [address] [place], [address] Creatinine [Mass/Vol] 0.80 mg/dL Normal 0.55-1.02 [facility] Comment on above: Result Comment: The validity of the calculated GFR GFRAA in patients over70 years has not been determined. Clinical correlation isessential. Performed By: #### L 501.9520, L501.5200, L100.0100, L300.4310, L500.2500, L300.3900 ####[facility] [address] [place], [address] ECRCL 34.91 ml/min Normal [facility] Comment on above: Performed By: #### L 501.9520, L501.5200, L100.0100, L300.4310, L500.2500, L300.3900 ####[facility] [address] [place], [address] EST GFR - AA 88 mL/min Normal >60 [facility] Comment on above: Result Comment: Afri can Macedonian GFR Calc Performed By: #### L 501.9520, L501.5200, L100.0100, L300.4310, L500.2500, L300.3900 ####[facility] [address] [place], [address] GAP 8 Normal 5-15 [facility] Comment on above: Performed By: #### L 501.9520, L501.5200, L100.0100, L300.4310, L500.2500, L300.3900 ####[facility] [address] [place], [address] GFR/1.73 sq M.predicted among non-blacks MDRD (S/P/Bld) [Vol rate/Area] 72 mL/min/{1.73_m2} Normal >60 [facility] Comment on above: Result Comment: Non- GFR Calc Performed By: #### L 501.9520, L501.5200, L100.0100, L300.4310, L500.2500, L300.3900 ####[facility] [address] [place], [address] Glucose [Mass/Vol] 100 mg/dL Normal 74-[address] [facility] Comment on above: Result Comment: Fast ing Glucose result from 100 to 125 mg/dLsuggests IMPAIRED HOMEOSTASIS per A.D.A. criteria. Performed By: #### L 501.9520, L501.5200, L100.0100, L300.4310, L500.2500, L300.3900 ####[facility] [address] [place], [address] Potassium [Moles/Vol] 2.9 mmol/L Low 3.5-5.1 [facility] Comment on above: Performed By: #### L 501.9520, L501.5200, L100.0100, L300.4310, L500.2500, L300.3900 ####[facility] [address] [place], [address] Sodium [Moles/Vol] 142 mmol/L Normal 136-[address] [facility] Comment on above: Performed By: #### L 501.9520, L501.5200, L100.0100, L300.4310, L500.2500, L300.3900 ####[facility] [address] [place], [address] Urea nitrogen [Mass/Vol] 14 mg/dL Normal 7-18 [facility] Comment on above: Performed By: #### L 501.9520, L501.5200, L100.0100, L300.4310, L500.2500, L300.3900 ####[facility] [address] [place], [address] CBC W/Diff, Automatedon -08 14-2023 Absolute Lymph 2.21 X10 3/uL Normal 0.83-4.51 [facility] Comment on above: Performed By: #### L 501.9520, L501.5200, L100.0100, L300.4310, L500.2500, L300.3900 ####[facility] [address] [place], [address] Absolute Neut 2.9 X10 3/uL Normal 2.0-7.7 [facility] Comment on above: Performed By: #### L 501.9520, L501.5200, L100.0100, L300.4310, L500.2500, L300.3900 ####[facility] [address] [place], [address] Basophils/100 WBC (Bld) 0.5 % Normal 0-1 [facility] Comment on above: Performed By: #### L 501.9520, L501.5200, L100.0100, L300.4310, L500.2500, L300.3900 ####[facility] [address] [place], [address] Eosinophils/100 WBC (Bld) 2.6 % Normal 0-5 [facility] Comment on above: Performed By: #### L 501.9520, L501.5200, L100.0100, L300.4310, L500.2500, L300.3900 ####[facility] [address] [place], [address] Erythrocyte distribution width (RBC) [Ratio] 12.7 % Normal 11.6-14.6 [facility] Comment on above: Performed By: #### L 501.9520, L501.5200, L100.0100, L300.4310, L500.2500, L300.3900 ####[facility] [address] [place], [address] Hematocrit (Bld) [Volume fraction] 40.9 % Normal 37-47 [facility] Comment on above: Performed By: #### L 501.9520, L501.5200, L100.0100, L300.4310, L500.2500, L300.3900 ####[facility] [address] [place], [address] Hemoglobin (Bld) [Mass/Vol] 13.4 g/dL Normal 12.0-15.0 [facility] Comment on above: Performed By: #### L 501.9520, L501.5200, L100.0100, L300.4310, L500.2500, L300.3900 ####[facility] [address] [place], [address] IG% 0.400 Normal 0.0-0.9 [facility] Comment on above: Result Comment: IG% - Immature Granulocytes (promyelocytes, myelocytes andmetamyelocytes) > 1% indicates that a LEFT SHIFT is Present. Performed By: #### L 501.9520, L501.5200, L100.0100, L300.4310, L500.2500, L300.3900 ####[facility] [address] [place], [address] Lymphocytes/100 WBC (Bld) 39.0 % Normal 19-41 [facility] Comment on above: Performed By: #### L 501.9520, L501.5200, L100.0100, L300.4310, L500.2500, L300.3900 ####[facility] [address] [place], [address] MCH (RBC) [Entitic mass] 32.8 pg High 27.0-32.0 [facility] Comment on above: Performed By: #### L 501.9520, L501.5200, L100.0100, L300.4310, L500.2500, L300.3900 ####[facility] [address] [place], [address] MCHC (RBC) [Mass/Vol] 32.8 g/dL Normal 32-36 [facility] Comment on above: Performed By: #### L 501.9520, L501.5200, L100.0100, L300.4310, L500.2500, L300.3900 ####[facility] [address] [place], [address] MCV (RBC) [Entitic vol] 100.0 fL High 81-99 [facility] Comment on above: Performed By: #### L 501.9520, L501.5200, L100.0100, L300.4310, L500.2500, L300.3900 ####[facility] [address] [place], [address] Monocytes/100 WBC (Bld) 6.7 % Normal 0-10 [facility] Comment on above: Performed By: #### L 501.9520, L501.5200, L100.0100, L300.4310, L500.2500, L300.3900 ####[facility] [address] [place], [address] Neutrophils/100 WBC (Bld) 50.8 % Normal 47-70 [facility] Comment on above: Performed By: #### L 501.9520, L501.5200, L100.0100, L300.4310, L500.2500, L300.3900 ####[facility] [address] [place], [address] Nucleated RBC (Bld) [#/Vol] 0 10*3/uL Normal 0-5 [facility] Comment on above: Performed By: #### L 501.9520, L501.5200, L100.0100, L300.4310, L500.2500, L300.3900 ####[facility] [address] [place], [address] Platelet mean volume (Bld) [Entitic vol] 9.3 fL Normal 6.2-12.0 [facility] Comment on above: Performed By: #### L 501.9520, L501.5200, L100.0100, L300.4310, L500.2500, L300.3900 ####[facility] [address] [place], [address] Platelets (Bld) [#/Vol] 258 10*3/uL Normal 150-450 [facility] Comment on above: Performed By: #### L 501.9520, L501.5200, L100.0100, L300.4310, L500.2500, L300.3900 ####[facility] [address] [place], [address] RBC (Bld) [#/Vol] 4.09 10*6/uL Low 4.2-5.4 [facility] Comment on above: Performed By: #### L 501.9520, L501.5200, L100.0100, L300.4310, L500.2500, L300.3900 ####[facility] [address] [place], [address] RDW SD 46.8 fl High 35.1-43.9 [facility] Comment on above: Performed By: #### L 501.9520, L501.5200, L100.0100, L300.4310, L500.2500, L300.3900 ####[facility] [address] [place], [address] WBC (Bld) [#/Vol] 5.7 10*3/uL Normal 4.4-11.[address] [facility] Comment on above: Performed By: #### L 501.9520, L501.5200, L100.0100, L300.4310, L500.2500, L300.3900 ####[facility] [address] [place], [address] CTA Chest W/WO Contraston CTA Chest W/WO Contrast Normal [facility] Emergency Department Summary on 2024 Emergency Department Summary Normal [facility] Magnesiumon 2024 Magnesium [Mass/Vol] 1.9 mg/dL Normal 1.6-2.6 [facility] Comment on above: Performed By: #### L 501.9520, L501.5200, L100.0100, L300.4310, L500.2500, L300.3900 ####[facility] [address] [place], [address] Partial Thromboplast Timeon 2024 aPTT Coag (Bld) [Time] 21.9 s Low 24.1-36.2 [facility] Comment on above: Performed By: #### L 501.9520, L501.5200, L100.0100, L300.4310, L500.2500, L300.3900 ####[facility] [address] [place], [address] Prothrombin Time w/INRon INR Coag (PPP) [Relative time] 1.0 {INR} Normal [facility] Comment on above: Performed By: #### L 501.9520, L501.5200, L100.0100, L300.4310, L500.2500, L300.3900 ####[facility] [address] [place], [address] PT Coag (PPP) [Time] 12.9 s Normal 11.7-14.9 [facility] Comment on above: Performed By: #### L 501.9520, L501.5200, L100.0100, L300.4310, L500.2500, L300.3900 ####[facility] [address] [place], [address] Thyroid Stim Hormone (TSH)on 2024 TSH 3.58 uIU/mL Normal 0.358-3.74 [facility] Comment on above: Performed By: #### L 501.9520, L501.5200, L100.0100, L300.4310, L500.2500, L300.3900 ####[facility] [address] [place], [address] Absolute lymphocyte countOrd ered By: Bailey Cerna on 09-26-2023 Lymphocytes Auto (Unsp spec) [#/Vol] 1.83 10*3/uL 0.83-4.51 [facility] Automated lymphocyte count a s percentage of total leukocytesOrdered By: Bailey Cerna on 09-26-2023 Lymphocytes/100 WBC Auto (Unsp spec) 26.1 % 19-41 [facility] Basophil percentageOrdered B y: Bailey Eryn on 09-26-2023 Basophils/100 WBC (Bld) 0.6 % 0-1 [facility] Bilirubin [Mass/Vol] 0.60 mg/dL 0.20-1.00 [facility] Comment on above: For patients on eltr ombopag therapy, use of Dimension Wyatt TBIL is not recommended. Chloride [Moles/Vol] 107 mmol/L 98-107 [facility] Cholesterol [Mass/Vol] 214 mg/dL <200 [facility] Comment on above: <200 mg/dL Desirable 200-240 mg/dL Borderline >240 mg/dL High Risk Eosinophils/100 WBC (Bld) 1.6 % 0-5 [facility] Glucose [Mass/Vol] 92 mg/dL 74-[address] [facility] Hemoglobin (Bld) [Mass/Vol] 14.2 g/dL 12.0-15.0 [facility] Monocytes/100 WBC (Bld) 7.4 % 0-10 [facility] Neutrophils (Bld) [#/Vol] 4.5 10*3/uL 2.0-7.7 [facility] Neutrophils/100 WBC (Bld) 63.6 % 47-70 [facility] Potassium [Moles/Vol] 3.8 mmol/L 3.5-5.1 [facility] Protein [Mass/Vol] 7.5 g/dL 6.4-8.[address] [facility] Sodium [Moles/Vol] 140 mmol/L 136-[address] [facility] Triglyceride [Mass/Vol] 170 mg/dL <199 [facility] Comment on above: The drugs N-Acetylcy steine and Metamizole may falsely depress this assay.Serum Triglycerides Reference Interval Normal <150 mg/dL Borderline high 150 - 199 mg/dL High 200 - 499 mg/dL Very High > or = 500 mg/dL WBC (Bld) [#/Vol] 7.0 10*3/uL 4.4-11.[address] [facility] Determination of erythrocyte mean corpuscular volume (MCV)Ordered By: Bailey Cerna on 09-26-2023 MCV (RBC) [Entitic vol] 101.9 fL 81-99 [facility] Erythrocyte distribution wid th ratioOrdered By: Bailey Cerna on 09-26-2023 Erythrocyte distribution width (RBC) [Ratio] 12.4 % 11.6-14.6 [facility] Erythrocyte distribution wid th standard deviationOrdered By: Promisemiddleburgallyn Cerna on 09-26-2023 Erythrocyte distribution width (RBC) [Entitic vol] 47.2 fL 35.1-43.9 [facility] Hematocrit Auto (Bld) [Volum e fraction]Ordered By: Bailey Cerna on 09-26-2023 Hematocrit (Bld) [Volume fraction] 42.8 % 37-47 [facility] Immature granulocytes/100 WB C Auto (Bld)Ordered By: Bailey Cerna on 09-26-2023 Immature granulocytes/100 WBC (Bld) 0.700 % 0.0-0.9 [facility] Comment on above: IG% - Immature Granu locytes (promyelocytes, myelocytes and metamyelocytes) > 1% indicates that a LEFT SHIFT is Present. Laboratory - Chemistry and C hemistry - challengeOrdered By: Bailey Cerna on 09-26-2023 Albumin/Globulin [Mass ratio] 0.9 {ratio} 0.9-2.4 [facility] ALP [Catalytic activity/Vol] 96 U/L 45-117 [facility] ALT [Catalytic activity/Vol] 22 U/L 13-56 [facility] Cholesterol in HDL [Mass/Vol] 91 mg/dL >40 [facility] Comment on above: The drugs N-Acetylcy steine and Metamizole may falsely depress this assay. Reference Range HDL <40 mg/dL Low HDL Cholesterol HDL >or= 60 mg/dL High HDL Cholesterol Cholesterol in LDL [Mass/Vol] 89 mg/dL 0-130 [facility] CO2 [Moles/Vol] 25.0 mmol/L 21.0-32.0 [facility] Globulin (S) [Mass/Vol] 3.9 g/dL 2.2-4.2 [facility] Urea nitrogen/Creatinine [Mass ratio] 18.6 mg/mg 10-20 [facility] Laboratory - Hematology and Cell countsOrdered By: Bailey Cerna on 09-26-2023 MCH (RBC) [Entitic mass] 33.8 pg 27.0-32.0 [facility] MCHC (RBC) [Mass/Vol] 33.2 g/dL 32-36 [facility] Nucleated RBC/100 WBC (Bld) [Ratio] 0 % 0-5 [facility] Platelet mean volume (Bld) [Entitic vol] 9.8 fL 6.2-12.0 [facility] Platelets (Bld) [#/Vol] 316 10*3/uL 150-450 [facility] No Panel InformationOrdered By: Bailey Cerna on 09-26-2023 Estimated GFR (MDRD) Amer 80 mL/min >60 [facility] Comment on above: GFR Calc Estimated GFR (MDRD) Non-Af Amer 66 mL/min >60 [facility] Comment on above: Non- GFR Calc Vitamin D 25-Hydroxy 75.3 ng/mL [facility] Comment on above: Vitamin D 25(OH) Sta tus Range Deficiency <20 ng/mL (50nmol/L) Insufficiency 20 - 30 ng/mL (50 - 75 nmol/L) Sufficiency 30 - 100 ng/mL (75 - 250 nmol/L) Toxicity >100 ng/mL (>250 nmol/L) VLDL Cholesterol 34 mg/dL 5-40 [facility] RBC Auto (Bld) [#/Vol]Ordere d By: Bailey Cerna on 09-26-2023 RBC (Bld) [#/Vol] 4.20 10*6/uL 4.2-5.4 [facility] Serum or plasma calcium lisa urement (mass/volume)Ordered By: Bailey Cerna on 09-26-2023 Calcium [Mass/Vol] 9.4 mg/dL 8.5-10.[address] [facility] Serum or plasma creatinine m easurement (mass/volume)Ordered By: Bailey Cerna on 09-26-2023 Creatinine [Mass/Vol] 0.86 mg/dL 0.55-1.02 [facility] Comment on above: The validity of the calculated GFR & GFRAA in patients over 70 years has not been determined. Clinical correlation is essential. Serum or plasma thyroid stim ulating hormone (TSH) measurement (units/volume)Ordered By: Bailey Cerna on 09-26-2023 TSH Qn 2.29 uIU/mL 0.358-3.74 [facility] Serum or plasma urea nitroge n measurement (mass/volume)Ordered By: Bailey Cerna on 09-26-2023 Urea nitrogen [Mass/Vol] 16 mg/dL 7-18 [facility] Thin prep Papanicolaou smear with manual screeningOrdered By: Bailey Cerna on 09-26-2023 Thin prep Papanicolaou smear with manual screening 3.6 g/dL 3.2-5.0 [facility] Thin prep Papanicolaou smear with manual screening 27 U/L 15-37 [facility] Thin prep Papanicolaou smear with manual screening 8 5-15 [facility] Absolute lymphocyte countOrd ered By: Usha Krueger on 11-08-2022 Lymphocytes Auto (Unsp spec) [#/Vol] 1.65 10*3/uL 0.83-4.51 [facility] Basophil percentageOrdered B y: Usha Krueger on 11-08-2022 Basophils/100 WBC (Bld) 0.3 % 0-1 [facility] Chloride [Moles/Vol] 105 mmol/L 98-107 [facility] Eosinophils/100 WBC (Bld) 1.1 % 0-5 [facility] Glucose [Mass/Vol] 109 mg/dL 74-[address] [facility] Comment on above: Fasting Glucose resu lt from 100 to 125 mg/dL suggests IMPAIRED HOMEOSTASIS per A.D.A. criteria. Neutrophils (Bld) [#/Vol] 4.2 10*3/uL 2.0-7.7 [facility] Neutrophils/100 WBC (Bld) 65.7 % 47-70 [facility] Potassium [Moles/Vol] 3.6 mmol/L 3.5-5.1 [facility] Sodium [Moles/Vol] 141 mmol/L 136-[address] [facility] WBC (Bld) [#/Vol] 6.3 10*3/uL 4.4-11.[address] [facility] Blood erythrocytes count (nu mber/volume)Ordered By: Usha Krueger on 11-08-2022 RBC (Bld) [#/Vol] 4.32 10*6/uL 4.2-5.4 [facility] Blood hemoglobin measurement (mass/volume)Ordered By: Usha Krueger on 11-08-2022 Hemoglobin (Bld) [Mass/Vol] 14.4 g/dL 12.0-15.0 [facility] Blood lymphocytes/100 leukoc ytesOrdered By: Usha Krueger on 11-08-2022 Lymphocytes/100 WBC (Bld) 26.1 % 19-41 [facility] Blood monocytes/100 leukocyt esOrdered By: Usha Krueger on 11-08-2022 Monocytes/100 WBC (Bld) 6.6 % 0-10 [facility] Blood platelet mean volumeOr dered By: Usha Krueger on 11-08-2022 Platelet mean volume (Bld) [Entitic vol] 9.2 fL 6.2-12.0 [facility] Determination of erythrocyte mean corpuscular volume (MCV)Ordered By: Usha Krueger on 11-08-2022 MCV (RBC) [Entitic vol] 100.7 fL 81-99 [facility] Hematocrit Auto (Bld) [Volum e fraction]Ordered By: Usha Krueger on 11-08-2022 Hematocrit (Bld) [Volume fraction] 43.5 % 37-47 [facility] - Chemistry and C hemistry - challengeOrdered By: Usha Krueger on 11-08-2022 CO2 [Moles/Vol] 26.0 mmol/L 21.0-32.0 [facility] Urea nitrogen/Creatinine [Mass ratio] 14.2 mg/mg 10-20 [facility] - Hematology and Cell countsOrdered By: Usha Krueger on 11-08-2022 Erythrocyte distribution width (RBC) [Entitic vol] 46.4 fL 35.1-43.9 [facility] Erythrocyte distribution width (RBC) [Ratio] 12.4 % 11.6-14.6 [facility] Immature granulocytes/100 WBC (Bld) 0.200 % 0.0-0.9 [facility] Comment on above: IG% - Immature Granu locytes (promyelocytes, myelocytes and metamyelocytes) > 1% indicates that a LEFT SHIFT is Present. MCH (RBC) [Entitic mass] 33.3 pg 27.0-32.0 [facility] Nucleated RBC/100 WBC (Bld) [Ratio] 0 % 0-5 [facility] MCHC Auto (RBC) [Mass/Vol]Or dered By: Usha Krueger on 11-08-2022 MCHC (RBC) [Mass/Vol] 33.1 g/dL 32-36 [facility] No Panel InformationOrdered By: Usha Krueger on 11-08-2022 Estimated Creatinine Clearance Calc 28.47 ml/min [facility] Estimated GFR (MDRD) Amer 101 mL/min >60 [facility] Comment on above: GFR Calc Estimated GFR (MDRD) Non-Af Amer 83 mL/min >60 [facility] Comment on above: Non- GFR Calc Platelets bldOrdered By: Rick Krueger on 11-08-2022 Platelets (Bld) [#/Vol] 262 10*3/uL 150-450 [facility] Serum or plasma calcium lisa urement (mass/volume)Ordered By: Usha Krueger on 11-08-2022 Calcium [Mass/Vol] 9.1 mg/dL 8.5-10.[address] [facility] Serum or plasma creatinine m easurement (mass/volume)Ordered By: Usha Krueger on 11-08-2022 Creatinine [Mass/Vol] 0.71 mg/dL 0.55-1.02 [facility] Comment on above: The validity of the calculated GFR & GFRAA in patients over 70 years has not been determined. Clinical correlation is essential. Serum or plasma urea nitroge n measurement (mass/volume)Ordered By: Usha Krueger on 11-08-2022 Urea nitrogen [Mass/Vol] 10 mg/dL 7-18 [facility] Thin prep Papanicolaou smear with manual screeningOrdered By: Ushakaitlin Krueger on 11-08-2022 Thin prep Papanicolaou smear with manual screening 10 5-15 [facility] Absolute lymphocyte countOrd ered By: Dr. Cerna on 07-25-2022 Lymphocytes Auto (Unsp spec) [#/Vol] 2.17 10*3/uL 0.83-4.51 [facility] Basophil percentageOrdered B y: Dr. Cerna on 07-25-2022 Basophils/100 WBC (Bld) 0.8 % 0-1 [facility] Chloride [Moles/Vol] 104 mmol/L 98-107 [facility] Eosinophils/100 WBC (Bld) 0.9 % 0-5 [facility] Glucose [Mass/Vol] 114 mg/dL 74-[address] [facility] Comment on above: Fasting Glucose resu lt from 100 to 125 mg/dL suggests IMPAIRED HOMEOSTASIS per A.D.A. criteria. Neutrophils (Bld) [#/Vol] 3.8 10*3/uL 2.0-7.7 [facility] Neutrophils/100 WBC (Bld) 58.1 % 47-70 [facility] Potassium [Moles/Vol] 4.1 mmol/L 3.5-5.1 [facility] Sodium [Moles/Vol] 139 mmol/L 136-[address] [facility] WBC (Bld) [#/Vol] 6.6 10*3/uL 4.4-11.[address] [facility] Blood erythrocytes count (nu mber/volume)Ordered By: Dr. Cerna on 07-25-2022 RBC (Bld) [#/Vol] 4.36 10*6/uL 4.2-5.4 [facility] Blood hemoglobin measurement (mass/volume)Ordered By: Dr. Cerna on 07-25-2022 Hemoglobin (Bld) [Mass/Vol] 15.0 g/dL 12.0-15.0 [facility] Blood lymphocytes/100 leukoc ytesOrdered By: Dr. Cerna on 07-25-2022 Lymphocytes/100 WBC (Bld) 33.1 % 19-41 [facility] Blood monocytes/100 leukocyt esOrdered By: Dr. Cerna on 07-25-2022 Monocytes/100 WBC (Bld) 6.9 % 0-10 [facility] Blood platelet mean volumeOr dered By: Dr. Cerna on 07-25-2022 Platelet mean volume (Bld) [Entitic vol] 9.8 fL 6.2-12.0 [facility] Determination of erythrocyte mean corpuscular volume (MCV)Ordered By: Dr. Cerna on 07-25-2022 MCV (RBC) [Entitic vol] 102.5 fL 81-99 [facility] Hematocrit Auto (Bld) [Volum e fraction]Ordered By: Dr. Cerna on 07-25-2022 Hematocrit (Bld) [Volume fraction] 44.7 % 37-47 [facility] - Chemistry and C hemistry - challengeOrdered By: Dr. Cerna on 07-25-2022 CO2 [Moles/Vol] 27.0 mmol/L 21.0-32.0 [facility] Urea nitrogen/Creatinine [Mass ratio] 17.4 mg/mg 10-20 [facility] Laboratory - Hematology and Cell countsOrdered By: Dr. Cerna on 07-25-2022 Erythrocyte distribution width (RBC) [Entitic vol] 45.2 fL 35.1-43.9 [facility] Erythrocyte distribution width (RBC) [Ratio] 11.9 % 11.6-14.6 [facility] Immature granulocytes/100 WBC (Bld) 0.200 % 0.0-0.9 [facility] Comment on above: IG% - Immature Granu locytes (promyelocytes, myelocytes and metamyelocytes) > 1% indicates that a LEFT SHIFT is Present. MCH (RBC) [Entitic mass] 34.4 pg 27.0-32.0 [facility] Nucleated RBC/100 WBC (Bld) [Ratio] 0 % 0-5 [facility] MCHC Auto (RBC) [Mass/Vol]Or dered By: Dr. Cerna on 07-25-2022 MCHC (RBC) [Mass/Vol] 33.6 g/dL 32-36 [facility] No Panel InformationOrdered By: Dr. Cerna on 07-25-2022 Estimated GFR (MDRD) Amer 87 mL/min >60 [facility] Comment on above: GFR Calc Estimated GFR (MDRD) Non-Af Amer 72 mL/min >60 [facility] Comment on above: Non- GFR Calc Vitamin D 25-Hydroxy 76.6 ng/mL [facility] Comment on above: Vitamin D 25(OH) Sta tus Range Deficiency <20 ng/mL (50nmol/L) Insufficiency 20 - 30 ng/mL (50 - 75 nmol/L) Sufficiency 30 - 100 ng/mL (75 - 250 nmol/L) Toxicity >100 ng/mL (>250 nmol/L) Platelets bldOrdered By: Dr. Cerna on 07-25-2022 Platelets (Bld) [#/Vol] 297 10*3/uL 150-450 [facility] Serum or plasma calcium lisa urement (mass/volume)Ordered By: Dr. Cerna on 07-25-2022 Calcium [Mass/Vol] 9.3 mg/dL 8.5-10.[address] [facility] Serum or plasma creatinine m easurement (mass/volume)Ordered By: Dr. Cerna on 07-25-2022 Creatinine [Mass/Vol] 0.80 mg/dL 0.55-1.02 [facility] Comment on above: The validity of the calculated GFR & GFRAA in patients over 70 years has not been determined. Clinical correlation is essential. Serum or plasma urea nitroge n measurement (mass/volume)Ordered By: Dr. Cerna on 07-25-2022 Urea nitrogen [Mass/Vol] 14 mg/dL 7-18 [facility] Thin prep Papanicolaou smear with manual screeningOrdered By: Dr. Cerna on 07-25-2022 Thin prep Papanicolaou smear with manual screening 8 5-[address] [facility] [address] HUMERUS W/ CONTRAST LEFTo n 12-17-2019 CT HUMERUS W/ CONTRAST LEFT ORIGINAL CT LEFT upper arm/humerus with intravenous contrast with sagittal and coronal reconstruction Clinical Statement: Soft tissue swelling, infection suspected, humerus xray done, next study, , posterior lump, redness and swelling, Comparison: Radiographs 12/14/2019 TECHNIQUE:This exam was performed according to our departmental dose optimization program, and includes the following measures where applicable: automated exposure control, adjustment of the mAs and/or kVp according to patient size and/or exam, and an iterative reconstruction algorithm. FINDINGS: The humerus is intact with no fracture, lytic process or periosteal reaction. Alignment at the shoulder is normal. 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 A couple of subcentimeter short axis axillary lymph nodes are not considered pathologic. In the midportion of the upper arm posteriorly there is a small fluid collection off 17 x 13 x 10 mm in the subcutaneous space that extends from the skin surface to the surface of the posterior triceps muscle. There is a thick enhancing rim and a small amount of air within this collection suggesting a small abscess. There is some infiltration of the adjacent subcutaneous fat. No obvious extension into the muscle. No other soft tissue abnormality is seen in the upper arm. The musculature is unremarkable and there are no deep fluid collections. This is not an adequate evaluation for DVT. IMPRESSION: There is a small abscess in the posterior midportion of the arm within the subcutaneous space. No deep abscess is seen. No bony involvement. Interpreted By: Diallo Dorado MD Preliminary Report By: Diallo Dorado MD Electronically Signed By: Diallo Dorado MD Dictated Date: 12/16/2019 11:35:14 PM Prelim Date: 12/16/2019 11:35:14 PM Sign Date: 12/16/2019 11:40:20 PM Ordering Provider:Aidee Block [facility] ([place]) .GFRon 12-16-2019 GFR Non- 57 ml/min/1.73sqm Normal [facility] ([place]) Comment on above: Result Comment: GFR Population mean for , Non- Americans Ages 20-29 = 116 mL/min/1.73 sq.m. Ages 30-39 = 107 mL/min/1.73 sq.m. Ages 40-49 = 99 mL/min/1.73 sq.m. Ages 50-59 = 93 mL/min/1.73 sq.m. Ages 60-69 = 85 mL/min/1.73 sq.m. Ages 70+ = 75 mL/min/1.73 sq.m. Chronic Kidney Disease: Less than 60 mL/min/1.73 square meters End Stage Renal Disease: Less than 15 mL/min/1.73 square meters Performed By: #### T SH, FT4, CMP, GFR #### [address] [address] GFR 69 ml/min/1.73sqm Normal [facility] ([place]) Comment on above: Result Comment: GFR Population mean for , Non- Americans Ages 20-29 = 116 mL/min/1.73 sq.m. Ages 30-39 = 107 mL/min/1.73 sq.m. Ages 40-49 = 99 mL/min/1.73 sq.m. Ages 50-59 = 93 mL/min/1.73 sq.m. Ages 60-69 = 85 mL/min/1.73 sq.m. Ages 70+ = 75 mL/min/1.73 sq.m. Chronic Kidney Disease: Less than 60 mL/min/1.73 square meters End Stage Renal Disease: Less than 15 mL/min/1.73 square meters Performed By: #### T SH, FT4, CMP, GFR #### [address] [address] CMPon 12-16-2019 Albumin [Mass/Vol] 3.4 G/dL Normal 3.4-4.8 [facility] ([place]) Comment on above: Performed By: #### T SH, FT4, CMP, GFR #### [address] [address] Albumin/Globulin [Mass ratio] 1.0 {ratio} Low 1.1-2.5 [facility] ([place]) Comment on above: Performed By: #### T SH, FT4, CMP, GFR #### [address] [address] ALP [Catalytic activity/Vol] 107 U/L Normal 40-135 [facility] ([place]) Comment on above: Performed By: #### T SH, FT4, CMP, GFR #### [address] [address] ALT [Catalytic activity/Vol] 20 U/L Normal 10-35 [facility] ([place]) Comment on above: Performed By: #### T SH, FT4, CMP, GFR #### [address] [address] AST [Catalytic activity/Vol] 23 U/L Normal 10-40 [facility] ([place]) Comment on above: Performed By: #### T SH, FT4, CMP, GFR #### [address] [address] Bili Total 0.4 mg/dL Normal 0.2-1.0 [facility] ([place]) Comment on above: Result Comment: Use of this assay is not recommended for patients undergoing treatment with eltrombopag due to the potential for falsely elevated results. Performed By: #### T SH, FT4, CMP, GFR #### [address] [address] Calcium [Mass/Vol] 8.9 mg/dL Normal 8.4-10.2 [facility] ([place]) Comment on above: Performed By: #### T SH, FT4, CMP, GFR #### [address] [address] Chloride [Moles/Vol] 102 mmol/L Normal 98-107 [facility] ([place]) Comment on above: Performed By: #### T SH, FT4, CMP, GFR #### [address] [address] CO2 [Moles/Vol] 33 mmol/L High 23-31 [facility] ([place]) Comment on above: Performed By: #### T SH, FT4, CMP, GFR #### [address] [address] Electrolyte Balance 5.0 mEq/L Normal [facility] ([place]) Comment on above: Performed By: #### T SH, FT4, CMP, GFR #### [address] [address] Globulin (S) [Mass/Vol] 3.5 G/dL Normal [facility] ([place]) Comment on above: Performed By: #### T SH, FT4, CMP, GFR #### [address] [address] Glucose [Mass/Vol] 72 mg/dL Low 83-110 [facility] ([place]) Comment on above: Performed By: #### T SH, FT4, CMP, GFR #### [address] [address] Potassium [Moles/Vol] 3.8 mmol/L Normal 3.5-5.1 [facility] ([place]) Comment on above: Performed By: #### T SH, FT4, CMP, GFR #### [address] [address] Protein [Mass/Vol] 6.9 G/dL Normal 6.4-8.2 [facility] ([place]) Comment on above: Performed By: #### T SH, FT4, CMP, GFR #### [address] [address] Sodium [Moles/Vol] 140 mmol/L Normal 136-145 [facility] ([place] Comment on above: Performed By: #### T SH, FT4, CMP, GFR #### [address] [address] Urea nitrogen [Mass/Vol] 15 mg/dL Normal 7-18 [facility] ([place]) Comment on above: Performed By: #### T SH, FT4, CMP, GFR #### [address] [address] Urea nitrogen/Creatinine [Mass ratio] 16 ratio Normal 7-27 [facility] ([place]) Comment on above: Performed By: #### T SH, FT4, CMP, GFR #### [address] [address] Creatinine [Mass/Vol] 0.94 mg/dL Normal 0.55-1.02 [facility] ([place]) Comment on above: Result Comment: Call ed result to Jet in Radiology @12/16/2019 16:34:38 EDT BP Performed By: #### T SH, FT4, CMP, GFR #### [address] [address] LIPIDon 12-16-2019 Cholesterol [Mass/Vol] 228 mg/dL High 0-200 [facility] ([place]) Comment on above: Result Comment: Chol esterol Reference Interval: Less than 200 Desirable 200-239 Borderline high risk 240 and above High risk Performed By: #### T SH, FT4, CMP, GFR #### [place] [address] Cholesterol in HDL [Mass/Vol] 58 mg/dL Normal 40-60 [facility] ([place]) Comment on above: Performed By: #### T SH, FT4, CMP, GFR #### [place] [address] Cholesterol in LDL [Mass/Vol] 150 mg/dL High 0-130 [facility] ([place] Comment on above: Performed By: #### T SH, FT4, CMP, GFR #### [place] [address] Triglyceride [Mass/Vol] 98 mg/dL Normal 0-150 [facility] ([place]) Comment on above: Result Comment: Trig lyceride Reference Interval: Less than 150 Normal 150-199 Borderline high risk 200-499 High risk 500 or higher Very high risk Performed By: #### T SH, FT4, CMP, GFR #### [address] [address] XR HUMERUS MINIMUM 2 VIEWS L EFTon 12-15-2019 XR HUMERUS MINIMUM 2 VIEWS LEFT ORIGINAL XR HUMERUS 2 VIEWS LEFT CLINICAL STATEMENT: abscess of left arm COMPARISON: None FINDINGS: There is no cortical destruction or periosteal reaction to suggest osteomyelitis. No acute fracture or dislocation is identified. There is no radiopaque foreign body. IMPRESSION: No acute osseous abnormality. Interpreted By: Edgardo Serrano MD Preliminary Report By: Edgardo Serrano MD Electronically Signed By: Edgardo Serrano MD Dictated Date: 12/14/2019 11:41:19 PM Prelim Date: 12/14/2019 11:41:19 PM Sign Date: 12/14/2019 11:42:07 PM Ordering Provider:Aidee Block [facility] ([place]) .GFRon 08-10-2019 GFR 76 ml/min/1.73sqm [facility] ([place]) Comment on above: Result Comment: GFR Population mean for , Non- Americans Ages 20-29 = 116 mL/min/1.73 sq.m. Ages 30-39 = 107 mL/min/1.73 sq.m. Ages 40-49 = 99 mL/min/1.73 sq.m. Ages 50-59 = 93 mL/min/1.73 sq.m. Ages 60-69 = 85 mL/min/1.73 sq.m. Ages 70+ = 75 mL/min/1.73 sq.m. Chronic Kidney Disease: Less than 60 mL/min/1.73 square meters End Stage Renal Disease: Less than 15 mL/min/1.73 square meters Performed By: #### C MP, GFR #### [place] [address] GFR Non- 63 ml/min/1.73sqm Normal [facility] ([place]) Comment on above: Result Comment: GFR Population mean for , Non- Americans Ages 20-29 = 116 mL/min/1.73 sq.m. Ages 30-39 = 107 mL/min/1.73 sq.m. Ages 40-49 = 99 mL/min/1.73 sq.m. Ages 50-59 = 93 mL/min/1.73 sq.m. Ages 60-69 = 85 mL/min/1.73 sq.m. Ages 70+ = 75 mL/min/1.73 sq.m. Chronic Kidney Disease: Less than 60 mL/min/1.73 square meters End Stage Renal Disease: Less than 15 mL/min/1.73 square meters Performed By: #### C MP, GFR #### [address] [address] CMPon 08-10-2019 Albumin [Mass/Vol] 3.7 G/dL Normal 3.4-4.8 [facility] ([place] Comment on above: Performed By: #### C MP, GFR #### [address] [address] Albumin/Globulin [Mass ratio] 1.0 {ratio} Low 1.1-2.5 [facility] ([place]) Comment on above: Performed By: #### C MP, GFR #### [address] [address] ALP [Catalytic activity/Vol] 106 U/L Normal 40-135 [facility] ([place]) Comment on above: Performed By: #### C MP, GFR #### [place] [id number] ALT [Catalytic activity/Vol] 17 U/L Normal 10-35 [facility] ([place]) Comment on above: Performed By: #### C MP, GFR #### [place] [id number] AST [Catalytic activity/Vol] 20 U/L Normal 10-40 [facility] ([place]) Comment on above: Performed By: #### C MP, GFR #### [address] [address] Bili Total 0.8 mg/dL Normal 0.2-1.0 [facility] ([place]) Comment on above: Performed By: #### C MP, GFR #### [address] [address] Calcium [Mass/Vol] 8.8 mg/dL Normal 8.4-10.2 [facility] ([place] Comment on above: Performed By: #### C MP, GFR #### [address] [address] Chloride [Moles/Vol] 104 mmol/L Normal 98-107 [facility] ([place]) Comment on above: Performed By: #### C MP, GFR #### [address] [address] CO2 [Moles/Vol] 29 mmol/L Normal 23-31 [facility] ([place]) Comment on above: Performed By: #### C MP, GFR #### [address] [address] Creatinine [Mass/Vol] 0.86 mg/dL Normal 0.55-1.02 [facility] ([place]) Comment on above: Performed By: #### C MP, GFR #### [address] [address] Electrolyte Balance 9.0 mEq/L Normal [facility] ([place]) Comment on above: Performed By: #### C MP, GFR #### [address] [address] Globulin (S) [Mass/Vol] 3.8 G/dL Normal [facility] ([place]) Comment on above: Performed By: #### C MP, GFR #### [address] [address] Glucose [Mass/Vol] 103 mg/dL Normal 83-110 [facility] ([place] Comment on above: Performed By: #### C MP, GFR #### [address] [address] Potassium [Moles/Vol] 4.0 mmol/L Normal 3.5-5.1 [facility] ([place]) Comment on above: Performed By: #### C MP, GFR #### [address] [address] Protein [Mass/Vol] 7.5 G/dL Normal 6.4-8.2 [facility] ([place] Comment on above: Performed By: #### C MP, GFR #### [address] [address] Sodium [Moles/Vol] 142 mmol/L Normal 136-145 [facility] ([place] Comment on above: Performed By: #### C MP, GFR #### [address] [address] Urea nitrogen [Mass/Vol] 20 mg/dL High 7-18 [facility] ([place]) Comment on above: Performed By: #### C MP, GFR #### [place] [address] Urea nitrogen/Creatinine [Mass ratio] 23 ratio Normal 7-27 [facility] ([place]) Comment on above: Performed By: #### C MP, GFR #### [place] [address] FT4on 06-25-2019 Free T4 [Mass/Vol] 1.39 ng/dL Normal 0.76-1.46 [facility] ([place] Comment on above: Performed By: #### T SH, FT4 #### [place] [address] TSHon 06-25-2019 TSH Qn 4.41 mcIU/mL High 0.36-3.74 [facility] ([place]) Comment on above: Performed By: #### T SH, FT4 #### [place] [address] FT4on 03-11-2019 Free T4 [Mass/Vol] 1.39 ng/dL Normal 0.76-1.46 [facility] ([place]) Comment on above: Performed By: #### T SH, FT4 #### [place] [address] TSHon 03-11-2019 TSH Qn 3.94 mcIU/mL High 0.36-3.74 [facility] ([place]) Comment on above: Performed By: #### T SH, FT4 #### [place] [address] .GFRon 12-30-2018 GFR Non- 63 ml/min/1.73sqm Normal [facility] ([place]) Comment on above: Result Comment: GFR Population mean for , Non- Americans Ages 20-29 = 116 mL/min/1.73 sq.m. Ages 30-39 = 107 mL/min/1.73 sq.m. Ages 40-49 = 99 mL/min/1.73 sq.m. Ages 50-59 = 93 mL/min/1.73 sq.m. Ages 60-69 = 85 mL/min/1.73 sq.m. Ages 70+ = 75 mL/min/1.73 sq.m. Chronic Kidney Disease: Less than 60 mL/min/1.73 square meters End Stage Renal Disease: Less than 15 mL/min/1.73 square meters Performed By: #### T SH, FT4, CMP, GFR #### [address] [address] GFR 76 ml/min/1.73sqm Normal [facility] ([place]) Comment on above: Result Comment: GFR Population mean for , Non- Americans Ages 20-29 = 116 mL/min/1.73 sq.m. Ages 30-39 = 107 mL/min/1.73 sq.m. Ages 40-49 = 99 mL/min/1.73 sq.m. Ages 50-59 = 93 mL/min/1.73 sq.m. Ages 60-69 = 85 mL/min/1.73 sq.m. Ages 70+ = 75 mL/min/1.73 sq.m. Chronic Kidney Disease: Less than 60 mL/min/1.73 square meters End Stage Renal Disease: Less than 15 mL/min/1.73 square meters Performed By: #### T GEOVANNA, FT4, CMP, GFR #### [address] [address] CMPon 12-30-2018 Albumin [Mass/Vol] 3.6 G/dL Normal 3.4-4.8 [facility] ([place] Comment on above: Performed By: #### T SH, FT4, CMP, GFR #### [address] [address] Albumin/Globulin [Mass ratio] 0.9 {ratio} Low 1.1-2.5 [facility] ([place] Comment on above: Performed By: #### T SH, FT4, CMP, GFR #### [address] [address] ALP [Catalytic activity/Vol] 95 U/L Normal 40-135 [facility] ([place] Comment on above: Performed By: #### T SH, FT4, CMP, GFR #### [address] [address] ALT [Catalytic activity/Vol] 15 U/L Normal 10-35 [facility] ([place] Comment on above: Performed By: #### T SH, FT4, CMP, GFR #### [address] [address] AST [Catalytic activity/Vol] 19 U/L Normal 10-40 [facility] ([place] Comment on above: Performed By: #### T SH, FT4, CMP, GFR #### [address] [address] Bili Total 0.6 mg/dL Normal 0.2-1.0 [facility] ([place] Comment on above: Performed By: #### T GEOVANNA, FT4, CMP, GFR #### [address] [address] Calcium [Mass/Vol] 9.2 mg/dL Normal 8.4-10.2 [facility] ([place] Comment on above: Performed By: #### T GEOVANNA, FT4, CMP, GFR #### [address] [address] Chloride [Moles/Vol] 106 mmol/L Normal 98-107 [facility] ([place]) Comment on above: Performed By: #### T GEOVANNA, FT4, CMP, GFR #### [address] [address] CO2 [Moles/Vol] 31 mmol/L Normal 23-31 [facility] ([place] Comment on above: Performed By: #### T GEOVANNA, FT4, CMP, GFR #### [address] [address] Creatinine [Mass/Vol] 0.86 mg/dL Normal 0.55-1.02 [facility] ([place]) Comment on above: Performed By: #### T GEOVANNA, FT4, CMP, GFR #### [address] [address] Electrolyte Balance 7.0 mEq/L Normal [facility] ([place]) Comment on above: Performed By: #### T GEOVANNA, FT4, CMP, GFR #### [address] [address] Globulin (S) [Mass/Vol] 3.8 G/dL Normal [facility] ([place]) Comment on above: Performed By: #### T SH, FT4, CMP, GFR #### [address] [address] Glucose [Mass/Vol] 102 mg/dL Normal 83-110 [facility] ([place] Comment on above: Performed By: #### T SH, FT4, CMP, GFR #### [address] [address] Potassium [Moles/Vol] 4.7 mmol/L Normal 3.5-5.1 [facility] ([place]) Comment on above: Performed By: #### T SH, FT4, CMP, GFR #### [address] [address] Protein [Mass/Vol] 7.4 G/dL Normal 6.4-8.2 [facility] ([place] Comment on above: Performed By: #### T SH, FT4, CMP, GFR #### [address] [address] Sodium [Moles/Vol] 144 mmol/L Normal 136-145 [facility] ([place] Comment on above: Performed By: #### T SH, FT4, CMP, GFR #### [address] [address] Urea nitrogen [Mass/Vol] 14 mg/dL Normal 7-18 [facility] ([place] Comment on above: Performed By: #### T SH, FT4, CMP, GFR #### [address] [address] Urea nitrogen/Creatinine [Mass ratio] 16 ratio Normal 7-27 [facility] ([place] Comment on above: Performed By: #### T SH, FT4, CMP, GFR #### [address] [address] FT4on 12-30-2018 Free T4 [Mass/Vol] 1.35 ng/dL Normal 0.76-1.46 [facility] ([place]) Comment on above: Performed By: #### T SH, FT4, CMP, GFR #### [place] [id number] [address] [place] [address] TSHon 12-30-2018 TSH Qn 4.25 mcIU/mL High 0.36-3.74 [facility] ([place]) Comment on above: Performed By: #### T SH, FT4, CMP, GFR #### [facility] [address] [place] [id number] Otheron 03-31-2002 CONVERTED ELECTRONIC SIGNATURE PEDRO LUIS PLAZA M.D., PATHOLOGIST (Electronic signature on file) Final Signed Out: 03/31/2002 15:21 [facility] CONVERTED FINAL DIAGNOSIS A) ENDOCERVIX, CURETTAGE - 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 B) ENDOMETRIUM, CURETTAGE - DETACHED FRAGMENTS OF GLANDULAR EPITHELIUM. CRUSH ARTIFACT PRECLUDES FURTHER INTERPRETATION. ENDOMETRIAL TISSUE IS NOT DEFINITELY IDENTIFIED. C) CERVIX, CONIZATION - FOCAL MODERATE SQUAMOUS DYSPLASIA INVOLVING ENDOCERVICAL GLANDS. NEGATIVE MARGINS OF EXCISION. [facility] CONVERTED ORDERING PROVIDER Ordering Provider: PETE CAPPS [facility] Otheron 03-25-2002 CONVERTED ELECTRONIC SIGNATURE UMANG ROJAS [employer] (Electronic signature on file) Final Signed Out: 03/25/2002 14:07 [facility] CONVERTED FINAL DIAGNOSIS SPECIMEN ADEQUACY SATISFACTORY FOR EVALUATION GENERAL CATEGORIZATION WITHIN NORMAL LIMITS HORMONAL EVALUATION HORMONAL PATTERN COMPATIBLE WITH AGE AND HISTORY [facility] CONVERTED ORDERING PROVIDER Ordering Provider: [facility] CONVERTED PAP DISCLAIMER The Pap test se rves as a screening tool for early detection of cervical cancer. The Pap test does not represent a final diagnostic test for cervical cancer. Furthermore, the Pap test was not designed to screen for other malignancies (endometrial, ovarian cancer, etc....). False negatives and false positives have occurred. If clinically indicated, further patient evaluation is recommended. [facility] Vital Signs Date Time Vital Sign Value Performing Clinician Humberto roberts 11-25-2024 14:47-0400 Body height 152.[address] Bailey Cerna MD Work Phone: [facility] 11-25-2024 14:47-0400 Body mass index (BMI) [Ratio] 22 kg/m2 Dr. Bailey Cerna MD Work Phone: [facility] 11-25-2024 14:47-0400 Body temperature 97.7 [degF] Dr. Bailey Cerna MD Work Phone: [facility] 11-25-2024 14:47-0400 Body weight 51.[address] Bailey Cerna MD Work Phone: [facility] 11-25-2024 14:47-0400 Diastolic blood pressure 72 mm[Hg] Dr. Bailey Cerna MD Work Phone: [facility] 11-25-2024 14:47-0400 Heart rate 92 /min Dr. Bailey Cerna MD Work Phone: [facility] 11-25-2024 14:47-0400 Respiratory rate 16 /min Dr. Bailey Cerna MD Work Phone: [facility] 11-25-2024 14:47-0400 SaO2% (BldA) [Mass fraction] 95 % Dr. Bailey Cerna MD Work Phone: [facility] 11-25-2024 14:47-0400 Systolic blood pressure 150 mm[Hg] Dr. Bailey Cerna MD Work Phone: [facility] 10-01-2024 11:26-0500 Body temperature 98.3 [degF] Dr. Bailey Cerna MD Work Phone: [facility] 10-01-2024 11:26-0500 Diastolic blood pressure 83 mm[Hg] Dr. Bailey Cerna MD Work Phone: [facility] 10-01-2024 11:26-0500 Heart rate 102 /min Dr. Bailey Cerna MD Work Phone: [facility] 10-01-2024 11:26-0500 Respiratory rate 18 /min Dr. Bailey Cerna MD Work Phone: [facility] 10-01-2024 11:26-0500 SaO2% (BldA) [Mass fraction] 97 % Dr. Bailey Cerna MD Work Phone: [facility] 10-01-2024 11:26-0500 Systolic blood pressure 150 mm[Hg] Dr. Bailey Cerna MD Work Phone: [facility] 09-25-2024 09:05-0500 Body temperature 98 [degF] Dr. Bailey Cerna MD Work Phone: [facility] 09-25-2024 09:05-0500 Diastolic blood pressure 78 mm[Hg] Dr. Bailey Cerna MD Work Phone: [facility] 09-25-2024 09:05-0500 Heart rate 96 /min Dr. Bailey Cerna MD Work Phone: [facility] 09-25-2024 09:05-0500 Respiratory rate 18 /min Dr. Bailey Cerna MD Work Phone: [facility] 09-25-2024 09:05-0500 SaO2% (BldA) [Mass fraction] 97 % Dr. Bailey Cerna MD Work Phone: [facility] 09-25-2024 09:05-0500 Systolic blood pressure 139 mm[Hg] Dr. Bailey Cerna MD Work Phone: [facility] 08-14-2024 09:55-0500 Body mass index (BMI) [Ratio] 22.3 kg/m2 Dr. Bailey Cerna MD Work Phone: [facility] 08-14-2024 09:55-0500 Body temperature 98.4 [degF] Dr. Bailey Cerna MD Work Phone: [facility] 08-14-2024 09:55-0500 Body weight 51.[address] Bailey Cerna MD Work Phone: [facility] 08-14-2024 09:55-0500 Diastolic blood pressure 60 mm[Hg] Dr. Bailey Cerna MD Work Phone: [facility] 08-14-2024 09:55-0500 Heart rate 94 /min Dr. Bailey Cerna MD Work Phone: [facility] 08-14-2024 09:55-0500 Respiratory rate 16 /min Dr. Bailey Cerna MD Work Phone: [facility] 08-14-2024 09:55-0500 SaO2% (BldA) [Mass fraction] 97 % Dr. Bailey Cerna MD Work Phone: [facility] 08-14-2024 09:55-0500 Systolic blood pressure 124 mm[Hg] Dr. Bailey Cerna MD Work Phone: [facility] 09-26-2023 15:22-0500 Body height 152.[address] Bailey Cerna Work Phone: [facility] 09-26-2023 15:22-0500 Body mass index (BMI) [Ratio] 23.6 kg/m2 Dr. Bailey Cerna Work Phone: [facility] 09-26-2023 15:22-0500 Body temperature 97.2 [degF] Dr. Bailey Cerna Work Phone: [facility] 09-26-2023 15:22-0500 Body weight 54.[address] Bailey Cerna Work Phone: [facility] 09-26-2023 15:22-0500 Diastolic blood pressure 77 mm[Hg] Dr. Bailey Cerna Work Phone: [facility] 09-26-2023 15:22-0500 Heart rate 99 /min Dr. Bailey Cerna Work Phone: [facility] 09-26-2023 15:22-0500 Respiratory rate 17 /min Dr. Bailey Cerna Work Phone: [facility] 09-26-2023 15:22-0500 SaO2% (BldA) [Mass fraction] 98 % Dr. Bailey Cerna Work Phone: [facility] 09-26-2023 15:22-0500 Systolic blood pressure 138 mm[Hg] Dr. Bailey Cerna Work Phone: [facility] 09-26-2023 14:17-0500 Body mass index (BMI) [Ratio] 36.9 kg/m2 Dr. Bailey Cerna Work Phone: [facility] 09-26-2023 14:17-0500 Body temperature 98.2 [degF] Dr. Bailey Cerna Work Phone: [facility] 09-26-2023 14:17-0500 Body weight 85.[address] Bailey Cerna Work Phone: [facility] 09-26-2023 14:17-0500 Diastolic blood pressure 78 mm[Hg] Dr. Bailey Cerna Work Phone: [facility] 09-26-2023 14:17-0500 Heart rate 78 /min Dr. Bailey Cerna Work Phone: [facility] 09-26-2023 14:17-0500 SaO2% (BldA) [Mass fraction] 98 % Dr. Bailey Cerna Work Phone: [facility] 09-26-2023 14:17-0500 Systolic blood pressure 138 mm[Hg] Dr. Bailey Cerna Work Phone: [facility] 11-08-2022 12:58-0400 Diastolic blood pressure 90 mm[Hg] Dr. Bailey Cerna Work Phone: [facility] 11-08-2022 12:58-0400 Heart rate 110 /min Dr. Bailey Cerna Work Phone: [facility] 11-08-2022 12:58-0400 Systolic blood pressure 149 mm[Hg] Dr. Bailey Cerna Work Phone: [facility] 11-08-2022 12:45-0400 Respiratory rate 20 /min Dr. Bailey Cerna Work Phone: [facility] 11-08-2022 12:45-0400 SaO2% (BldA) [Mass fraction] 97 % Dr. Bailey Cerna Work Phone: [facility] 11-08-2022 10:53-0400 Body mass index (BMI) [Ratio] 24.3 kg/m2 Dr. Bailey Cerna Work Phone: [facility] 11-08-2022 10:53-0400 Body weight 56.[address] Bailey Cerna Work Phone: [facility] 11-08-2022 10:44-0400 Body height 152.[address] Bailey Cerna Work Phone: [facility] 11-08-2022 10:44-0400 Body temperature 97.4 [degF] Dr. Bailey Cerna Work Phone: [facility] 10-24-2022 15:48-0400 Body temperature 96.4 [degF] Dr. Bailey Cerna Work Phone: [facility] 10-24-2022 15:48-0400 Diastolic blood pressure 70 mm[Hg] Dr. Bailey Cerna Work Phone: [facility] 10-24-2022 15:48-0400 Heart rate 93 /min Dr. Bailey Cerna Work Phone: [facility] 10-24-2022 15:48-0400 Respiratory rate 16 /min Dr. Bailey Cerna Work Phone: [facility] 10-24-2022 15:48-0400 SaO2% (BldA) [Mass fraction] 96 % Dr. Bailey Cerna Work Phone: [facility] 10-24-2022 15:48-0400 Systolic blood pressure 128 mm[Hg] Dr. Bailey Cerna Work Phone: [facility] 07-25-2022 10:45-0500 Body height 152.[address] Bailey Cerna Work Phone: [facility] Work Phone: 07-25-2022 10:45-0500 Body mass index (BMI) [Ratio] 24.6 kg/m2 Dr. Bailey Cerna Work Phone: [facility] 07-25-2022 10:45-0500 Body temperature 98 [degF] Dr. Bailey Cerna Work Phone: [facility] 07-25-2022 10:45-0500 Body weight 57.[address] Bailey Crena Work Phone: [facility] 07-25-2022 10:45-0500 Diastolic blood pressure 92 mm[Hg] Dr. Bailey Cerna Work Phone: [facility] 07-25-2022 10:45-0500 Heart rate 92 /min Dr. Bailey Cerna Work Phone: [facility] 07-25-2022 10:45-0500 Respiratory rate 14 /min Dr. Bailey Cerna Work Phone: [facility] 07-25-2022 10:45-0500 SaO2% (BldA) [Mass fraction] 96 % Dr. Bailey Cerna Work Phone: [facility] 07-25-2022 10:45-0500 Systolic blood pressure 168 mm[Hg] Dr. Bailey Cerna Work Phone: [facility] 04-17-2022 11:17-0400 Body height 152.[address] Bailey Cerna Work Phone: [facility] Work Phone: 04-17-2022 11:17-0400 Body mass index (BMI) [Ratio] 24.6 kg/m2 Dr. Bailey Cerna Work Phone: [facility] Work Phone: 04-17-2022 11:17-0400 Body temperature 97.6 [degF] Dr. Bailey Cerna Work Phone: [facility] Work Phone: 04-17-2022 11:17-0400 Body weight 57.[address] Bailey Cerna Work Phone: [facility] Work Phone: 04-17-2022 11:17-0400 Diastolic blood pressure 100 mm[Hg] Dr. Bailey Cerna Work Phone: [facility] Work Phone: 04-17-2022 11:17-0400 Heart rate 94 /min Dr. Bailey Cerna Work Phone: [facility] Work Phone: 04-17-2022 11:17-0400 Respiratory rate 16 /min Dr. Bailey Cerna Work Phone: [facility] Work Phone: 04-17-2022 11:17-0400 SaO2% (BldA) [Mass fraction] 97 % Dr. Bailey Cerna Work Phone: [facility] Work Phone: 04-17-2022 11:17-0400 Systolic blood pressure 180 mm[Hg] Dr. Bailey Cerna Work Phone: [facility] Work Phone: Encounters Encounter Date Encounter Type Care Provider Facility Start: 01-18-2025 [facility] Start: 12-11-2024 End: 12-11-2024 ambulatory [facility] [place] Start: 11-25-2024 End: 11-25-[address] Bailey Cerna MD Work Phone: [facility] Work Phone: Start: 11-25-2024 End: 11-25-[address] Bailey Cerna MD -Laboratory, [facility] Start: 11-25-2024 End: 11-25-[address] Bailey Cerna MD -[facility] Work Phone: Start: 11-25-2024 End: 11-25-2024 ambulatory [facility] Facility:[facility] Start: 11-25-2024 End: 11-25-2024 ambulatory [facility] Facility:[facility] Start: 10-01-2024 End: 10-01-2024 Patient encounter procedure Mari ROBLEDO -[facility] Work Phone: Start: 10-01-2024 End: 10-01-2024 ambulatory [facility] [place] [place] Start: 09-28-2024 End: 09-28-[address] Umang Vyas MD -Laboratory, Specimen Work Phone: Start: 09-28-2024 End: 09-28-2024 ambulatory [facility] Facility:[facility] Start: 09-25-2024 End: 09-25-[address] Umang Vyas MD -[facility] Work Phone: Start: 09-25-2024 End: 09-25-2024 ambulatory [facility] Facility:[facility] [place] Start: 08-14-2024 End: 08-14-2024 Patient encounter procedure Jason BEE -[facility] Work Phone: Start: 08-14-2024 End: 08-14-2024 ambulatory Efewongbe Olejose enriquee Facility:[facility] Start: 07-24-2024 End: 07-24-2024 ambulatory Efewongbe Olejose enriquee Facility:[facility] Start: 07-17-2024 End: 07-17-2024 ambulatory Ivan Ortiz Facility:[facility] Start: 07-14-2024 End: 07-29-2024 Evaluation and management of inpatient Efdemarcoongbe Olejose enriquee Facility:[facility] Start: 07-11-2024 ambulatory Efewongbe Blase Facili ty:[facility] Start: 07-11-2024 End: 07-14-2024 Evaluation and management of inpatient Efdemarcoongbe Blase Facility:[facility] Start: 06-12-2024 End: 06-12-2024 ambulatory Efewongbe Olejose enriquee Facility:[facility] Start: 05-19-2024 End: 05-19-2024 ambulatory Efewongbe Olejose enriquee Facility:[facility] Start: 05-15-2024 End: 05-15-2024 ambulatory Efewongbe Olejose enriquee Facility:[facility] Start: 05-08-2024 End: 05-08-2024 Emergency department patient visit Efdemarcoongbe Blase Facility:[facility] Start: 05-08-2024 End: 05-08-2024 ambulatory Efewongbe Oleghe Facility:[facility] Start: 05-05-2024 End: 05-05-2024 ambulatory Efewongbe Oleghe Facility:[facility] Start: 05-05-2024 End: 05-05-2024 ambulatory Efewongbe Olee Facility:[facility] Start: 05-01-2024 End: 05-01-2024 ambulatory Efewongbe Oleghe Facility:[facility] Start: 05-01-2024 End: 05-01-2024 ambulatory Efewongbe Olee Facility:[facility] Start: 04-15-2024 End: 04-15-2024 ambulatory Efewongbe Oleghe Facility:[facility] Start: 03-30-2024 End: 03-30-2024 ambulatory Efewongbe Oleghe Facility:[facility] Start: 03-30-2024 End: 03-30-2024 ambulatory Efewongallyn Baptistejose enriquekaitlin Facility:[facility] Start: 02-17-2024 End: 02-17-2024 [facility] Start: 02-17-2024 End: 02-17-2024 [facility]ulatory [facility] Start: 2024 End: 2024 Emergency department [facility] Start: 09-26-2023 End: 09-26-[address] Bailey Cerna Work Phone: [facility] Work Phone: Start: 09-26-2023 End: 09-26-[address] Bailey Cerna Work Phone: [facility] Work Phone: Start: 09-26-2023 End: 09-26-[address] Bailey Cerna Work Phone: [facility] Work Phone: Start: 11-08-2022 End: 11-08-2022 Emergency department patient visit Dr. Bailey Cerna Work Phone: [facility]-Emergency Department Start: 10-24-2022 End: 10-24-[address] Bailey Cerna Work Phone: [facility] Start: 08-15-2022 End: 08-15-[address] Bailey Cerna Work Phone: [facility] Work Phone: Start: 08-15-2022 End: 08-15-[address] Bailey Cerna Work Phone: [facility]-Outpatient Bone Densitometry Start: 07-25-2022 End: 07-25-[address] Bailey Cerna Work Phone: [facility]atory, [facility] Start: 07-25-2022 End: 07-25-[address] Bailey Cerna Work Phone: [facility] Start: 04-19-2022 End: 04-19-[address] Bailey Cerna Work Phone: [facility] Work Phone: Start: 04-19-2022 End: 04-19-[address] Bailey Cerna Work Phone: [facility] Start: 04-17-2022 End: 04-17-[address] Bailey Cerna Work Phone: [facility] Start: 03-23-2002 End: 03-23-2002 Patient encounter procedure Pete Capps Work Phone: [facility] Start: 03-23-2002 Results Only Pete Clay on Work Phone: [facility] Procedures Date Procedure Procedure Detail Performing Clinician Start: 11-08-2022 CT of head without contrast Dr. Bailey Cerna Work Phone: Start: 08-15-2022 Dual energy X-ray absorptiometry Dr. Bailey Cerna Work Phone: Start: 04-19-2022 CT of head without contrast Dr. 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 Work Phone: Start: 09-26-[address] Patient [address] [facility] Work Phone: Start: 07-25-[address] Patient [address] [facility] Work Phone: Start: 04-12-2020 Influenza vaccination INFLUENZA (#1) [facility] Start: 08-30-2012 DIABETES SCREEN DIABETES SCREEN [facility] Start: 01-24-2000 ADVANCE DIRECTIVE DISCUSSION ADVANCE DIRECTIVE DISCUSSION [facility] Start: 01-24-2000 BONE DENSITY BONE DENSITY [facility] Start: 1985 SHINGRIX VACCINE (1 of 2) PEREZ GRIX VACCINE (1 of 2) [facility] Start: 1954 Urine microalbumin profile DTAP,TDAP,TD (1 - Tdap) [facility] Patient Education BPPV [facility] Work Phone: Patient referral [facility] Work Phone: Thyroid stimulating hormone measurement [facility] Immunizations Immunization Date Immunization Notes Care Provider Fa [facility] 07-24-2024 Pneumococcal Vaccine PCV20 (Prevnar 20) Dr. Bailey Cerna MD Work Phone: [facility] 07-12-2024 influenza, high dose seasonal, preservative-free Dr. Bailey Cerna MD Work Phone: [facility] 05-06-2023 influenza, injectabl e, quadrivalent, preservative free Dr. Bailey Cerna Work Phone: [facility] 07-25-2022 influenza, injectabl e, quadrivalent, preservative free Dr. Bailey Cerna Work Phone: [facility] 07-25-2022 influenza, seasonal, injectable Dr. Bailey Cerna Work Phone: [facility] 10-17-2021 Covid (Moderna) Dr. Ana Cerna MD Work Phone: [facility] 09-18-2021 pneumococcal conjuga te vaccine, [address] Bailey Cerna Work Phone: [facility] 12-01-2020 Covid (Moderna) Dr. Ana Cerna Work Phone: [facility] 11-03-2020 Covid (Alicia) Dr. Ana Cerna Work Phone: [facility] Payers Date Payer Category Payer Self-pay [id number] 2023 Medicare [id number] 2011 Private Health Insurance [id number] 2000 Medicare MEDICARE MEDICAR E B [id number] 2000-2009 [place] [id number] Unknown COMMERCIAL OTHER [id number] Unknown [id number] 2.16.840.1.209406.3.579. 2.462 Unknown [id number] 2.840.1.020293.3.579. 2.462 Unknown [id number] 2..840.1.318495.3.579. 2.462 Unknown [id number] 2.16.840.1.208569.3.579. 2.462 Unknown [id number] 2.16.840.1.062624.3.579. 2.462 Unknown [id number] 2.16.840.1.509141.3.579. 2.462 Unknown [id number] 2.16840.1.257756.3.579. 2.462 Unknown [id number] 2.16.840.1.615094.3.579. 2.462 Unknown [id number] 2.16.840.1.100085.3.579. 2.462 Unknown [id number] 2.16840.1.778223.3.579. 2.462 Unknown [id number] 2.16840.1.102376.3.579. 2.462 Unknown [id number] 2.16840.1.671054.3.579. 2.462 Unknown [id number] 2.840.1.295530.3.579. 2.462 Unknown [id number] 2.16840.1.572812.3.579. 2.462 Unknown [id number] 2.840.1.562835.3.579. 2.462 Unknown [id number] 2.840.1.174230.3.579. 2.462 Unknown [id number] 2.840.1.639201.3.579. 2.462 Unknown [id number] 2.840.1.106832.3.579. 2.462 Unknown [id number] 2.840.1.788869.3.579. 2.462 Unknown [id number] 2.840.1.756345.3.579. 2.462 Unknown [id number] 2.840.1.607248.3.579. 2.462 Unknown [id number] 2.840.1.184300.3.579. 2.462 Unknown [id number] .840.1.133652.3.579. 2.462 Unknown [id number] .840.1.874367.3.579. 2.462 Unknown [id number] 2.840.1.717371.3.579. 2.462 Unknown [id number] 2.840.1.216519.3.579. 2.462 Unknown [id number] 2.840.1.454284.3.579. 2.462 Unknown [id number] 2.16.840.1.457505.3.579. 2.462 Unknown [id number] 2.16.840.1.342000.3.579. 2.462 Unknown [id number] 2.16.840.1.074624.3.579. 2.462 Unknown [id number] 2.16.840.1.327221.3.579. 2.462 Unknown [id number] 2.16.840.1.450754.3.579. 2.462 Unknown [id number] 2.16.840.1.033694.3.579. 2.462 Unknown [id number] 2.16840.1.539201.3.579. 2.462 Unknown [id number] 2.840.1.593086.3.579. 2.462 Social History Date Type Detail [facility] Sex Assigned At Not on file [facility] Start: 04-17-2022 End: 09-26-2023 Tobacco smoking status NHIS Unknown if ever smoked [facility] Start: 12-05-2019 Occasional [facility] Start: 12-05-2019 None [facility] Start: 12-05-2019 With Family [facility] Start: 12-05-2019 Vapor [facility] Start: 1935 Sex Assigned At Female [facility] Start: 07-23-2024 [facility] Start: 11-30-2024 Sex Female (finding) [facility] Mental Status Date Assessment Result Facility 11-08-2022 Cognitive function Level Of Cons ciousness Awake;Alert;Appropriate;Follow s Commands [facility] Work Phone: Clinical Notes 11-08-2022 to 08-14-2024 Note Date & Type Note Facility 08-14-2024 Evaluation note Diagnosis Onset Date Resolution DNR (do not resuscitate) discussion acute August 14 9:48am Pain of right heel acute Augua2024 9:48am Radicular leg pain acute Januar y 2024 9:48am Actinomyces infection acute Feb ruary 2024 8:53am Neoplasm of uncertain behavior of skin acute September 25, 2024 8:53am Neoplasm of uncertain behavior of skin acute October 01, 2024 11:16am Aortic aneurysm chronic November 2:34pm Essential (primary) hypertension chronic November 25, 2024 2:34pm Hypothyroidism chronic November 2:34pm Lumbar radiculopathy chronic Apri l 2024 2:34pm [facility] Work Phone: [phone] 640-309412-12-2024 [facility]12-06-2024 [facility]-03[facility]2024 [facility] 07-14-2024 [facility]03-30-2023 Discharge summary Author Usha Krueger [facility] November 08, 2022 1:29pm Note Date/Time November 08, 2022 11: 11am [facility] Medical Records Department [address] [place] [address] Emergency Department Summary 11/08/22 MR#: [id number] Acct: [id number] Name: PALAK MUHAMMAD Rep #:[id number] : 1935 87 From: Usha BEE PCP: Dr. Bailey Cerna MD Status:R EG ER Location: ED HPI <CRISTAL Oliveira - Last Filed: 11/08/22 13:29> History of Present Illness Chief Complaint: Dizziness Narrative Narrative: Patient presenting to the day with dizziness that she describes as feeling like the room is spinning around her that started this morning when she got out of bed. She states that it is worsened when she goes to stand up but she also doeshave symptoms at rest when lying still. She states that she has a history of intermittent dizziness but it has never been this bad and she has never been diagnosed with vertigo. PMH includes hypertension and Graves' disease. She denies any chest pain, recent illness, fever, shortness of breath, abdominal pain, nausea, and vomiting. PFSH <CRISTAL Oliveira - Last Filed: 11/08/22 13:29> PFSH Medical History Dermatitis Dizziness Essential hypertension Flu vaccine need Graves disease Headache Hypothyroid Left axillary swelling Osteoporosis Post-menopausal Home Medications aspirin 81 mg tablet,delayed release (Adult Low Dose Aspirin) 81 mg PO DAILY 04/20/20 [History Last Taken Unknown] diphenoxylate-atropine 2.5 mg-0.025 mg tablet 1 tab PO Q6H PRN 04/20/20 [History Last Taken Unknown] multivitamin (One-A-Day Essential tablet) 1 tab PO QAM 04/20/20 [History Last Taken Unknown] losartan 100 mg tablet 100 mg PO DAILY #90 tabs 09/18/21 [Rx Last Taken Unknown] Handicap Placard #1 ea 11/03/21 [Rx Last Taken Unknown] ibuprofen 200 mg tablet (Advil) 200 mg PO Q4H PRN 04/17/22 [History Last Taken Unknown] cholecalciferol (vitamin D3) 25 mcg (1,000 unit) capsule 25 mcg PO DAILY 07/25/22 [History Last Taken Unknown] amlodipine 10 mg tablet 10 mg PO DAILY #90 tabs 07/30/22 [Rx Last Taken Unknown] alendronate 70 mg tablet 70 mg PO QWEEK 3 months #13 tabs 08/20/22 [Rx Last Taken Unknown] cholestyramine (with sugar) 4 gram oral powder 4 g PO BID 3 months #378 grams 08/20/22 [Rx Last Taken Unknown] levothyroxine 75 mcg tablet 75 mcg PO DAILY #90 tabs 09/27/22 [Rx Last Taken Unknown] meclizine 25 mg tablet 25 mg PO 4X/DAY PRN PRN Dizziness #20 tabs 11/08/22 [Rx Last Taken Unknown] Allergy/AdvReac Type Severity Reaction Status Date / Time mendez Allergy Anaphylaxis Verified 11/08/22 10:46 Surgical History H/O: hysterectomy Social History Smoking Status: Current every day smoker tobacco type: e-cigarettes Electronic Cigarette Use: without nicotine alcohol intake: current substance use type: does not use ROS <CRISTAL Oliveira - Last Filed: 11/08/22 13:29> ROS ED Constitutional Constitutional ED: Denies chills, fever(s) or sweats Eyes Eyes: Denies blurry vision or diplopia Cardiovascular Cardiovascular: Denies chest pain or palpitations Respiratory/Chest Respiratory/Chest: Denies cough or dyspnea Gastrointestinal Gastrointestinal: Denies abdominal pain, nausea or vomiting Genitourinary Genitourinary ED: Denies dysuria or hematuria Musculoskeletal Musculoskeletal: Denies arthralgias or myalgias Integumentary Denies abscess, Abrasions or rash Neurologic Neurologic: Reports dizziness; Denies confusion or paresthesias Psychiatric Psychiatric: Denies anxiety, depression, suicidal ideation or suicidal thoughts EXAM <CRISTAL Oliveira - Last Filed: 11/08/22 13:29> Physical Exam Const Vital Signs: 11/08/22 10:44 11/08/22 10:53 11/08/22 12:58 Temperature 97.4 F L Temperature Source Temporal Pulse Rate 103 H Pulse Rate [Lying] 100 Pulse Rate [Sitting (for 1 minute prior to obtaining)] 103 H Pulse Rate [Standing (for 1 minute prior to obtaining)] 110 H Respiratory Rate 18 Respiratory Effort Normal Non-Labored Respiratory Pattern Normal Blood Pressure 165/81 H Blood Pressure [Lying] 148/87 H Blood Pressure [Sitting (for 1 minute prior to obtaining)] 146/79 H Blood Pressure [Standing (for 1 minute prior to obtaining)] 149/90 H Blood Pressure Mean 109 Blood Pressure Mean [Lying] 107 Blood Pressure Mean [Sitting (for 1 minute prior to obtaining)] 101 Blood Pressure Mean [Standing (for 1 minute prior to obtaining)] 109 Pulse Ox 98 Oxygen Delivery Method Room Air Positive well nourished, well developed and no apparent distress General Appearance ED: well developed HEENT Reports normocephalic and head/scalp atraumatic Mouth ED: Yes moist mucous membranes normal Eyes PERRL and EOMs intact bilaterally Neck full ROM and supple Chest Wall inspection of chest normal Resp normal respiratory effort and clear to auscultation bilaterally Cardio regular rate and regular rhythm GI soft to palpation, non-tender, non-distended and no masses Back/Spine normal ROM and normal to inspection Extremity normal to inspection and full ROM Neuro oriented x3, CN's II-XII intact bilaterally, moves all extremities, no focal motor deficits and no sensory deficits noted Sensorium / Orientation: awake and alert Psych mental status grossly normal and thought process normal Skin no rashes or lesions noted and no wounds <Dr. Vazquez Gupta MD - Last Filed: 11/08/22 13:13> Physical Exam Const Vital Signs: 11/08/22 10:44 11/08/22 10:53 11/08/22 12:58 Temperature 97.4 F L Temperature Source Temporal Pulse Rate 103 H Pulse Rate [Lying] 100 Pulse Rate [Sitting (for 1 minute prior to obtaining)] 103 H Pulse Rate [Standing (for 1 minute prior to obtaining)] 110 H Respiratory Rate 18 Respiratory Effort Normal Non-Labored Respiratory Pattern Normal Blood Pressure 165/81 H Blood Pressure [Lying] 148/87 H Blood Pressure [Sitting (for 1 minute prior to obtaining)] 146/79 H Blood Pressure [Standing (for 1 minute prior to obtaining)] 149/90 H Blood Pressure Mean 109 Blood Pressure Mean [Lying] 107 Blood Pressure Mean [Sitting (for 1 minute prior to obtaining)] 101 Blood Pressure Mean [Standing (for 1 minute prior to obtaining)] 109 Pulse Ox 98 Oxygen Delivery Method Room Air MDM <CRISTAL Oliveira - Last Filed: 11/08/22 13:29> [facility] Narrative Medical decision making narrative: Patient presenting today with dizziness that started this morning when she woke up. She feels like the room is spinning around her. She states that it is worse when she tries to get up to ambulate but she also does have dizziness whenlying still. Patient does however have a positive Hallpike. She reports havingsome queasiness in her stomach but does not want anything for nausea at this time. Labs have been obtained to rule out anemia, electrolyte abnormality, leukocytosis and patient has been given meclizine. Labs are unremarkable. Orthostats are negative. Head CT obtained due to the worsening of patient's dizziness to rule out intracranial abnormality and is negative for any acute changes. On reexamination she states that she is feeling a lot better and her dizziness has subsided substantially. Patient's examination is consistent with vertigo. I have reviewed previous notes with her PCP and she has been seen several times in the past for this issue. She will be given a prescription for meclizine as well as a referral for ENT. She will be discharged home in stable condition and is comfortable with plan. I have personally performed a face to face assessment of the patient and have reviewed the LAY Note. I performed a substantive portion of the visit including all aspects of the following. My enciso findings include: History is [87-year-old female that I am seeing with our physician assistant counsel. Patient complaining of room spinning dizziness. Worse with movement head movement. Denies headache. Denies nausea vomiting or diarrhea. Able to ambulate. No weakness in her upper or lower extremities. No falls or head trauma. Prior history of vertigo.] Exam is [well-appearing 87-year-old female. Vital signs are stable afebrile. H EENT exam unremarkable. She has bilateral hearing aids. There is no significant wax in the canals. Neck nontender. Lungs are clear. Heart regular rhythm no murmur. Abdomen soft nontender. Moving all 4 extremities. Calves are nontender without edema or cords. Neurologically she is awake and alert with no focal motor deficits. She does have positive Hallpike with lying flat and turning her head to left and right sitting her up the dizziness gets worse. Her exam is consistent with vertigo. No signs of stroke.] Medical Decision Making [Labs, EKG and CT are unremarkable. Patient was treated with meclizine. She will be discharged home on meclizine with a prescription sent to her pharmacy. She is doing well on repeat exam at 1:10 PM. I spoke to both her and her daughter who she lives with.] Other additions or changes: [None] Lab Data Attestation: I reviewed the patient's lab results. Labs: Laboratory Results - last 24 hr 11/08/22 11/08/22 11:15 11:15 WBC 6.3 RBC 4.32 Hgb 14.4 Hct 43.5 MCV 100.7 H MCH 33.3 H MCHC 33.1 RDW Std Deviation 46.4 H RDW Coeff of Mach[place] 12.4 Plt Count 262 MPV 9.2 Immature Gran % (Auto) 0.200 Neut % (Auto) 65.7 Lymph % (Auto) 26.1 [place] % (Auto) 6.6 Eos % (Auto) 1.1 Baso % (Auto) 0.3 Absolute Neuts (auto) 4.2 Absolute Lymphs (auto) 1.65 Nucleated RBC % 0 Sodium 141 Potassium 3.6 Chloride 105 Carbon Dioxide 26.0 Anion Gap 10 BUN 10 Creatinine 0.71 Estim Creat Clear Calc 28.47 Est GFR (MDRD) Af Amer 101 Est GFR (MDRD) Non-Af 83 BUN/Creatinine Ratio 14.2 Glucose 109 H Calcium 9.1 Radiography Diagnostic Testing: Clinical Impression(s) from Imaging Studies Brain CT 11/08/22 11:04 IMPRESSION: Stable chronic ischemic and atrophic changes. No acute intracranial abnormality. Electronically Signed: Billy Finney MD at 12:48 EDT , EKG Initial EKG: Comments: 90 bpm, normal sinus rhythm, no ST elevation, reviewed and interpreted by attending ED physician. <Dr. Vazquez Gupta MD - Last Filed: 11/08/22 13:13> [facility] Narrative Medical decision making narrative: Patient presenting today with dizziness that started this morning when she woke up. She feels like the room is spinning around her. She states that it is worse when she tries to get up to ambulate but she also does have dizziness when lying still. She reports having some queasiness in her stomach but does not want anything for nausea at this time. Labs have been obtained to rule out anemia, electrolyte abnormality, leukocytosis and patient has been given meclizine. On reexamination she states that she is feeling a lot better and her dizziness has subsided substantially. I have personally performed a face to face assessment of the patient and have reviewed the LAY Note. I performed a substantive portion of the visit including all aspects of the following. My enciso findings include: History is [87-year-old female that I am seeing with our physician assistant counsel. Patient complaining of room spinning dizziness. Worse with movement head movement. Denies headache. Denies nausea vomiting or diarrhea. Able to ambulate. No weakness in her upper or lower extremities. No falls or head trauma. Prior history of vertigo.] Exam is [well-appearing 87-year-old female. Vital signs are stable afebrile. H EENT exam unremarkable. She has bilateral hearing aids. There is no significant wax in the canals. Neck nontender. Lungs are clear. Heart regular rhythm no murmur. Abdomen soft nontender. Moving all 4 extremities. Calves are nontender without edema or cords. Neurologically she is awake and alert with no focal motor deficits. She does have positive Hallpike with lying flat and turning her head to left and right sitting her up the dizziness gets worse. Her exam is consistent with vertigo. No signs of stroke.] Medical Decision Making [Labs, EKG and CT are unremarkable. Patient was treated with meclizine. She will be discharged home on meclizine with a prescription sent to her pharmacy. She is doing well on repeat exam at 1:10 PM. I spoke to both her and her daughter who she lives with.] Other additions or changes: [None] Lab Data Lab results narrative: CBC normal. Electrolytes unremarkable. CT of the brain unremarkable. Labs: Laboratory Results - last 24 hr 11/08/22 11/08/22 11:15 11:15 WBC 6.3 RBC 4.32 Hgb 14.4 Hct 43.5 MCV 100.7 H MCH 33.3 H MCHC 33.1 RDW Std Deviation 46.4 H RDW Coeff of [place]o 12.4 Plt Count 262 MPV 9.2 Immature Gran % (Auto) 0.200 Neut % (Auto) 65.7 Lymph % (Auto) 26.1 [place] % (Auto) 6.6 Eos % (Auto) 1.1 Baso % (Auto) 0.3 Absolute Neuts (auto) 4.2 Absolute Lymphs (auto) 1.65 Nucleated RBC % 0 Sodium 141 Potassium 3.6 Chloride 105 Carbon Dioxide 26.0 Anion Gap 10 BUN 10 Creatinine 0.71 Estim Creat Clear Calc 28.47 Est GFR (MDRD) Af Amer 101 Est GFR (MDRD) Non-Af 83 BUN/Creatinine Ratio 14.2 Glucose 109 H Calcium 9.1 Radiography Diagnostic Testing: Clinical Impression(s) from Imaging Studies Brain CT 11/08/22 11:04 IMPRESSION: Stable chronic ischemic and atrophic changes. No acute intracranial abnormality. Electronically Signed: Billy Finney MD at 12:48 EDT , Discharge Plan Triage Chief Complaint: Dizziness ED Midlevel Provider: Usha Krueger ED Provider: Vazquez Gupta Dx/Rx/DC Orders Clinical Impression: Hypertension, Dizziness, Vertigo Instructions: BPPV Prescriptions: New meclizine 25 mg tablet 25 mg PO 4X/DAY PRN PRN (Reason: Dizziness) Qty: 20 0RF No Action aspirin [Adult Low Dose Aspirin] 81 mg tablet,delayed release (DR/EC) 81 mg PO DAILY multivitamin [One-A-Day Essential] Tablet 1 tab PO QAM diphenoxylate-atropine 2.5-0.025 mg tablet 1 tab PO Q6H PRN losartan 100 mg tablet 100 mg PO DAILY Qty: 90 3RF ibuprofen [Advil] 200 mg tablet 200 mg PO Q4H PRN cholecalciferol (vitamin D3) 25 mcg (1,000 unit) capsule 25 mcg PO DAILY (DME) Handicap Placard See Rx Instructions .ROUTE .MEDSUPPLY Qty: 1 0RF Rx Instructions: As directed, length of time 3 years amlodipine 10 mg tablet 10 mg PO DAILY Qty: 90 3RF cholestyramine (with sugar) 4 gram powder 4 g PO BID 90 Days Qty: 378 3RF Rx Instructions: administer w/meal; avoid other meds within 1hr before or 4-6hr after dose alendronate 70 mg tablet 70 mg PO QWEEK 90 Days Qty: 13 2RF levothyroxine 75 mcg tablet 75 mcg PO DAILY Qty: 90 3RF Primary Care Provider: Bailey Cerna Referrals: Bartolo Beal MD [Med Staff - Active Staff] - Bailey Cerna MD [Primary Care Provider] - 3-5 Days Activity Restrictions/Additional Instructions: Please follow-up with your PCP and return for any worsening symptoms. Disposition Disposition: Home, Self Care What to do if you have Problems For any increased pain, shortness of breath, bleeding, nausea or vomiting, chestpain, or any unexpected problems, contact your Primary Care Provider. Call [facility] ([phone]) or report to the closest Emergency Room. Call 911 if necessary. 11/08/22 1329 <Electronically signed by Usha BEE> Cosigner Signature (if applicable): 11/08/22 1313 <Electronically signed by Vazquez Gupta MD> CC: Dr. Bailey Cerna MD ~ Signed [facility] Work Phone: Evaluation note* Diagnosis Onset Date Resolution Status Headache acute Dizziness chronic Hypertension chronic [facility] Work Phone: Evaluation note* Diagnosis Onset Date Resolution Status Dermatitis acute Flu vaccine need acute Headache acute Post-menopausal acute Hypertension chronic [facility] Work Phone: Evaluation note* Diagnosis Onset Date Resolution Status Dermatitis acute Flu vaccine need acute Headache acute Post-menopausal acute Hypertension chronic Left axillary swelling acute Hypertension chronic Hypothyroidism chronic Osteoporosis chronic [facility] Work Phone: Evaluation note* Diagnosis Onset Date Resolution Status Skin cyst acute Hypertension chronic Hypothyroidism chronic Osteoporosis chronic Infected sebaceous cyst acut e [facility] Work Phone: Hospital Discharge instructions Additional Instructions Please follow-up with your PCP and return for any worsening symptoms.[facility] Work Phone: Summary Purpose Family History No Family History Records Found Relationship Condition Age at Onset Recorded Date/T gabriela mother Cardiac disease Unknown Hypertension Unknown High blood cholesterol Unknown Osteoporosis Unknown Cerebrovascular accident (CVA) Unknown father Cerebrovascular accident (CVA) Unknown daughter Disorder of thyroid Unknown Advance Directives No Advanced Directives Records Found Advance Directive Response Recorded Date/ Time Living Will Yes December 05, 2019 7:17am Power of Cork Mixer Yes December 04 7:17am Advance Directive Response Recorded Date/ Time Living Will Yes December 05, 2019 6:17am Power of [place] Mixer Yes December 04 6:17am Advance Directive Response Recorded Date/ Time Name of Medical Power of Cork Mixer HATTIE Peck November 08, 2022 10:55am Living Will Yes November 08, 2022 10:55am Power of [place] Mixer Yes November 08 10:55am Advance Directive Response Recorded Date/ Time Living Will Yes November 08, 2022 9:55am Power of [place] Mixer Yes November 08 9:55am History of Past Illness Problem Noted Date Resolved Date ACUTE GASTRITIS W/O HEMORRHAGE 07/29/2009 0 03/16/2013 Chief Complaint and Reason for Visit Chief Complaint ONGOING HEADACHE HEADACHES Reason for Visit Headache Dizziness Hypertension Chief Complaint 3 M FU POST MENOPAUSAL Reason for Visit Dermatitis Flu vaccine need Headache Post-menopausal Hypertension Chief Complaint 3 M FU POST MENOPAUSAL 3 M FU DIZZINESS Reason for Visit Dermatitis Flu vaccine need Headache Post-menopausal Hypertension Left axillary swelling Hypertension Hypothyroidism Osteoporosis Chief Complaint seeping spot under a rmpit CYST IN [place] Reason for Visit Skin cyst Hypertension Hypothyroidism Osteoporosis Infected sebaceous cyst Chief Complaint Admit Date ACUTE [facility] FU/DISCUSS PAIN MANAGEMENT, [address] 60 MIN August 14, 2024 9:48am 2 M FU September 25, 2024 8:53am 1 W F/U October 01, 2024 11:16am 3 M FU November 25, 2024 2:3 4pm Reason for Visit Admit Date DNR (do not resuscitate) discussion Aravind maria esther 2024 9:48am Pain of right heel August 14, 2024 9: 48am Radicular leg pain August 14, 2024 9: 48am 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 8:53am Neoplasm of uncertain behavior of skin [facility] 2024 8:53am Neoplasm of uncertain behavior of skin [facility] 2024 11:16am Aortic aneurysm November 25, 2024 2:3 4pm Essential (primary) hypertension November 102024 2:34pm Hypothyroidism November 25, 2024 2:3 4pm Lumbar radiculopathy November 25, 2024 2: 34pm Additional Source Comments INFORMATION SOURCE (unrecogn ized section and content) DATE CREATED AUTHOR 12/27/2019 [facility] ([place]) DATE CREATED AUTHOR AUTHOR'S ORGANIZ ATION [facility] Comments (unrecognize d section and content) In the event this informatio n is protected by the Federal Confidentiality of Alcohol and Drug Abuse Patient Records regulations: The Federal rules restrict any use of the information to criminally investigate or prosecute any alcohol or drug abuse patient.[facility] Goals (unrecognized section and content) Goals may be documented in a n alternate sectionGoals may be documented in an alternate sectionGoals may be documented in an alternate sectionGoals may be documented in an alternate sectionGoals may be documented in an alternate section Care Teams (unrecognized sec tion and content) Team Status: Active Member Role Status Dates Dr. Al Atwood DO Family Provider Active Dr. Bailey Cerna MD Primary Care Provider Active Team Status: Inactive Member Role Status Dates Dr. Bailey Cerna MD Primary Care P rovider, Attending Provider, Referring Provider Active Team Status: Inactive Member Role Status Dates Dr. Bailey Cerna MD Primary Care Provider, Atten ding Provider Active Team Status: Inactive Member Role Status Dates Dr. Bailey Cerna MD Primary Care Provider Active Dr. Vazquez Gupta MD Emergency Provider Active Team Status: Inactive Member Role Status Dates Dr. Bailey Cerna MD Primary Care Provider, Refer ring Provider Active Shelly BEE PA-C Attending Provider Active Team Status: Inactive Member Role Status Dates Dr. Bailey Cerna MD Primary Care Provider Active Start: August 14, 2024 End: August 14, 2024 Dr. Bailey Cerna MD Referring Provider Active Start: August 14, 2024 End: August 14, 2024 CRISTAL Tenorio Attending Provider Active St art: August 14, 2024 End: August 14, 2024 Team Status: Inactive Member Role Status Dates Dr. Bailey Cerna MD Primary Care Provider Active Start: September 25, 2024 End: September 25, 2024 Dr. Bailey Cerna MD Referring Provider Active Start: September 25, 2024 End: September 25, 2024 Dr. Umang Vyas MD Attending Provider Active Start: September 25, 2024 End: September 25, 2024 Team Status: Inactive Member Role Status Dates Dr. Bailey Cerna MD Primary Care Provider Active Start: September 28, 2024 End: September 28, 2024 Dr. Umang Vyas MD Attending Provider Active Start: September 28, 2024 End: September 28, 2024 Team Status: Inactive Member Role Status Dates Dr. Bailey Cerna MD Primary Care Provider Active Start: October 01, 2024 End: October 01, 2024 Dr. Bailey Cerna MD Referring Provider Active Start: October 01, 2024 End: October 01, 2024 Mari Collier NP, GOVERNMENT RELATIONS MANAGER-C Attending Provider Active Start: October 01, 2024 End: October 01, 2024 Team Status: Inactive Member Role Status Dates Dr. Bailey Cerna MD Primary Care Provider Active Start: November 25, 2024 End: November 25, 2024 Dr. Bailey Cerna MD Attending Provider Active Start: November 25, 2024 End: November 25, 2024 Dr. Bailey Cerna MD Referring Provider Active Start: November 25, 2024 End: November 25, 2024 FOR RECORDS PERTAINING TO PATIENTS WHO ARE [...] BE BASED ON THE PRIMARY CLINICAL RECORDS. [employer] provides no warranty or guarantee of the accuracy or completeness of information in this document.
== END | disposition home or self-care (01) ==
LOC: CT 06:14
PROVIDERS: PCP Internal Medicine; Referring Provider Internal Medicine; Visit Provider Internal Medicine
DX: R91.1 Solitary pulmonary nodule (principal)
CPT/HCPCS: 71250